=== PATIENT | female | born 1965 | race African-American/Black ===

== ENCOUNTER 2018-08-26 10:06 | Day surgery (SDC) | payer OTHER ==
[2018-08-22 13:03] LABS: Absolute Lymphocytes (CBC) 1.6 K/uL (0.7-4.9); Absolute Monocytes 0.4 K/uL (0.1-1.3); Absolute Neutrophil 6.7 K/uL (1.8-8.0); Basophils % 1.4 % (0-1.3); Eosinophils % 2.2 % (0-4.4); Hematocrit 32.8 % (36.0-45.0); Lymphocytes % 17.6 % (15.3-44.8); MPV 8.9 fL (7.6-11.3); Monocytes % 4.7 % (3.3-12.3); RBC Red Blood Cell Count 3.69 M/uL (3.86-4.86)
[2018-08-22 13:07] LABS: Potassium 3.7 mmol/L (3.5-5.1)
--- NOTE | 2018-08-23 07:02 | EKG ---
Test Date: 2018-08-22 Test Time: 12:41:02 Maritime Engineer: MAMIE MEASUREMENT RESULTS: Intervals: Rate: 52 AL: 170 QRSD: 86 QT: 478 QTc: 444 [place]: P: 48 AL: 170 QRS: 3 T: 32 INTERPRETIVE STATEMENTS: Sinus bradycardia Otherwise normal ECG Compared to ECG 09/17/2016 10:59:40 Sinus rhythm no longer present Electronically Signed On 08-23-18 06:53:48 DIP BRAZIER by Paras Smith
[2018-08-26] MEDS ORDERED: NS 0.9% VIAL 10 ML ONE (10:20)
[2018-08-26] MEDS ORDERED: LIDOCAINE 2% MPF 5 ML VIAL ONE ×2 (10:33→11:51)
[2018-08-26] MEDS ORDERED: BUPIVACAINE 0.25% PF 10 ML VIAL ONE (10:33)
[2018-08-26] MEDS ORDERED: TETRACAINE HCL 0.5% 2ML OPTH ONE (10:33)
[2018-08-26] MEDS ORDERED: CYCLOPENTOLATE 1% OPTH 2 ML ONE (10:33)
[2018-08-26] MEDS ORDERED: PHENYLEPHRINE 10% OPTH 5ML ONE (10:34)
[2018-08-26] MEDS ORDERED: NA CHLORIDE 0.9% 500 ML ONE (10:34)
[2018-08-26] MEDS: BALANCED SALT IRRIG PLAIN 500 ML BTL IRR ONE ×2 (11:16→12:03)
[2018-08-26] MEDS: DUOVISC 1 KIT OPTH ONE ×3 (11:17→12:10)
[2018-08-26] MEDS: EPINEPHRINE/PF 1 MG/ML AMP ONE ×2 (11:17→12:03)
[2018-08-26] MEDS: D50W 25 GM/50 ML SYRINGE IV ONE ×2 (11:22→13:05)
[2018-08-26] MEDS: MOXIFLOXACIN HCL 10 DROPS/ML **OR USE OPTH ONE ×3 (11:37→12:25)
[2018-08-26] MEDS ORDERED: PROPOFOL 200 MG/20 ML VIAL IV ONE (11:50)
[2018-08-26] MEDS ORDERED: FENTANYL CITR 100 MCG/2 ML ONE (11:50)
[2018-08-26] MEDS ORDERED: MIDAZOLAM HCL 2 MG/2 ML INJ ONE (11:51)
[2018-08-26] MEDS ORDERED: ONDANSETRON 4 MG/2 ML VIAL ONE (11:51)
[2018-08-26] MEDS ORDERED: ROCURONIUM 50 MG/5 ML VIAL IV ONE (11:52)
[2018-08-26] MEDS ORDERED: GLYCOPYRROLATE 0.2 MG/ML SYR ONE (11:53)
[2018-08-26] MEDS ORDERED: EPHEDRINE SULF 50 MG/ML VIAL ONE (12:28)
--- NOTE | 2018-08-26 12:30 | P.BOP ---
Preoperative diagnosis: Nuclear sclerotic and cortical cataract OD Postoperative diagnosis: Same Primary procedure: Phacoemulsification with IOL OD Estimated blood loss: None Anesthesia: General Complications: None Implants: [id number] +21.5 Transferred to: Recovery Room Condition: Good
[2018-08-26 12:42] VITALS: O2SAT 100
[2018-08-26] MEDS ORDERED: D50W 25 GM/50 ML SYRINGE IV ONE (13:01)
[2018-08-26 14:56] VITALS: BP 160/43
[2018-08-26 14:59] VITALS: TEMP 97.2
--- NOTE | 2018-08-26 23:13 | OP ---
Surgeon: Kenna Giles MD Anesthesiologist: Sarah Del Angel CRNA and Jorge Coleman MD. Preoperative Diagnoses: Nuclear sclerotic cataract and cortical cataract, right eye. Operation Performed: Phacoemulsification with intraocular lens implant, right eye. Anesthesia: General. Complications: None. Description Of Procedure: In the operating room the patient was prepped and draped in the usual ster ile fashion for ophthalmic surgery. A lid speculum was placed in the right. Two paracentesis sites were made superiorly and inferiorly in the limbal cornea. Viscoat was placed in the anterior chamber and a crescent blade was used to make a corneal groove and tunnel, and a keratome was used to enter the anterior chamber. Provisc was placed in the anterior chamber and a 360 degree capsulotomy was pe rformed with a cystitome. The lens was hydrodissected with BSS and rotated freely. The lens was rem wayne with a stop and chop technique. 2.20 phaco CDE was used to remove the lens. Residual cortex wa s removed with the irrigation and aspiration. Provisc was placed in the capsular bag. An SA60WF +21 .5 lens was placed in the capsular bag without complications. Irrigation and aspiration were used to remove residual viscoelastic. The paracentesis sites were hydrated with BSS. The wound and paracen tesis sites were inspected and found to be watertight. Vigamox 0.07 cc was placed intracamerally at the end of the procedure. The eye was irrigated with balanced salt solution. The eye was patched wi th a soft cotton patch and Ramirez metal shield. The patient was returned to day surgery in good condition. Comments: The lens was hydrodelineated rather than hydrodissected. Discharge Instructions: Ms. Guallpa is discharged to home in good condition and is to follow up with Padmini Giles in the morning. GREGORIA/PEDRO LUIS Voice ID: [id number] Report ID: [id number]
== END 2018-08-26 14:15 | disposition home or self-care (01) ==
LOC: OR 10:06
PROVIDERS: ATTEND Ophthalmology Retina Specialist
PROC: 08RJ3JZ Replacement of Right Lens with Synthetic Substitute, Percutaneous Approach (ICD-10-PCS; principal; 2018-08-26 10:30)
DX: H25.11 Age-related nuclear cataract, right eye (principal); H25.011 Cortical age-related cataract, right eye; E11.9 Type 2 diabetes mellitus without complications; I10 Essential (primary) hypertension; G47.33 Obstructive sleep apnea (adult) (pediatric); E78.00 Pure hypercholesterolemia, unspecified; Z99.2 Dependence on renal dialysis; Z83.511 Family history of glaucoma
CPT/HCPCS: 36415; 66984; 80048; 82962 ×4; 85025; 93005; J0171; J2250; J2405; J2704; J3010

== ENCOUNTER 2019-03-07 17:26 | Emergency (ER) | payer OTHER ==
[2019-03-07 18:51] LABS: Absolute Lymphocytes (CBC) 1.5 K/uL (0.7-4.9); Hematocrit 29.7 % (36.0-45.0); Lymphocytes % 13.4 % (15.3-44.8); MPV 9.3 fL (7.6-11.3); RBC Red Blood Cell Count 3.28 M/uL (3.86-4.86)
[2019-03-07 19:11] LABS: Albumin 3.1 g/dL (3.4-5.0); Bilirubin Total 0.5 mg/dL (0.2-1.0); Potassium 4.8 mmol/L (3.5-5.1); Protein, Total 7.3 g/dL (6.4-8.2)
[2019-03-07] MEDS ORDERED: LIDOCAINE 1% 20 ML MDV ONE (19:13)
--- NOTE | 2019-03-07 20:36 | ER ---
Nurse's Notes [facility] Name: Camila Guallpa Age: 53 yrs Sex: Female : 1965 Arrival Date: 03/07/2019 Time: 17:28 Bed 7 Private MD: Morteza Nicholson C Diagnosis: Cutaneous abscess of abdominal wall Presentation: 03/07 17:41 Presenting complaint: Mother states: She has an abscess on her abd that I noticed la1 today. It busted open today and blood was everywhere. Transition of care: patient was not received from another setting of care. Onset of symptoms was March 07, 2019. Risk Assessment: Do you want to hurt yourself or someone else? Patient reports no desire to harm self or others. Initial Sepsis Screen: Does the patient meet any 2 criteria? No. Patient's initial sepsis screen is negative. Does the patient have a suspected source of infection? No. Patient's initial sepsis screen is negative. Care prior to arrival: None. 17:41 Method Of Arrival: Wheelchair la1 17:41 Acuity: YANELIS 3 la1 Historical: - Allergies: 17:41 No Known Allergies; la1 - PMHx: 17:41 Hypertension; la1 17:42 Diabetes - IDDM; Dialysis; TTS; la1 - Immunization history:: Adult Immunizations up to date. - Social history:: Smoking status: unknown. - Ebola Screening: : No symptoms or risks identified at this time. Screenin:41 Abuse screen: Denies threats or abuse. Denies injuries from another. Nutritional jl7 screening: No deficits noted. Tuberculosis screening: No symptoms or risk factors identified. Fall Risk IV access (20 points). Total Clayton Fall Scale indicates No Risk (0-24 pts). Assessment: 18:20 General: Appears in no apparent distress. uncomfortable, Behavior is calm, cooperative, jl7 appropriate for age. Pain: Complains of pain in right lower quadrant. Neuro: Level of Consciousness is awake, alert, obeys commands, Oriented to person, place, time, situation. Cardiovascular: Patient's skin is warm and dry. Respiratory: Airway is patent Respiratory effort is even, unlabored, Respiratory pattern is regular, symmetrical. Derm: Skin is pink, warm \T\ dry. Abscess located on right lower quadrant is red. 19:01 Reassessment: Patient appears in no apparent distress at this time. Patient and/or aa1 family updated on plan of care and expected duration. Pain level reassessed. Patient is alert, oriented x 3, equal unlabored respirations, skin warm/dry/pink. Awaiting lab results. 20:05 Reassessment: Patient appears in no apparent distress at this time. Patient and/or aa1 family updated on plan of care and expected duration. Pain level reassessed. Patient is alert, oriented x 3, equal unlabored respirations, skin warm/dry/pink. Awaiting provider for I \T\ D. 20:50 Reassessment: Patient appears in no apparent distress at this time. Patient is alert, aa1 oriented x 3, equal unlabored respirations, skin warm/dry/pink. Discussed d/c \T\ f/u instructions with pt \T\ mother; denies questions or concerns at this time. Vital Signs: 17:42 Weight 133.81 kg; la1 17:44 Pulse 64; Resp 16; Temp 97.5; Pulse Ox 98% on R/A; la1 17:45 BP 139 / 48; la1 19:01 BP 154 / 79; Pulse 58; Resp 18; Temp 97.0; Pulse Ox 100% on R/A; aa1 20:30 BP 157 / 85; Pulse 78; Resp 18; Temp 97.1; Pulse Ox 100% on R/A; aa1 ED Course: 17:28 Patient arrived in ED. as 17:29 Morteza Nicholson MD is Private Physician. as 17:42 Triage completed. la1 17:42 Arm band placed on left wrist. ks1 17:46 Aaron Lama PA is PHCP. [facility] 17:46 Steve Weir MD is Attending Physician. [facility] 18:01 Phoenix Rice RN is Primary Nurse. jl7 18:20 First set of blood cultures drawn. Missed attempt(s): 22 gauge in right hand. Bleeding jl7 controlled, band aid applied, catheter tip intact. 18:40 Inserted saline lock: 24 gauge in right hand, using aseptic technique. Blood collected. jl7 18:40 Initial lab(s) drawn, by id, sent to lab. Second set of blood cultures drawn by me. jl7 18:41 Patient has correct armband on for positive identification. Placed in gown. Bed in low jl7 position. Call light in reach. Side rails up X2. Adult w/ patient. 20:35 Mil Silva MD is Referral Physician. [facility] 20:35 Assist provider with I \T\ D: of an abscess on lower abdomen Set up I\T\D tray. Performed aa 1 by Aaron KHAN Dressing with ABD pad, tape Patient tolerated well. 20:52 IV discontinued, intact, bleeding controlled, No redness/swelling at site. Pressure aa1 dressing applied. Administered Medications: 20:25 Drug: Lidocaine (1 %) 20 ml Volume: 20 ml; Route: Infiltration; aa1 20:40 Drug: Clindamycin 300 mg Route: PO; aa1 20:52 Follow up: Response: No adverse reaction; Medication administered at discharge. aa1 Outcome: 20:36 Discharge ordered by . [facility] 21:04 Discharged to home via wheelchair, with family. aa1 21:04 Condition: good 21:04 Discharge instructions given to patient, family, Instructed on discharge instructions, follow up and referral plans. medication usage, Demonstrated understanding of instructions, follow-up care, medications, wound care, Prescriptions given X 1. 21:05 Patient left the ED. aa1 Signatures: Rima Vaughan RN RN leslie1 Aaron Lama PA PA jmm Martinez, Amelia as Attema, Lee, RN RN la1 Phoenix Rice RN RN jl7 Corrections: (The following items were deleted from the chart) 17:42 17:41 PMHx: Diabetes - NIDDM; la1 la1 17:42 17:41 PMHx: Renal Problem; la1 la1
--- NOTE | 2019-03-07 20:36 | EDPHYS ---
Physician Documentation [facility] Name: Camila Guallpa Age: 53 yrs Sex: Female : 1965 Arrival Date: 03/07/2019 Time: 17:28 Bed 7 Private MD: Morteza Nicholson C ED Physician Steve Weir HPI: 03/07 17:57 This 53 yrs old Black Female presents to ER via Wheelchair with complaints of Boil. jmm 17:57 The patient presents with an abscess of the abdomen. Onset: The symptoms/episode jmm began/occurred today. Possible cause(s): unknown. This is a 53 year old female with a history of htn, dm, esrd that presents to the ED with bleeding from her right lower abdomen. Family noticed an abscess earlier today which ruptured later in the day. Concerned about bleeding. . Historical: - Allergies: 17:41 No Known Allergies; la1 - PMHx: 17:41 Hypertension; la1 17:42 Diabetes - IDDM; Dialysis; TTS; la1 - Immunization history:: Adult Immunizations up to date. - Social history:: Smoking status: unknown. - Ebola Screening: : No symptoms or risks identified at this time. ROS: 17:57 Constitutional: Negative for fever, chills, and weight loss, Cardiovascular: Negative jmm for chest pain, palpitations, and edema, Respiratory: Negative for shortness of breath, cough, wheezing, and pleuritic chest pain. 17:57 Abdomen/GI: Positive for Negative for abdominal pain, nausea and vomiting, vomiting. 17:57 Skin: Positive for abscess. 17:57 All other systems are negative. Exam: 17:57 Constitutional: This is a well developed, well nourished patient who is awake, alert, jmm and in no acute distress. Head/Face: atraumatic. Eyes: EOMI, no conjunctival erythema appreciated ENT: Moist Mucus Membranes Neck: Trachea midline, Supple Chest/axilla: Normal chest wall appearance and motion. Cardiovascular: Regular rate and rhythm. No edema appreciated Respiratory: Normal respirations, no respiratory distress appreciated 17:57 Abdomen/GI: Inspection: obese draining abscess noted beneath the right lower panis . 17:57 Skin: draining abscess noted to the right lower abscess. 17:57 Neuro: Orientation: is normal, Mentation: is normal, Memory: is normal. 17:57 Psych: Behavior/mood is pleasant, cooperative. Vital Signs: 17:42 Weight 133.81 kg; la1 17:44 Pulse 64; Resp 16; Temp 97.5; Pulse Ox 98% on R/A; la1 17:45 BP 139 / 48; la1 19:01 BP 154 / 79; Pulse 58; Resp 18; Temp 97.0; Pulse Ox 100% on R/A; aa1 20:30 BP 157 / 85; Pulse 78; Resp 18; Temp 97.1; Pulse Ox 100% on R/A; aa1 Procedures: 20:34 I \T\ D: Incision and drainage was performed for an abscess of the right lower quadrant jm Prepped with Betadine, Anesthetized with 5 ml's 1% Lidocaine. Incised with #11 blade. Drained small amount purulent fluid. bloody fluid. Packed with iodoform gauze, Dressing: sterile 4x4 gauze, the patient tolerated the procedure well. MDM: 17:57 Patient medically screened. [facility] 20:34 Data reviewed: vital signs, nurses notes. Counseling: I had a detailed discussion with [facility] the patient and/or guardian regarding: the historical points, exam findings, and any diagnostic results supporting the discharge/admit diagnosis, lab results, the need for outpatient follow up, to return to the emergency department if symptoms worsen or persist or if there are any questions or concerns that arise at home. ED course: Patient given wound infection return precautions. Family understood and agrees with the plan of care. . 03/07 17:58 Order name: CBC with Diff; Complete Time: 18:59 [facility] 03/07 17:58 Order name: CMP; Complete Time: 19:18 [facility] 03/07 17:58 Order name: Lactate; Complete Time: 19:02 [facility] 03/07 17:58 Order name: Procalcitonin; Complete Time: 19:18 [facility] 03/07 17:58 Order name: Blood Culture Adult (2) [facility] 03/07 17:58 Order name: Saline Lock; Complete Time: 18:39 [facility] 03/07 17:58 Order name: Gown patient; Complete Time: 18:17 [facility] Administered Medications: 20:25 Drug: Lidocaine (1 %) 20 ml Volume: 20 ml; Route: Infiltration; aa1 20:40 Drug: Clindamycin 300 mg Route: PO; aa1 20:52 Follow up: Response: No adverse reaction; Medication administered at discharge. aa1 Disposition: 03/07/19 20:36 Discharged to Home. Impression: Cutaneous abscess of abdominal wall. - Condition is Stable. - Discharge Instructions: Skin Abscess, Incision and Drainage, Care After. - Prescriptions for Clindamycin HCl 300 mg Oral Capsule - take 1 capsule by ORAL route every 6 hours for 10 days; 40 capsule. - Medication Reconciliation Form, Thank You Letter, Antibiotic Education, Prescription Opioid Use form. - Follow up: Mil Silva MD; When: 2 - 3 days; Reason: Recheck today's complaints, Continuance of care, Re-evaluation by your physician. Addendum: 03/10/2019 07:20 Co-signature as Attending Physician, Steve Weir MD. r n Signatures: Dispatcher [employer] EDMS Rima Vaughan RN RN aa1 Aaron Lama PA PA jmm Nieto, Roman, MD MD rn Attema, Lee, RN RN la1 Corrections: (The following items were deleted from the chart) 03/07 17:42 17:41 PMHx: Diabetes - NIDDM; la1 la1 17:42 17:41 PMHx: Renal Problem; la1 la1 21:05 20:36 03/07/2019 20:36 Discharged to Home. Impression: Cutaneous abscess of abdominal aa1 wall. Condition is Stable. Forms are Medication Reconciliation Form, Thank You Letter, Antibiotic Education, Prescription Opioid Use. Follow up: Mil Silva; When: 2 - 3 days; Reason: Recheck today's complaints, Continuance of care, Re-evaluation by your physician. [facility]
[2019-03-07 21:41] VITALS: O2SAT 100
[2019-03-07 21:43] VITALS: BP 157/85; TEMP 97.1
== END 2019-03-07 21:05 | disposition home or self-care (01) ==
LOC: ER 17:26
PROC: 0J980ZZ Drainage of Abdomen Subcutaneous Tissue and Fascia, Open Approach (ICD-10-PCS; principal; 2019-03-07)
DX: L02.211 Cutaneous abscess of abdominal wall (principal); E11.22 Type 2 diabetes mellitus with diabetic chronic kidney disease; I12.0 Hypertensive chronic kidney disease with stage 5 chronic kidney disease or end stage renal disease; N18.6 End stage renal disease; Z99.2 Dependence on renal dialysis
CPT/HCPCS: 36415; 80053; 82962; 83605; 84145; 85025; 87040; 99284

== ENCOUNTER 2020-02-21 09:05 | Inpatient (IN) | payer OTHER ==
[2020-02-21] MEDS ORDERED: IBUPROFEN 200 MG TAB PO ONE (10:14)
[2020-02-21] MEDS ORDERED: METHYLPREDNISOLONE 125 MG INJ ONE (10:14)
[2020-02-21] MEDS ORDERED: NA CHLORIDE 0.9% 250 ML ONE (10:15)
[2020-02-21] MEDS ORDERED: IBUPROFEN 400 MG TAB ONE (10:15)
[2020-02-21] MEDS ORDERED: CEFTRIAXONE/SWI 1gm 1 GM/10 ML SYR ONE (10:15)
[2020-02-21] MEDS ORDERED: AZITHROMYCIN 500 MG INJ IVPB ONE (10:15)
[2020-02-21] MEDS ORDERED: ONDANSETRON 4 MG/2 ML VIAL ONE (10:31)
[2020-02-21 10:52] LABS: Absolute Lymphocytes (CBC) 0.7 K/uL (0.7-4.9); Basophils % 0.5 % (0-1.3); Hematocrit 32.5 % (36.0-45.0); Lymphocytes % 7.5 % (15.3-44.8); MPV 9.8 fL (7.6-11.3); RBC Red Blood Cell Count 3.61 M/uL (3.86-4.86)
--- NOTE | 2020-02-21 10:52 | ER ---
Nurse's Notes [facility] Name: Camila Guallpa Age: 54 yrs Sex: Female : 1965 Arrival Date: 02/21/2020 Time: 09:06 Bed 16 Private MD: Diagnosis: Pneumonia due to other specified bacteria Presentation: 02/20 09:04 Initial Sepsis Screen: Does the patient meet any 2 criteria? RR > 20 per min. Temp sv <36.0*C (96.8*F)) or > 38.3*C (100.9*F). Yes Does the patient have a suspected source of infection? Yes: Other: fever. Onset of symptoms was February 17, 2020. 09:08 Chief complaint: EMS states: SOB, cough, fever, bloody sputum and generalized weakness ss that began "a couple days ago". Coronavirus screen: Client denies travel out of the [place] in the last 14 days. cough unrelated to allergies, difficulty breathing, fever, shortness of breath. Ebola Screen: Patient denies exposure to infectious person. Patient denies travel to an Ebola-affected area in the 21 days before illness onset. Risk Assessment: Do you want to hurt yourself or someone else? Patient reports no desire to harm self or others. 09:08 Method Of Arrival: EMS: [facility] ss 09:08 Acuity: YANELIS 3 ss Triage Assessment: 09:04 General: Appears in no apparent distress. uncomfortable, obese, well developed, sv Behavior is calm, cooperative, appropriate for age. Pain: Complains of pain in abdomen. Neuro: Level of Consciousness is awake, alert, obeys commands, Oriented to person, place, time, situation, Moves all extremities. Full function. Cardiovascular: Patient's skin is warm and dry. Pulses are palpable in right radial artery and left radial artery. Respiratory: Reports shortness of breath at rest on exertion cough that is non-productive, Airway is patent Respiratory effort is even, unlabored, Respiratory pattern is symmetrical, tachypnea Onset: The symptoms/episode began/occurred 02/17/20, the patient has mild shortness of breath. Derm: Skin is normal, Skin temperature is hot. Musculoskeletal: Range of motion: intact in all extremities. Historical: - Allergies: : No Known Allergies; sv - PMHx: 09:08 Diabetes - IDDM; Dialysis; TTS; Hypertension; ss - Immunization history:: Adult Immunizations. - Social history:: Smoking status: . Screenin:41 Abuse screen: Denies threats or abuse. Denies injuries from another. Nutritional sv screening: No deficits noted. Tuberculosis screening: No symptoms or risk factors identified. Fall Risk None identified. Assessment: 10:05 Reassessment: Patient appears in no apparent distress at this time. No changes from sv previously documented assessment. Patient and/or family updated on plan of care and expected duration. Pain level reassessed. Patient is alert, oriented x 3, equal unlabored respirations, skin warm/dry/pink. 10:35 Reassessment: Patient appears in no apparent distress at this time. No changes from sv previously documented assessment. Patient and/or family updated on plan of care and expected duration. Pain level reassessed. Patient is alert, oriented x 3, equal unlabored respirations, skin warm/dry/pink. 10:37 Reassessment: Dr Nicholson here to assess the pt. sv 10:38 Reassessment: Fabi (mother) [phone]. Mother stated pt's symptoms started Tues sv 02/16/ with fever Tmax 102.8 and cough. Vital Signs: 09:04 BP 161 / 72; Pulse 86; Resp 24; Temp 101.2; Pulse Ox 100% ; sv 10:49 BP 189 / 86; Pulse 91; Resp 20; Pulse Ox 100% on R/A; sv 11:43 BP 175 / 81; Pulse 87; Resp 19; Pulse Ox 100% on R/A; sv 12:06 Temp 100.4(O); sv ED Course: 09:06 Patient arrived in ED. sv 09:06 Lucila Woodard, ANEL is Primary Nurse. sv 09:07 Rk Michele PA is PHCP. jr8 09:07 Nahum Braxton MD is Attending Physician. jr8 09:08 Arm band placed on right wrist. ss 09:09 Triage completed. ss 09:22 X-ray(s) taken. sv 09:35 Chest Single View XRAY In Process Unspecified. EDMS 09:50 Patient has correct armband on for positive identification. Placed in gown. Bed in low sv position. Call light in reach. Side rails up X2. secured entrance monitor on. Pulse ox on. NIBP on. Door closed. Head of bed elevated. 09:50 First set of blood cultures drawn by me. sv 09:58 Second set of blood cultures drawn by me. Inserted saline lock: 20 gauge in right sv forearm, using aseptic technique. Blood collected. Flushed right forearm with 5 ml normal saline. 10:10 EKG done, by ED staff, reviewed by Rk KHAN. sv 10:46 C-Reactive Protein Sent. sv 10:46 D-Dimer Sent. sv 10:46 Basic Metabolic Panel Sent. sv 10:50 Awaiting lab results, Awaiting radiology results. sv 10:50 Morteza Nicholson MD is Hospitalizing Provider. jr8 11:20 Lab(s) recollected, by me, sent to lab. sv 11:42 No provider procedures requiring assistance completed. Patient admitted, IV remains in sv place. intact. Administered Medications: 10:05 Drug: Rocephin 1 grams Route: IV; Rate: calculated rate; Site: right forearm; sv 10:07 Follow up: Response: No adverse reaction; IV Status: Completed infusion; IV Intake: 10mlsv 10:07 Drug: SOLU-Medrol 125 mg Route: IVP; Site: right forearm; sv 11:36 Follow up: Response: No adverse reaction sv 10:09 Drug: Zithromax 500 mg Route: IVPB; Infused Over: 1 hrs; Site: right forearm; sv 11:36 Follow up: Response: No adverse reaction; IV Status: Completed infusion; IV Intake: sv 250ml 10:10 Drug: Motrin 600 mg Route: PO; sv 11:35 Follow up: Response: No adverse reaction sv Intake: 10:07 IV: 10ml; Total: 10ml. sv 11:36 IV: 250ml; Total: 260ml. sv Outcome: 10:51 Decision to Hospitalize by Provider. jrBrisa 11:42 Admitted to Tele accompanied by tech, via stretcher, room 401, with chart, Report sv called to Alex TAM 11:42 Condition: stable 11:42 Instructed on the need for admit. 12:05 Patient left the ED. sv Signatures: Dispatcher [employer] Lucila Harry RN RN sv Smirch, Shelby, RN RN ss Roszak, Josh, PA PA jr8 Corrections: (The following items were deleted from the chart) 09:10 09:08 Chief complaint: EMS states: SOB, cough, fever, bloody sputum and generalized ss weakness ss 10:44 10:38 Reassessment: Fabi (mother) [phone] sv sv
--- NOTE | 2020-02-21 10:52 | EDPHYS ---
Physician Documentation [facility] Name: Camila Guallpa Age: 54 yrs Sex: Female : 1965 Arrival Date: 02/21/2020 Time: 09:06 Bed 16 Private MD: ED Physician Nahum Braxton HPI: 02/20 10:17 This 54 yrs old Black Female presents to ER via EMS with complaints of General jr8 Weakness, Cough, Shortness Of Breath, Fever. 10:17 The patient reports fever, with an emergency department temperature of 101 degrees jr8 Fahrenheit. Onset: The symptoms/episode began/occurred gradually, 2 day(s) ago. Modifying factors: there are no obvious modifying factors. Associated signs and symptoms: Pertinent positives: cough, nausea, shortness of breath, sore throat. Severity of symptoms: At their worst the symptoms were moderate in the emergency department the symptoms are unchanged. The patient has not experienced similar symptoms in the past. The patient has not recently seen a physician. Patient stated that she has had a couple of days of this and now having shortness of breath with fever. COVID tested yesterday but does not have results yet . Historical: - Allergies: 09:30 No Known Allergies; sv - PMHx: 09:08 Diabetes - IDDM; Dialysis; TTS; Hypertension; ss - Immunization history:: Adult Immunizations. - Social history:: Smoking status: . ROS: 10:17 Eyes: Negative for injury, pain, redness, and discharge, ENT: Negative for injury, or jr8 discharge. Positive for sore throat Neck: Negative for injury, pain, and swelling, Cardiovascular: Negative for chest pain, palpitations, and edema, Abdomen/GI: Negative for abdominal pain. Positive for nausea and vomiting Back: Negative for injury and pain, MS/Extremity: Negative for injury and deformity, Skin: Negative for injury, rash, and discoloration, Neuro: Negative for headache, weakness, numbness, tingling, and seizure. 10:17 Constitutional: Positive for body aches, chills, fever. 10:17 Respiratory: Positive for cough, dyspnea on exertion, shortness of breath. Exam: 10:17 Eyes: Pupils equal round and reactive to light, extra-ocular motions intact. Lids and jr8 lashes normal. Conjunctiva and sclera are non-icteric and not injected. Cornea within normal limits. Periorbital areas with no swelling, redness, or edema. ENT: Nares patent. No nasal discharge, no septal abnormalities noted. Tympanic membranes are normal and external auditory canals are clear. Oropharynx with no redness, swelling, or masses, exudates, or evidence of obstruction, uvula midline. Mucous membranes moist. Neck: Trachea midline, no thyromegaly or masses palpated, and no cervical lymphadenopathy. Supple, full range of motion without nuchal rigidity, or vertebral point tenderness. No Meningismus. Cardiovascular: Regular rate and rhythm with a normal S1 and S2. No gallops, murmurs, or rubs. Normal PMI, no JVD. No pulse deficits. Back: No spinal tenderness. No costovertebral tenderness. Full range of motion. Skin: Warm, dry with normal turgor. Normal color with no rashes, no lesions, and no evidence of cellulitis. MS/ Extremity: Pulses equal, no cyanosis. Neurovascular intact. Full, normal range of motion. Neuro: Awake and alert, GCS 15, oriented to person, place, time, and situation. Cranial nerves II-XII grossly intact. Motor strength 5/5 in all extremities. Sensory grossly intact. Cerebellar exam normal. Normal gait. 10:17 Respiratory: the patient does not display signs of respiratory distress, Respirations: tachypnea, that is mild, Breath sounds: are clear throughout. 10:17 Abdomen/GI: Inspection: obese Bowel sounds: active, all quadrants, Palpation: soft, in all quadrants, mild abdominal tenderness, in the epigastric area, mass, is not appreciated, rebound tenderness, is elicited in all quadrants, voluntary guarding, is not appreciated, involuntary guarding, is not appreciated, no appreciated organomegaly, Indicators: McBurney's point is not tender, Marcum's sign is negative, Rovsing's sign is negative, Liver: tenderness, is not appreciated. Vital Signs: 09:04 BP 161 / 72; Pulse 86; Resp 24; Temp 101.2; Pulse Ox 100% ; sv 10:49 BP 189 / 86; Pulse 91; Resp 20; Pulse Ox 100% on R/A; sv 11:43 BP 175 / 81; Pulse 87; Resp 19; Pulse Ox 100% on R/A; sv 12:06 Temp 100.4(O); sv MDM: 09:07 Patient medically screened. [facility] 10:50 Data reviewed: vital signs, nurses notes, lab test result(s), EKG, radiologic studies, [facility] plain films. Data interpreted: Pulse oximetry: on room air is 97 %. Interpretation: normal. Counseling: I had a detailed discussion with the patient and/or guardian regarding: the historical points, exam findings, and any diagnostic results supporting the discharge/admit diagnosis, lab results, radiology results, the need for further work-up and treatment in the hospital. Physician consultation: A Lyn PATTERSON was called at 10:50, was contacted at 10:50, regarding admission, and will see patient in ED. 02/20 09:12 Order name: C-Reactive Protein [facility] 02/20 09:12 Order name: D-Dimer [facility] 02/20 09:12 Order name: Basic Metabolic Panel [facility] 02/20 09:12 Order name: Blood Culture Adult (2) [facility] 02/20 09:12 Order name: CBC with Diff; Complete Time: 13:14 [facility] 02/20 09:12 Order name: CPK; Complete Time: 13:14 [facility] 02/20 09:12 Order name: Lactate; Complete Time: 11:51 [facility] 02/20 09:12 Order name: LFT's; Complete Time: 13:14 [facility] 02/20 09:12 Order name: Procalcitonin; Complete Time: 13:14 [facility] 02/20 09:12 Order name: Protime (+inr); Complete Time: 12:02 [facility] 02/20 09:12 Order name: Ptt, Activated; Complete Time: 12:02 [facility] 02/20 09:12 Order name: Troponin (emerg Dept Use Only); Complete Time: 13:14 [facility] 02/20 09:12 Order name: Ferritin; Complete Time: 13:14 [facility] 02/20 09:13 Order name: C-Reactive Protein; Complete Time: 13:14 ED[facility] 02/20 09:12 Order name: Chest Single View XRAY; Complete Time: 11:07 [facility] 02/20 09:12 Order name: Cardiac monitoring; Complete Time: 10:45 [facility] 02/20 09:12 Order name: EKG - Nurse/Tech; Complete Time: 10:45 [facility] 02/20 09:12 Order name: IV Saline Lock - Large Bore; Complete Time: 10:45 [facility] 02/20 09:12 Order name: Labs collected and sent; Complete Time: 10:45 [facility] 02/20 09:12 Order name: O2 Per Protocol; Complete Time: 10:45 [facility] 02/20 09:12 Order name: O2 Sat Monitoring; Complete Time: 10:45 [facility] 02/20 09:13 Order name: D-Dimer; Complete Time: 12:02 [facility] 02/20 09:13 Order name: Basic Metabolic Panel; Complete Time: 13:14 EDNM 02/20 10:39 Order name: CONS Physician Consult EDNM 02/20 10:57 Order name: Labs - recollect needed: recollect the green and blue top.; Complete Time: eb 11:35 Administered Medications: 10:05 Drug: Rocephin 1 grams Route: IV; Rate: calculated rate; Site: right forearm; sv 10:07 Follow up: Response: No adverse reaction; IV Status: Completed infusion; IV Intake: 10mlsv 10:07 Drug: SOLU-Medrol 125 mg Route: IVP; Site: right forearm; sv 11:36 Follow up: Response: No adverse reaction sv 10:09 Drug: Zithromax 500 mg Route: IVPB; Infused Over: 1 hrs; Site: right forearm; sv 11:36 Follow up: Response: No adverse reaction; IV Status: Completed infusion; IV Intake: sv 250ml 10:10 Drug: Motrin 600 mg Route: PO; sv 11:35 Follow up: Response: No adverse reaction sv Disposition: 12:25 Co-signature as Attending Physician, Nahum Braxton MD I agree with the assessment and kdr plan of care. Disposition: 02/21/20 10:51 Hospitalization ordered by Morteza Nicholson for Inpatient Admission. Preliminary diagnosis is Pneumonia due to other specified bacteria. - Bed requested for Telemetry/MedSurg (Inpatient). - Status is Inpatient Admission. sv - Condition is Stable. - Problem is new. - Symptoms have improved. Signatures: Dispatcher [employer] EDLucila Locke RN RN sv Woody, Diana, RN RN dw Rittger, Kevin, MD MD kdr Smirch, Shelby, RN RN ss Roszak, Josh, PA PA [facility] Marilee Booth Corrections: (The following items were deleted from the chart) 10:45 09:12 Accucheck ordered. jr8 sv 11:06 10:51 Hospitalization Ordered by A Lyn PATTERSON for Inpatient Admission. Preliminary dw diagnosis is Pneumonia due to other specified bacteria. Bed requested for Telemetry/MedSurg (Inpatient). Status is Inpatient Admission. Condition is Stable. Problem is new. Symptoms have improved. jr8 12:05 11:06 02/21/2020 10:51 Hospitalization Ordered by A Lyn PATTERSON for Inpatient Admission. sv Preliminary diagnosis is Pneumonia due to other specified bacteria. Bed requested for Telemetry/MedSurg (Inpatient). Status is Inpatient Admission. Condition is Stable. Problem is new. Symptoms have improved. dw
--- NOTE | 2020-02-21 11:06 | RAD REPORT ---
EXAM DESCRIPTION: RAD - Chest Single View - 02/21/2020 9:35 am CLINICAL HISTORY: DYSPNEA Chest pain. COMPARISON: Chest Pa And Lat (2 Views) dated 02/12/2017; Chest Pa And Lat (2 Views) dated 09/17/2016; CHEST SINGLE VIEW dated 10/03/2011 FINDINGS: Portable technique limits examination quality. Asymmetric interstitial lung opacities are present, slightly greater on the right, likely representin g interstitial pneumonia/ viral pneumonitis. The heart is mildly enlarged size. No displaced fracture s.
[2020-02-21 11:43] LABS: Protime INR 1.1
[2020-02-21 12:27] LABS: Anisocytosis 1+; Blood Morphology Comment NOTED (NOT SEEN); Platelet Estimate ADEQ; Platelets, Giant PRESENT
[2020-02-21 12:28] LABS: Albumin 2.6 g/dL (3.4-5.0); Bilirubin Direct 0.2 mg/dL (0-0.2); Bilirubin Total 0.5 mg/dL (0.2-1.0); Ferritin 6713.9 ng/mL (8-388); Potassium 4.1 mmol/L (3.5-5.1); Protein, Total 7.7 g/dL (6.4-8.2); Troponin (Emerg Dept Use Only) 0.32 ng/mL (0.0-0.045)
[2020-02-21] MEDS ORDERED: ACETAMINOPHEN 500 MG TAB PO PRN (12:45)
[2020-02-21] MEDS ORDERED: ALBUTEROL 2.5 MG/3 ML NEB SOL NEB PRN (12:45)
[2020-02-21] MEDS ORDERED: D50W 25 GM/50 ML SYRINGE/VIAL IV PRN ×2 (12:45→18:53)
[2020-02-21] MEDS ORDERED: MORPHINE 4 MG/ML SYR IV PRN (12:45)
[2020-02-21] MEDS: INSULIN -REGULAR HUMAN 50 UNIT/0.5 ML ML SQ SCH ×3 (12:45→21:00)
[2020-02-21] MEDS ORDERED: ONDANSETRON 4 MG/2 ML VIAL IV PRN (12:45)
[2020-02-21] MEDS ORDERED: GLUCAGON 1 MG/VIAL IM PRN ×2 (12:45→18:53)
[2020-02-21 15:27] VITALS: BMI 54.8
[2020-02-21] MEDS: CLONIDINE HCL 0.3 MG TAB PO SCH ×2 (17:00→21:15)
[2020-02-21] MEDS ORDERED: HEPARIN 5000 UNIT/ML 1 ML VIAL SQ SCH (21:00)
[2020-02-21] MEDS ORDERED: METHYLPREDNISOLONE 40 MG INJ IV SCH ×2 (21:00)
[2020-02-21] MEDS ORDERED: INSULIN GLARGINE 100 UNITS/ML SQ SCH (21:00)
[2020-02-21] MEDS: FUROSEMIDE 40 MG TABLET PO SCH (21:14)
[2020-02-21] MEDS: DOXAZOSIN 2 MG TAB PO SCH (21:14)
[2020-02-21] MEDS: ATORVASTATIN 10 MG TAB PO SCH (21:15)
[2020-02-21] MEDS: METOPROLOL TAR 50 MG TAB PO SCH (21:16)
--- NOTE | 2020-02-22 01:21 | HP ---
Date of Admission: 02/21/2020 Chief Complaint: Fever, cough. History Of Present Illness: Ms. Guallpa is a very pleasant 54-year-old female patient, who has end-sta ge renal disease on hemodialysis, started to have some dry cough, fever, headache this week. Denied any shortness of breath. She has not had a good appetite in last few days. No vomiting. No diarrhe a. Denied any exposure to COVID-19 patients. She lives at home with her mother. I talked to alondra quintanilla and her mother, both on 02/18/2020 via TeleVisit and suggested for her to have COVID-19 test done, which was done as outpatient yesterday at our hospital and today the patient was brought into the cl ency room because her temperature was 101.8 to 102 range and she was not feeling good, so family de cided to bring her to ER. I saw her in the emergency room this morning and talked to the patient's m other on the phone from emergency room this morning. Social History: Negative for smoking, alcohol use. Family History: Father , had colon cancer. Mother with arthritis, hypertension. Past Surgical History: Cataract surgery. Past Medical History: Diabetic retinopathy, diabetes mellitus with kidney disease, obstructive sleep apnea, end-stage renal disease on hemodialysis, mixed hyperlipidemia, hypertension, anemia due to ch ronic kidney disease. Review of Systems: Constitutional: Significant for fever. Respiratory System: Significant for cough. Neurologic System: Significant for headache. All other systems reviewed and negative. Allergies: NO KNOWN ALLERGIES. Medications: Aspirin 81 mg daily, vitamin D3 2000 units daily, clonidine 0.3 mg 3 times a day, doxaz osin 2 mg at bedtime, furosemide 80 mg takes 2 tablets 2 times a day, Lantus insulin daily, Humalog i nsulin as per instruction from her nursing department chairperson, metoprolol tartrate 100 mg 2 times a day, nifedip ine 90 mg daily, pravastatin 80 mg daily, ramipril 10 mg daily. Physical Examination: Vital Signs: Initial temperature 100.4, pulse 91, respiratory rate 20, blood pressure 189/86, oxygen saturation 100%. General: Awake, alert, oriented, not in distress. HEENT: Head atraumatic, normocephalic. Conjunctivae nonerythematous. Sclerae white. Mouth, no thr ush or edema noted. Ears/Nose, no mass, lesion, discharge noted. Neck: Supple. No JVD, lymph nodes, bruit, thyromegaly noted. Lungs: Some rales noted in right lung. Not using any accessory muscles of respiration. Heart: Normal heart sounds. No murmur or gallop. Abdomen: Soft. Bowel sounds normal. No guarding, rigidity, tenderness, mass, hepatosplenomegaly, d istention, or bruit noted. Extremities: No leg edema. No calf tenderness. Skin: No rash, ulcer, cellulitis. Lymphatics: No lymph node enlargement in neck, supraclavicular, infraclavicular region. Neuro: No focal neurological deficit. Chest: Unremarkable. External Genitalia: Deferred. Rectal: Deferred. Laboratory Data: White count 9.1, hemoglobin 11.3, platelets 202. D-dimer 2418. INR 1.10. Sodium 137, potassium 4.1, chloride 103, bicarb 20, BUN 65, creatinine 10.4, glucose 218. Ferritin level 67 13. CRP 258. Liver function tests unremarkable. Procalcitonin 28. Lactic acid 1.4. Chest x-ray s howed asymmetric interstitial lung opacity present, slightly greater on the right than the left side. The patient's COVID-19 test came back positive after she was admitted to the hospital. Impression: 1.COVID-19 with pneumonia. 2.End-stage renal disease, on hemodialysis. 3.Hypertension. 4.Mixed hyperlipidemia. 5.Anemia due to chronic kidney disease. 6.Diabetes mellitus with diabetic retinopathy. 7.Obstructive sleep apnea. Plan: Admit the patient to hospital for further evaluation and management of this problem. The [facility] ent is appropriate for inpatient and is expected to spend 2 midnights in the hospital. We will go ah ead and consult feeder catcher, consult eradicator. The patient will receive IV antibiotics, Zithro max and ceftriaxone. She will also receive IV steroid. We will monitor blood pressure and give anti hypertensive medication per order. We will also give heparin 5000 units subcutaneous injection every 12 hours. Monitor diabetes with insulin sliding scale and Lantus insulin, and details and plan of t reatment discussed with the patient's mother and the patient. Also talked to the patient's mother re garding her advanced directive and as per her decision, the patient is full code. PURNIMA/MODL Voice ID: [id number]
[2020-02-22 07:13] LABS: Absolute Lymphocytes (CBC) 0.8 K/uL (0.7-4.9); Basophils % 0.3 % (0-1.3); Hematocrit 33.7 % (36.0-45.0); Lymphocytes % 7.7 % (15.3-44.8); MPV 10.5 fL (7.6-11.3); RBC Red Blood Cell Count 3.73 M/uL (3.86-4.86)
[2020-02-22 07:40] LABS: Potassium 3.9 mmol/L (3.5-5.1)
[2020-02-22] MEDS: INSULIN -REGULAR HUMAN 50 UNIT/0.5 ML ML SQ SCH ×4 (08:44→22:03)
[2020-02-22] MEDS: METOPROLOL TAR 50 MG TAB PO SCH ×2 (08:45→21:42)
[2020-02-22] MEDS: FUROSEMIDE 40 MG TABLET PO SCH ×2 (08:45→21:41)
[2020-02-22] MEDS: NIFEDIPINE XL 90 MG TABLET PO SCH (08:45)
[2020-02-22] MEDS: ASPIRIN EC 81 MG TAB PO SCH (08:45)
[2020-02-22] MEDS: CLONIDINE HCL 0.3 MG TAB PO SCH ×2 (08:46→14:02)
[2020-02-22] MEDS ORDERED: D50W 25 GM/50 ML SYRINGE/VIAL IV PRN (08:46)
[2020-02-22] MEDS: CEFTRIAXONE/SWI 1gm 1 GM/10 ML SYR IVP SCH (08:46)
[2020-02-22] MEDS ORDERED: GLUCAGON 1 MG/VIAL IM PRN (08:46)
[2020-02-22] MEDS: APIXABAN 5 MG TABLET PO SCH ×2 (08:56→21:42)
[2020-02-22] MEDS: ASCORBIC ACID 500 MG TABLET PO SCH ×3 (08:56→21:44)
[2020-02-22] MEDS: ramipriL 5 MG CAP PO SCH (08:56)
[2020-02-22] MEDS ORDERED: INSULIN GLARGINE 100 UNITS/ML SQ SCH ×2 (09:00→21:00)
[2020-02-22] MEDS: METHYLPREDNISOLONE 40 MG INJ IV SCH ×2 (09:00→21:43)
[2020-02-22] MEDS ORDERED: AZITHROMYCIN IV 250 MG in NA CHLORIDE 0.9% 250 ML IVPB SCH (09:00)
--- NOTE | 2020-02-22 10:29 | P.CNS ---
Date of Consult: 02/22/20 Reason for Consult: [place] virus infection Chief Complaint: Fever cough shortness of breath History of Present Illness: Patient is 54 years of age admitted with fever cough shortness of breath patient has chronic renal failure saturation satisfactory CRP levels of very high currently doing fine on room air Allergies No Known Allergies Allergy (Uncoded 08/22/18 12:08) Unknown Home Medications: Furosemide [Lasix] 80 mg PO BID 10/05/11 Metoprolol Tartrate [Lopressor] 100 mg PO BID 10/05/11 Nifedipine Xl [Procardia XL*] 60 mg PO DAILY 10/05/11 Pravastatin [Pravachol*] 80 mg PO DAILY 10/05/11 Clonidine HCl [Catapres] 0.3 mg PO TID 08/22/18 Insulin Glargine,Hum.rec.anlog [Basaglar Kwikpen U-100] 50 unit SQ BEDTIME 08/22/18 Insulin Lispro [Humalog Kwikpen U-100] 10 unit SQ SEECOM 08/22/18 Sevelamer Carbonate 800 mg PO TID 08/22/18 - Past Medical/Surgical History Diabetic: Yes -: Hypertension -: DM -: Kidney disease - Social History Smoking Status: Unknown if ever smoked Alcohol use: No CD- Drugs: No Caffeine use: Yes Place of Residence: Home Physical Examination Temp Pulse Resp BP Pulse Ox 98.2 F 72 19 157/72 H 95 02/22/20 08:00 02/22/20 08:56 02/22/20 08:00 02/22/20 08:56 02/22/20 08:00 Laboratory Data (last 24 hrs) 02/21/20 09:58: WBC 9.1, Hgb 11.3 L, Hct 32.5 L, Plt Count 202 - Problems (1) Coronavirus infection Current Visit: Yes Status: Acute Plan: Patient is 54 years of age admitted with possible mansfield virus infection test result is still pending as her CRP level is very elevated recommend increasing dose of steroid for now patient has fever very high suspicion chronic renal failure on hemodialysis saturation satisfactory continue to monitor CRP levels 1 less than 50 change to p.o. prednisone vital signs stable
[2020-02-22] MEDS ORDERED: METOLAZONE 2.5 MG TABLET PO ONE (15:00)
--- NOTE | 2020-02-22 15:18 | PN ---
Date of Progress Note: 02/22/2020 Subjective: The patient was evaluated this morning. We had tele visit with help of a nursing staff. Vital signs reviewed. She had fever overnight. This morning last temperature was normal. Hemodynamically, she is stable. She remains on room air, does not require any supplemental oxygen, maintaining adequate amount of oxygenation. Objective: Vital signs: Reviewed and nursing staff has not reported any other new complaints. General: At rest, the patient is not in any kind of respiratory distress as reported by nursing staff. Laboratory Data: White count 10.9, hemoglobin 11.7, platelets 231. Sodium 132, potassium 3.9, chloride 195, bicarb 26, BUN 48, creatinine 7.14. Impression: 1. COVID-19 pneumonia. 2. End-stage renal disease, on hemodialysis. 3. Diabetes mellitus. 4. Hypertension. Plan: We will go ahead and continue Lantus 20 units at bedtime, which was started yesterday and we will institute Lantus 20 units daily in morning as well. Continue sliding scale insulin and current antihypertensive medication and antibiotics. She is also on IV steroid, which will be continued. Continue heparin per order. I will evaluate her tomorrow. PURNIMA/MODL Voice ID: [id number] Report ID: [id number] SARMAD
[2020-02-22] MEDS ORDERED: MELATONIN 3 MG TABLET PO SCH (21:00)
[2020-02-22] MEDS: DOXAZOSIN 2 MG TAB PO SCH (21:00)
[2020-02-22] MEDS: ATORVASTATIN 10 MG TAB PO SCH (21:42)
[2020-02-23] MEDS: INSULIN -REGULAR HUMAN 50 UNIT/0.5 ML ML SQ SCH ×2 (07:30→12:33)
[2020-02-23] MEDS ORDERED: INSULIN GLARGINE 100 UNITS/ML SQ SCH (08:00)
[2020-02-23 08:03] VITALS: O2SAT 100
[2020-02-23] MEDS ORDERED: HYDROCODONE/CHLORPHEN 5 ML/OSYR PO PRN (08:30)
[2020-02-23] MEDS: CEFTRIAXONE/SWI 1gm 1 GM/10 ML SYR IVP SCH (09:00)
[2020-02-23] MEDS: ASPIRIN EC 81 MG TAB PO SCH (09:00)
[2020-02-23] MEDS: METHYLPREDNISOLONE 40 MG INJ IV SCH (09:00)
[2020-02-23] MEDS: ASCORBIC ACID 500 MG TABLET PO SCH ×2 (09:00→14:39)
[2020-02-23] MEDS: APIXABAN 5 MG TABLET PO SCH (09:00)
[2020-02-23 09:22] LABS: Potassium 3.3 mmol/L (3.5-5.1)
[2020-02-23] MEDS: ramipriL 5 MG CAP PO SCH (10:01)
[2020-02-23] MEDS: NIFEDIPINE XL 90 MG TABLET PO SCH (10:02)
[2020-02-23] MEDS: CLONIDINE HCL 0.3 MG TAB PO SCH ×3 (10:02→14:39)
[2020-02-23] MEDS: FUROSEMIDE 40 MG TABLET PO SCH (10:03)
[2020-02-23] MEDS: METOPROLOL TAR 50 MG TAB PO SCH (10:03)
[2020-02-23 10:04] VITALS: BP 151/71
[2020-02-23 10:29] VITALS: TEMP 99.8
--- NOTE | 2020-02-23 10:34 | CON ---
Date of Consultation: 02/22/2020 Requesting Provider: Aristides Nicholson MD Reason For Consultation: End-stage renal disease. History Of Present Illness: Ms. Camila Guallpa is a 54-year-old female with history of hypertension , diabetes, end-stage renal disease, who is also legally deaf, who presented to the hospital with valeria rtness of breath. The patient was admitted with COVID-19 pneumonia. Our consultation was requested for dialysis management. Report taken from nursing. Physical Examination: Vital Signs: Blood pressure is 157/72, pulse 72, T-max 102.2. General: Obese, no acute distress. Heart: Regular rate and rhythm. No murmurs, rubs, gallops. Lungs: With scattered crepitations. Abdomen: Soft, nontender. Extremities: Trace to 1+ edema. Laboratory Data: Hemoglobin 11.7, hematocrit 33.7. Serum chemistry was reviewed. Impression: 1.End-stage renal disease, on hemodialysis. 2.COVID-19 pneumonia. 3.Hypertension. 4.Diabetes mellitus. Plan: The patient did have a dialysis treatment on Sunday as she had missed a few dialysis session s last week secondary to illness. Next dialysis schedule has been scheduled for Sunday. Orders have been placed, dialysis nurse is aware. Please ensure the patient is on a renal diet with a 1.2 L fluid restriction. Continue home medications. Continue pulmonary followup for COVID-19 pneumonia. /MODL Voice ID: [id number] Report ID: [id number]
--- NOTE | 2020-02-23 11:25 | RAD REPORT ---
EXAM DESCRIPTION: RAD - Chest Single View - 02/23/2020 11:05 am CLINICAL HISTORY: Covid 19 (+) COMPARISON: AP chest February 20 TECHNIQUE: AP portable chest image was obtained 02/23/2020 11:05 am . FINDINGS: Lung volumes are low. Motion degradation is present. No new or progressive left lung field finding. Right lung field has improved slightly. Heart and vasculature are normal. No measurable ple ural effusion and no pneumothorax. No acute bony abnormality seen. No acute aortic findings suspected . IMPRESSION: Slight improvement in the right lung parenchymal opacification.
--- NOTE | 2020-02-23 12:39 | P.PN ---
Subjective Date of Service: 02/23/20 Chief Complaint: [place]field virus infection Subjective: Improving (Patient is improving doing well saturation satisfactory off oxygen) Physical Examination - Vital Signs Temperature: 99.8 F Blood Pressure: 151/71 Pulse: 84 Respirations: 20 Pulse Ox (%): 99 Assessment & Plan - Problems (Diagnosis) (1) Coronavirus infection Current Visit: Yes Status: Acute Plan: Patient is doing well saturation satisfactory an improvement in x-rays CRP level has declined recommend discharge on prednisone 20 mg p.o. twice a day for a week and then 10 b.i.d. for another week Griffin check CRP levels in a couple of weeks not qualify for home oxygen patient is on hemodialysis cultures negative
--- NOTE | 2020-02-23 20:36 | P.PN ---
Date of Service: 02/23/20 Vital Signs Temp Pulse Resp BP Pulse Ox 99.8 F 84 20 151/71 H 99 02/23/20 12:39 02/23/20 14:39 02/23/20 12:39 02/23/20 14:39 02/23/20 12:39 Microbiology Results 02/21/20 09:58 Blood - Blood Aerobic Blood Culture - Preliminary 02/21/20 09:58 Blood - Blood Blood Culture Gram Stain - Preliminary 02/21/20 09:58 Blood - Blood Anaerobic Blood Culture - Preliminary No growth in 24 hours. 02/21/20 09:50 Blood - Blood Aerobic Blood Culture - Preliminary No growth in 24 hours. 02/21/20 09:50 Blood - Blood Anaerobic Blood Culture - Preliminary No growth in 24 hours. Assessment/ Plan: Nephrology CPS improving without CP. +GRANT +Cough No acute events overnight. Feeling better. Vitals, medications, blood work and imaging reviewed in the chart. NAD. MMM. Neck supple. CTA. RRR. Soft Abd, ND. No C/C. LE Edema 1+. No rash. AAO. Abnormal Speech. Obese. A/ ESRD on HD. Hyponatremia Hypokalemia HTN with CKD/ CHF. Diastolic CHF, chronic. DM II with CKD. Anemia in CKD. TRISTAN/ Secondary HyperPTH COVID 19 PNA P/ Continue current POC and Medications. Acute HD as ordered. Continue abx. COVID protocol. Continue Oxygen. Continue prednisone. AM labs PRN. Daily weight. No NSAIDs.
--- NOTE | 2020-02-24 06:43 | DS ---
Date of Discharge: 02/23/2020 Disposition: Discharged to go home. Discharge Medications And Instructions: 1. Continue all prior home medications. 2. Take prednisone 10 mg 2 tablets daily for 1 week, then 1 tab daily for 1 week, then 1/2 tablet daily for 1 week, then stop. 3. Eliquis 2.5 mg, take 1 tablet by mouth 2 times a day for 1 month. 4. Azithromycin 250 mg p.o. daily for 1 week. 5. Follow up at my office this week on . Hospital Course: Ms. Guallpa is a pleasant 54-year-old female patient admitted to the hospital with fever, cough, shortness of breath type of problem. Please see dictated H and P for more information. After patient was evaluated in the hospital and her chest x-ray had shown bilateral pneumonia more on the right side than the left side. We were concerned about possibility of COVID-19 and she had outpatient COVID-19 day before presentation to emergency room and the results came back positive. The patient was kept in isolation throughout this hospitalization. She was evaluated in the ER, I also saw her in the emergency room, talked to patient's daughter. Pulmonary consultation and Nephrology consultation were requested. The patient was given empiric antibiotic, which is azithromycin and ceftriaxone, and she was also treated with IV steroid. Her oxygen saturation remained around 98-100% without using any supplemental oxygen throughout this hospital stay. Repeat chest x-ray today on day of discharge has shown improvement in pneumonia. She does not have any vomiting. Tolerating diet very well. Overall, her condition has improved. [employer] provided dialysis support during this hospital stay. Today, the patient was discharged to go home in stable condition. I evaluated her today via TeleVisit and she did not have any complaints of any shortness of breath. She was lying in bed, not in any distress. Final Diagnoses: 1. COVID-19 with pneumonia. 2. End-stage renal disease, on hemodialysis. 3. Hypertension. 4. Mixed hyperlipidemia. 5. Anemia due to chronic kidney disease. 6. Diabetes mellitus with diabetic nephropathy. 7. Obstructive sleep apnea. 8. Diabetes mellitus, type 2, uncontrolled. 9. Hypokalemia. Laboratory Data: Labs done during this hospitalization: Her WBC count on 02/21/2020 was 9.1, hemoglobin 11.3 and a platelet count of 202. On 02/22/2020; WBC count 10.9, hemoglobin 11.7, and a platelet count of 231. Last chemistry today on day of discharge; sodium 134, potassium 3.3, chloride 96, bicarb 28, BUN 42, creatinine 4.65, glucose 183. PURNIMA/MODL Voice ID: [id number] Report ID: [id number] MTDD
== END 2020-02-23 14:45 | disposition home or self-care (01) | DRG 177 ==
LOC: ER 09:05 → ERHOLD 10:36 → 4TH 11:46
PROVIDERS: ADMIT Internal Medicine; ATTEND Internal Medicine
PROC: 8E0ZXY6 Isolation (ICD-10-PCS; principal; 2020-02-21)
DX: U07.1 COVID-19 (principal); J12.89 Other viral pneumonia; N18.6 End stage renal disease; E87.1 Hypo-osmolality and hyponatremia; I13.2 Hypertensive heart and chronic kidney disease with heart failure and with stage 5 chronic kidney disease, or end stage renal disease; I50.32 Chronic diastolic (congestive) heart failure; N25.81 Secondary hyperparathyroidism of renal origin; E11.22 Type 2 diabetes mellitus with diabetic chronic kidney disease; E78.2 Mixed hyperlipidemia; D63.1 Anemia in chronic kidney disease; G47.33 Obstructive sleep apnea (adult) (pediatric); E87.6 Hypokalemia; E78.1 Pure hyperglyceridemia; N25.0 Renal osteodystrophy; Z79.4 Long term (current) use of insulin; Z79.899 Other long term (current) drug therapy; Z99.2 Dependence on renal dialysis
CPT/HCPCS: 36415; 71045; 80048; 80076; 82550; 82728; 82947; 83605; 84145; 84484; 85025; 85379; 85610; 85730; 86140; 87040; 87205; 90935; 93005; 94760; 96365; 96375; 99285; J0456; J0696; J1644; J1815; J2405; J2920; J2930; J7050

== ENCOUNTER 2021-06-21 15:46 | Inpatient (IN) | payer OTHER ==
--- OUTSIDE RECORDS SUMMARY | 2021-06-21 15:49 | XMS REPORT | Continuity of Care Document ---
:1965 Author Organization [facility] t Address [address] [place] [address] [address]. [address] [place] [address] Care Team Providers Name Role Phone Kaleigh Attending Clinician Unavailable Clinton_Sofia Admitting Clinician Unavailable Payers Payer Name Policy Type Policy Number Effective Date Expiration Date S [place]: [id number] 1993 [employer] 00:00:00 [employer] [id number] 2017 [facility] - 00:00:00 [employer] (HMO) [employer] [id number] 2017 [facility] (MEDICAID 00:00:00 HMO) MEDICARE-PA [id number] 1993 (MEDICARE) 00:00:00 Problems Condition Condition Condition Status Onset Resolution Last Treating Co mments Source Name Details Category Date Date Treatment Clinician Date Complicati Complicati Problem Active 2016-07 [facility] on due to on Due to 0-16 Fami ly diabetes Diabetes 00:00: Practi c mellitus Mellitus 00 e Hypoglycem Hypoglycem Problem Active 2016-07 [facility] ia ia 0-16 Family 00:00: Practic 00 e Vitamin D Vitamin D Problem Active 2016-07 Elia lin deficiency Deficiency 0-16 Fa miriam 00:00: Practic 00 e Hyperlipid Hyperlipid Problem Active 2016-07 [facility] emia emia 0-16 Family 00:00: Practic 00 e Obesity Obesity Problem Active 2016-07 [facility] 0-16 Family 00:00: Practic 00 e Morbid Morbid Problem Active 2016-07 [facility] obesity Obesity 0-16 Family 00:00: Practic 00 e Essential Essential Problem Active 2016-07 Elia lin hypertensi Hypertensi 0-16 Fa miriam on on 00:00: Practic 00 e Dependence Dependence Problem Active 2016-07 [place] [facility] on renal on Renal 0-16 Family dialysis Dialysis 00:00: Practi c 00 e Disorder Disorder Problem Active 2016-07 Rafy frias due to Due to 0-16 Family type 2 Type 2 00:00: Practic diabetes Diabetes 00 e mellitus Mellitus Hypertensi Hypertensi Problem Active 2016-07 [facility] ve ve 0-16 Family disorder Disorder 00:00: Practi c 00 e Kidney Kidney Problem Active 2016-07 [facility] disease Disease 0-16 Family 00:00: Practic 00 e General General Problem Active [facility] finding of Finding of Ignacio pineda observatio Observatio Pr actic n of n of e patient Patient Allergies, Adverse Reactions, Alerts This patient has no known allergies or adverse reactions. Social History Smoking Status Start Date Stop Date Source Never Smoker [facility] Family P ractice Medications Ordered Filled Start Stop Current Ordering Indication Dosage Frequency Signature Comments Components Source Medication Medication Date Date Medication? Clinician (SIG) Name Name Afluria Qd Afluria Qd No Afluria Qd [facility] ( ( Family mos mos (36 mos Practic up)(PF)60 up)(PF)60 up)(PF)60 e mcg (15 mcg mcg (15 mcg mcg (15 x4)/0.5 mL x4)/0.5 mL mcg IM syringe IM syringe x4)/0.5 mL ADM 0.5ML ADM 0.5ML IM syringe IM UTD IM UTD ADM 0.5ML IM UTD azithromyci azithromyci No azithromyc [facility] n 250 mg n 250 mg in 250 mg Ignacio pineda tablet TAKE tablet TAKE tablet Practic 1 TABLET BY 1 TABLET BY TAKE 1 e MOUTH EVERY MOUTH EVERY TABLET BY DAY DAY MOUTH EVERY DAY BD BD No BD [facility] Ultra-Fine Ultra-Fine Ultra-Fine [facility] Mini Pen Mini Pen Mini Pen Pra ctic Needle 31 Needle 31 Needle 31 e gauge x gauge x gauge x 316" USE 16" USE 16" USE DIRECTED DIRECTED 5 TIMES 5 TIMES DIRECTED 5 DAILY DAILY TIMES DAILY celecoxib celecoxib No celecoxib [facility] 200 mg 200 mg 200 mg Family capsule capsule capsule Practi c TAKE 1 TAKE 1 TAKE 1 e CAPSULE BY CAPSULE BY CAPSULE BY MOUTH EVERY MOUTH EVERY MOUTH DAY DAY EVERY DAY clonidine clonidine No clonidine [facility] HCl 0.3 mg HCl 0.3 mg HCl 0.3 mg Family tablet TAKE tablet TAKE tablet Practic 1/2 TABLET 1/2 TABLET TAKE 1/2 e BY MOUTH 3 BY MOUTH 3 TABLET BY TIMES A DAY TIMES A DAY MOUTH 3 TIMES A DAY Comfort EZ Comfort EZ No 2needle Q1D Comfort EZ [place] Pen [place] Pen [place] (s) Pen F amily 31 gauge x 31 gauge x [place] 31 Practic 12/05" Take 12/05" Take gauge x e 2 needles 2 needles 12/05" Take every day every day 2 needles by miscell. by miscell. every day route as route as by directed. directed. miscell. route as directed. doxazosin 2 doxazosin 2 No 1 Q1D doxazosin [facility] mg tablet mg tablet 2 mg Famil y Take 1 Take 1 tablet Practic tablet tablet Take 1 e every day every day tablet by oral by oral every day route. route. by oral route. Eliquis 2.5 Eliquis 2.5 No Eliquis [facility] mg tablet mg tablet 2.5 mg Fam anselmo TAKE 1 TAKE 1 tablet Practic TABLET BY TABLET BY TAKE 1 e MOUTH TWICE MOUTH TWICE TABLET BY A DAY A DAY MOUTH TWICE A DAY escitalopra escitalopra No escitalopr [facility] m 10 mg m 10 mg am 10 mg Famil y tablet TAKE tablet TAKE tablet Practic 1 TABLET BY 1 TABLET BY TAKE 1 e MOUTH EVERY MOUTH EVERY TABLET BY DAY WITH DAY WITH MOUTH BREAKFAST BREAKFAST EVERY DAY WITH BREAKFAST furosemide furosemide No furosemide [facility] 80 mg 80 mg 80 mg Family tablet TAKE tablet TAKE tablet Practic BY MOUTH 2 BY MOUTH 2 TAKE BY e TABLETS 2 TABLETS 2 MOUTH 2 TIMES A DAY TIMES A DAY TABLETS 2 TIMES A DAY gabapentin gabapentin No gabapentin [facility] 100 mg 100 mg 100 mg Family capsule capsule capsule Practi c TAKE 1 TAKE 1 TAKE 1 e CAPSULE BY CAPSULE BY CAPSULE BY MOUTH TWICE MOUTH TWICE MOUTH A DAY A DAY TWICE A DAY gabapentin gabapentin No 1capsul TID gabapentin [facility] 300 mg 300 mg e(s) 300 mg Family capsule capsule capsule Practi c Take 1 Take 1 Take 1 e capsule 3 capsule 3 capsule 3 times a day times a day times a by oral by oral day by route. route. oral route. GaviLyte-N GaviLyte-N No GaviLyte-N [facility] 420 gram 420 gram 420 gram Fam anselmo oral oral oral Practic solution solution solution e PLEASE SEE PLEASE SEE PLEASE SEE ATTACHED ATTACHED ATTACHED FOR FOR FOR DETAILED DETAILED DETAILED DIRECTIONS DIRECTIONS DIRECTIONS Guaiatussin Guaiatussin No Guaiatussi [facility] AC 10 AC 10 n AC 10 Family mg-100 mg/5 mg-100 mg/5 mg-100 Practic mL oral mL oral mg/5 mL e liquid liquid oral liquid Humalog Humalog No Humalog [facility] e Kyra Rae Family (U-100) (U-100) (U-100) Practi c Insulin 100 Insulin 100 Insulin e unit/mL unit/mL 100 subcutaneou subcutaneou unit/mL s INJECT 8 s INJECT 8 subcutaneo UNITS UNITS us INJECT SUBCUTANEOU SUBCUTANEOU 8 UNITS SLY BEFORE SLY BEFORE SUBCUTANEO EACH MEAL EACH MEAL USLY PLUS CF 1 PLUS CF 1 BEFORE 30, TOTAL 30, TOTAL EACH MEAL DAILY DOSE DAILY DOSE PLUS CF 1 OF 40 OF 40 30, TOTAL DAILY DOSE OF 40 Lantus [facility] Sol[facility]ar Fam anselmo U-100 U-100 U-100 Practic Insulin 100 Insulin 100 Insulin e unit/mL (3 unit/mL (3 100 mL) mL) unit/mL (3 subcutaneou subcutaneou mL) s pen s pen subcutaneo INJECT 62 INJECT 62 us pen UNITS IN AM UNITS IN AM INJECT 62 AND 50 AND 50 UNITS IN UNITS IN PM UNITS IN PM AM AND 50 (INCREASE (INCREASE UNITS IN PM DIRECTED) DIRECTED) (INCREASE TDD 140 TDD 140 DIRECTED) TDD 140 metoprolol metoprolol No [address] [facility] tartrate tartrate tartrate Fam anselmo 100 mg 100 mg 100 mg Practic tablet TAKE tablet TAKE tablet e 1 TABLET BY 1 TABLET BY TAKE 1 MOUTH TWICE MOUTH TWICE TABLET BY A DAY A DAY MOUTH TWICE A DAY nifedipine nifedipine No nifedipine [facility] ER 60 mg ER 60 mg ER 60 mg Fam anselmo tablet,exte tablet,exte tablet,ext Practic nded nded ended e release release release TAKE 1 TAKE 1 TAKE 1 TABLET BY TABLET BY TABLET BY MOUTH EVERY MOUTH EVERY MOUTH DAY DAY EVERY DAY nifedipine nifedipine No nifedipine [facility] ER 60 mg ER 60 mg ER 60 mg Fam anselmo tablet,exte tablet,exte tablet,ext Practic nded nded ended e release 24 release 24 release 24 hr TAKE 1 hr TAKE 1 hr TAKE 1 TABLET BY TABLET BY TABLET BY MOUTH ONCE MOUTH ONCE MOUTH ONCE A DAY A DAY A DAY nifedipine nifedipine No 1 Q1D nifedipine [facility] ER 90 mg ER 90 mg ER 90 mg Fam anselmo tablet,exte tablet,exte tablet,ext Practic nded nded ended e release 24 release 24 release 24 hr Take 1 hr Take 1 hr Take 1 tablet tablet tablet every day every day every day by oral by oral by oral route. route. route. Pneumovax-2 Pneumovax-2 No Pneumovax- [facility] 3 25 3 25 23 25 Family mcg/0.5 mL mcg/0.5 mL mcg/0.5 mL Practic injection injection injection e syringe ADM syringe ADM syringe 0.5ML IM 0.5ML IM ADM 0.5ML UTD UTD IM UTD pravastatin pravastatin No pravastati [facility] 80 mg 80 mg n 80 mg Family tablet TAKE tablet TAKE tablet Practic 1 TABLET BY 1 TABLET BY TAKE 1 e MOUTH EVERY MOUTH EVERY TABLET BY DAY DAY MOUTH EVERY DAY prednisone prednisone No prednisone [facility] 10 mg 10 mg 10 mg Family tablet TAKE tablet TAKE tablet Practic 2 TABS BY 2 TABS BY TAKE 2 e MOUTH DAILY MOUTH DAILY TABS BY X1 WEEK, 1 X1 WEEK, 1 MOUTH TAB DAILY TAB DAILY DAILY X1 X1 WEEK, X1 WEEK, WEEK, 1 THEN 1/2 THEN 1/2 TAB DAILY TAB DAILY TAB DAILY X1 WEEK, X1 WEEK. X1 WEEK. THEN 1/2 TAKE WITH TAKE WITH TAB DAILY FOOD FOOD X1 WEEK. TAKE WITH FOOD promethazin promethazin No promethazi [facility] e 6.25 e 6.25 ne 6.25 Family mg-codeine mg-codeine mg-codeine Practic 10 mg/5 mL 10 mg/5 mL 10 mg/5 mL e syrup syrup syrup ramipril 5 ramipril 5 No 1capsul Q1D ramipril 5 Village mg capsule mg capsule e(s) mg capsule Family Take 1 Take 1 Take 1 Practic capsule capsule capsule e every day every day every day by oral by oral by oral route. route. route. sevelamer sevelamer No sevelamer [facility] carbonate carbonate carbonate Family 800 mg 800 mg 800 mg Practic tablet TAKE tablet TAKE tablet e 2 TABLETS 2 TABLETS TAKE 2 BY MOUTH 3 BY MOUTH 3 TABLETS BY TIMES A DAY TIMES A DAY MOUTH 3 WITH MEALS WITH MEALS TIMES A AND 1 AND 1 DAY WITH TABLET TABLET MEALS AND TWICE A DAY TWICE A DAY 1 TABLET WITH A WITH A TWICE A SNACK SNACK DAY WITH A SNACK Trulicity Trulicity No .75mg Q1W Trulicity [facility] 0.75 mg/0.5 0.75 mg/0.5 0.75 F amily mL mL mg/0.5 mL Practic subcutaneou subcutaneou subcutaneo e s pen s pen us pen injector injector injector Inject 0.75 Inject 0.75 Inject mg every mg every 0.75 mg week by week by every week subcutaneou subcutaneou by s route as s route as subcutaneo directed directed us route for 30 for 30 as days. days. directed for 30 days. Trulicity Trulicity No Trulicity [facility] 1.5 mg/0.5 1.5 mg/0.5 1.5 mg/0.5 Family mL mL mL Practic subcutaneou subcutaneou subcutaneo e s pen s pen us pen injector injector injector INJECT 1 INJECT 1 INJECT 1 SYRINGE SYRINGE SYRINGE SUBCUTANEOU SUBCUTANEOU SUBCUTANEO SLY ONCE SLY ONCE USLY ONCE EVERY 2 EVERY 2 EVERY 2 WEEKS WEEKS WEEKS Immunizations Ordered Immunization Filled Immunization Date Status Commen ts Source Name Name Tdap Tdap 2020-11-05 Completed [facility] 00:00:00 Practice COVID-19 PS Non-US COVID-19 PS Non-US 2020-10-11 Completed [facility] Vaccine Vaccine 00:00:00 Practice (EpiVacCorona) (EpiVacCorona) SARS-COV-2 SARS-COV-2 2020-09-[address] [facility] (COVID-19) vaccine, (COVID-19) vaccine, 00:00:00 Practice UNSPECIFIED UNSPECIFIED influenza, influenza, 2020-04-22 Completed [facility] injectable, injectable, 00:00:00 Practice quadrivalent quadrivalent Vital Signs Vital Name Observation Time Observation Value Comments Source Height 2021-04-20 00:00:00 61.5 [in_i] [facility] BMI (Body Mass 2021-04-20 00:00:00 50.9 kg/m2 [facility]) Practice BP Systolic 2021-04-20 00:00:00 164 mm[Hg] [facility] Body Weight 2021-04-20 00:00:00 274 [lb_av] [facility] BP Diastolic 2021-04-20 00:00:00 83 mm[Hg] [facility] BP Diastolic 2021-01-21 00:00:00 78 mm[Hg] [facility] Height 2021-01-21 00:00:00 61.5 [in_i] [facility] Practice BMI (Body Mass 2021-01-21 00:00:00 52.7 kg/m2 [facility] Practice BP Systolic 2021-01-21 00:00:00 148 mm[Hg] [facility] Practice Body Weight 2021-01-21 00:00:00 283.6 [lb_av] [facility] Practice BP Diastolic 2020-10-06 00:00:00 77 mm[Hg] [facility] Practice Height 2020-10-06 00:00:00 61.5 [in_i] [facility] Practice BMI (Body Mass 2020-10-06 00:00:00 52.9 kg/m2 [facility] Practice BP Systolic 2020-10-06 00:00:00 151 mm[Hg] [facility] Body Weight 2020-10-06 00:00:00 284.4 [lb_av] [facility] BP Diastolic 2020-07-07 00:00:00 88 mm[Hg] [facility] Height 2020-07-07 00:00:00 61.5 [in_i] [facility] Practice BMI (Body Mass 2020-07-07 00:00:00 53.3 kg/m2 [facility] Practice BP Systolic 2020-07-07 00:00:00 128 mm[Hg] [facility] Body Weight 2020-07-07 00:00:00 287 [lb_av] [facility] Procedures This patient has no known procedures. Plan of Care Planned Activity Planned Date Details Comments Source Diagnostic Test 2021-04-20 hemoglobin A1C, [facility] Lizbeth casillas Pending 00:00:00 fingerstick [code = Practice hemoglobin A1C, fingerstick] Diagnostic Test 2021-04-20 glucose, fingerstick, Elia ceballos Family Pending 00:00:00 blood [code = Practice glucose, fingerstick, blood] Future Appointment 2021-07-27 Renetta Martinez [facility] 11:00:00 [facility]; Practice [address], [place] [address] Future Appointment 2021-07-20 Renetta Martinez [facility] 00:00:00 [facility]; Practice [address], [place] [address] Encounters Start End Encounter Admission Attending Care Care Encounter Source Date/Time Date/Time Type Type Clinicians Facility Department ID 2021-06-12 Outpatient Daniel_T VFP VFP [id number] [facility] 11:51:56 [id number] Family Practic e 2021-06-11 Outpatient Daniel_T VFP VFP [id number] [facility] 23:19:35 [id number] Family Practic e 2021-06-11 Outpatient Daniel_T VFP VFP [id number] [facility] 23:08:41 [id number] Family Practic e 2021-06-11 Outpatient Daniel_T VFP VFP [id number] [facility] 22:13:14 [id number] Family Practic e 2021-06-11 Outpatient Daniel_T VFP VFP [id number] [facility] 19:43:16 [id number] Family Practic e 2021-06-06 Outpatient Daniel_T VFP VFP [id number] [facility] 14:23:06 [id number] Family Practic e 2021-06-06 Outpatient Daniel_T VFP VFP [id number] [facility] 13:42:21 [id number] Family Practic e 2021-06-06 Outpatient Daniel_T VFP VFP [id number] [facility] 11:32:55 [id number] Family Practic e 2021-06-06 Outpatient Daniel_T VFP VFP [id number] [facility] 04:02:37 [id number] Family Practic e 2021-06-04 Outpatient Daniel_T VFP VFP [id number] [facility] 13:13:18 [id number] Family Practic e 2021-06-04 Outpatient Daniel_T VFP VFP [id number] [facility] 00:17:42 [id number] Family Practic e 2021-06-03 Outpatient Daniel_T VFP VFP [id number] [facility] 23:23:52 [id number] Family Practic e 2021-06-19 2021-06-19 Outpatient Daniel_T VFP VFP [id number] [facility] 01:15:00 01:15:00 [id number] Family Practic e 2021-04-20 2021-04-20 Alex VFP [place] - [id number] [facility] 00:00:00 00:00:[address] [facility] Maryann Hartley - Bernard molina MD: [id number] ELISSA_[address] e Shadow [facility], [address], [place] [address] , Ph. 2021-01-21 2021-01-21 Alex VFP [place] - [id number] [facility] 00:00:00 00:00:00 [facility] Family Alonzo Maryann molina MD: [id number] [facility], [address], [place] [address] , Ph. 2020-10-06 2020-10-06 Alex VFP [place] - [id number] [facility] 00:00:00 00:00:[address] [facility] Family Alonzo Maryann molina MD: [id number] [facility], [address], [place] [address] , Ph. 2020-07-09 2020-07-09 Outpatient Daniel_T VFP VFP [id number] [address] [place] [address] 12:49:00 12:49:00 [id number] Family Practic e 2020-07-07 2020-07-07 Outpatient Daniel_T VFP VFP [id number] [address] [place] [address] 04:59:00 04:59:00 [id number] Family Practic e 2020-07-07 2020-07-07 Alex VFP [place] - [id number] [facility]:00[facility] [facility] Family AlonzoMaryann MD: [id number] ELISSA_Elena e Shadow [facility] [address], [place] [address] , Ph. 2020-06-29 2020-06-29 Outpatient Daniel_T VFP VFP [id number] [address] [place] [address] 11:43:00 11:43:00 [id number] Family Practic e 2020-06-29 2020-06-29 Outpatient Daniel_T VFP VFP [id number] [address] [place] [address] 11:43:00 11:43:00 [id number] Family Practic e 2020-03-24 2020-03-24 Outpatient Daniel_T VFP VFP [id number] [facility] 10:48:00 10:48:00 Family Practic e Results This patient has no known results.
[2021-06-21] MEDS ORDERED: ONDANSETRON 4 MG (ODT) TAB ONE (16:35)
--- NOTE | 2021-06-21 17:50 | RAD REPORT ---
EXAM DESCRIPTION: RAD - Chest Single View - 06/21/2021 5:30 pm CLINICAL HISTORY: DYSPNEA COMPARISON: February 2020 TECHNIQUE: AP portable chest image was obtained 06/21/2021 5:30 pm . FINDINGS: Exam is limited by very large body habitus and under penetrated portable technique. Interstitial and airspace opacities are present in the mid and lower lung castelan with prominent inter stitial markings in each apex. Cardiomegaly is present. Vasculature is prominent. CHF/volume overload would be favored. Bilateral pneumonia including COVID-19 pneumonia can give this presentation but is unlikely without supporting clinical and laboratory findings. No measurable pleural effusion and no pneumothorax. No acute bony abnormality seen. No acute aortic findings suspected. IMPRESSION: Limited portable study showing evidence for CHF/volume overload as detailed.
[2021-06-21 18:14] LABS: Absolute Lymphocytes (CBC) 1.3 K/uL (0.7-4.9); Basophils % 0.5 % (0-1.3); Hematocrit 27.7 % (36.0-45.0); Lymphocytes % 9.9 % (15.3-44.8); MPV 7.6 fL (7.6-11.3)
[2021-06-21 18:26] LABS: Bilirubin Direct 0.2 mg/dL (0-0.2); Bilirubin Total 0.8 mg/dL (0.2-1.0); Potassium 3.7 mmol/L (3.5-5.1); Protein, Total 7.7 g/dL (6.4-8.2)
[2021-06-21] MEDS ORDERED: cloNIDine HCL 0.1 MG TAB ONE (18:53)
--- NOTE | 2021-06-21 19:54 | RAD REPORT ---
EXAM DESCRIPTION: CT - Abdomen Pelvis Wo Contrast - 06/21/2021 7:29 pm CLINICAL HISTORY: ABD PAIN COMPARISON: Abdomen Pelvis W Contrast dated 11/12/2020 TECHNIQUE: Axial [address] imaging of the abdomen and pelvis was performed without IV contrast. No IV contrast was given because of allergy, abnormal renal function, patient refusal or physician re quest. No oral contrast administered All CT scans are performed using dose optimization technique as appropriate and may include automated exposure control or mA/KV adjustment according to patient size. FINDINGS: Small right pleural effusion is present with partial atelectasis of the right lower lobe. Trace amount of left pleural effusions seen. Cardiomegaly is present without pericardial thickening o r effusion. The liver, spleen and pancreas show no suspicious findings on non-contrast imaging. Gallbladder and b iliary tree are also without suspicious finding. No hydronephrosis or suspicious renal mass. Bilateral renal atrophy again noted. No significant adren al finding. Isodense renal masses and pyelonephritis cannot be excluded in the absence of IV contrast . The urinary bladder is without significant finding. Uterus and ovaries show no suspicious findings. No dilated bowel loops or bowel wall thickening. No appendicitis or other acute GI process identifiab le. Ischemic bowel is not suspected. No free air, free fluid or inflammatory stranding. No hernia, ma ss or bulky lymphadenopathy. No suspicious bony findings. Prominent lower lumbar disc, endplate and facet joint degenerative mad[place] es are present. Dense calcifications of the arterial tree present. IMPRESSION: Non-contrast enhanced CT abdomen and pelvis imaging show no acute or emergent finding. Above detailed findings are not clearly different from November 12 imaging. Full assessment is limited is the absence of IV contrast.
--- NOTE | 2021-06-21 20:52 | ER ---
Nurse's Notes [facility] Name: Camila Guallpa Age: 55 yrs Sex: Female : 1965 Arrival Date: 06/21/2021 Time: 16:03 Bed 16 Private MD: Diagnosis: Respiratory failure, unspecified with hypoxia;Chronic combined systolic (congestive) and diastolic (congestive) heart failure;Chronic kidney disease, unspecified Presentation: 06/21 16:15 Chief complaint: EMS states: Pt was in Dialysis and BP was elevated, states systolic vg1 was 215. EMS states when they took BP systolic of 200. Pt also stated NV x3 days and c/o ABD pain. 500 ml was removed in dialysis and pt states dizzy and lightheaded. Coronavirus screen: Vaccine status: Patient reports receiving the 2nd dose of the covid vaccine. Ebola Screen: Patient negative for fever greater than or equal to 101.5 degrees Fahrenheit, and additional compatible Ebola Virus Disease symptoms. Initial Sepsis Screen: Does the patient meet any 2 criteria? RR > 20 per min. Does the patient have a suspected source of infection? No. Patient's initial sepsis screen is negative. Risk Assessment: Do you want to hurt yourself or someone else? Patient reports no desire to harm self or others. Onset of symptoms was June 17, 2021. 16:15 Method Of Arrival: EMS: [facility] vg1 16:15 Acuity: YANELIS 3 vg1 Triage Assessment: 16:18 General: Appears in no apparent distress. uncomfortable, Behavior is calm, cooperative. vg1 Pain: Denies pain. EENT: No signs and/or symptoms were reported regarding the EENT system. Neuro: Level of Consciousness is awake, alert, obeys commands, Oriented to person, place, time, situation. Cardiovascular: Patient's skin is warm and dry. Dialysis shunt: in the left arm, with palpable thrill, with auscultated bruit, with no erythema, with no edema, no bleeding noted. Respiratory: Reports shortness of breath on exertion cough that is Airway is patent Respiratory effort is even, labored, Respiratory pattern is tachypnea. GI: Reports nausea, vomiting, Patient currently denies diarrhea. : No signs and/or symptoms were reported regarding the genitourinary system. Derm: Skin is intact, is healthy with good turgor. Musculoskeletal: Circulation, motion, and sensation intact. Historical: - Allergies: 16:18 No Known Allergies; vg1 - Home Meds: 16:18 clonidine HCl 0.2 mg Oral tab 1 tab 3 times per day [Active]; metoprolol tartrate 100 vg1 mg Oral tab 1 tab 2 times per day [Active]; Nifedipine ER Oral 60 mg daily [Active]; Lantus 100 unit/mL Sub-Q soln [Active]; pravastatin oral [Active]; Humalog 100 unit/mL Sub-Q soln [Active]; sevelamer carbonate oral [Active]; gabapentin oral [Active]; furosemide 80 mg oral tab [Active]; - PMHx: 16:18 Diabetes - IDDM; Dialysis; TTS; Hypertension; ESRD; Hyperparathyroidism; CHF; Sleep vg1 apnea; GERD; - Immunization history:: Client reports receiving the 2nd dose of the Covid vaccine. - Social history:: Smoking status: Patient denies any tobacco usage or history of. Screenin:06 Abuse screen: Denies threats or abuse. Nutritional screening: No deficits noted. bb Tuberculosis screening: No symptoms or risk factors identified. Fall Risk None identified. Assessment: 16:18 Reassessment: see triage. vg1 17:57 Reassessment: Patient appears in no apparent distress at this time. No changes from vg1 previously documented assessment. Patient and/or family updated on plan of care and expected duration. Pain level reassessed. Patient is alert, oriented x 3, equal unlabored respirations, skin warm/dry/pink. Pt O2 at 88% placed on oxygen 2 L NC. 19:07 Reassessment: Patient appears in no apparent distress at this time. No changes from vg1 previously documented assessment. Patient and/or family updated on plan of care and expected duration. Pain level reassessed. Patient is alert, oriented x 3, equal unlabored respirations, skin warm/dry/pink. 20:03 Reassessment: pt returned from CT scan alert and oriented x 3, resp unlabored, awaiting bb disposition. 21:34 Reassessment: No changes from previously documented assessment. pt seen resting kd3 comfortably in bed. 22:21 Reassessment: No changes from previously documented assessment. kd3 22:56 Reassessment: Patient is alert, oriented x 3, equal unlabored respirations, skin kd3 warm/dry/pink. report called to carly leahy. IV 22 g right wrist. Vital Signs: 16:15 BP 190 / 82; Pulse 93; Resp 26; Temp 98.9; Pulse Ox 93% on R/A; Weight 122.02 kg; vg1 Height 5 ft. 1 in. (154.94 cm); Pain 0/10; 18:55 BP 188 / 91; Pulse 100; Resp 20; Pulse Ox 95% on 2 lpm NC; vg1 19:05 BP 172 / 89; Pulse 99; Resp 22; Pulse Ox 95% on 2 lpm NC; vg1 20:05 BP 164 / 89; Pulse 92; Resp 16 S; Pulse Ox 99% on 2 lpm NC; bb 21:34 BP 175 / 85; Pulse 78; Resp 16; Pulse Ox 96% on R/A; kd3 16:15 Body Mass Index 50.83 (122.02 kg, 154.94 cm) vg1 ED Course: 16:03 Patient arrived in ED. jr8 16:03 Rk Michele PA is PHCP. jr8 16:03 Inder Angeles MD is Attending Physician. jr8 16:15 Crystal White, RN is Primary Nurse. vg1 16:18 Triage completed. vg1 17:30 XRAY Chest (1 view) In Process Unspecified. EDMS 19:24 Report given to Alize TAM. vg1 19:30 CT Abd/Pelvis - Without Contrast In Process Unspecified. EDMS 20:03 Inserted saline lock: 22 gauge in right hand, using aseptic technique. bb 20:06 Patient has correct armband on for positive identification. Placed in gown. Bed in low bb position. Call light in reach. Side rails up X2. Pulse ox on. NIBP on. Warm blanket given. 20:50 Morteza Nicholson MD is Hospitalizing Provider. jr8 22:21 Arm band placed on right wrist. kd3 Administered Medications: 16:40 Drug: Zofran (Ondansetron) 4 mg Route: PO; vg1 21:35 Follow up: Response: No adverse reaction kd3 18:55 Drug: cloNIDine 0.1 mg Route: PO; vg1 21:35 Follow up: Response: No adverse reaction kd3 Outcome: 20:06 Instructed on the need for admit. bb 20:51 Decision to Hospitalize by Provider. jr8 23:02 Patient left the ED. kd3 Signatures: Dispatcher [employer] EDFarzana Campos RN RN bb Rk Michele PA PA jr8 Crystal White RN RN vg1 Farzana Mejia RN RN kd3 Corrections: (The following items were deleted from the chart) 19:07 17:57 Reassessment: Patient appears in no apparent distress at this time. No changes vg1 from previously documented assessment. Patient and/or family updated on plan of care and expected duration. Pain level reassessed. Patient is alert, oriented x 3, equal unlabored respirations, skin warm/dry/pink. vg1 23:01 22:56 Reassessment: report called to carly leahy. kd3 kd3
--- NOTE | 2021-06-21 20:52 | EDPHYS ---
Physician Documentation [facility] Name: Camila Guallpa Age: 55 yrs Sex: Female : 1965 Arrival Date: 06/21/2021 Time: 16:03 Bed 16 Private MD: ED Physician Inder Angeles HPI: 06/21 17:48 This 55 yrs old Black Female presents to ER via EMS with complaints of jr8 nausea/vomiting/abdominal pain. 17:48 Possible causes: unknown. The symptoms are aggravated by nothing. The symptoms are jr8 alleviated by nothing. Associated signs and symptoms: The patient has no apparent associated signs or symptoms. Severity of symptoms: At their worst the symptoms were moderate in the emergency department the symptoms are unchanged. The patient has not experienced similar symptoms in the past. The patient has not recently seen a physician. Is a 55-year-old female that started with 3 days worth of nausea and vomiting. Today had right lower quadrant pain that was intermittent. After dialysis felt dizzy and weak.. Historical: - Allergies: 16:18 No Known Allergies; vg1 - Home Meds: 16:18 clonidine HCl 0.2 mg Oral tab 1 tab 3 times per day [Active]; metoprolol tartrate 100 vg1 mg Oral tab 1 tab 2 times per day [Active]; Nifedipine ER Oral 60 mg daily [Active]; Lantus 100 unit/mL Sub-Q soln [Active]; pravastatin oral [Active]; Humalog 100 unit/mL Sub-Q soln [Active]; sevelamer carbonate oral [Active]; gabapentin oral [Active]; furosemide 80 mg oral tab [Active]; - PMHx: 16:18 Diabetes - IDDM; Dialysis; TTS; Hypertension; ESRD; Hyperparathyroidism; CHF; Sleep vg1 apnea; GERD; - Immunization history:: Client reports receiving the 2nd dose of the Covid vaccine. - Social history:: Smoking status: Patient denies any tobacco usage or history of. ROS: 17:48 Eyes: Negative for injury, pain, redness, and discharge, ENT: Negative for injury, jr8 pain, and discharge, Neck: Negative for injury, pain, and swelling, Cardiovascular: Negative for chest pain, palpitations, and edema, Respiratory: Negative for shortness of breath, cough, wheezing, and pleuritic chest pain, Back: Negative for injury and pain, MS/Extremity: Negative for injury and deformity, Skin: Negative for injury, rash, and discoloration, Neuro: Negative for headache, weakness, numbness, tingling, and seizure. 17:48 Abdomen/GI: Positive for abdominal pain, nausea and vomiting, Negative for hematemesis, black/tarry stool, rectal pain, rectal bleeding, bowel incontinence, flatulence. Exam: 17:48 Constitutional: This is a well developed, well nourished patient who is awake, alert, jr8 and in no acute distress. ENT: Nares patent. No nasal discharge, no septal abnormalities noted. Tympanic membranes are normal and external auditory canals are clear. Oropharynx with no redness, swelling, or masses, exudates, or evidence of obstruction, uvula midline. Mucous membranes moist. Neck: Trachea midline, no thyromegaly or masses palpated, and no cervical lymphadenopathy. Supple, full range of motion without nuchal rigidity, or vertebral point tenderness. No Meningismus. Cardiovascular: Regular rate and rhythm with a normal S1 and S2. No gallops, murmurs, or rubs. Normal PMI, no JVD. No pulse deficits. Respiratory: Lungs have equal breath sounds bilaterally, clear to auscultation and percussion. No rales, rhonchi or wheezes noted. No increased work of breathing, no retractions or nasal flaring. Abdomen/GI: Soft, non-tender, with normal bowel sounds. No distension or tympany. No guarding or rebound. No evidence of tenderness throughout. Back: No spinal tenderness. No costovertebral tenderness. Full range of motion. Skin: Warm, dry with normal turgor. Normal color with no rashes, no lesions, and no evidence of cellulitis. MS/ Extremity: Pulses equal, no cyanosis. Neurovascular intact. Full, normal range of motion. Neuro: Awake and alert, GCS 15, oriented to person, place, time, and situation. Cranial nerves II-XII grossly intact. Motor strength 5/5 in all extremities. Sensory grossly intact. Vital Signs: 16:15 BP 190 / 82; Pulse 93; Resp 26; Temp 98.9; Pulse Ox 93% on R/A; Weight 122.02 kg; vg1 Height 5 ft. 1 in. (154.94 cm); Pain 0/10; 18:55 BP 188 / 91; Pulse 100; Resp 20; Pulse Ox 95% on 2 lpm NC; vg1 19:05 BP 172 / 89; Pulse 99; Resp 22; Pulse Ox 95% on 2 lpm NC; vg1 20:05 BP 164 / 89; Pulse 92; Resp 16 S; Pulse Ox 99% on 2 lpm NC; bb 21:34 BP 175 / 85; Pulse 78; Resp 16; Pulse Ox 96% on R/A; kd3 16:15 Body Mass Index 50.83 (122.02 kg, 154.94 cm) vg1 MDM: 16:03 Patient medically screened. jr8 19:07 Data reviewed: vital signs, nurses notes, lab test result(s), radiologic studies, CT jr8 scan, plain films. Data interpreted: Pulse oximetry: on room air is 88 %. Interpretation: normal. Counseling: I had a detailed discussion with the patient and/or guardian regarding: the historical points, exam findings, and any diagnostic results supporting the discharge/admit diagnosis, lab results, radiology results, the need for further work-up and treatment in the hospital. 20:49 ED course: Patient off oxygen has had been as low as 88% room air. On oxygen feeling jr8 more comfortable. Not as short of breath. Patient has a history of end-stage renal disease with congestive heart failure that is likely playing a major role in this. Cannot fully rule out sleep apnea and [place]. Discussed this with Dr. Nicholson who will admit to and have Dr. Roach consulted on.. 06/21 16:16 Order name: Basic Metabolic Panel; Complete Time: 18:42 06/21 16:16 Order name: CBC with Diff; Complete Time: 18:22 8 06/21 16:16 Order name: Hepatic Function; Complete Time: 18:42 8 06/21 16:16 Order name: Lipase; Complete Time: 18:42 jr8 06/21 16:16 Order name: COVID-19 SARS RT PCR (Document "Date of Onset" if Symptomatic); Complete [facility] Time: 18:47 06/21 16:16 Order name: XRAY Chest (1 view); Complete Time: 17:53 06/21 16:16 Order name: IV Saline Lock; Complete Time: 20:03 8 06/21 16:16 Order name: Labs collected and sent; Complete Time: 17:53 jr8 06/21 18:23 Order name: CT Abd/Pelvis - Without Contrast; Complete Time: 19:55 jr8 06/21 22:20 Order name: CONS Physician Consult EDWI Administered Medications: 16:40 Drug: Zofran (Ondansetron) 4 mg Route: PO; vg1 21:35 Follow up: Response: No adverse reaction kd3 18:55 Drug: cloNIDine 0.1 mg Route: PO; vg1 21:35 Follow up: Response: No adverse reaction kd3 Disposition: 06/22 09:23 Co-signature as Attending Physician, Inder Angeles MD I agree with the assessment and farzad plan of care. Disposition Summary: 06/21/21 20:51 Hospitalization Ordered Hospitalization Status: Inpatient Admission [facility] Provider: Morteza Nicholson jr Location: Telemetry/MedSurg (Inpatient) jr8 Condition: Stable jr8 Problem: new jr8 Symptoms: have improved jr8 Bed/Room Type: Standard [facility] Room Assignment: 223(06/21/21 22:26) Diagnosis - Respiratory failure, unspecified with hypoxia jr8 - Chronic combined systolic (congestive) and diastolic (congestive) heart failure jr8 - Chronic kidney disease, unspecified jr8 Forms: - Medication Reconciliation Form jr8 - SBAR form jr8 Signatures: Dispatcher [employer] EDMS Inder Angeles MD MD cha Smirch, Shelby, RN RN Rk Campbell PA PA jr8 Shannan White RN Crystal Huff RN RN vg1 Farzana Mejia RN kd3 Corrections: (The following items were deleted from the chart) 06/21 22:26 20:51 jr8 cg
[2021-06-21] MEDS ORDERED: IPRATROPIUM BROM 0.5MG/2.5ML NEB PRN (23:15)
[2021-06-21] MEDS ORDERED: ONDANSETRON 4 MG/2 ML VIAL IV PRN (23:15)
[2021-06-21] MEDS ORDERED: ALBUTEROL 2.5 MG/3 ML NEB SOL NEB PRN (23:15)
[2021-06-21] MEDS ORDERED: ACETAMINOPHEN 500 MG TAB PO PRN (23:15)
[2021-06-22 00:34] VITALS: BMI 50.8
[2021-06-22 05:57] LABS: Absolute Lymphocytes (CBC) 1.5 K/uL (0.7-4.9); Basophils % 0.6 % (0-1.3); Hematocrit 25.5 % (36.0-45.0); Lymphocytes % 14.6 % (15.3-44.8); RBC Red Blood Cell Count 3.08 M/uL (3.86-4.86)
[2021-06-22 06:38] LABS: Potassium 4.8 mmol/L (3.5-5.1)
[2021-06-22] MEDS: cloNIDine HCL 0.1 MG TAB PO PRN (08:28)
[2021-06-22 09:54] LABS: Blood Gas Oxyhemoglobin 81.6 % (94-97)
[2021-06-22 09:55] LABS: Arterial Blood Carboxyhemoglob 1.4 % (0-1.5)
[2021-06-22] MEDS ORDERED: INFLUENZA VACCINE (for 6+ mo) 0.5 ML DOSE IMVAC ONE (11:00)
--- NOTE | 2021-06-22 12:23 | P.CNS ---
Date of Consult: 06/22/21 Reason for Consult: Respiratory failure Chief Complaint: Dizzy weak abdominal discomfort hypertension History of Present Illness: Patient is 55 years of age having some problems after dialysis came here to the emergency room was found to have severe hypertension in addition to hypoxemia complaint of nausea vomiting abdominal discomfort she is comfortable currently has difficulty speaking and hearing blood gases again showed hypoxemia Allergies No Known Allergies Allergy (Uncoded 06/21/21 23:28) Unknown Home Medications: Furosemide [Lasix] 80 mg PO BID 10/05/11 Metoprolol Tartrate [Lopressor] 100 mg PO BID 10/05/11 Pravastatin [Pravachol*] 80 mg PO DAILY 10/05/11 Insulin Lispro [Humalog Kwikpen U-100] 10 unit SQ SEECOM 08/22/18 Sevelamer Carbonate 3 tab PO TID 08/22/18 cloNIDine HCL [Catapres] 0.3 mg PO TID 08/22/18 Bisacodyl [Women's Laxative] 1 tab PO PRN PRN 06/22/21 Fish Oil [place] 1 cap PO DAILY 06/22/21 Gabapentin [Neurontin*] 1 cap PO BID 06/22/21 Insulin Glargine,Hum.rec.anlog [Lantus] 1 unit SQ SEECOM 06/22/21 Nifedipine [Nifedipine ER] 1 tab PO DAILY 06/22/21 - Past Medical/Surgical History Diabetic: Yes -: Hypertension -: DM -: Kidney disease - Social History Smoking Status: Unknown if ever smoked Alcohol use: No CD- Drugs: No Caffeine use: Yes Place of Residence: Home Review of Systems is unable to be obtained Physical Examination Temp Pulse Resp BP Pulse Ox 98.3 F 89 16 165/67 H 100 06/22/21 08:00 06/22/21 09:51 06/22/21 08:00 06/22/21 09:51 06/22/21 08:00 General: Alert, Cooperative Respiratory: Clear to auscultation bilaterally, Diminished Cardiovascular: No edema, Normal S1 S2 Laboratory Data (last 24 hrs) 06/21/21 17:50: WBC 12.80 H, Hgb 9.3 L, Hct 27.7 L, Plt Count 230 06/21/21 17:50: Sodium 139, Potassium 3.7, BUN 27 H, Creatinine 5.13 H*, Glucose 69 L, Total Bilirubin 0.8, AST 21, ALT 22, Alkaline Phosphatase 102, Lipase 194 - Problems (1) Respiratory failure Current Visit: Yes Status: Acute Plan: Patient is 55 years of age admitted with hypoxemia is very hypoxic by ABGs on room air pressures controlled currently on dialysis anemia of chronic disease I will order an echocardiogram patient has bilateral pleural effusion patient has a history of obstructive sleep apnea need to follow-up to check if she had a sleep study done and if she is using a CPAP machine echocardiogram ordered most likely patient has underlying congestive heart failure Qualifiers: Chronicity: unspecified
[2021-06-22] MEDS ORDERED: MANNITOL 25% 12.5 GM/50 ML VIAL IV PRN (18:51)
[2021-06-22] MEDS ORDERED: NA CHLORIDE 0.9% 1,000 ML IV PRN (18:51)
[2021-06-22] MEDS ORDERED: ALBUMIN HUMAN 25% 50 ML IV SCH (19:00)
--- NOTE | 2021-06-22 21:45 | P.CNS ---
Date of Consult: 06/22/21 Reason for Consult: ESRD Requesting Physician: Aristides Nicholson Chief Complaint: Dizzy weak abdominal discomfort hypertension History of Present Illness: 55 yo BM Obese, HTN presented to the ER with moderate, progressive dyspnea in the setting of CHF. 17:48 This 55 yrs old Black Female presents to ER via EMS with complaints of jr8 nausea/vomiting/abdominal pain. 17:48 Possible causes: unknown. The symptoms are aggravated by nothing. The symptoms are jr8 alleviated by nothing. Associated signs and symptoms: The patient has no apparent associated signs or symptoms. Severity of symptoms: At their worst the symptoms were moderate in the emergency department the symptoms are unchanged. The daniel ent has not experienced similar symptoms in the past. The patient has not recently seen a physician. Is a 55-year-old female that started with 3 days worth of nausea and vomiting. Today had right lower quadrant pain that was intermittent. After dialysis felt dizzy and weak.. Allergies No Known Allergies Allergy (Uncoded 06/21/21 23:28) Unknown Home medications list reviewed: Yes Home Medications: Furosemide [Lasix] 80 mg PO BID 10/05/11 Metoprolol Tartrate [Lopressor] 100 mg PO BID 10/05/11 Pravastatin [Pravachol*] 80 mg PO DAILY 10/05/11 Insulin Lispro [Humalog Kwikpen U-100] 10 unit SQ SEECOM 08/22/18 Sevelamer Carbonate 3 tab PO TID 08/22/18 cloNIDine HCL [Catapres] 0.3 mg PO TID 08/22/18 Bisacodyl [Women's Laxative] 1 tab PO PRN PRN 06/22/21 Fish Oil [place] 1 cap PO DAILY 06/22/21 Gabapentin [Neurontin*] 1 cap PO BID 06/22/21 Insulin Glargine,Hum.rec.anlog [Lantus] 1 unit SQ SEECOM 06/22/21 Nifedipine [Nifedipine ER] 1 tab PO DAILY 06/22/21 - Past Medical/Surgical History Diabetic: Yes -: Hypertension -: DM -: Kidney disease - Social History Smoking Status: Unknown if ever smoked Alcohol use: No CD- Drugs: No Caffeine use: Yes Place of Residence: Home Review of Systems 10-point ROS is otherwise unremarkable Respiratory: SOB with Excertion Physical Examination Temp Pulse Resp BP Pulse Ox 97.5 F 90 18 191/82 H 99 12/01/21 16:00 06/22/21 16:00 06/22/21 16:00 06/22/21 16:00 06/22/21 16:00 General: Oriented x3, Cooperative HEENT: Atraumatic Neck: Supple Respiratory: Crackles/rales (Left) Cardiovascular: Regular rate/rhythm, Edema Gastrointestinal: Soft and benign, Non-distended Musculoskeletal: No clubbing, No contractures Integumentary: No rashes, No cyanosis Neurological: Abnormal speech Blood work reviewed in the chart. Imagings Data: EXAM DESCRIPTION: CT - Abdomen Pelvis Wo Contrast - 06/21/2021 7:29 pm CLINICAL HISTORY: ABD PAIN COMPARISON: Abdomen Pelvis W Contrast dated 11/12/2020 TECHNIQUE: Axial [address] imaging of the abdomen and pelvis was performed without IV contrast. No IV contrast was given because of allergy, abnormal renal function, patient refusal or physician request. No oral contrast administered All CT scans are performed using dose optimization technique as appropriate and may include automated exposure control or mA/KV adjustment according to patient size. FINDINGS: Small right pleural effusion is present with partial atelectasis of the right lower lobe. Trace amount of left pleural effusions seen. Cardiomegaly is present without pericardial thickening or effusion. The liver, spleen and pancreas show no suspicious findings on non-contrast imaging. Gallbladder and biliary tree are also without suspicious finding. No hydronephrosis or suspicious renal mass. Bilateral renal atrophy again noted. No significant adrenal finding. Isodense renal masses and pyelonephritis cannot be excluded in the absence of IV contrast. The urinary bladder is without significant finding. Uterus and ovaries show no suspicious findings. No dilated bowel loops or bowel wall thickening. No appendicitis or other acute GI process identifiable. Ischemic bowel is not suspected. No free air, free fluid or inflammatory stranding. No hernia, mass or bulky lymphadenopathy. No suspicious bony findings. Prominent lower lumbar disc, endplate and facet joint degenerative changes are present. Dense calcifications of the arterial tree present. IMPRESSION: Non-contrast enhanced CT abdomen and pelvis imaging show no acute or emergent finding. Above detailed findings are not clearly different from November 12 imaging. Full assessment is limited is the absence of IV contrast. EXAM DESCRIPTION: RAD - Chest Single View - 06/21/2021 5:30 pm CLINICAL HISTORY: DYSPNEA COMPARISON: February 2020 TECHNIQUE: AP portable chest image was obtained 06/21/2021 5:30 pm . FINDINGS: Exam is limited by very large body habitus and under penetrated portable technique. Interstitial and airspace opacities are present in the mid and lower lung cast[place] with prominent interstitial markings in each apex. Cardiomegaly is present. Vasculature is prominent. CHF/volume overload would be favored. Bilateral pneumonia including COVID-19 pneumonia can give this presentation but is unlikely without supporting clinical and laboratory findings. No measurable pleural effusion and no pneumothorax. No acute bony abnormality seen. No acute aortic findings suspected. IMPRESSION: Limited portable study showing evidence for CHF/volume overload as detailed. Conclusions/Impression: ESRD -Acute HD HTN with CKD/ CHF -Continue Clonidine -Start Metoprolol BID Diastolic CHF, A/C -HD with UF DM II with CKD -No sugar diet Anemia in CKD -Retacrit X1 CKD MBD -Start Renvela -Start Vitamin D Thank you kindly for the consultation.
[2021-06-22] MEDS ORDERED: METOPROLOL TAR 50 MG TAB PO SCH (22:00)
[2021-06-23] MEDS: cloNIDine HCL 0.1 MG TAB PO PRN (01:16)
--- NOTE | 2021-06-23 07:27 | ECHO ---
HEIGHT: 5 ft 1 in WEIGHT: 268 lb 11.2 oz DATE OF STUDY: 06/22/[address]: Jun Pacheco MD 2-DIMENSIONAL: YES M.MODE: YES DOPPLER: YES COLOR FLOW: YES TDS: PORTABLE: DEFINITY: BUBBLE STUDY: DIAGNOSIS: RESPIRATORY FAILURE CARDIAC HISTORY: CATHERIZATION: SURGERY: PROSTHETIC VALVE: PACEMAKER: MEASUREMENTS (cm) DIASTOLIC (NORMALS) SYSTOLIC (NORMALS) IVSd 1.2 (0.6-1.2) LA Diam 4.3 (1.9-4.0) LVEF 36% LVIDd 5.2 (3.5-5.7) LVIDs 4.3 (2.0-3.5) %FS 17% LVPWd 1.1 (0.6-1.2) Ao Diam 2.9 (2.0-3.7) 2 DIMENSIONAL ASSESSMENT: RIGHT ATRIUM: NORMAL LEFT ATRIUM: DILATED RIGHT VENTRICLE: NORMAL LEFT VENTRICLE: NORMAL TRICUSPID VALVE: NORMAL MITRAL VALVE: NORMAL PULMONIC VALVE: NORMAL AORTIC VALVE: NORMAL PERICARDIAL EFFUSION: NONE AORTIC ROOT: NORMAL LEFT VENTRICULAR WALL MOTION: MODERATE GLOBAL HYPOKINESIS DOPPLER/COLOR FLOW: MODERATE TRICUSPID REGURGITATION. SEVERE PULMONARY HYPERTENSION. COMMENTS: SEVERE PULMONARY HYPERTENSION. RIGHT VENTRICULAR SYSTOLIC PRESSURE 60 mmHg. MODERATE GLOBAL HYPOKINESIS. EJECTION FRACTION 36%. LEFT ATRIAL ENLARGEMENT. TECHNOLOGIST: DORIS LEONARD
[2021-06-23] MEDS: CALCITROL 0.25 MCG CAP PO SCH (08:49)
[2021-06-23] MEDS: NIFEDIPINE XL 90 MG TABLET PO SCH (08:49)
[2021-06-23] MEDS: GABAPENTIN 100 MG CAP PO SCH ×3 (08:49→22:14)
[2021-06-23] MEDS: ESCITALOPRAM 20 MG TAB PO SCH (08:49)
[2021-06-23] MEDS: FUROSEMIDE 40 MG TABLET PO SCH ×2 (08:49→17:35)
[2021-06-23] MEDS: ASPIRIN EC 81 MG TAB PO SCH (08:49)
[2021-06-23] MEDS: SEVELAMER CARBONATE 800 MG TABLET PO SCH ×3 (08:49→17:35)
[2021-06-23] MEDS: cloNIDine HCL 0.1 MG TAB PO SCH ×3 (08:49→21:00)
[2021-06-23] MEDS: VITAMIN D 5,000 UNIT CAP PO SCH (08:49)
[2021-06-23] MEDS: METOPROLOL TAR 50 MG TAB PO SCH ×2 (08:49→21:00)
[2021-06-23] MEDS ORDERED: EPOETIN ALFA 10,000 UNIT/ML VIAL SQ SCH (09:00)
--- NOTE | 2021-06-23 12:56 | P.PN ---
Subjective Date of Service: 06/23/21 Chief Complaint: Congestive heart failure Subjective: Improving (Patient is improving doing well still hypoxic echocardiogram consistent with congestive heart failure) Review of Systems is unable to be obtained Physical Examination - Vital Signs Temperature: 97.7 F Blood Pressure: 160/69 Pulse: 72 Respirations: 16 Pulse Ox (%): 98 - Physical Exam General: Alert, Cooperative Respiratory: Clear to auscultation bilaterally Cardiovascular: No edema, Regular rate/rhythm Assessment & Plan - Problems (Diagnosis) (1) Congestive heart failure Current Visit: Yes Status: Acute Plan: Patient has congestive heart failure ejection fraction 36% severe secondary pulmonary hypertension cardiology has been consult patient is on dialysis blood pressure still elevated patient will qualify for home O2 with a diagnosis of congestive heart failure right now will not qualify for empiric CPAP therapy with plan to follow-up as an outpatient Qualifiers: Heart failure type: systolic Heart failure chronicity: unspecified Qualified Code(s): I50.20 - Unspecified systolic (congestive) heart failure
[2021-06-23 15:32] LABS: Thyroid Stimulating Hormone 1.75 uIU/mL (0.360-3.740)
[2021-06-23 17:03] LABS: Potassium 4.5 mmol/L (3.5-5.1)
--- NOTE | 2021-06-23 19:15 | CON ---
Date of Consultation: 06/23/2021 Reason For Consultation: Severe pulmonary hypertension. Low ejection fraction. History Of Present Illness: 55-year-old female, end-stage renal disease, on hemodialysis, hypertensi on, diabetes, presented with dizziness, shortness of breath, also hypoxic. She had some nausea, vomi ting, abdominal discomfort, significant hypoxic as per chest pain. No history of cardiac disease otherwise. Past Medical History: As outlined above in the HPI. Medications: Refer reconciliation sheet for detailed list. Allergies: NO KNOWN DRUG ALLERGIES. Family History: No premature coronary artery disease or cancer. Social History: She does not smoke or drink. Does not use drugs. Review of Systems: All systems reviewed and they are negative, except as mentioned in the HPI. Physical Examination: Vital Signs: Temperature is 97.7, pulse 72, breathing 16, blood pressure is 160/69. General: This is a middle-aged female, morbidly obese, in no apparent distress. Head and Neck: Pupils are equal and reactive to light. Intact eye movements. No JVD. No cervical lymphadenopathy. Neck: Supple. Thyroid is not enlarged. Lungs: Clear to auscultation bilaterally. No rhonchi, rales, or crackles. No accessory muscle use. Heart: Regular rate and rhythm. No extra sounds. Abdomen: Soft, nontender. Bowel sounds positive. No organomegaly. No masses or hernia. No rigidi ty or rebound. Extremities: No edema, clubbing, cyanosis. Intact pulses. Skin: No rash. Neurologic: Alert, awake, oriented x3. No acute focal deficits appreciated. Investigations: Hemoglobin is 8.4, BUN 37, creatinine 6.44. NT-proBNP is . On echo, she had a low ejection fraction of 30%-35%, with global hypokinesis. Assessment And Recommendation: 1.Systolic congestive heart failure. The patient is not known to have any history of cardiac diseas e before. As such recommend coronary angiogram. Rule out ischemia as a cause of it. If no coronary artery disease, then recommend to start the patient on Entresto and beta-ra like Toprol-XL or C oreg and adjust doses as needed. 2.Severe pulmonary hypertension. The patient required to have a right heart catheterization to eval uate the etiology behind the pulmonary hypertension, which could be or related to congestive heart fa ilure. Plan: Schedule left and right heart catheterization and further plan accordingly. In the interim, f luid management as with Nephrology and strict low-salt diet. SR/MODL Voice ID: [id number] Report ID: [id number]
--- NOTE | 2021-06-23 21:40 | P.PN ---
Date of Service: 06/23/21 Vital Signs Temp Pulse Resp BP Pulse Ox 96.8 F 66 18 97/51 L 98 06/23/21 20:00 06/23/21 20:00 06/23/21 20:00 06/23/21 20:00 06/23/21 20:00 Medications Acetaminophen (Acetaminophen 500 Mg Tab) 500 mg PO Q6H PRN PRN Reason: Pain scale 2-4 (Mild) Albuterol Sulfate (Albuterol 2.5 Mg/3 Ml Neb Radha) 2.5 mg NEB Q4H PRN PRN Reason: WHEEZING Aspirin (Aspirin Ec 81 Mg Tab) 81 mg PO DAILY [facility] Last Admin: 06/23/21 08:49 Dose: 81 mg Documented by: Atorvastatin Calcium (Atorvastatin 10 Mg Tab) 10 mg PO BEDTIME BEST Calcitriol (Calcitrol 0.25 Mcg Cap) 0.5 mcg PO DAILY [facility] Last Admin: 06/23/21 08:49 Dose: 0.5 mcg Documented by: Cholecalciferol (Vitamin D 5,000 Unit Cap) 5,000 unit PO DAILY [facility] Last Admin: 06/23/21 08:49 Dose: 5,000 unit Documented by: Clonidine HCl (Clonidine Hcl 0.1 Mg Tab) 0.1 mg PO Q6H PRN PRN Reason: Hypertension Last Admin: 06/23/21 01:16 Dose: 0.1 mg Documented by: Clonidine HCl (Clonidine Hcl 0.1 Mg Tab) 0.2 mg PO TID [facility] Last Admin: 06/23/21 14:07 Dose: 0.2 mg Documented by: Escitalopram Oxalate (Escitalopram 20 Mg Tab) 10 mg PO DAILY [facility] Last Admin: 06/23/21 08:49 Dose: 10 mg Documented by: Furosemide (Furosemide 40 Mg Tablet) 80 mg PO BIDL [facility] Last Admin: 06/23/21 17:35 Dose: 80 mg Documented by: Gabapentin (Gabapentin 100 Mg Cap) 100 mg PO TID [facility] Last Admin: 06/23/21 14:07 Dose: 100 mg Documented by: Heparin Sodium (Porcine) (Heparin 1,000 Unit/Ml Vial) 4,000 unit IV EVERY HD [facility] Stop: 06/28/21 14:01 Albumin Human (Albumin 25%) 50 mls @ 100 mls/hr IV EVERY HD [facility] Ipratropium [place] (Ipratropium Brom 0.5mg/2.5ml) 0.5 mg NEB Q4H PRN PRN Reason: WHEEZING Mannitol (Mannitol 25% 12.5 Gm/50 Ml Vial) 12.5 gm IV EVERY HD PRN PRN Reason: PRN FOR BP SUPPORT AT HD Metoprolol Tartrate (Metoprolol Tar 50 Mg Tab) 100 mg PO BID [facility] Last Admin: 06/23/21 08:49 Dose: 100 mg Documented by: Nifedipine (Nifedipine Xl 90 Mg Tablet) 90 mg PO DAILY [facility] Last Admin: 06/23/21 08:49 Dose: 90 mg Documented by: Ondansetron HCl (Ondansetron 4 Mg/2 Ml Vial) 4 mg IV Q4H PRN PRN Reason: NAUSEA / VOMITING Sevelamer Carbonate (Sevelamer Carbonate 800 Mg Tablet) 800 mg PO TIDWM [facility] Last Admin: 06/23/21 17:35 Dose: 800 mg Documented by: Sodium Chloride (Flush Normal Saline 10 Ml) 10 ml IV BID [facility] Last Admin: 06/23/21 08:51 Dose: 10 ml Documented by: Assessment/ Plan: Nephrology No dyspnea. GRANT No chest pain HD yesterday evening without complications No acute events overnight Vitals, medications, blood work and imaging reviewed in the chart General: Oriented x3, Cooperative HEENT: Atraumatic Neck: Supple Respiratory: Crackles/rales (Left) Cardiovascular: Regular rate/rhythm, Edema Gastrointestinal: Soft and benign, Non-distended Musculoskeletal: No clubbing, No contractures Integumentary: No rashes, No cyanosis Neurological: Abnormal speech Blood work reviewed in the chart. Imagings Data: EXAM DESCRIPTION: CT - Abdomen Pelvis Wo Contrast - 06/21/2021 7:29 pm CLINICAL HISTORY: ABD PAIN COMPARISON: Abdomen Pelvis W Contrast dated 11/12/2020 TECHNIQUE: Axial [address] imaging of the abdomen and pelvis was performed without IV contrast. No IV contrast was given because of allergy, abnormal renal function, patient refusal or physician request. No oral contrast administered All CT scans are performed using dose optimization technique as appropriate and may include automated exposure control or mA/KV adjustment according to patient size. FINDINGS: Small right pleural effusion is present with partial atelectasis of the right lower lobe. Trace amount of left pleural effusions seen. Cardiomegaly is present without pericardial thickening or effusion. The liver, spleen and pancreas show no suspicious findings on non-contrast imaging. Gallbladder and biliary tree are also without suspicious finding. No hydronephrosis or suspicious renal mass. Bilateral renal atrophy again noted. No significant adrenal finding. Isodense renal masses and pyelonephritis cannot be excluded in the absence of IV contrast. The urinary bladder is without significant finding. Uterus and ovaries show no suspicious findings. No dilated bowel loops or bowel wall thickening. No appendicitis or other acute GI process identifiable. Ischemic bowel is not suspected. No free air, free fluid or inflammatory stranding. No hernia, mass or bulky lymphadenopathy. No suspicious bony findings. Prominent lower lumbar disc, endplate and facet joint degenerative changes are present. Dense calcifications of the arterial tree present. IMPRESSION: Non-contrast enhanced CT abdomen and pelvis imaging show no acute or emergent finding. Above detailed findings are not clearly different from November 12 imaging. Full assessment is limited is the absence of IV contrast. EXAM DESCRIPTION: RAD - Chest Single View - 06/21/2021 5:30 pm CLINICAL HISTORY: DYSPNEA COMPARISON: February 2020 TECHNIQUE: AP portable chest image was obtained 06/21/2021 5:30 pm . FINDINGS: Exam is limited by very large body habitus and under penetrated portable technique. Interstitial and airspace opacities are present in the mid and lower lung castelan with prominent interstitial markings in each apex. Cardiomegaly is present. Vasculature is prominent. CHF/volume overload would be favored. Bilateral pneumonia including COVID-19 pneumonia can give this presentation but is unlikely without supporting clinical and laboratory findings. No measurable pleural effusion and no pneumothorax. No acute bony abnormality seen. No acute aortic findings suspected. IMPRESSION: Limited portable study showing evidence for CHF/volume overload as detailed. LEFT VENTRICULAR WALL MOTION: MODERATE GLOBAL HYPOKINESIS DOPPLER/COLOR FLOW: MODERATE TRICUSPID REGURGITATION. SEVERE PULMONARY HYPERTENSION. COMMENTS: SEVERE PULMONARY HYPERTENSION. RIGHT VENTRICULAR SYSTOLIC PRESSURE 60 mmHg. MODERATE GLOBAL HYPOKINESIS. EJECTION FRACTION 36%. LEFT ATRIAL ENLARGEMENT. Conclusions/Impression: ESRD -Acute HD HTN with CKD/ CHF -Continue Clonidine -Continue Metoprolol BID Systolic CHF, A/C LVEF 36% -HD with UF -Low sodium diet -Continue Metoprolol -Agree with the cardiology evaluation DM II with CKD -No sugar diet Anemia in CKD -Retacrit PRN CKD MBD -Continue Renvela -Continue Vitamin D
[2021-06-23] MEDS: ATORVASTATIN 10 MG TAB PO SCH (22:14)
--- NOTE | 2021-06-23 22:51 | PN ---
Date of Progress Note: 06/23/2021 Subjective: The patient was seen this morning for followup. No new complaints or problems reported by her. Lying in bed, not in distress, was sleeping with CPAP machine. Objective: Vital Signs: Reviewed. HEENT: Examination unremarkable. Lungs: Clear to auscultation. Heart: Sounds normal. Abdomen: Soft. Bowel sounds normal. No guarding, rigidity, tenderness, or distention. Extremities: No leg edema. Laboratory Data: Sodium 136, potassium 4.5, chloride 99, bicarb 27, BUN 42, creatinine 6.29, glucose 180. Echocardiogram shows ejection fraction of 36%, moderate global hypokinesis and also shows pulm onary hypertension and pulmonary hypertension is severe. Impression: 1.Chronic systolic heart failure. 2.Severe pulmonary hypertension. 3.Diabetes mellitus. 4.End-stage renal disease, on hemodialysis. 5.Hypertension. Plan: We will go ahead and continue current medication. Details were discussed with Dr. Pacheco. I did call patient's mother and discussed details and she informs me that the patient is using the CP AP machine every night at home, but she does not have any home oxygen, so we will need to make arrang ements for home oxygen. I did inform the patient's mother that she needs to use oxygen at nighttime for sure, and if she sleeps during daytime, then she will need to use oxygen along with her CPAP mach ine. She was advised to by pulse oximeter check oxygen saturation during daytime off and on, and if oxygen saturation is less than 90%, then to use oxygen during daytime as well. Cardiology consultation was obtained and airline radio operator is planning to do cardiac cath tomorr ow. PURNIMA/MODL Voice ID: [id number] Report ID: [id number]
[2021-06-24] MEDS: ASPIRIN EC 81 MG TAB PO SCH (06:00)
[2021-06-24] MEDS: METOPROLOL TAR 50 MG TAB PO SCH ×2 (06:00→21:16)
[2021-06-24] MEDS: SEVELAMER CARBONATE 800 MG TABLET PO SCH ×3 (08:00→17:47)
[2021-06-24] MEDS: NIFEDIPINE XL 90 MG TABLET PO SCH (09:00)
[2021-06-24] MEDS: ESCITALOPRAM 20 MG TAB PO SCH (09:00)
[2021-06-24] MEDS: FUROSEMIDE 40 MG TABLET PO SCH ×2 (09:00→17:47)
[2021-06-24] MEDS: VITAMIN D 5,000 UNIT CAP PO SCH (09:00)
[2021-06-24] MEDS: CALCITROL 0.25 MCG CAP PO SCH (09:00)
[2021-06-24] MEDS: GABAPENTIN 100 MG CAP PO SCH ×3 (09:00→21:17)
[2021-06-24] MEDS: cloNIDine HCL 0.1 MG TAB PO SCH ×3 (09:38→21:15)
--- NOTE | 2021-06-24 12:51 | PN ---
Date of Progress Note: 06/24/2021 Subjective: The patient was seen this morning for followup. No new complaints or problems reported by patient, lying in bed, not in any distress. Her mother was with her at bedside. Objective: VITAL SIGNS: Reviewed. HEENT: Unremarkable. LUNGS: Clear to auscultation. HEART: Sounds normal. ABDOMEN: Soft. Bowel sounds normal. No guarding, rigidity, tenderness, or distention. EXTREMITIES: No leg edema. Laboratory Data: There are no new labs today. Echocardiogram from yesterday showing ejection fracti on of 36%. Impression: 1.Chronic systolic congestive heart failure. 2.Sleep apnea. 3.Chronic respiratory failure with hypoxia. 4.Severe pulmonary hypertension. 5.End-stage renal disease, on hemodialysis. 6.Hypertension. Plan: We will go ahead and continue to follow with eddy current inspector, who is planning to do cardiac cath today. Continue current medical management depending on cardiac cath results and any intervention th at she may require. We will decide about discharge planning and meanwhile we will try to make arrang ements for home oxygen also. Possible discharge to go home either today or tomorrow depends on cardiac cath results. PURNIMA/MODL Voice ID: [id number] Report ID: [id number]
[2021-06-24] MEDS ORDERED: HEPA 1000U/500MLS 1,000 UNIT/500 ML BAG IV ONE (14:15)
[2021-06-24] MEDS ORDERED: LIDOCAINE 1% 20 ML MDV ONE (14:15)
[2021-06-24] MEDS ORDERED: NA CHLORIDE 0.9% 500 ML ONE (14:19)
[2021-06-24] MEDS ORDERED: FENTANYL CITR 100 MCG/2 ML ONE (14:19)
[2021-06-24] MEDS ORDERED: MIDAZOLAM HCL 2 MG/2 ML INJ ONE (14:19)
[2021-06-24] MEDS ORDERED: NITROGLYCERIN/D5W 0 MG/0 ML BTL IV ONE ×2 (14:20→14:21)
[2021-06-24] MEDS ORDERED: NA CHLORIDE 0.9% 0 ML ONE (14:20)
[2021-06-24] MEDS ORDERED: ATROPINE SULF 1 MG/10 ML SYR IV ONE (14:20)
[2021-06-24] MEDS ORDERED: NITROGLYCERIN 100 MCG/ML SYR (for cath lab use only) IV ONE (14:20)
[2021-06-24] MEDS ORDERED: NA CHLORIDE 0.9% 100 ML IV ONE (14:35)
[2021-06-24 14:42] LABS: Protime INR 0.96
[2021-06-24] MEDS ORDERED: EPOETIN ALFA-EPBX 4,000 UNIT/ML VIAL SQ SCH (17:00)
[2021-06-24] MEDS ORDERED: EPOETIN ALFA-EPBX 10,000 UNIT/ML VIAL SQ SCH (18:00)
[2021-06-24] MEDS: ATORVASTATIN 10 MG TAB PO SCH (21:15)
[2021-06-25] MEDS: cloNIDine HCL 0.1 MG TAB PO PRN (00:55)
--- NOTE | 2021-06-25 01:52 | OP ---
Date of Procedure: 06/24/2021 Surgeon: Jaswant Reyes MD Walking Dragline Operator: Mr. Morales Admitted on 06/21/[address] Nicholson's service. Description Of Procedure: Patient brought to the helper animal laboratory on 06/24/2021 because of new-onset congest zoë heart failure. She underwent a left and right heart catheterization, selective coronary artery a ngiogram, O2 saturation, cardiac output, and LV-gram. On the helper animal laboratory, she was prepped and draped in the routine sterile fashion. Given Versed and fentanyl for sedation. A 6-Serbian sheath introduced in the right common femoral artery. A 7-Serbian sheath introduced in the right common femoral vein. Left heart catheterization was first done with Yomi catheter left and right. She was found to hav e a perfectly normal LAD. Her RCA was completely occluded. It was dominant. The PDA and posterolat eral get collaterals from the LAD to the RCA. Circumflex was very small and nondominant. She had 80 % stenosis in OM, this about 2 mm in size. Pigtail catheter was then inserted in the left ventricle. Left ventriculogram showed an ejection fraction of 45%. End-diastolic pressure was elevated at 24 mmHg. Following the left heart catheterization, a [place]-Yun catheter was introduced in the right com mon femoral vein. The balloon was inflated in the right common femoral vein after it exited the duran th. The [place]-Yun catheter was advanced in the right atrium, right ventricle, pulmonary artery wedge . Cardiac outputs were measured at the PA at 5.2 L/minute. Wedge pressure was 27. Right atrial pre ssure average was 18. Right ventricular and pulmonary artery pressure was more than 60 mmHg. O2 sat uration was drawn and the wedge pressure, PA, RV, right atrium, IVC, and femoral artery. These are p ending. There were no complications. Blood loss was 5 cc. Total conscious sedation was 60 minutes. Postoperative Diagnoses: Severe coronary artery disease, severe pulmonary hypertension, and congesti ve heart failure, moderate. Plan: Plan is for medical therapy. I will discuss the case with Dr. Nicholson. Angiography in the groin was normal. StarClose was used to close the procedure. Patient will have to be at bedrest for at l east 2 hours tonight after the procedure. She can go home later on tonight or tomorrow whenever it i s okay with Dr. Nicholson. FARHAN/PEDRO LUIS Voice ID: [id number] Report ID: [id number]
[2021-06-25 08:51] VITALS: O2SAT 98
[2021-06-25] MEDS: NIFEDIPINE XL 90 MG TABLET PO SCH (09:00)
[2021-06-25] MEDS: ASPIRIN EC 81 MG TAB PO SCH (09:00)
[2021-06-25] MEDS: ESCITALOPRAM 20 MG TAB PO SCH (09:00)
[2021-06-25] MEDS: SEVELAMER CARBONATE 800 MG TABLET PO SCH ×2 (10:04→14:35)
[2021-06-25] MEDS: GABAPENTIN 100 MG CAP PO SCH ×2 (10:04→14:35)
[2021-06-25] MEDS: VITAMIN D 5,000 UNIT CAP PO SCH (10:05)
[2021-06-25] MEDS: FUROSEMIDE 40 MG TABLET PO SCH (10:05)
[2021-06-25] MEDS: cloNIDine HCL 0.1 MG TAB PO SCH ×2 (10:05→14:36)
[2021-06-25] MEDS: METOPROLOL TAR 50 MG TAB PO SCH (10:05)
[2021-06-25] MEDS: CALCITROL 0.25 MCG CAP PO SCH (10:06)
--- NOTE | 2021-06-25 10:40 | P.PN ---
Date of Service: 06/24/21 Vital Signs Temp Pulse Resp BP Pulse Ox 97.7 F 62 18 140/66 96 06/25/21 08:00 06/25/21 10:05 06/25/21 08:00 06/25/21 10:05 06/25/21 08:00 Medications Acetaminophen (Acetaminophen 500 Mg Tab) 500 mg PO Q6H PRN PRN Reason: Pain scale 2-4 (Mild) Albuterol Sulfate (Albuterol 2.5 Mg/3 Ml Neb Radha) 2.5 mg NEB Q4H PRN PRN Reason: WHEEZING Aspirin (Aspirin Ec 81 Mg Tab) 81 mg PO DAILY [facility] Last Admin: 06/25/21 09:00 Dose: 81 mg Documented by: Atorvastatin Calcium (Atorvastatin 10 Mg Tab) 10 mg PO BEDTIME [facility] Last Admin: 06/24/21 21:15 Dose: 10 mg Documented by: Calcitriol (Calcitrol 0.25 Mcg Cap) 0.5 mcg PO DAILY [facility] Last Admin: 06/25/21 10:06 Dose: 0.5 mcg Documented by: Cholecalciferol (Vitamin D 5,000 Unit Cap) 5,000 unit PO DAILY [facility] Last Admin: 06/25/21 10:05 Dose: 5,000 unit Documented by: Clonidine HCl (Clonidine Hcl 0.1 Mg Tab) 0.1 mg PO Q6H PRN PRN Reason: Hypertension Last Admin: 06/25/21 00:55 Dose: 0.1 mg Documented by: Clonidine HCl (Clonidine Hcl 0.1 Mg Tab) 0.2 mg PO TID [facility] Last Admin: 06/25/21 10:05 Dose: 0.2 mg Documented by: Escitalopram Oxalate (Escitalopram 20 Mg Tab) 10 mg PO DAILY [facility] Last Admin: 06/25/21 09:00 Dose: 10 mg Documented by: Furosemide (Furosemide 40 Mg Tablet) 80 mg PO BIDL [facility] Last Admin: 06/25/21 10:05 Dose: 80 mg Documented by: Gabapentin (Gabapentin 100 Mg Cap) 100 mg PO TID [facility] Last Admin: 06/25/21 10:04 Dose: 100 mg Documented by: Heparin Sodium (Porcine) (Heparin 1,000 Unit/Ml Vial) 4,000 unit IV EVERY HD [facility] Stop: 06/28/21 14:01 Albumin Human (Albumin 25%) 50 mls @ 100 mls/hr IV EVERY HD [facility] Ipratropium [place] (Ipratropium Brom 0.5mg/2.5ml) 0.5 mg NEB Q4H PRN PRN Reason: WHEEZING Mannitol (Mannitol 25% 12.5 Gm/50 Ml Vial) 12.5 gm IV EVERY HD PRN PRN Reason: PRN FOR BP SUPPORT AT HD Metoprolol Tartrate (Metoprolol Tar 50 Mg Tab) 100 mg PO BID [facility] Last Admin: 06/25/21 10:05 Dose: 100 mg Documented by: Nifedipine (Nifedipine Xl 90 Mg Tablet) 90 mg PO DAILY [facility] Last Admin: 06/25/21 09:00 Dose: Not Given Documented by: Ondansetron HCl (Ondansetron 4 Mg/2 Ml Vial) 4 mg IV Q4H PRN PRN Reason: NAUSEA / VOMITING Sevelamer Carbonate (Sevelamer Carbonate 800 Mg Tablet) 800 mg PO TIDWM [facility] Last Admin: 06/25/21 10:04 Dose: 800 mg Documented by: Sodium Chloride (Flush Normal Saline 10 Ml) 10 ml IV BID [facility] Last Admin: 06/25/21 09:00 Dose: 10 ml Documented by: Assessment/ Plan: Nephrology No dyspnea. GRANT No chest pain No acute events overnight Vitals, medications, blood work and imaging reviewed in the chart General: Oriented x3, Cooperative HEENT: Atraumatic Neck: Supple Respiratory: Crackles/rales (Left) Cardiovascular: Regular rate/rhythm, Edema Gastrointestinal: Soft and benign, Non-distended Musculoskeletal: No clubbing, No contractures Integumentary: No rashes, No cyanosis Neurological: Abnormal speech Blood work reviewed in the chart. Imagings Data: EXAM DESCRIPTION: CT - Abdomen Pelvis Wo Contrast - 06/21/2021 7:29 pm CLINICAL HISTORY: ABD PAIN COMPARISON: Abdomen Pelvis W Contrast dated 11/12/2020 TECHNIQUE: Axial [address] imaging of the abdomen and pelvis was performed without IV contrast. No IV contrast was given because of allergy, abnormal renal function, patient refusal or physician request. No oral contrast administered All CT scans are performed using dose optimization technique as appropriate and may include automated exposure control or mA/KV adjustment according to patient size. FINDINGS: Small right pleural effusion is present with partial atelectasis of the right lower lobe. Trace amount of left pleural effusions seen. Cardiomegaly is present without pericardial thickening or effusion. The liver, spleen and pancreas show no suspicious findings on non-contrast imaging. Gallbladder and biliary tree are also without suspicious finding. No hydronephrosis or suspicious renal mass. Bilateral renal atrophy again noted. No significant adrenal finding. Isodense renal masses and pyelonephritis cannot be excluded in the absence of IV contrast. The urinary bladder is without significant finding. Uterus and ovaries show no suspicious findings. No dilated bowel loops or bowel wall thickening. No appendicitis or other acute GI process identifiable. Ischemic bowel is not suspected. No free air, free fluid or inflammatory stranding. No hernia, mass or bulky lymphadenopathy. No suspicious bony findings. Prominent lower lumbar disc, endplate and facet joint degenerative changes are present. Dense calcifications of the arterial tree present. IMPRESSION: Non-contrast enhanced CT abdomen and pelvis imaging show no acute or emergent finding. Above detailed findings are not clearly different from November 12 imaging. Full assessment is limited is the absence of IV contrast. EXAM DESCRIPTION: RAD - Chest Single View - 06/21/2021 5:30 pm CLINICAL HISTORY: DYSPNEA COMPARISON: February 2020 TECHNIQUE: AP portable chest image was obtained 06/21/2021 5:30 pm . FINDINGS: Exam is limited by very large body habitus and under penetrated portable technique. Interstitial and airspace opacities are present in the mid and lower lung castelan with prominent interstitial markings in each apex. Cardiomegaly is present. Vasculature is prominent. CHF/volume overload would be favored. Bilateral pneumonia including COVID-19 pneumonia can give this presentation but is unlikely without supporting clinical and laboratory findings. No measurable pleural effusion and no pneumothorax. No acute bony abnormality seen. No acute aortic findings suspected. IMPRESSION: Limited portable study showing evidence for CHF/volume overload as detailed. LEFT VENTRICULAR WALL MOTION: MODERATE GLOBAL HYPOKINESIS DOPPLER/COLOR FLOW: MODERATE TRICUSPID REGURGITATION. SEVERE PULMONARY HYPERTENSION. COMMENTS: SEVERE PULMONARY HYPERTENSION. RIGHT VENTRICULAR SYSTOLIC PRESSURE 60 mmHg. MODERATE GLOBAL HYPOKINESIS. EJECTION FRACTION 36%. LEFT ATRIAL ENLARGEMENT. Conclusions/Impression: ESRD -HD TIW -Extra HD as needed HTN with CKD/ CHF -Continue Clonidine -Continue Metoprolol BID Systolic CHF, A/C LVEF 36% -HD with UF -Low sodium diet -Continue Metoprolol -Plan for cardiac cath; currently NPO DM II with CKD -No sugar diet Anemia in CKD -Retacrit TIW CKD MBD -Continue Renvela -Continue Vitamin D
--- NOTE | 2021-06-25 12:27 | DS ---
Date of Discharge: 06/25/2021 Physical Examination: HEENT: Unremarkable. Lungs: Clear to auscultation. Heart: Sounds normal. Abdomen: Soft bowel sounds normal. No guarding, rigidity, tenderness, or distention. Extremities: No leg edema and right groin was examined in presence of nurse. Presence of a small dr jurado, which was placed yesterday after cardiac cath. No evidence of any swelling, hematoma, or any tenderness. Discharge Medications And Instructions: See copy of discharge orders for more details. Laboratory Data: Upon admission, white count 12.8, hemoglobin 9.3, platelets 230. This was on 06/21 and on 06/22/2021, white count 10, hemoglobin 8.4, platelet count 217. Blood gases; pH 7.43, p CO2 of 44.8, pO2 of 50.3, saturation 84% on room air. Last chemistry; sodium 136, potassium 4.5, chl oride 99, bicarb 27, BUN 42, creatinine 6.29, glucose 180. Her proBNP 65,305. Echocardiogram shows ejection fraction of 36%, severe pulmonary hypertension. Hospital Course: Ms. Guallpa is a very pleasant 55-year-old female patient who was admitted to the [facility] after she came into emergency room. Please see dictated H and P for more information. The pat issi's blood pressure was out of control, which we adjusted her antihypertensive medication. Her nep hrologist was consulted for dialysis support and Dr. Pacheco was consulted because of the hypoxia pr oblem. The patient has obstructive sleep apnea. She uses her CPAP machine, but she will require rosie e oxygen at 2 L/minute nasal cannula. Social Service was consulted and arrangements were made for floyd meehan to get home oxygen. I have instructed the patient's mother that she should use oxygen at night time while she is sleeping along with her CPAP machine and also during daytime. If she sleeps during daytime, only if her oxygen saturation drops less than 90% during day time, she should use her home oxygen. Echocardiogram was done, which showed low ejection fraction, severe pulmonary hypertension, so cardiology consultation was obtained and Dr. Reyes did a cardiac cath yesterday. The patient vuong s 100% distal RCA stenosis and has collaterals also about 80%. Stenosis of OM1, which did not requir e any intervention, so medical management was suggested for her coronary artery disease. The patient has significant pulmonary hypertension and evidence of now chronic systolic heart failure and we mildred l go ahead and make adjustment on her medications and patient to take her medication as outlined in d ischarge medication list. Final Diagnoses: 1.Chronic systolic heart failure. 2.Severe pulmonary hypertension. 3.End-stage renal disease, on hemodialysis. 4.Hypertension. 5.Coronary artery disease. 6.Hyperlipidemia. 7.Diabetes mellitus. PURNIMA/MODL Voice ID: [id number] Report ID: [id number]
[2021-06-25 12:36] VITALS: BP 141/67; TEMP 97
--- NOTE | 2021-06-27 12:36 | HP ---
Date of Admission: 06/21/2021 Chief Complaint: High blood pressure, nausea. History Of Present Illness: A 55-year-old female patient with multiple comorbidities with hypertensi on and end-stage renal disease on hemodialysis, was at dialysis center yesterday getting hemodialysis and her blood pressure was very high. Systolic blood pressure was between 200 to 220, diastolic was 110 to 120. The patient was given clonidine and that did not improve her blood pressure, so dialysi s center contacted me and we advised them to send the patient to the emergency room. After the patie nt was evaluated in the ER, she was admitted to the hospital. Denies any chest pain, shortness of br eath. After she was evaluated in ER, she did receive clonidine for her blood pressure as it was stil l elevated in emergency room. Allergies: NO KNOWN ALLERGIES. Medications: Aspirin 81 mg daily, clonidine 0.3 mg she takes half a tablet 3 times a day, escitalopr am 10 mg p.o. daily, furosemide 80 mg takes 2 tablets by mouth 2 times a day, gabapentin 100 mg 3 yariel es a day, metoprolol 100 mg 2 times a day, nifedipine 90 mg daily, pravastatin 80 mg daily. Review of Systems: Cardiovascular: As mentioned above. GI: As mentioned above. All other systems reviewed and negative. Social History: Negative for smoking, alcohol use. Family History: Father , had colon cancer. Mother, arthritis and hypertension. Past Surgical History: Cataract surgery. Past Medical History: Diabetic retinopathy, diabetes mellitus with chronic kidney disease, obstructi ve sleep apnea, end-stage renal disease, on hemodialysis, hyperlipidemia, hypertension, anemia due to chronic kidney disease. Physical Examination: Vital Signs: Temperature 97.6, pulse 88, respiratory rate 18, blood pressure 179/79 this morning wit h oxygen saturation 94. Height 5 feet 1 inch, weight 268 pounds. General: Awake, alert, oriented, not in distress. HEENT: Head atraumatic, normocephalic. Conjunctivae nonerythematous. Sclerae white. Mouth, no thr ush or edema noted. Ears/Nose, no mass, lesion, discharge noted. Neck: Supple. No JVD, lymph nodes, bruit, thyromegaly noted. Lungs: Bilateral good equal air entry. Clear to auscultation. No rhonchi. No rales. Heart: Normal heart sounds, no murmur or gallop. Abdomen: Soft, bowel sounds normal. No guarding, rigidity, tenderness, mass, hepatosplenomegaly, dis tention, or bruit noted. Extremities: No leg edema. No calf tenderness. Skin: No rash, ulcer, cellulitis. Lymphatics: No lymph node enlargement in neck, supraclavicular, infraclavicular region. Neuro: No focal neurological deficit. Chest: Unremarkable. External Genitalia: Deferred. Rectal: Deferred. Laboratory Data: Yesterday; white count 12.8, hemoglobin 9.3, platelets 230. This morning; white co unt 10, hemoglobin 8.4, platelets 217. Yesterday; sodium 139, potassium 3.7, chloride 104, bicarb 26 , BUN 27, creatinine 5.13, glucose 69. Liver function tests unremarkable. Lipase 194. COVID-19 bernard t negative. Chest x-ray, possibility of volume overload on the chest x-ray. CAT scan of abdomen and pelvis without contrast, no acute or emergent finding noted. Impression: 1.Hypertension, uncontrolled. 2.End-stage renal disease, on hemodialysis. 3.Chronic respiratory failure with hypoxia. 4.Obstructive sleep apnea. 5.Diabetes mellitus with chronic kidney disease. 6.Diabetic retinopathy. 7.Mixed hyperlipidemia. 8.Anemia due to chronic kidney disease. Plan: Admit the patient to hospital for further evaluation and management of this problem. The daniel ent is appropriate for inpatient and is expected to spend 2 midnights in hospital. We will go ahead and consult sports physiologist for dialysis support. Continue home medications per order. We will order c lonidine for p.r.n. use and increase clonidine dose to 0.2 mg 3 times a day. I will see her tomorrow for followup. While the patient was in the emergency room, every time she tried to go to sleep, her oxygen saturation dropped down and the lowest oxygen saturation was 88%. So, she was placed on oxyg en 2 L/minute nasal cannula and we will consult Dr. Pacheco from Pulmonary Service, and I did call a nd discuss details with him this morning. PURNIMA/MODL Voice ID: [id number]
== END 2021-06-25 16:48 | disposition home or self-care (01) | DRG 286 ==
LOC: ER 15:46 → ERHOLD 22:33 → 2ND 22:58
PROVIDERS: ADMIT Internal Medicine; ATTEND Internal Medicine
PROC: 5A1D70Z Performance of Urinary Filtration, Intermittent, Less than 6 Hours Per Day (ICD-10-PCS; 2021-06-22)
PROC: 4A023N8 Measurement of Cardiac Sampling and Pressure, Bilateral, Percutaneous Approach (ICD-10-PCS; principal; 2021-06-24)
PROC: B2111ZZ Fluoroscopy of Multiple Coronary Arteries using Low Osmolar Contrast (ICD-10-PCS; 2021-06-24)
DX: I13.2 Hypertensive heart and chronic kidney disease with heart failure and with stage 5 chronic kidney disease, or end stage renal disease (principal); J96.01 Acute respiratory failure with hypoxia; N18.6 End stage renal disease; I50.23 Acute on chronic systolic (congestive) heart failure; Z68.43 Body mass index [BMI] 50.0-59.9, adult; E11.22 Type 2 diabetes mellitus with diabetic chronic kidney disease; K21.9 Gastro-esophageal reflux disease without esophagitis; I27.20 Pulmonary hypertension, unspecified; D63.8 Anemia in other chronic diseases classified elsewhere; M89.9 Disorder of bone, unspecified; G47.33 Obstructive sleep apnea (adult) (pediatric); D63.1 Anemia in chronic kidney disease; I25.10 Atherosclerotic heart disease of native coronary artery without angina pectoris; E78.2 Mixed hyperlipidemia; E66.9 Obesity, unspecified; Z79.4 Long term (current) use of insulin; Z99.2 Dependence on renal dialysis; Z79.899 Other long term (current) drug therapy; Z79.82 Long term (current) use of aspirin; Z20.822 Contact with and (suspected) exposure to COVID-19
CPT/HCPCS: 36415; 71045; 74176; 80048; 80076; 82805; 82947; 83690; 83880; 84439; 84443; 85025; 85610; 85730; 90935; 93005; 93306; 93460; 99284; C1760; C1893; J0583; J1644; J2250; J3010; J7040; Q5105; Q5106; U0003

== ENCOUNTER 2021-12-01 08:14 | Inpatient (IN) | payer OTHER ==
--- OUTSIDE RECORDS SUMMARY | 2021-12-01 08:17 | XMS REPORT | Continuity of Care Document ---
:1965 Author Organization [facility] t Address [address] [place] [address] [address]. [address] [place] [address] Care Team Providers Name Role Phone Clinton_Sofia Attending Clinician Unavailable Clinton_Sofia Admitting Clinician Unavailable Payers Payer Name Policy Type Policy Number Effective Date Expiration Date S [place]: [id number] 1993 [employer] 00:00:00 [employer]EM[employer] [id number] 2017 [facility] - 00:00:00 [employer] (HMO) N[employer]IC [id number] 2017 [facility] (MEDICAID 00:00:00 HMO) MED[place]ARE-[place] [id number] 1993 (MEDICARE) 00:00:00 Problems Condition Condition Condition Status Onset Resolution Last Treating Co mments Source Name Details Category Date Date Treatment Clinician Date Tinea Tinea Problem Active [facility] pedis Pedis 1-05 Family 00:00: Practic 00 e Type 2 Type 2 Problem Active [facility] diabetes Diabetes 1-05 Family mellitus Mellitus 00:00: Practi c 00 e Complicati Complicati Problem Active 2016-07 [facility] [...] 00 e Morbid Morbid Problem Active 2016-07 [facility] obesity Obesity 0-16 Family 00:00: Practic 00 e Essential Essential Problem Active 2016-07 Elia ceballos hypertensi Hypertensi 0-16 Fa miriam on on 00:00: Practic 00 e Dependence Dependence Problem Active 2016-07 [facility] renal on Renal 0-16 Family dialysis Dialysis 00:00: Practi c 00 e Disorder Disorder Problem Active 2016-07 Rafy ge due to Due to 0-16 Family type 2 Type 2 00:00: Practic diabetes Diabetes e mellitus Mellitus Hypertensi Hypertensi Problem Active 2016-07 [facility] ve ve 0-16 Family disorder Disorder 00:00: Practi c 00 e Kidney Kidney Problem Active 2016-07 [facility] disease Disease 0-16 Family 00:00: Practic 00 e General General Problem Active [facility] finding of Finding of Ignacio pineda observatio Observatio Pr actic n of n of e patient Patient Allergies, Adverse Reactions, Alerts This patient has no known allergies or adverse reactions. Social History Smoking Status Start Date Stop Date Source Never Smoker [facility] Medications Ordered Filled Start Stop Current Ordering Indication Dosage Frequency Signature Comments Components Source Medication Medication Date Date Medication? Clinician (SIG) Name Name escitalopra escitalopra No escitalopr [facility] m 10 mg m 10 mg am 10 mg Famil y tablet TAKE tablet TAKE tablet Practic 1 TABLET BY 1 TABLET BY TAKE 1 e MOUTH EVERY MOUTH EVERY TABLET BY DAY WITH DAY WITH MOUTH BREAKFAST BREAKFAST EVERY DAY WITH BREAKFAST furosemide furosemide No furosemide [facility] 80 mg 80 mg 80 mg Family tablet TAKE tablet TAKE tablet Practic BY MOUTH 2 BY MOUTH 2 TAKE BY e TABLETS 2 TABLETS 2 MOUTH 2 TIMES A DAY TIMES A DAY TABLETS 2 TIMES A DAY gabapentin gabapentin No gabapentin [facility] 100 mg 100 mg 100 mg Family capsule capsule capsule Prac c TAKE 1 TAKE 1 TAKE 1 e CAPSULE BY CAPSULE BY CAPSULE BY MOUTH TWICE MOUTH TWICE MOUTH A DAY A DAY TWICE A DAY GaviLyte-N GaviLyte-N No GaviLyte-N [facility] 420 gram 420 gram 420 gram Fam anselmo oral oral oral Practic solution solution solution e PLEASE SEE PLEASE SEE PLEASE SEE ATTACHED ATTACHED ATTACHED FOR FOR FOR DETAILED DETAILED DETAILED DIRECTIONS DIRECTIONS DIRECTIONS Guaiatussin Guaiatussin No Guaiatussi [facility] AC 10 AC 10 n AC 10 Family mg-100 mg/5 mg-100 mg/5 mg-100 Practic mL oral mL oral mg/5 mL e liquid liquid oral liquid Humalog Humalog No Humalog [facility] KwikPen KwikPen KwikPen Family (U-100) (U-100) (U-100) Practi c Insulin 100 Insulin 100 Insulin e unit/mL unit/mL 100 subcutaneou subcutaneou unit/mL s INJECT 5 s INJECT 5 subcutaneo units units us INJECT before EACH before EACH 5 units MEAL plus MEAL plus before CF 1:30, CF 1:30, EACH MEAL TOTAL DAILY TOTAL DAILY plus CF DOSE OF 40 DOSE OF 40 1:30, TOTAL DAILY DOSE OF 40 Lantus Lantus No Lantus [facility] Solostar Solostar Solostar Fam anselmo U-100 U-100 U-100 Practic Insulin 100 Insulin 100 Insulin e unit/mL (3 unit/mL (3 100 mL) mL) unit/mL (3 subcutaneou subcutaneou mL) s pen Give s pen Give subcutaneo 62 units in 62 units in us pen AM and 50 AM and 50 Give 62 units in PM units in PM units in and and AM and 50 increase as increase as units in directed: directed: PM and TDD 140 TDD 140 increase as directed: TDD 140 metoprolol metoprolol No metoprolol [facility] tartrate tartrate tartrate Fam anselmo 100 mg 100 mg 100 mg Practic tablet TAKE tablet TAKE tablet e 1 TABLET BY 1 TABLET BY TAKE 1 MOUTH TWICE MOUTH TWICE TABLET BY A DAY A DAY MOUTH TWICE A DAY nifedipine nifedipine No nifedipine [facility] ER 60 mg ER 60 mg ER 60 mg Fam anselmo tablet,exte tablet,exte tablet,ext Practic nded nded ended e release 24 release 24 release 24 hr TAKE 1 hr TAKE 1 hr TAKE 1 TABLET BY TABLET BY TABLET BY MOUTH ONCE MOUTH ONCE MOUTH ONCE A DAY A DAY A DAY ondansetron ondansetron No ondansetro [facility] HCl 4 mg HCl 4 mg n HCl 4 mg F amily tablet tablet tablet Practic e promethazin promethazin No promethazi [facility] e 6.25 e 6.25 ne 6.25 Family [...] route. route. route. sevelamer sevelamer No sevelamer [facility] carbonate carbonate carbonate Family 800 mg 800 [...] DAY WITH A SNACK Trulicity Trulicity No Trulicity [facility] 1.5 mg/0.5 1.5 mg/0.5 1.5 mg/0.5 Family mL mL mL Practic subcutaneou subcutaneou subcutaneo e s pen s pen us pen injector injector injector INJECT 1 INJECT 1 INJECT 1 SYRINGE SYRINGE SYRINGE SUBCUTANEOU SUBCUTANEOU SUBCUTANEO SLY ONCE SLY ONCE USLY ONCE EVERY 2 EVERY 2 EVERY 2 WEEKS WEEKS WEEKS Trulicity 3 Trulicity 3 No 3[facility].5 mL mg/0.5 mL 3 mg/0.5 F amily subcutaneou subcutaneou mL P ractic s pen s pen subcutaneo e injector injector us pen Inject 3 mg Inject 3 mg injector every week every week Inject 3 by by mg every subcutaneou subcutaneou week by s route for s route for subcutaneo 90 days. 90 days. us route for 90 days. Afluria Qd Afluria Qd No Afluria Qd [facility] ( ( Family mos mos (36 mos Practic up)(PF)60 up)(PF)60 up)(PF)60 e mcg (15 mcg mcg (15 mcg mcg (15 x4)/0.5 mL x4)/0.5 mL mcg IM syringe IM syringe x4)/0.5 mL ADM 0.5ML ADM 0.5ML IM syringe IM UTD IM UTD ADM 0.5ML IM UTD atorvastati atorvastati No atorvastat [facility] n 80 mg n 80 mg in 80 mg Famil y tablet tablet tablet Practic e BD BD No BD [facility] Ultra-Fine Ultra-Fine Ultra-Fine Family Mini Pen Mini Pen Mini Pen Pra ctic Needle 31 Needle 31 Needle 31 e gauge x gauge x gauge x 10/05" USE 10/05" USE 10/05" USE DIRECTED DIRECTED 5 TIMES 5 TIMES DIRECTED 5 DAILY DAILY TIMES DAILY carvedilol carvedilol No carvedilol [facility] 25 mg 25 mg 25 mg Family tablet tablet tablet Practic e celecoxib celecoxib No celecoxib [facility] 200 mg 200 mg 200 mg Family capsule capsule capsule Practi c TAKE 1 TAKE 1 TAKE 1 e CAPSULE BY CAPSULE BY CAPSULE BY MOUTH EVERY MOUTH EVERY MOUTH DAY DAY EVERY DAY clonidine clonidine No clonidine [facility] HCl 0.3 mg HCl 0.3 mg HCl 0.3 mg Family tablet TAKE tablet TAKE tablet Practic 1/2 TABLET 1/2 TABLET TAKE 1/2 e BY MOUTH 3 BY MOUTH 3 TABLET BY TIMES A DAY TIMES A DAY MOUTH 3 TIMES A DAY Comfort EZ Comfort EZ No 2needle Q1D Comfort EZ [facility] Pen [place] Pen [place] (s) Pen F amily 31 gauge x 31 gauge x [place] 31 Practic 12/05" Take 12/05" Take gauge [...] route. Eliquis 2.5 Eliquis 2.5 No Eliquis [facility] mg tablet mg tablet 2.5 mg Fam anselmo TAKE 1 TAKE 1 tablet Practic TABLET BY TABLET BY TAKE 1 e MOUTH TWICE MOUTH TWICE TABLET BY A DAY A DAY MOUTH TWICE A DAY Entresto 24 Entresto 24 No Entresto [facility] mg-26 mg mg-26 mg 24 mg-26 Fam anselmo tablet tablet mg tablet Practi c e Immunizations Ordered Immunization Filled Immunization Date Status Commen ts Source Name Name Tdap Tdap 2020-11-05 Completed [facility] 00:00:00 Practice Non-US Vaccine Non-US Vaccine 2020-10-11 Completed [facility] e Family COVID-19 PS COVID-19 PS 00:00:00 Practice (EpiVacCorona) (EpiVacCorona) COVID-19 COVID-19 2020-09-21 Completed [facility] Family (SARS-COV-2) (SARS-COV-2) 00:00:00 Practice vaccine, unspecified vaccine, unspecified influenza, influenza, 2020-04-22 Completed [facility] Family injectable, injectable, 00:00:00 Practice quadrivalent quadrivalent Vital Signs Vital Name Observation Time Observation Value Comments Source BP Diastolic 2021-07-27 00:00:00 50 mm[Hg] [facility] Height 2021-07-27 00:00:00 61.5 [in_i] [facility] BMI (Body Mass 2021-07-27 00:00:00 51.6 kg/m2 [facility]) Practice BP Systolic 2021-07-27 00:00:00 138 mm[Hg] [facility] Body Weight 2021-07-27 00:00:00 277.4 [lb_av] [facility] BP Diastolic 2021-04-20 00:00:00 83 mm[Hg] [facility] Height 2021-04-20 00:00:00 61.5 [in_i] [facility] BMI (Body Mass 2021-04-20 00:00:00 50.9 kg/m2 [facility] BP Systolic 2021-04-20 00:00:00 164 mm[Hg] [facility] Body Weight 2021-04-20 00:00:00 274 [lb_av] [facility] BP Diastolic 2021-01-21 00:00:00 78 mm[Hg] [facility] Height 2021-01-21 00:00:00 61.5 [in_i] [facility] BMI (Body Mass 2021-01-21 00:00:00 52.7 kg/m2 [facility] Practice BP Systolic 2021-01-21 00:00:00 148 mm[Hg] [facility] Body Weight 2021-01-21 00:00:00 283.6 [lb_av] [facility] BP Diastolic 2020-10-06 00:00:00 77 mm[Hg] [facility] Height 2020-10-06 00:00:00 61.5 [in_i] [facility] BMI (Body Mass 2020-10-06 00:00:00 52.9 kg/m2 [facility] BP Systolic 2020-10-06 00:00:00 151 mm[Hg] [facility] Body Weight 2020-10-06 00:00:00 284.4 [lb_av] [facility] BP Diastolic 2020-07-07 00:00:00 88 mm[Hg] [facility] Height 2020-07-07 00:00:00 61.5 [in_i] [facility] BMI (Body Mass 2020-07-07 00:00:00 53.3 kg/m2 [facility] BP Systolic 2020-07-07 00:00:00 128 mm[Hg] [facility] Body Weight 2020-07-07 00:00:00 287 [lb_av] [facility] Procedures This patient has no known procedures. Plan of Care Planned Activity Planned Date Details Comments Source Diagnostic Test 2021-07-27 hemoglobin A1C, [facility] Lizbeth whaley Pending 00:00:00 fingerstick [code = Practice hemoglobin A1C, fingerstick] Diagnostic Test 2021-07-27 glucose, fingerstick, Elia Angel Pending 00:00:00 blood [code = Practice glucose, fingerstick, blood] Encounters Start End Encounter Admission Attending Care Care Encounter Source Date/Time Date/Time Type Type Clinicians Facility Department ID 2021-10-25 2021-10-25 Outpatient Daniel_T VFP VFP [id number] [address] [place] [address] 01:45:00 01:45:00 [id number] Family Practic e 2021-09-15 2021-09-15 Outpatient Daniel_T VFP VFP [id number] [address] [place] [address] 05:38:00 05:38:00 [id number] Family Practic e 2021-08-05 2021-08-05 Outpatient Daniel_T VFP VFP [id number] [address] [place] [address] 04:15:00 04:15:00 [id number] Family Practic e 2021-07-27 2021-07-27 Outpatient Daniel_T VFP VFP [id number] [address] [place] [address] 02:37:00 02:37:00 [id number] Family Practic e 2021-07-27 2021-07-27 Alex VFP [place] - [id number] [facility] 00:00:00 00:00:00 Juan [facility] Maryann Alonzo - Bernard molina MD: [id number] VM_HOU_[place] [facility] [place] [facility], [address], [place] [address] , Ph. 2021-06-27 2021-06-27 Outpatient Daniel_T VFP VFP [id number] [address] [place] [address] 04:21:00 04:21:00 [id number] Family Practic e 2021-06-19 2021-06-19 Outpatient Daniel_T VFP VFP [id number] [address] [place] [address] 01:15:00 01:15:00 [id number] Family Practic e 2021-05-15 2021-05-15 Outpatient Daniel_T VFP VFP [id number] [address] [place] [address] 12:47:00 12:47:00 [id number] Family Practic e 2021-04-20 2021-04-20 Outpatient Daniel_T VFP VFP [id number] [address] [place] [address] 01:33:00 01:33:00 [id number] Family Practic e 2021-04-20 2021-04-20 Alex VFP [place] - [id number] [facility] ill[facility] 00:00:00 00:00:00 [facility] Family AlonzoMaryann - Prackaren molina MD: [id number] ELISSA_COURTNEY_Bartolo e [facility], [address], [place] [address] , Ph. 2021-04-19 2021-04-19 Outpatient Daniel_T VFP VFP [id number] [address] [place] [address] 04:29:00 04:29:00 [id number] Family Practic e 2021-04-14 2021-04-14 Outpatient Daniel_T VFP VFP [id number] [address] [place] [address] 04:01:00 04:01:00 [id number] Family Practic e 2021-04-10 2021-04-10 Outpatient Daniel_T VFP VFP [id number] [address] [place] [address] 12:38:00 12:38:00 [id number] Family Practic e 2021-01-28 2021-01-28 Outpatient Daniel_T VFP VFP [id number] [address] [place] [address] 06:38:00 06:38:00 [id number] Family Practic e 2021-01-27 2021-01-27 Outpatient Daniel_T VFP VFP [id number] [address] [place] [address] 05:59:00 05:59:00 [id number] Family Practic e 2021-01-21 2021-01-21 Outpatient Daniel_T VFP VFP [id number] [address] [place] [address] 04:50:00 04:50:00 [id number] Family Practic e 2021-01-21 2021-01-21 Alex VFP [place] - [id number] V illage 00:00:00 00:00:00 [facility] - Prackaren molina MD: [id number] CYDNEY_Bartolo russell [facility], [address], [place] [address] , Ph. 2020-11-10 2020-11-10 Outpatient Daniel_T VFP VFP [id number] [address] [place] [address] 03:17:00 03:17:00 [id number] Family Practic e 2020-11-05 2020-11-05 Outpatient Daniel_T VFP VFP [id number] [address] [place] [address] 08:05:00 08:05:00 [id number] Family Practic e 2020-10-13 2020-10-13 Outpatient Daniel_T VFP VFP [id number] [address] [place] [address] 08:39:00 08:39:00 [id number] Family Practic e 2020-10-06 2020-10-06 Outpatient Daniel_T VFP VFP [id number] [address] [place] [address] 06:28:00 06:28:00 [id number] Family Practic e 2020-10-06 2020-10-06 Alex VFP [place] - [id number] V illage 00:00:00 00:00:00 [facility] Family AlonzoMaryann - Prackaren molina MD: [id number] CYDNEY_Bartolo russell [facility], [address], [place] [address] , Ph. 2020-07-09 2020-07-09 Outpatient Daniel_T VFP VFP [id number] [address] [place] [address] 12:49:00 12:49:00 [id number] Family Practic e 2020-07-07 2020-07-07 Outpatient Daniel_T VFP VFP [id number] [address] [place] [address] 04:59:00 04:59:00 [id number] Family Practic e 2020-07-07 2020-07-07 Alex VFP [place] - [id number] V illage 00:00:00 00:00:00 [facility] - Prackaren molina MD: [id number] VM_HOU_Dani e [facility], [address] [address], [place] [address] , Ph. 2020-06-29 2020-06-29 Outpatient Daniel_T VFP VFP [id number] [address] 11:43:00 11:43:00 Family Practic e 2020-06-29 2020-06-29 Outpatient Daniel_T VFP VFP [id number] [address] 11:43:00 11:43:00 [id number] Family Practic e 2020-03-24 2020-03-24 Outpatient Daniel_T VFP VFP [id number] [address] 10:48:00 10:48:00 Family Practic e Results Test Description Test Time Test Comments Results Result Comments Source Glucose [Mass/volume] in Capillary blood 2021-07-27 14:24:23 Test Item Value Reference Range Interpretation Comme nts Blood Glucose: mg/dl (test code = Blood Glucose: mg/dl) 161 [facility] [id number] 14:24:10 Test Item Value Reference Range Interpretation Comments Hemoglobin A1C Fingerstick: (test code 4.9 = Hemoglobin A1C Fingerstick:) [facility]
[2021-12-01 08:39] LABS: Absolute Lymphocytes (CBC) 1.6 K/uL (0.7-4.9); Hematocrit 26.8 % (36.0-45.0); Lymphocytes % 13.8 % (15.3-44.8); MPV 8.3 fL (7.6-11.3); RBC Red Blood Cell Count 3.18 M/uL (3.86-4.86)
--- NOTE | 2021-12-01 09:09 | RAD REPORT ---
EXAM DESCRIPTION: RAD - Chest Single View - 12/01/2021 9:01 am CLINICAL HISTORY: COUGH COMPARISON: Chest Single View dated 06/21/2021; Chest Single View dated 02/23/2020; Chest Single View dated 02/21/2020; Chest Pa And Lat (2 Views) dated 02/12/2017; Abdomen Pelvis Wo Contrast dated 2020 FINDINGS: Lines: None. Lungs: Pulmonary edema which has improved compared with 06/21/2021. Lack of sharpness of the image ma y be due to portable technique, underpenetration, and motion. Pleural: Small effusions difficult to exclude. Cardiac: Cardiomegaly. Bones: No acute fractures. Other: IMPRESSION: Suspected pulmonary edema. Due to portable technique and patient body habitus, a PA and lateral could better assess as the findings could be accentuated by under penetration.
[2021-12-01 09:21] LABS: Albumin 2.9 g/dL (3.4-5.0); Bilirubin Direct 0.2 mg/dL (0-0.2); Bilirubin Total 0.6 mg/dL (0.2-1.0); Magnesium 2.2 mg/dL (1.8-2.4); Potassium 4.5 mmol/L (3.5-5.1); Protein, Total 7.2 g/dL (6.4-8.2)
[2021-12-01 09:25] LABS: Troponin High Sensitivity 90.9 pg/mL (<58.9)
[2021-12-01 10:34] LABS: Protime INR 1.09
--- NOTE | 2021-12-01 10:39 | RAD REPORT ---
EXAM DESCRIPTION: US - Abdomen Exam Limited - 12/01/2021 10:31 am CLINICAL HISTORY: abnormal lfts COMPARISON: Abdomen Pelvis Wo Contrast dated 06/21/2021 FINDINGS: The gallbladder demonstrates no gallstones. No pericholecystic fluid or gallbladder wall t hickening. The common bile duct is normal measuring 4 mm. The liver demonstrates no findings of intrahepatic biliary dilatation. Increased echogenicity of the liver consistent with hepatic steatosis. IMPRESSION: Negative for cholelithiasis or biliary ductal dilatation. Hepatic steatosis.
[2021-12-01] MEDS ORDERED: ALBUTEROL 2.5 MG/3 ML NEB SOL NEB PRN (11:08)
[2021-12-01] MEDS ORDERED: IPRATROPIUM BROM 0.5MG/2.5ML NEB PRN (11:08)
[2021-12-01] MEDS ORDERED: ACETAMINOPHEN 500 MG TAB PO PRN (11:08)
[2021-12-01] MEDS ORDERED: MANNITOL 25% 12.5 GM/50 ML VIAL IV PRN (11:27)
[2021-12-01] MEDS ORDERED: NA CHLORIDE 0.9% 1,000 ML IV PRN (11:27)
--- NOTE | 2021-12-01 11:28 | ER ---
Nurse's Notes [facility] Name: Camila Guallpa Age: 56 yrs Sex: Female : 1965 Arrival Date: 12/01/2021 Time: 08:18 Bed 2 Private MD: Diagnosis: Acute on chronic combined systolic (congestive) and diastolic (congestive) heart failure Presentation: 12/01 08:18 Chief complaint: EMS states: COUGH CONGESTION WITHOUT FEVER X 4 DAYS. HX OF HTN AND jh6 RENAL FAILURE. Coronavirus screen: Client denies travel out of the [place] in the last 14 days. Ebola Screen: Patient negative for fever greater than or equal to 101.5 degrees Fahrenheit, and additional compatible Ebola Virus Disease symptoms Patient denies exposure to infectious person. Patient denies travel to an Ebola-affected area in the 21 days before illness onset. Initial Sepsis Screen: Does the patient meet any 2 criteria? No. Patient's initial sepsis screen is negative. Does the patient have a suspected source of infection? No. Patient's initial sepsis screen is negative. Risk Assessment: Do you want to hurt yourself or someone else? Patient reports no desire to harm self or others. Onset of symptoms was November 27, 2021. 08:18 Method Of Arrival: EMS: [facility] 08:18 Acuity: YANELIS 3 6 Triage Assessment: 08:22 General: Appears uncomfortable, Behavior is cooperative. Pain: Denies pain. jh6 Respiratory: Airway is patent Trachea midline Respiratory effort is labored, Respiratory pattern is regular, symmetrical, Sputum is thick, green white. Historical: - Allergies: 10:17 Celexa; vg1 - Home Meds: 10:17 clonidine HCl 0.2 mg Oral tab 1 tab 3 times per day [Active]; furosemide 80 mg Oral tab vg1 [Active]; Lantus 100 unit/mL Sub-Q soln [Active]; Humalog 100 unit/mL Sub-Q soln [Active]; aspirin 81 mg Oral TbEC [Active]; - PMHx: 08:21 CHF; Diabetes - IDDM; Dialysis; TTS; ESRD; GERD; hyperparathyroidism; Hypertension; jh6 Sleep Apnea; - Immunization history:: Adult Immunizations up to date. - Social history:: Smoking status: Patient denies any tobacco usage or history of. Screenin:30 Abuse screen: Denies threats or abuse. Nutritional screening: No deficits noted. vg1 Tuberculosis screening: No symptoms or risk factors identified. Fall Risk No fall in past 12 months (0 pts). No secondary diagnosis (0 pts). IV access (20 points). Ambulatory Aid- None/Bed Rest/Nurse Assist (0 pts). Gait- Normal/Bed Rest/Wheelchair (0 pts) Mental Status- Oriented to own ability (0 pts). Total Clayton Fall Scale indicates No Risk (0-24 pts). 08:30 Abuse screen: Denies threats or abuse. Denies injuries from another. jh6 08:30 Nutritional screening: No deficits noted. Tuberculosis screening: No symptoms or risk jh6 factors identified. Fall Risk Gait- Impaired (20 pts.). Assessment: 08:30 General: Appears uncomfortable, Behavior is calm, cooperative. Pain: Complains of pain vg1 in abdomen Pain currently is 3 out of 10 on a pain scale. Neuro: Sahu Agitation-Sedation Scale (RASS): 0 - Alert and Calm Level of Consciousness is awake, alert, obeys commands, Oriented to person, place, time, situation. Cardiovascular: Patient's skin is warm and dry. Dialysis shunt: in the left arm, with palpable thrill, with auscultated bruit, with no erythema, with no edema, no bleeding noted. Respiratory: Reports cough that is productive, since x 4 days Airway is patent Respiratory effort is even, unlabored. GI: Abdomen is round non-distended, obese, Reports nausea, vomiting. : No signs and/or symptoms were reported regarding the genitourinary system. EENT: No signs and/or symptoms were reported regarding the EENT system. Derm: Skin is intact, Skin temperature is warm. Musculoskeletal: Circulation, motion, and sensation intact. 09:37 Reassessment: Patient appears in no apparent distress at this time. No changes from vg1 previously documented assessment. Patient and/or family updated on plan of care and expected duration. Pain level reassessed. Patient is alert, oriented x 3, equal unlabored respirations, skin warm/dry/pink. pt family member at bedside. 10:19 Reassessment: US at bedside. vg1 10:50 Reassessment: Patient appears in no apparent distress at this time. No changes from vg1 previously documented assessment. Patient and/or family updated on plan of care and expected duration. Pain level reassessed. Patient is alert, oriented x 3, equal unlabored respirations, skin warm/dry/pink. 12:03 Reassessment: Patient appears in no apparent distress at this time. No changes from vg1 previously documented assessment. Patient and/or family updated on plan of care and expected duration. Pain level reassessed. Patient is alert, oriented x 3, equal unlabored respirations, skin warm/dry/pink. 13:00 Reassessment: No changes from previously documented assessment. Patient and/or family [facility] updated on plan of care and expected duration. Pain level reassessed. pt with occasional cough clear. Vital Signs: 08:18 BP 161 / 80; Pulse 95; Resp 20; Pulse Ox 98% on 2 lpm NC; Weight 127.01 kg; Height 5 [facility] ft. 1 in. (154.94 cm); Pain 0/10; 10:50 BP 157 / 71; Pulse 78; Resp 19; Pulse Ox 99% on 3 lpm NC; vg1 11:45 BP 178 / 79; Pulse 80; Resp 20; Pulse Ox 99% ; vg1 13:00 BP 180 / 74; Pulse 79; Resp 20; Temp 97.7; Pulse Ox 98% ; Pain 2/10; jh6 14:00 BP 165 / 73; Pulse 80; Resp 20; Pulse Ox 98% ; Pain 2/10; jh6 08:18 Body Mass Index 52.90 (127.01 kg, 154.94 cm) [facility] ED Course: 08:18 Patient arrived in ED. [facility] 08:20 Aaron Lama PA is PHCP. [facility] 08:20 Sadiq Starkey DO is Attending Physician. [facility] 08:21 Triage completed. [facility] 08:23 No provider procedures requiring assistance completed. 6 08:25 Patient has correct armband on for positive identification. Placed in gown. Bed in low mh5 position. Call light in reach. Side rails up X2. Adult w/ patient. Pillow given. panel monitor on. Pulse ox on. NIBP on. 08:30 Inserted saline lock: 24 gauge in right hand, using aseptic technique. ,using aseptic vg1 technique. completed by Kaylen TAM. 08:30 Patient admitted, IV remains in place. vg1 08:30 Arm band placed on. vg1 08:34 EKG done, by ED staff, reviewed by Aaron KHAN COVID swab sent to lab. [facility] 08:46 Crystal White, RN is Primary Nurse. vg1 09:03 XRAY Chest (1 view) In Process Unspecified. EDMS 10:33 US Abdomen Limited In Process Unspecified. EDMS 11:23 SARS-COV-2 RT PCR (Document "Date of Onset" if Symptomatic) Sent. [facility] 11:28 Morteza Nicholson MD is Hospitalizing Provider. jw Administered Medications: No medications were administered Medication: 14:53 VIS not applicable for this client. vg1 Outcome: 11:28 Decision to Hospitalize by Provider. jw 14:53 Admitted to Tele room 219, with oxygen, on monitor, with chart, Report called to regan barton rn 14:53 Condition: stable 14:53 Instructed on the need for admit. 14:55 Patient left the ED. jorge alberto Signatures: Dispatcher [employer] EDMS Aaron Lama PA PA jmm Martinez, Maria [facility] Crystal White, RN RN 1 Carolina Mejia RN RN [facility]
--- NOTE | 2021-12-01 11:28 | EDPHYS ---
Physician Documentation [facility] Name: Camila Guallpa Age: 56 yrs Sex: Female : 1965 Arrival Date: 12/01/2021 Time: 08:18 Bed 2 Private MD: ED Physician Sadiq Starkey HPI: 12/01 08:26 This 56 yrs old Black Female presents to ER via EMS with complaints of Productive Cough.jmm 08:26 The patient or guardian reports cough. Onset: The symptoms/episode began/occurred jmm gradually, 4 day(s) ago. Modifying factors: The symptoms are alleviated by nothing, the symptoms are aggravated by nothing. This is a 56 year old female with a history of DM, ESRD, GERD, that presents to the ED with complaints of complaints of cough, congestion, shortness of breath worsening over the past 4 days. Patient missed dialysis. . Historical: - Allergies: 10:17 Celexa; vg1 - Home Meds: 10:17 clonidine HCl 0.2 mg Oral tab 1 tab 3 times per day [Active]; furosemide 80 mg Oral tab vg1 [Active]; Lantus 100 unit/mL Sub-Q soln [Active]; Humalog 100 unit/mL Sub-Q soln [Active]; aspirin 81 mg Oral TbEC [Active]; - PMHx: 08:21 CHF; Diabetes - IDDM; Dialysis; TTS; ESRD; GERD; hyperparathyroidism; Hypertension; jh6 Sleep Apnea; - Immunization history:: Adult Immunizations up to date. - Social history:: Smoking status: Patient denies any tobacco usage or history of. ROS: 08:26 Cardiovascular: Negative for chest pain, palpitations, and edema, Respiratory: Negative jmm for shortness of breath, cough, wheezing, and pleuritic chest pain. 08:26 Constitutional: Positive for body aches, chills. 08:26 Respiratory: Positive for cough, shortness of breath. 08:26 All other systems are negative. Exam: 08:26 Constitutional: This is a well developed, well nourished patient who is awake, alert, jmm and in no acute distress. Head/Face: atraumatic. Eyes: EOMI, no conjunctival erythema appreciated ENT: Moist Mucus Membranes Neck: Trachea midline, Supple Chest/axilla: Normal chest wall appearance and motion. Cardiovascular: Regular rate and rhythm. No edema appreciated 08:26 Respiratory: mild respiratory distress is noted, Respirations: labored breathing, that is mild, Breath sounds: decreased breath sounds. 08:26 Abdomen/GI: Inspection: obese 08:26 Musculoskeletal/extremity: ROM: intact in all extremities. 08:26 Skin: Appearance: Color: normal in color. 08:26 Neuro: Orientation: is normal, Mentation: is normal, Memory: is normal. 08:26 Psych: Behavior/mood is pleasant, cooperative. Vital Signs: 08:18 BP 161 / 80; Pulse 95; Resp 20; Pulse Ox 98% on 2 lpm NC; Weight 127.01 kg; Height 5 6 ft. 1 in. (154.94 cm); Pain 0/10; 10:50 BP 157 / 71; Pulse 78; Resp 19; Pulse Ox 99% on 3 lpm NC; vg1 11:45 BP 178 / 79; Pulse 80; Resp 20; Pulse Ox 99% ; vg1 13:00 BP 180 / 74; Pulse 79; Resp 20; Temp 97.7; Pulse Ox 98% ; Pain 2/10; jh6 14:00 BP 165 / 73; Pulse 80; Resp 20; Pulse Ox 98% ; Pain 2/10; jh6 08:18 Body Mass Index 52.90 (127.01 kg, 154.94 cm) [facility] MDM: 08:28 Patient medically screened. [facility] 11:22 Data reviewed: vital signs, nurses notes. Counseling: I had a detailed discussion with [facility] the patient and/or guardian regarding: the historical points, exam findings, and any diagnostic results supporting the discharge/admit diagnosis, lab results, radiology results, the need for further work-up and treatment in the hospital. ED course: I discussed the patient with Dr. Nicholson whom accepted the patient to his service. . 12/01 08:26 Order name: Basic Metabolic Panel; Complete Time: 10:00 [facility] 12/01 08:26 Order name: CBC with Diff; Complete Time: 09:10 [facility] 12/01 08:26 Order name: LFT's; Complete Time: 10:00 [facility] 12/01 08:26 Order name: Magnesium; Complete Time: 10:00 [facility] 12/01 08:26 Order name: NT PRO-BNP; Complete Time: 10:00 [facility] 12/01 08:26 Order name: PT-INR; Complete Time: 10:35 [facility] 12/01 08:26 Order name: Troponin HS; Complete Time: 10:00 [facility] 12/01 08:27 Order name: SARS-COV-2 RT PCR (Document "Date of Onset" if Symptomatic); Complete Time: [facility] 12:43 12/01 08:34 Order name: Influenza Screen (a \\T\\ B); Complete Time: 11:28 [facility] 12/01 11:11 Order name: Basic Metabolic Panel [facility] 12/01 11:11 Order name: Basic Metabolic Panel [facility] 12/01 11:11 Order name: CBC with Automated Diff [facility] 12/01 11:11 Order name: CBC with Automated Diff ED[facility] 12/01 11:11 Order name: NT PRO-BNP [facility] 12/01 08:26 Order name: XRAY Chest (1 view); Complete Time: 09:10 [facility] 12/01 08:26 Order name: EKG; Complete Time: 08:26 [facility] 12/01 08:26 Order name: Cardiac monitoring; Complete Time: 08:26 [facility] 12/01 08:26 Order name: EKG - Nurse/Tech; Complete Time: 08:27 [facility] 12/01 08:26 Order name: IV Saline Lock; Complete Time: 09:20 [facility] 12/01 08:26 Order name: Labs collected and sent; Complete Time: 09:20 [facility] 12/01 08:26 Order name: O2 Per Protocol; Complete Time: 08:26 [facility] 12/01 08:26 Order name: O2 Sat Monitoring; Complete Time: 08:26 [facility] 12/01 10:01 Order name: US Abdomen Limited; Complete Time: 10:44 [facility] 12/01 11:11 Order name: NT PRO-BNP EDMS Administered Medications: No medications were administered Disposition: 22:12 Co-signature as Attending Physician, Sadiq KC was immediately available on-site ms3 in the Emergency Department for consultation in the care of the patient.. Disposition Summary: 12/01/21 11:28 Hospitalization Ordered Hospitalization Status: Inpatient Admission [facility] Provider: Morteza Nicholson Location: Telemetry/MedSurg (Inpatient) [facility] Condition: Stable [facility] Problem: an acute exacerbation [facility] Symptoms: are unchanged [facility] Bed/Room Type: Standard [facility] Room Assignment: 219(05/12/22 14:27) danielle Diagnosis - Acute on chronic combined systolic (congestive) and diastolic (congestive) heart jw failure Forms: - Medication Reconciliation Form jw - SBAR form jw Signatures: Dispatcher [employer] EDAaron King PA PA jmm Aguilar, Jose RN RN ja1 Crystal White RN RN vg1 aSdiq Starkey DO DO ms3 Carolina Mejia RN RN jh6 Corrections: (The following items were deleted from the chart) 14 11:28 jw santos
--- NOTE | 2021-12-01 11:33 | P.CNS ---
Date of Consult: 12/01/21 Reason for Consult: ESRD Requesting Physician: Sadiq Starkey Primary Care Provider: Dr. Nicholson Chief Complaint: Dyspnea History of Present Illness: 08:26 This 56 yrs old Black Female presents to ER via EMS with complaints of Productive Cough.jmm 08:26 The patient or guardian reports cough. Onset: The symptoms/episode began/occurred jmm gradually, 4 day(s) ago. Modifying factors: The symptoms are alleviated by nothing, the symptoms are aggravated by nothing. This is a 56 year old female with a history of DM, ESRD, GERD, that presents to the ED with complaints of complaints of cough, congestion, shortness of breath worsening over the past 4 days. Patient missed dialysis. . Allergies No Known Allergies Allergy (Unverified 12/01/21 11:31) Home medications list reviewed: Yes Home Medications: Furosemide [Lasix] 80 mg PO BID 10/05/11 Metoprolol Tartrate [Lopressor] 100 mg PO BID 10/05/11 Insulin Lispro [Humalog Kwikpen U-100] 100 unit SQ [facility] 08/22/18 Sevelamer Carbonate 3 tab PO TID 08/22/18 cloNIDine HCL [Catapres] 0.3 mg PO TID 08/22/18 Gabapentin [Neurontin*] 1 cap PO BID 06/22/21 Insulin Glargine,Hum.rec.anlog [Lantus] 1 unit SQ [facility]ECOM 06/22/21 Nifedipine [Nifedipine ER] 1 tab PO DAILY 06/22/21 - Past Medical/Surgical History Diabetic: Yes -: Hypertension -: DM II -: ESRD/ Dr. Calix -: Anemia -: CKD MBD -: Diastolic CHF - Family History Mother Medical History: Hypertension Father Medical History: Hypertension, Diabetes - Social History Smoking Status: Unknown if ever smoked Alcohol use: No CD- Drugs: No Caffeine use: Yes Review of Systems 10-point ROS is otherwise unremarkable General: Weakness, Malaise Respiratory: SOB with Excertion Cardiovascular: Edema Physical Examination General: In no apparent distress, Oriented x3, Cooperative HEENT: Atraumatic Neck: Supple Respiratory: Diminished Cardiovascular: Regular rate/rhythm, Edema Gastrointestinal: Soft and benign, Non-distended Musculoskeletal: No clubbing, No contractures Integumentary: No rashes, No cyanosis Neurological: Abnormal speech Laboratory Data (last 24 hrs) 12/01/21 10:15: PT 12.0, INR 1.09 12/01/21 08:30: WBC 11.9 H, Hgb 9.0 L, Hct 26.8 L, Plt Count 306 12/01/21 08:30: Sodium 133 L, Potassium 4.5, BUN 71 H, Creatinine 12.40 H*, Glucose 127 H, Magnesium 2.2, Total Bilirubin 0.6, AST 402 H*, ALT 555 H*, Alkaline Phosphatase 72 Imagings Data: EXAM DESCRIPTION: RAD - Chest Single View - 12/01/2021 9:01 am CLINICAL HISTORY: COUGH COMPARISON: Chest Single View dated 06/21/2021; Chest Single View dated 02/23/2020; Chest Single View dated 02/21/2020; Chest Pa And Lat (2 Views) dated 02/12/2017; Abdomen Pelvis Wo Contrast dated 06/21/2021 FINDINGS: Lines: None. Lungs: Pulmonary edema which has improved compared with 06/21/2021. Lack of sharpness of the image may be due to portable technique, underpenetration, and motion. Pleural: Small effusions difficult to exclude. Cardiac: Cardiomegaly. Bones: No acute fractures. Other: IMPRESSION: Suspected pulmonary edema. Due to portable technique and patient body habitus, a PA and lateral could better assess as the findings could be accentuated by under penetration. EXAM DESCRIPTION: US - Abdomen Exam Limited - 12/01/2021 10:31 am CLINICAL HISTORY: abnormal lfts COMPARISON: Abdomen Pelvis Wo Contrast dated 06/21/2021 FINDINGS: The gallbladder demonstrates no gallstones. No pericholecystic fluid or gallbladder wall thickening. The common bile duct is normal measuring 4 mm. The liver demonstrates no findings of intrahepatic biliary dilatation. Increased echogenicity of the liver consistent with hepatic steatosis. IMPRESSION: Negative for cholelithiasis or biliary ductal dilatation. Hepatic steatosis. Conclusions/Impression: ESRD -Acute HD Hyponatremia -Acute HD HTN with CKD/ CHF -Start Nifedipine BID -Start Coreg BID Diastolic CHF, A/C -Acute HD with UF -Start Coreg BID DM II with CKD -Restart insulin Moderate malnutrition -Start Nepro -Start MVI Anemia in CKD -Start Retacrit CKD MBD -Start Vitamin D Acute hepatitis of unclear etiology -Repeat LFTs in the am Case reviewed with Aaron Lama Thank you kindly for the consultation
[2021-12-01] MEDS ORDERED: EPOETIN ALFA-EPBX 10,000 UNIT/ML VIAL SQ ONE (11:45)
[2021-12-01] MEDS ORDERED: ALBUMIN HUMAN 25% 50 ML IV SCH (12:00)
[2021-12-01] MEDS: ONDANSETRON 4 MG/2 ML VIAL IV PRN (17:00)
[2021-12-01] MEDS: FUROSEMIDE 20 MG/ 2ML VIAL IV SCH (19:20)
[2021-12-01] MEDS: DOCUSATE NA 100 MG CAP PO SCH (21:24)
[2021-12-01] MEDS: NIFEDIPINE XL 30 MG TABLET PO SCH (22:00)
[2021-12-02] MEDS: carvediloL 12.5 MG TAB PO SCH ×3 (00:35→20:24)
[2021-12-02 05:47] LABS: Absolute Lymphocytes (CBC) 1.3 K/uL (0.7-4.9); Hematocrit 22.9 % (36.0-45.0); Lymphocytes % 12.3 % (15.3-44.8); RBC Red Blood Cell Count 2.74 M/uL (3.86-4.86)
[2021-12-02 06:29] LABS: Phosphorus 4.6 mg/dL (2.5-4.9); Potassium 3.9 mmol/L (3.5-5.1); Uric Acid 4.8 mg/dL (2.6-6.0)
[2021-12-02] MEDS: SEVELAMER CARBONATE 800 MG TABLET PO SCH ×3 (08:00→17:04)
[2021-12-02 08:40] LABS: Albumin 2.6 g/dL (3.4-5.0); Bilirubin Direct 0.3 mg/dL (0-0.2); Bilirubin Total 0.7 mg/dL (0.2-1.0); Protein, Total 6.9 g/dL (6.4-8.2)
[2021-12-02] MEDS: DOCUSATE NA 100 MG CAP PO SCH ×2 (09:00→20:24)
[2021-12-02] MEDS: MULTIVITAMINS,THERAPEUT 1 TAB PO SCH (09:00)
[2021-12-02] MEDS: FUROSEMIDE 20 MG/ 2ML VIAL IV SCH ×2 (09:02→17:04)
[2021-12-02] MEDS: CALCITROL 0.25 MCG CAP PO SCH (09:02)
[2021-12-02] MEDS: VITAMIN D 5,000 UNIT CAP PO SCH (09:02)
[2021-12-02] MEDS: NIFEDIPINE XL 30 MG TABLET PO SCH ×2 (12:24→20:23)
--- NOTE | 2021-12-02 13:37 | ECHO ---
HEIGHT: 5 ft 1 in WEIGHT: 250 lb 0 oz DATE OF STUDY: 12/02/[address]: Aristides Nicholson MD 2-DIMENSIONAL: YES M.MODE: YES DOPPLER: YES COLOR FLOW: YES TDS: YES PORTABLE: YES DEFINITY: NO BUBBLE STUDY: NO DIAGNOSIS: CONGESTIVE HEART FAILURE CARDIAC HISTORY: CATHERIZATION: NO SURGERY: NO PROSTHETIC VALVE: NO PACEMAKER: NO MEASUREMENTS (cm) DIASTOLIC (NORMALS) SYSTOLIC (NORMALS) IVSd 1.4 (0.6-1.2) LA Diam 3.4 (1.9-4.0) LVEF 55-60% LVIDd 4.4 (3.5-5.7) LVIDs 3.5 (2.0-3.5) %FS 20% LVPWd 1.3 (0.6-1.2) Ao Diam 2.2 (2.0-3.7) 2 DIMENSIONAL ASSESSMENT: RIGHT ATRIUM: NORMAL LEFT ATRIUM: NORMAL RIGHT VENTRICLE: NORMAL LEFT VENTRICLE: NORMAL TRICUSPID VALVE: MILD TRICUSPID REGURGITATION MITRAL VALVE: NORMAL PULMONIC VALVE: NORMAL AORTIC VALVE: NORMAL PERICARDIAL EFFUSION: TRACE AORTIC ROOT: NORMAL LEFT VENTRICULAR WALL MOTION: NORMAL. DOPPLER/COLOR FLOW: MILD TRICUSPID REGURGITATION. COMMENTS: NORMAL LEFT VENTRICULAR EJECTION FRACTION 55-60%. MODERATE DIASTOLIC DYSFUNCTION. RIGHT VENTRICULAR SYSTOLIC PRESSURE IS 43 + RIGHT ATRIAL PRESSURE. MILD TRICUSPID REGURGITATION. TECHNOLOGIST: TOAN REYNOLDS
--- NOTE | 2021-12-02 14:00 | P.PN ---
Date of Service: 12/02/21 Vital Signs Temp Pulse Resp BP Pulse Ox 97.0 F 78 24 H 154/82 H 100 12/02/21 12:00 12/02/21 12:24 12/02/21 12:00 12/02/21 12:24 12/02/21 12:00 Medications Acetaminophen (Acetaminophen 500 Mg Tab) 500 mg PO Q6H PRN PRN Reason: Pain scale 2-4 (Mild) Albuterol Sulfate (Albuterol 2.5 Mg/3 Ml Neb Radha) 2.5 mg NEB Q4H PRN PRN Reason: WHEEZING Calcitriol (Calcitrol 0.25 Mcg Cap) 0.5 mcg PO DAILY [facility] Last Admin: 12/02/21 09:02 Dose: 0.5 mcg Documented by: Carvedilol (Carvedilol 12.5 Mg Tab) 12.5 mg PO BID [facility] Last Admin: 12/02/21 09:00 Dose: 12.5 mg Documented by: Cholecalciferol (Vitamin D 5,000 Unit Cap) 5,000 unit PO DAILY [facility] Last Admin: 12/02/21 09:02 Dose: 5,000 unit Documented by: Docusate Sodium (Docusate Na 100 Mg Cap) 100 mg PO BID [facility] Last Admin: 12/02/21 09:00 Dose: 100 mg Documented by: Furosemide (Furosemide 20 Mg/ 2ml Vial) 20 mg IV BIDL [facility] Last Admin: 12/02/21 09:02 Dose: 20 mg Documented by: Heparin Sodium (Porcine) (Heparin 1,000 Unit/Ml Vial) 4,000 unit IV EVERY HD [facility] Stop: 12/06/21 14:01 Albumin Human (Albumin 25%) 50 mls @ 100 mls/hr IV EVERY HD [facility] Ipratropium Valliant (Ipratropium Brom 0.5mg/2.5ml) 0.5 mg NEB Q4H PRN PRN Reason: WHEEZING Mannitol (Mannitol 25% 12.5 Gm/50 Ml Vial) 12.5 gm IV EVERY HD PRN PRN Reason: blood pressure support at HD Nifedipine (Nifedipine Xl 30 Mg Tablet) 30 mg PO BID [facility] Last Admin: 12/02/21 12:24 Dose: 30 mg Documented by: Ondansetron HCl (Ondansetron 4 Mg/2 Ml Vial) 4 mg IV Q4H PRN PRN Reason: NAUSEA / VOMITING Last Admin: 12/01/21 17:00 Dose: 4 mg Documented by: Sevelamer Carbonate (Sevelamer Carbonate 800 Mg Tablet) 800 mg PO TIDWM [facility] Last Admin: 12/02/21 12:24 Dose: 800 mg Documented by: Sodium Chloride (Flush Normal Saline 10 Ml) 10 ml IV BID [facility] Last Admin: 12/02/21 09:00 Dose: 10 ml Documented by: Vitamin B Complex/Vit C/Folic Acid (Multivitamins,Therapeut 1 Tab) 1 tab PO DAILY [facility] Last Admin: 12/02/21 09:00 Dose: 1 tab Documented by: Microbiology Results 12/01/21 08:30 Nasopharnyx Influenza Type A Antigen Screen - Final 12/01/21 08:30 Nasopharnyx Influenza Type B Antigen Screen - Final Assessment/ Plan: Nephrology No dyspnea No chest pain Feeling better No acute events overnight Vitals, medications, blood work and imaging reviewed in the chart. General: In no apparent distress, Oriented x3, Cooperative HEENT: Atraumatic Neck: Supple Respiratory: Normal respiratory effort Cardiovascular: Regular rate/rhythm, Edema Gastrointestinal: Soft and benign, Non-distended Musculoskeletal: No clubbing, No contractures Integumentary: No rashes, No cyanosis Neurological: Abnormal speech Laboratory Data (last 24 hrs) 12/01/21 10:15: PT 12.0, INR 1.09 12/01/21 08:30: WBC 11.9 H, Hgb 9.0 L, Hct 26.8 L, Plt Count 306 12/01/21 08:30: Sodium 133 L, Potassium 4.5, BUN 71 H, Creatinine 12.40 H*, Glucose 127 H, Magnesium 2.2, Total Bilirubin 0.6, AST 402 H*, ALT 555 H*, Alkaline Phosphatase 72 Imagings Data: EXAM DESCRIPTION: RAD - Chest Single View - 12/01/2021 9:01 am CLINICAL HISTORY: COUGH COMPARISON: Chest Single View dated 06/21/2021; Chest Single View dated 02/23/2020; Chest Single View dated 02/21/2020; Chest Pa And Lat (2 Views) dated 02/12/2017; Abdomen Pelvis Wo Contrast dated 06/21/2021 FINDINGS: Lines: None. Lungs: Pulmonary edema which has improved compared with 06/21/2021. Lack of sharpness of the image may be due to portable technique, underpenetration, and motion. Pleural: Small effusions difficult to exclude. Cardiac: Cardiomegaly. Bones: No acute fractures. Other: IMPRESSION: Suspected pulmonary edema. Due to portable technique and patient body habitus, a PA and lateral could better assess as the findings could be accentuated by under penetration. EXAM DESCRIPTION: US - Abdomen Exam Limited - 12/01/2021 10:31 am CLINICAL HISTORY: abnormal lfts COMPARISON: Abdomen Pelvis Wo Contrast dated 06/21/2021 FINDINGS: The gallbladder demonstrates no gallstones. No pericholecystic fluid or gallbladder wall thickening. The common bile duct is normal measuring 4 mm. The liver demonstrates no findings of intrahepatic biliary dilatation. Increased echogenicity of the liver consistent with hepatic steatosis. IMPRESSION: Negative for cholelithiasis or biliary ductal dilatation. Hepatic steatosis. Conclusions/Impression: ESRD -Acute HD today -HD TIW Hyponatremia -Acute HD HTN with CKD/ CHF -Continue Nifedipine BID -Continue Coreg BID Diastolic CHF, A/C -Acute HD with UF -Continue Coreg BID DM II with CKD -Restart insulin prn Moderate malnutrition -Continue Nepro -Continue MVI Anemia in CKD -Retacrit TIW CKD MBD -Continue Vitamin D Acute hepatitis of unclear etiology -Monitor LFTs
[2021-12-02] MEDS: ONDANSETRON 4 MG/2 ML VIAL IV PRN (20:23)
[2021-12-02] MEDS: HEPARIN 5000 UNIT/ML 1 ML VIAL SQ SCH (20:24)
[2021-12-03 01:02] VITALS: BMI 47.2
[2021-12-03 06:03] LABS: Absolute Lymphocytes (CBC) 1.4 K/uL (0.7-4.9); Hematocrit 27.7 % (36.0-45.0); Lymphocytes % 11.1 % (15.3-44.8); MPV 7.9 fL (7.6-11.3); RBC Red Blood Cell Count 3.28 M/uL (3.86-4.86)
[2021-12-03 06:14] LABS: Albumin 2.5 g/dL (3.4-5.0); Bilirubin Total 0.6 mg/dL (0.2-1.0); Potassium 3.9 mmol/L (3.5-5.1); Protein, Total 7.3 g/dL (6.4-8.2)
--- NOTE | 2021-12-03 07:13 | HP ---
Date of Admission: 12/02/2021 Chief Complaint: Shortness of breath. History Of Present Illness: This is a 56-year-old very pleasant female patient who is on end-stage renal disease, hemodialysis, goes to dialysis on Sunday, , and Sunday. Her last dialysis was on Sunday and she missed her dialysis on Sunday of this week because she was not feeling good. As of past Sunday, she has been having some cough, which is dry, not coughing up any mucus. No fever. No chills. No nausea, vomiting. She is also having some shortness of breath with this. Yesterday with worsening symptoms, her family brought her to the emergency room and she was found to have congestive heart failure, pulmonary edema, and she was admitted to the hospital and after I was contacted, emergency room provider was advised to contact contact lens technician for dialysis, which was provided yesterday and overall she is feeling better. This morning, when I saw her, her mother was with her and the patient was on BiPAP. Overall feeling better. Allergies: NO KNOWN ALLERGIES. Medications: List reviewed. Review of Systems: Respiratory: As mentioned above. Cardiovascular: As mentioned above. All other systems reviewed and negative. Social History: Negative for smoking or alcohol use. Family History: Father , had colon cancer. Mother has arthritis, hypertension. Past Surgical History: Cataract surgery. Past Medical History: Diabetes mellitus, diabetic retinopathy, diabetic kidney disease leading end-stage renal disease and now on hemodialysis, obstructive sleep apnea, hyperlipidemia, hypertension, and anemia due to chronic kidney disease. Physical Examination: Vital Signs: This morning, when I saw her, temperature 97.5, pulse 74, respiratory rate 25, blood pressure 159/71, oxygen saturation 95%, height 5 feet 1 inch, weight 250 pounds. General: Awake, alert, oriented, not in distress. HEENT: Head atraumatic, normocephalic. Conjunctivae nonerythematous. Sclerae white. Mouth, no thrush or edema noted. Ears/Nose, no mass, lesion, discharge noted. Neck: Supple. No JVD, lymph nodes, bruit, thyromegaly noted. Lungs: Bilateral good equal air entry. Clear to auscultation. No rhonchi. No rales. Heart: Normal heart sounds, no murmur or gallop. Abdomen: Soft, bowel sounds normal. No guarding, rigidity, tenderness, mass, hepatosplenomegaly, distention, or bruit noted. Extremities: No leg edema. No calf tenderness. Skin: No rash, ulcer, cellulitis. Lymphatics: No lymph node enlargement in neck, supraclavicular, infraclavicular region. Neuro: No focal neurological deficit. Chest: Unremarkable. External Genitalia: Deferred. Rectal: Deferred. Laboratory Data: Yesterday, white count 11.9, hemoglobin 9, platelets 306. This morning, white count 10.6, hemoglobin 8.2, platelets 286. Yesterday, sodium 133, potassium 4.5, chloride 99, bicarb 21, BUN 71, creatinine 12.40, glucose 127, total bilirubin 0.6, direct bilirubin 0.2, AST 402, ALT 555, alkaline phosphatase 72. Troponin 90.9 and proBNP 59,254. This morning, sodium 133, potassium 3.9, chloride 98, bicarb 28, BUN 36, creatinine 7.95, glucose 148. Her AST 183, ALT 428, alkaline phosphatase 64, and troponin 69.6. COVID- 19 test negative. Abdominal ultrasound of right upper quadrant shows changes of fatty liver disease, otherwise it was unremarkable and a chest x-ray shows changes of pulmonary edema. Echocardiogram was done today showing ejection fraction 55% to 60%, moderate diastolic dysfunction and mild tricuspid regurgitation. Impression: 1. Acute pulmonary edema. 2. Chronic diastolic heart failure with acute exacerbation. 3. Hypertension. 4. Hyperlipidemia. 5. Obstructive sleep apnea. 6. Diabetes mellitus with chronic kidney disease. 7. End-stage renal disease, on hemodialysis. 8. Pulmonary hypertension. 9. Coronary artery disease. Plan: We will admit the patient to hospital for further evaluation and management of this problem. The patient is appropriate for inpatient and is expected to spend 2 midnights in hospital. The patient received her first session of dialysis yesterday, she will receive another session today. We will continue to follow with contact lens technician. Home medications will be continued per order. We will go ahead and give DVT prophylaxis per order. Her elevated cardiac enzymes is due to demand ischemia and not necessarily primary cardiac event at this point and troponin is already better today compared to yesterday. Abnormal liver enzymes are likely due to passive venous congestion. Acute hepatitis profile was ordered. We will follow up on that and I will see her tomorrow for followup. Details and plan of treatment discussed with the patient and the patient's mother who was at bedside. PURNIMA/PEDRO LUIS Voice ID: [id number] MTDD
[2021-12-03] MEDS: carvediloL 12.5 MG TAB PO SCH ×2 (08:49→20:56)
[2021-12-03] MEDS: VITAMIN D 5,000 UNIT CAP PO SCH (08:50)
[2021-12-03] MEDS: DOCUSATE NA 100 MG CAP PO SCH ×2 (08:50→20:56)
[2021-12-03] MEDS: NIFEDIPINE XL 30 MG TABLET PO SCH ×2 (08:50→20:56)
[2021-12-03] MEDS: CALCITROL 0.25 MCG CAP PO SCH (08:50)
[2021-12-03] MEDS: SEVELAMER CARBONATE 800 MG TABLET PO SCH ×3 (08:51→17:11)
[2021-12-03] MEDS: FUROSEMIDE 20 MG/ 2ML VIAL IV SCH ×2 (08:51→16:30)
[2021-12-03] MEDS: MULTIVITAMINS,THERAPEUT 1 TAB PO SCH (08:51)
[2021-12-03] MEDS: HEPARIN 5000 UNIT/ML 1 ML VIAL SQ SCH ×2 (08:52→20:56)
--- NOTE | 2021-12-03 12:31 | RAD REPORT ---
EXAM DESCRIPTION: RAD - Chest Single View - 12/03/2021 12:19 pm CLINICAL HISTORY: CHF COMPARISON: Chest Single View dated 12/01/2021; Chest Single View dated 06/21/2021; Chest Single View dated 02/23/2020; Chest Single View dated 02/21/2020 FINDINGS: Lines: None. Lungs: Pulmonary vascular congestion. Pleural: No significant pleural effusions or pneumothorax. Cardiac: Cardiomegaly. Bones: No acute fractures. Other: IMPRESSION: Pulmonary vascular congestion.
--- NOTE | 2021-12-03 14:55 | EKG ---
Test Date: 2021-12-01 Test Time: 08:57:43 Surg Tech: SAGE MEASUREMENT RESULTS: Intervals: Rate: 82 [place]: 140 QRSD: 84 QT: 380 QTc: 443 [place]: P: 51 [place]: 140 QRS: 38 T: 51 INTERPRETIVE STATEMENTS: Normal sinus rhythm Normal ECG Compared to ECG 06/24/2021 05:04:43 No significant changes Electronically Signed On 12-03-21 14:53:47 CDT by Freddy Osborn
--- NOTE | 2021-12-03 18:49 | PN ---
Date of Progress Note: 12/03/2021 Subjective: The patient was seen this morning for followup. No new complaints or problems reported by the patient. Lying in bed, not in distress. Objective: Vital Signs: Reviewed. HEENT: Unremarkable. Lungs: Clear to auscultation. Heart: Sounds normal. Abdomen: Soft. Bowel sounds normal. No guarding, rigidity, tenderness, distention. Extremities: No leg edema. Laboratory Data: White count 12.8, hemoglobin 9.3, platelets 346. Sodium 133, potassium 3.9, chlori de 100, bicarb 25, BUN 27, creatinine 6.37, glucose 150, AST 85, ALT 315, alkaline phosphatase 74. Impression: 1.Pulmonary edema. 2.Congestive heart failure. 3.End-stage renal disease. 4.Hypertension. 5.Hyperlipidemia. 6.Abnormal liver function tests, improving. Plan: We will go ahead and continue current medications. Continue to follow with location and measurement technician, dial ysis support per location and measurement technician and I will see her tomorrow for followup. I will communicate with her mother as she was not present in the room today and I will call and talk to her to give her some deta ils. PURNIMA/MODL Voice ID: [id number] Report ID: [id number]
[2021-12-03] MEDS: ONDANSETRON 4 MG/2 ML VIAL IV PRN (20:00)
--- NOTE | 2021-12-03 21:55 | CON ---
Date of Consultation: 12/02/2021 Reason For Consultation: Congestive heart failure. History Of Present Illness: This 56-year-old female with end-stage renal disease on hemodialysis on Sunday, , and Sunday. She missed dialysis one time this week. She comes in with shortnes s of breath, coughing, and producing yellow looking sputum. No fever. There is no chest pain and no other complaints. Past Medical History: End-stage renal disease, hypertension, diabetes, obstructive sleep apnea, and dyslipidemia. Medications: Refer to reconciliation sheet for detailed list. Allergies: NO KNOWN DRUG ALLERGIES. Family History: No premature coronary artery disease or cancer. Social History: Does not smoke or drink. Does not use any drugs. Review of Systems: All systems reviewed and they were negative except as mentioned in HPI. Physical Examination: Vital Signs: Reviewed. Head and Neck: Pupils are equal, reactive to light. Intact eye movements. No JVD. No cervical lym phadenopathy. Neck supple. Thyroid is not enlarged. Lungs: Clear to auscultation bilaterally. No rhonchi, rales, or crackles. No accessory muscle use. Heart: Regular rate and rhythm. No extra sounds. Abdomen: Soft, nontender. Bowel sounds positive. No organomegaly. No masses or hernia. No rigidi ty or rebound. Extremities: No clubbing or cyanosis. Intact pulses. Skin: No rashes. Neuro: Alert, awake. No acute focal deficits appreciated. Lymph Nodes: No cervical or axillary lymphadenopathy. Data Reviewed: Echo is normal, but elevated filling pressures with normal systolic function. Tropon in is borderline at 69. Assessment And Recommendations: 1.[id number] diastolic heart failure exacerbation. The patient is on hemodialysis. Fluid man agement as per Nephrology. No further cardiac workup is recommended as inpatient. Once the patient is hemodynamically stable and released, we will plan for outpatient cardiac stress test. 2.Elevated troponin, mild, likely due to demand. No signs of active ischemia at this point. Plan f or a stress test on an outpatient basis once the patient is euvolemic and after discharge. Thank you for the consult. /FELISHAL Voice ID: [id number] Report ID: [id number]
[2021-12-04] MEDS: ONDANSETRON 4 MG/2 ML VIAL IV PRN (00:15)
[2021-12-04] MEDS ORDERED: ONDANSETRON 4 MG/2 ML VIAL IV PRN (06:45)
[2021-12-04] MEDS: DOCUSATE NA 100 MG CAP PO SCH ×2 (08:36→20:57)
[2021-12-04] MEDS: SEVELAMER CARBONATE 800 MG TABLET PO SCH ×3 (08:37→17:17)
[2021-12-04] MEDS: MULTIVITAMINS,THERAPEUT 1 TAB PO SCH (08:37)
[2021-12-04] MEDS: VITAMIN D 5,000 UNIT CAP PO SCH (08:37)
[2021-12-04] MEDS: HEPARIN 5000 UNIT/ML 1 ML VIAL SQ SCH ×2 (08:37→20:46)
[2021-12-04] MEDS: carvediloL 12.5 MG TAB PO SCH (08:37)
[2021-12-04] MEDS: CALCITROL 0.25 MCG CAP PO SCH (08:37)
[2021-12-04] MEDS: NIFEDIPINE XL 30 MG TABLET PO SCH ×2 (09:35→20:44)
[2021-12-04] MEDS: FUROSEMIDE 20 MG/ 2ML VIAL IV SCH (09:35)
[2021-12-04] MEDS: CEFTRIAXONE 1,000 MG in NA CHLORIDE 0.9% 50 ML IVPB SCH ×2 (11:21→20:44)
[2021-12-04] MEDS ORDERED: carvediloL 12.5 MG TAB PO ONE (12:27)
[2021-12-04] MEDS ORDERED: cloNIDine HCL 0.1 MG TAB PO PRN (12:28)
--- NOTE | 2021-12-04 13:27 | PN ---
Date of Progress Note: 12/04/2021 Subjective: The patient was seen this morning for followup. No new complaints or problems reported by the patient except was having some nausea, vomiting. Objective: Vital Signs: Reviewed. HEENT: Unremarkable. Lungs: Clear to auscultation. Heart: Sounds normal. Abdomen: Soft. Bowel sounds normal. No guarding, rigidity, distention. Presence of some right upp er quadrant tenderness noted. Extremities: No leg edema. Impression: 1.Pulmonary edema. 2.Congestive heart failure. 3.End-stage renal disease, on hemodialysis. 4.Hypertension. 5.Diabetes mellitus. 6.Right upper quadrant abdominal pain. 7.Nausea with vomiting. Plan: We will go ahead and get a CAT scan of abdomen and pelvis done with contrast today. Continue to use nausea medication as needed. We will start empiric antibiotic, ceftriaxone 1 g every 12 hours and we will repeat blood work tomorrow. I will see her tomorrow morning for followup. Continue to follow with policy service coordinator for dialysis support. PURNIMA/MODL Voice ID: [id number] Report ID: [id number]
--- NOTE | 2021-12-04 16:06 | RAD REPORT ---
EXAM DESCRIPTION: CT - Abdomen Pelvis W Contrast - 12/04/2021 3:43 pm CLINICAL HISTORY: Abdominal pain. COMPARISON: 2020 2020 TECHNIQUE: Computed axial tomography of the abdomen and pelvis was obtained. 100 cc Isovue-300 is ad ministered intravenously. Oral contrast was given. All CT scans are performed using dose optimization technique as appropriate and may include automated exposure control or mA/KV adjustment according to patient size. FINDINGS: Small kidneys The liver, spleen, pancreas, and adrenals appear unremarkable. There is no evidence of diverticulitis An abnormal appendix is not seen. No adnexal mass Diffuse edema within the subcutaneous tissues right flank IMPRESSION: Diffuse edema within the subcutaneous tissues right flank could be secondary to a cellul itis, kidney or heart disease.
[2021-12-04] MEDS: FUROSEMIDE 40 MG/4 ML VIAL IV SCH (16:19)
[2021-12-04] MEDS ORDERED: EPOETIN ALFA 10,000 UNIT/ML VIAL SQ SCH (20:00)
[2021-12-04] MEDS ORDERED: CEFTRIAXONE 1000 MG/VIAL ONE (20:22)
[2021-12-04] MEDS ORDERED: NA CHLORIDE 0.9% 50 ML ONE (20:29)
[2021-12-04] MEDS: carvediloL 25 MG TAB PO SCH (20:45)
[2021-12-04] MEDS: LOSARTAN POTASSIUM 50 MG TABLET PO SCH (20:46)
[2021-12-04] MEDS ORDERED: NA CHLORIDE 0.9% 250 ML ONE (21:01)
[2021-12-05 05:57] LABS: Absolute Lymphocytes (CBC) 1.6 K/uL (0.7-4.9); Hematocrit 29.2 % (36.0-45.0); Lymphocytes % 14.2 % (15.3-44.8); MPV 7.9 fL (7.6-11.3); RBC Red Blood Cell Count 3.47 M/uL (3.86-4.86)
[2021-12-05 06:10] LABS: Albumin 2.5 g/dL (3.4-5.0); Bilirubin Total 0.3 mg/dL (0.2-1.0); Potassium 3.9 mmol/L (3.5-5.1); Protein, Total 7.7 g/dL (6.4-8.2)
[2021-12-05] MEDS: SEVELAMER CARBONATE 800 MG TABLET PO SCH ×2 (08:39→12:00)
[2021-12-05] MEDS: MULTIVITAMINS,THERAPEUT 1 TAB PO SCH (08:39)
[2021-12-05] MEDS: VITAMIN D 5,000 UNIT CAP PO SCH (08:39)
[2021-12-05] MEDS: DOCUSATE NA 100 MG CAP PO SCH (08:39)
[2021-12-05] MEDS: CALCITROL 0.25 MCG CAP PO SCH (08:39)
[2021-12-05] MEDS: CEFTRIAXONE 1,000 MG in NA CHLORIDE 0.9% 50 ML IVPB SCH (08:40)
[2021-12-05] MEDS: FUROSEMIDE 40 MG/4 ML VIAL IV SCH (08:40)
[2021-12-05] MEDS: HEPARIN 5000 UNIT/ML 1 ML VIAL SQ SCH (08:40)
[2021-12-05] MEDS: carvediloL 25 MG TAB PO SCH ×2 (09:00→11:37)
[2021-12-05] MEDS: LOSARTAN POTASSIUM 50 MG TABLET PO SCH ×2 (09:00→11:38)
[2021-12-05] MEDS: NIFEDIPINE XL 30 MG TABLET PO SCH ×3 (09:00→11:36)
[2021-12-05 09:36] VITALS: TEMP 97.9
[2021-12-05 09:37] VITALS: O2SAT 98
--- NOTE | 2021-12-05 09:39 | PN ---
Date of Progress Note: 12/04/2021 Subjective: The patient is seen at the bedside. No overnight events reported. The patient did receive dialysis on and Sunday. Cardiac status has improved. The patient states that she is having nausea. Objective: Vital Signs: Blood pressure is 163/74, pulse 81, afebrile. General: No acute distress. Heart: Regular rate and rhythm. No murmurs, rubs, gallops. Lungs: Grossly clear. Abdomen: Soft. Extremities: 1+ edema. Laboratory Data: Hemoglobin 9.3, hematocrit 27.7 from December 03. Also on the , BUN and creatinine were 27/6.37. AST and ALT were elevated. Medications: Current medications were reviewed. Impression: 1. End-stage renal disease, on hemodialysis. 2. Acute diastolic congestive heart failure secondary to volume overload. 3. Nonadherence with dialysis management. 4. Acute respiratory failure. 5. Nausea. Plan: The patient will be placed on increased dose of Lasix so as to improve urine output in the outpatient setting. I would recommend switching to p.o. 80 mg b.i.d., Lasix to improve urination the outpatient setting so as to improve volume status. No acute indication for dialysis today. We will continue the patient on Sunday, Sunday, Sunday dialysis while here in the hospital and will revert back to her Sunday, , Sunday schedule upon discharge. /PEDRO LUIS Voice ID: [id number] Report ID: [id number] MTDD
[2021-12-05 11:37] VITALS: BP 183/82
[2021-12-05] MEDS ORDERED: METOCLOPRAMIDE 10 MG/2mL INJ IV SCH (14:00)
[2021-12-05] MEDS ORDERED: IPRATROPIUM BROM 0.5MG/2.5ML NEB PRN (14:00)
[2021-12-05] MEDS ORDERED: ALBUTEROL 2.5 MG/3 ML NEB SOL NEB PRN (14:00)
--- NOTE | 2021-12-05 15:09 | PN ---
Date of Progress Note: 12/05/2021 Ms. Guallpa was admitted with diastolic congestive heart failure, normal echocardiogram, ejection fract ion otherwise, saturation 95% on CPAP. She has end-stage renal disease. [facility] Hopefully, she will go home today after her dialysis. Dr. Osborn had suggested an outpatient Estelle rodriguez and we can arrange for that down the road. She is presently on Lasix, losartan, nifedipine, C oreg, and antibiotics. I agree with the present regimen. I will discuss the case further with Dr. Morteza rizzo. FARHAN/PEDRO LUIS Voice ID: [id number] Report ID: [id number]
--- NOTE | 2021-12-05 18:23 | P.PN ---
Date of Service: 12/05/21 Vital Signs Temp Pulse Resp BP Pulse Ox 97.9 F 82 16 183/82 H 97 12/05/21 08:00 12/05/21 11:37 12/05/21 08:00 12/05/21 11:37 12/05/21 08:00 Microbiology Results 12/01/21 08:30 Nasopharnyx Influenza Type A Antigen Screen - Final 12/01/21 08:30 Nasopharnyx Influenza Type B Antigen Screen - Final Assessment/ Plan: Nephrology No dyspnea No chest pain Feeling better Reports N/V No acute events overnight Vitals, medications, blood work and imaging reviewed in the chart. General: In no apparent distress, Oriented x3, Cooperative HEENT: Atraumatic Neck: Supple Respiratory: Normal respiratory effort Cardiovascular: Regular rate/rhythm, Edema Gastrointestinal: Soft and benign, Non-distended Musculoskeletal: No clubbing, No contractures Integumentary: No rashes, No cyanosis Neurological: Abnormal speech Laboratory Data (last 24 hrs) 12/01/21 10:15: PT 12.0, INR 1.09 12/01/21 08:30: WBC 11.9 H, Hgb 9.0 L, Hct 26.8 L, Plt Count 306 12/01/21 08:30: Sodium 133 L, Potassium 4.5, BUN 71 H, Creatinine 12.40 H*, Glucose 127 H, Magnesium 2.2, Total Bilirubin 0.6, AST 402 H*, ALT 555 H*, Alkaline Phosphatase 72 Imagings Data: EXAM DESCRIPTION: RAD - Chest Single View - 12/01/2021 9:01 am CLINICAL HISTORY: COUGH COMPARISON: Chest Single View dated 06/21/2021; Chest Single View dated 02/23/2020; Chest Single View dated 02/21/2020; Chest Pa And Lat (2 Views) dated 02/12/2017; Abdomen Pelvis Wo Contrast dated 06/21/2021 FINDINGS: Lines: None. Lungs: Pulmonary edema which has improved compared with 06/21/2021. Lack of sharpness of the image may be due to portable technique, underpenetration, and motion. Pleural: Small effusions difficult to exclude. Cardiac: Cardiomegaly. Bones: No acute fractures. Other: IMPRESSION: Suspected pulmonary edema. Due to portable technique and patient body habitus, a PA and lateral could better assess as the findings could be accentuated by under penetration. EXAM DESCRIPTION: US - Abdomen Exam Limited - 12/01/2021 10:31 am CLINICAL HISTORY: abnormal lfts COMPARISON: Abdomen Pelvis Wo Contrast dated 06/21/2021 FINDINGS: The gallbladder demonstrates no gallstones. No pericholecystic fluid or gallbladder wall thickening. The common bile duct is normal measuring 4 mm. The liver demonstrates no findings of intrahepatic biliary dilatation. Increased echogenicity of the liver consistent with hepatic steatosis. IMPRESSION: Negative for cholelithiasis or biliary ductal dilatation. Hepatic steatosis. Conclusions/Impression: ESRD -Acute HD today; Seen and examined on HD. -HD TIW Hyponatremia -Acute HD HTN with CKD/ CHF -Continue Nifedipine BID -Continue Coreg BID Diastolic CHF, A/C -Acute HD with UF -Continue Coreg BID DM II with CKD -No sugar diet Moderate malnutrition -Continue Nepro -Continue MVI Anemia in CKD -Retacrit TIW CKD MBD -Continue Vitamin D Acute hepatitis of unclear etiology -Monitor LFTs
--- NOTE | 2021-12-18 09:23 | DS ---
Date of Discharge: 12/05/2021 Disposition: Discharged to go home. Discharge Medications: Continue all prior home medications. Followup: Next followup at my office next week on 12/12/2021, call office for appointment. Laboratory Data: On admission, 12/01/2021, white count 11.9, hemoglobin 9, platelets 306. On 2021, white count 11, hemoglobin 10, platelets 461. On admission on 12/01/2021, sodium 133, potassiu m 4.5, chloride 99, bicarb 21, BUN 71, creatinine 12.40, AST 402, ALT 555, alkaline phosphatase 72, t roponin-99 0.9, proBNP 59,254, second troponin 69.6 on 12/02/2021. Last chemistry on 12/05/2021, sod ium 132, potassium 3.9, chloride 95, bicarb 29, BUN 49, creatinine 9.67, glucose 200, AST 23, ALT 151 , alkaline phosphatase 64. Echocardiogram shows normal ejection fraction 55% to 60%, moderate diasto lic dysfunction, mild tricuspid regurgitation. Abdominal ultrasound at the time of admission was negative for any gallstone or biliary duct dilatati on, presence of fatty liver. CAT scan of abdomen and pelvis with contrast done on 12/04/2021 came ba ck showing diffuse edema within subcutaneous tissues in the right flank, could be secondary to cellul itis, kidney disease, or heart disease. No acute abnormality detected on this CAT scan. Hospital Course: This is a 56-year-old pleasant female patient who was admitted to the hospital with complaints of shortness of breath. Please see dictated H and P for more information. The patient w as admitted to the hospital with acute pulmonary edema and acute exacerbation of chronic diastolic he art failure. Her cardiac enzymes, initial enzyme was slightly elevated and subsequent enzyme started to come down compared to the first set. Cardiology consultation was requested, and the patient was thought to have elevated troponin due to demand ischemia. No further cardiac intervention was recomm ended. Nephrology consultation was requested from the patient's loading dock hand, and dialysis support w as provided and that actually has improved her shortness of breath complaints. Her liver function te sts were elevated, which was thought to be due to passive venous congestion secondary to diastolic he art failure and that actually has shown improvement with dialysis support. Overall, her condition vuong s improved, and she was discharged to go home in stable condition with above-mentioned medications an d instructions. Final Diagnoses: 1.Acute pulmonary edema. 2.Chronic diastolic heart failure, with acute exacerbation. 3.Anemia due to chronic kidney disease. 4.Abnormal liver function tests, due to passive venous congestion, due to congestive heart failure. 5.Hypertension. 6.Hyperlipidemia. 7.Obstructive sleep apnea. 8.Diabetes mellitus with chronic kidney disease. 9.End-stage renal disease, on hemodialysis. 10.Pulmonary hypertension. 11.Coronary artery disease. PURNIMA/MODL Voice ID: [id number] Report ID: [id number]
== END 2021-12-05 16:00 | disposition home or self-care (01) | DRG 291 ==
LOC: ER 08:14 → ERHOLD 11:07 → 2ND 17:02
PROVIDERS: ADMIT Internal Medicine; ATTEND Internal Medicine
PROC: 5A1D70Z Performance of Urinary Filtration, Intermittent, Less than 6 Hours Per Day (ICD-10-PCS; principal; 2021-12-01)
PROC: 5A1D70Z Performance of Urinary Filtration, Intermittent, Less than 6 Hours Per Day (ICD-10-PCS; 2021-12-02)
PROC: 5A1D70Z Performance of Urinary Filtration, Intermittent, Less than 6 Hours Per Day (ICD-10-PCS; 2021-12-05)
DX: I13.2 Hypertensive heart and chronic kidney disease with heart failure and with stage 5 chronic kidney disease, or end stage renal disease (principal); I50.33 Acute on chronic diastolic (congestive) heart failure; N18.6 End stage renal disease; J96.00 Acute respiratory failure, unspecified whether with hypoxia or hypercapnia; E87.1 Hypo-osmolality and hyponatremia; E44.0 Moderate protein-calorie malnutrition; Z68.42 Body mass index [BMI] 45.0-49.9, adult; E11.22 Type 2 diabetes mellitus with diabetic chronic kidney disease; E78.5 Hyperlipidemia, unspecified; G47.33 Obstructive sleep apnea (adult) (pediatric); I27.20 Pulmonary hypertension, unspecified; I25.10 Atherosclerotic heart disease of native coronary artery without angina pectoris; D63.1 Anemia in chronic kidney disease; R77.8 Other specified abnormalities of plasma proteins; R10.11 Right upper quadrant pain; R11.2 Nausea with vomiting, unspecified; R94.5 Abnormal results of liver function studies; I87.8 Other specified disorders of veins; Z99.2 Dependence on renal dialysis; Z20.822 Contact with and (suspected) exposure to COVID-19
CPT/HCPCS: 36415; 71045; 74177; 76705; 80048; 80053; 80074; 80076; 82947; 83036; 83735; 83880; 84100; 84484; 84550; 85025; 85610; 87804; 90935; 93005; 93306; 94660; 94760; 99285; J1644; J1940; J2250; J2405; J2765; J7050; Q5106; Q9967; U0003

== ENCOUNTER 2022-03-26 12:13 | Observation (INO) | payer OTHER ==
--- OUTSIDE RECORDS SUMMARY | 2022-03-26 12:17 | XMS REPORT | Continuity of Care Document ---
:1965 Author Organization [facility] t Address [address] [place] [address] Dr. Cohen [address] [place] [address] Care Team Providers Name Role Phone Clinton_Sofia Attending Clinician Unavailable Clinton_T Admitting Clinician Unavailable Payers Payer Name Policy Type Policy Number Effective Date Expiration Date [place]: [id number] 1993 [employer] 00:00:00 [employer] [id number] 2017 [facility] - 00:00:00 [employer] (HMO) [employer] [id number] 2017 [facility] (MEDICAID 00:00:00 HMO) MEDICARE[place] [id number] 1993 (MEDICARE) 00:00:00 Problems Condition Condition Condition Status Onset Resolution Last Treating Co mments Source Name Details Category Date Date Treatment Clinician Date Tinea Tinea Problem Active [facility] pedis Pedis 1-05 Family 00:00: Practic 00 e Type 2 Type 2 Problem Active [facility] diabetes Diabetes 1-05 Family mellitus [...] 00 e Morbid Morbid Problem Active 2016-07 [facility] obesity Obesity 0-16 Family 00:00: Practic 00 e Essential Essential Problem Active 2016-07 Elia ceballos hypertensi Hypertensi 0-16 Fa miriam on on 00:00: Practic e Dependence Dependence Problem Active 2016-07 V [...] 00 e Kidney Kidney Problem Active 2016-07 [facility] disease Disease 0-16 Family 00:00: Practic 00 e General General Problem Active [facility] finding of Finding of Ignacio pineda observatio Observatio Pr actic n of n of e patient Patient Allergies, Adverse Reactions, Alerts This patient has no known allergies or adverse reactions. Social History Social Habit Start Date Stop Date Quantity Comments Source Sex Assigned At [birth year] ALEXA Perez 00:00:00 [facility]:00 [facility] Smoking Status Start Date Stop Date Source Never Smoker [facility] Family P ractice Medications Ordered Filled Start Stop Current Ordering Indication Dosage Frequency Signature Comments Components Source Medication Medication Date Date Medication? Clinician (SIG) Name Name Afluria Qd Afluria Qd No Afluria Qd [facility] ( ( Family mos mos (36 mos Practic up)(PF)60 up)(PF)60 up)(PF)60 e mcg (15 mcg mcg (15 mcg mcg (15 x4)/0.5 mL x4)/0.5 mL mcg IM syringe IM syringe x4)/0.5 mL ADM 0.5ML ADM 0.5ML IM syringe IM UTD IM UTD ADM 0.5ML IM UTD atorvastati atorvastati No atorvastat [facility] n 80 mg n 80 mg in 80 mg Famil y tablet tablet tablet Practic e BD BD No BD [place] Ultra-Fine Ultra-Fine Ultra-Fine Family Mini Pen Mini Pen Mini Pen Pra ctic Needle 31 Needle 31 Needle 31 e gauge x gauge x gauge x 3/16" USE 3/16" USE 316" USE DIRECTED DIRECTED 5 TIMES 5 TIMES DIRECTED 5 DAILY DAILY TIMES DAILY carvedilol carvedilol No carvedilol [facility] 25 mg 25 mg 25 mg Family tablet TAKE tablet TAKE tablet Practic 1 TABLET BY 1 TABLET BY TAKE 1 e MOUTH TWICE MOUTH TWICE TABLET BY A DAY A DAY MOUTH TWICE A DAY celecoxib celecoxib No celecoxib [facility] 200 mg 200 mg 200 mg Family capsule capsule capsule Practi c TAKE 1 TAKE 1 TAKE 1 e CAPSULE BY CAPSULE BY CAPSULE BY MOUTH EVERY MOUTH EVERY MOUTH DAY DAY EVERY DAY clonidine clonidine No clonidine [facility] HCl 0.3 mg HCl 0.3 mg HCl 0.3 mg Family tablet TAKE tablet TAKE tablet Practic 1/2 TABLET 1/2 TABLET TAKE 1/2 e BY MOUTH 3 BY MOUTH 3 TABLET BY TIMES A DAY TIMES A DAY MOUTH 3 TIMES A DAY Comfort EZ Comfort EZ No 2needle Q1D Comfort EZ [place] Pen [place]dard Pen God[place]ard (s) Pen F amily 31 gauge x 31 gauge x Goddard 31 Practic 12/05" Take 12/05" Take gauge [...] route. Eliquis 2.5 Eliquis 2.5 No Eliquis [facility] mg tablet mg tablet 2.5 mg Fam anselmo TAKE 1 TAKE 1 tablet Practic TABLET BY TABLET BY TAKE 1 e MOUTH TWICE MOUTH TWICE TABLET BY A DAY A DAY MOUTH TWICE A DAY Entresto 24 Entresto 24 No Entresto [facility] mg-26 mg mg-26 mg 24 mg-26 Fam anselmo tablet TAKE tablet TAKE mg tablet Practic 1 TABLET BY 1 TABLET BY TAKE 1 e MOUTH TWICE MOUTH TWICE TABLET BY A DAY A DAY MOUTH TWICE A DAY escitalopra escitalopra No escitalopr [facility] m 10 mg m 10 mg am 10 mg Famil y tablet TAKE tablet TAKE tablet Practic 1 TABLET BY 1 TABLET BY TAKE 1 e MOUTH EVERY MOUTH EVERY TABLET BY DAY WITH DAY WITH MOUTH BREAKFAST BREAKFAST EVERY DAY WITH BREAKFAST furosemide furosemide No furosemide [facility] 80 mg 80 mg 80 mg Family tablet TAKE tablet TAKE tablet Practic 2 TABLETS 2 TABLETS TAKE 2 e BY MOUTH BY MOUTH TABLETS BY TWICE A DAY TWICE A DAY MOUTH TWICE A DAY gabapentin gabapentin No gabapentin [facility] 100 mg 100 mg 100 mg Family capsule capsule capsule Practi c TAKE 1 TAKE 1 TAKE 1 e CAPSULE BY CAPSULE BY CAPSULE BY MOUTH TWICE MOUTH TWICE MOUTH A DAY A DAY TWICE A DAY GaviLyte-N GaviLyte-N No GaviLyte-N [place] 420 gram 420 gram 420 gram Fam anselmo oral oral oral Practic solution solution solution e PLEASE SEE PLEASE SEE PLEASE SEE ATTACHED ATTACHED ATTACHED FOR FOR FOR DETAILED DETAILED DETAILED DIRECTIONS DIRECTIONS DIRECTIONS Guaiatussin Guaiatussin No Guaiatussi [facility] AC 10 AC 10 n AC 10 Family mg-100 mg/5 mg-100 mg/5 mg-100 Practic mL oral mL oral mg/5 mL e liquid liquid oral liquid Humalog Humalog No Humalog [facility] KwikPen KwikPen KwikPen Family (U-100) (U-100) (U-100) Practi c Insulin 100 Insulin 100 Insulin e unit/mL unit/mL 100 subcutaneou subcutaneou unit/mL s Give s Give subcutaneo before before us Give meals for meals for before glucose glucose meals for >200 using >200 using glucose CF 1:30, CF 1:30, >200 using TOTAL DAILY TOTAL DAILY CF 1:30, DOSE OF 40 DOSE OF 40 TOTAL DAILY DOSE OF 40 Lantus Lantus No Lantus [facility] Radhaostar Radhaostar Radhaosthailey Fam anselmo U-100 U-100 U-100 Practic Insulin 100 Insulin 100 Insulin e unit/mL (3 unit/mL (3 100 mL) mL) unit/mL (3 subcutaneou subcutaneou mL) s pen Give s pen Give subcutaneo 50 units in 50 units in us pen AM and AM and Give 50 increase as increase as units in directed: directed: AM and TDD 100 TDD 100 increase as directed: TDD 100 metoprolol metoprolol No metoprolol [facility] tartrate tartrate tartrate Fam anselmo [...] A DAY A DAY ondansetron [facility]etron [facility] 4 [facility] HCl 4 mg n HCl 4 mg F amily tablet tablet tablet Practic e promethazin prom[facility]azin [facility] 6.25 e 6.25 ne 6.25 Family mg-codeine mg-codeine mg-codeine Practic 10 mg/5 mL 10 mg/5 mL 10 mg/5 mL e syrup TAKE syrup TAKE syrup TAKE 5 5 5 MILLILITERS MILLILITERS MILLILITER BY MOUTH 4 BY MOUTH 4 S BY MOUTH TIMES A DAY TIMES A DAY 4 TIMES A NEEDED NEEDED DAY FOR COUGH FOR COUGH NEEDED FOR COUGH ramipril 5 ramipril 5 No 1capsul Q1D ramipril 5 Village mg capsule mg capsule e(s) mg capsule Family Take 1 Take 1 Take 1 Practic capsule capsule capsule e every day every day every day by oral by oral by oral route. route. route. sevelamer sevelamer No [facility] carbonate carbonate carbonate Family 800 [...] DAY WITH A SNACK Trulicity [facility] 1.5 mg/0.5 1.5 mg/0.5 1.5 mg/0.5 Family mL mL mL Practic subcutaneou subcutaneou subcutaneo e s pen s pen us pen injector injector injector INJECT 1 INJECT 1 INJECT 1 SYRINGE SYRINGE SYRINGE SUBCUTANEOU SUBCUTANEOU SUBCUTANEO SLY ONCE SLY ONCE USLY ONCE EVERY 2 EVERY 2 EVERY 2 WEEKS WEEKS WEEKS Trulicity 3 Trulicity 3 No 3mg Q1W Trulicity Village mg/0.5 mL mg/0.5 mL 3 mg/0.5 F amily subcutaneou subcutaneou mL P ractic s pen s pen subcutaneo e injector injector us pen Inject 3 mg Inject 3 mg injector every week every week Inject 3 by by mg every subcutaneou subcutaneou week by s route for s route for subcutaneo 90 days. 90 days. us route for 90 days. Immunizations Ordered Immunization Filled Immunization Date Status Commen ts Source Name Name Tdap Tdap 2020-11-05 Completed [facility] Family 00:00:00 Practice Non-US Vaccine Non-US Vaccine 2020-10-11 Completed [facility] Family COVID-19 PS COVID-19 PS 00:00:00 Practice (EpiVacCorona) (EpiVacCorona) COVID-19 COVID-19 2020-09-21 Completed [facility] (SARS-COV-2) (SARS-COV-2) 00:00:00 Practice vaccine, unspecified vaccine, unspecified influenza, influenza, 2020-04-22 Completed [facility] injectable, injectable, 00:00:00 Practice quadrivalent quadrivalent Vital Signs Vital Name Observation Time Observation Value Comments Source BP Diastolic 2022-01-20 00:00:00 68 mm[Hg] [facility] Family Practice Height 2022-01-20 00:00:00 61.5 [in_i] [facility] Practice BMI (Body Mass 2022-01-20 00:00:00 46.7 kg/m2 [facility] e Family Index) Practice BP Systolic 2022-01-20 00:00:00 128 mm[Hg] [facility] Practice Body Weight 2022-01-20 00:00:00 251 [lb_av] [facility] Family Practice BP Diastolic 2021-07-27 00:00:00 50 mm[Hg] [facility] Family Practice Height 2021-07-27 00:00:00 61.5 [in_i] [facility] Practice BMI (Body Mass 2021-07-27 00:00:00 51.6 kg/m2 [facility] e Family Index) Practice BP Systolic 2021-07-27 00:00:00 138 mm[Hg] [facility] Practice Body Weight 2021-07-27 00:00:00 277.4 [lb_av] [facility] Practice BP Diastolic 2021-04-20 00:00:00 83 mm[Hg] [facility] Family Practice Height 2021-04-20 00:00:00 61.5 [in_i] [facility] BMI (Body Mass 2021-04-20 00:00:00 50.9 kg/m2 [facility] Index) Practice BP Systolic 2021-04-20 00:00:00 164 mm[Hg] [facility] Family Practice Body Weight 2021-04-20 00:00:00 274 [lb_av] [facility] Family Practice BP Diastolic 2021-01-21 00:00:00 78 mm[Hg] [facility] Family Practice Height 2021-01-21 00:00:00 61.5 [in_i] [facility] Family Practice BMI (Body Mass 2021-01-21 00:00:00 52.7 kg/m2 [facility] Index) Practice BP Systolic 2021-01-21 00:00:00 148 mm[Hg] [facility] Family Practice Body Weight 2021-01-21 00:00:00 283.6 [lb_av] [facility] Family Practice BP Diastolic 2020-10-06 00:00:00 77 mm[Hg] [facility] Family Practice Height 2020-10-06 00:00:00 61.5 [in_i] [facility] Family Practice BMI (Body Mass 2020-10-06 00:00:00 52.9 kg/m2 [facility] Index) Practice BP Systolic 2020-10-06 00:00:00 151 mm[Hg] [facility] Family Practice Body Weight 2020-10-06 00:00:00 284.4 [lb_av] [facility] Family Practice BP Diastolic 2020-07-07 00:00:00 88 mm[Hg] [facility] Family Practice Height 2020-07-07 00:00:00 61.5 [in_i] [facility] Family Practice BMI (Body Mass 2020-07-07 00:00:00 53.3 kg/m2 [facility] Index) Practice BP Systolic 2020-07-07 00:00:00 128 mm[Hg] [facility] Family Practice Body Weight 2020-07-07 00:00:00 287 [lb_av] [facility] Family Practice Procedures Procedure Date / Time Performed Performing Clinician Sour e HEPATITIS B SURFACE 2021-12-02 07:50:00 [facility] Center HEPATITIS B CORE 2021-12-02 07:50:00 [facility] ANTIBODY, I[facility] Center HEPATITIS A ANTIBODY, 2021-12-02 07:50:00 [facility] Center HEPATITIS C ANTIBODY 2021-12-02 07:50:00 [facility] HEPATITIS B CORE 2021-12-02 07:50:00 [facility] ANTIBODY, TOTAL Center Plan of Care Planned Activity Planned Date Details Comments Source Future Scheduled Test 2022-03-23 INFLUENZA VACCINE (#1) [facility] 00:00:00 [code = INFLUENZA Medical Ce nter VACCINE (#1)] Diagnostic Test 2022-01-20 hemoglobin A1C, [facility] F amily Pending 00:00:00 fingerstick [code = Practice hemoglobin A1C, fingerstick] Diagnostic Test 2022-01-20 glucose, fingerstick, Elia lin Family Pending 00:00:00 blood [code = glucose, Pract ice fingerstick, blood] Future Scheduled Test 2021-07-[address] [facility] 00:00:00 (12+) [code = Medical Center DEPRESSION SCREENING (12+)] Future Scheduled Test 2017 SHINGLES VACCINES ([address] [facility] 00:00:00 of 2) [code = SHINGLES Medic mt Center VACCINES (1 of 2)] Future Scheduled Test [address] [facility] 00:00:00 (procedure) [code = [facility] 63602842] Future Scheduled Test 1988 [facility]ening for [facility] cervix (procedure) [code = 389087635] Future Scheduled Test 1986 DTAP/TDAP/TD VACCINES [facility] 00:00:00 (1 - Tdap) [code = Medical C enter DTAP/TDAP/TD VACCINES (1 - Tdap)] Future Scheduled Test 1967 COVID-19 VACCINE (#1) [facility] 00:00:00 [code = COVID-[address] VACCINE (#1)] Future Scheduled Test 1967 Screening for [facility] 00:00:00 [facility] breast (procedure) [code = 474635388] Future Scheduled Test [address] [facility] 00:00:00 (combo) [code = CT Medical C enter Colonography (combo)] Future Scheduled Test 1967 Screening for [facility] 00:00:00 malignant neoplasm of Medica l Center colon (procedure) [code = 704464947] Future Scheduled Test 1967 Screening for [facility] 00:00:00 malignant neoplasm of Medica [facility] Center colon (procedure) [code = 432681902] Future Scheduled Test 1967 Screening for [facility] 00:00:00 malignant neoplasm of Medica l Center colon (procedure) [code = 191283488] Future Scheduled Test 1967 Screening for [facility] 00:00:00 malignant neoplasm of Medica l Center colon (procedure) [code = 391685363] Future Scheduled Test 1967 Sigmoidoscopy [code = [facility] 00:00:00 Sigmoidoscopy] Maryann bolaños Future Appointment 2022-04-24 Alex Conroyel, [address] Alexandr Angel 00:00:00 Jimmie Juarez; Practice [address], [place] [address] Encounters Start End Encounter Admission Attending Care Care Encounter Source Date/Time Date/Time Type Type Clinicians Facility Department ID 2022-02-21 2022-02-21 Outpatient Daniel_T VFP VFP [id number] [address] [place] [address] 00:00:00 00:00:00 [id number] Family Practic e 2022-02-08 2022-02-08 Outpatient Daniel_T VFP VFP [id number] [address] [place] [address] 12:11:00 12:11:00 [id number] Family Practic e 2022-01-20 2022-01-20 Outpatient Daniel_T VFP VFP [id number] [address] [place] [address] 10:23:00 10:23:00 [id number] Family Practic e 2022-01-20 2022-01-20 Alex VFP [place] - [id number] V illage 00:00:00 00:00:00 Juan [facility] Family AlonzoMaryann - Bernard molina MD: [id number] ELISSA_COURTNEY_Bartolo russell [facility], [address], [place] [address] , Ph. 2022-01-15 2022-01-15 Outpatient Daniel_T VFP VFP [id number] [address] [place] [address] 12:45:00 12:45:00 [id number] Family Practic e 2021-12-02 2021-12-02 Lab [facility] [id number] 00:00:00 00:00:00 [facility] 2021-12-02 2021-12-02 Lab [facility] [id number] 00:00:00 00:00:00 [facility] 2021-10-25 2021-10-25 Outpatient Daniel_T VFP VFP [id number] [place] [address] 01:45:00 01:45:00 [id number] Family Practic e 2021-09-15 2021-09-15 Outpatient Daniel_T VFP VFP [id number] [place] [address] 05:38:00 05:38:00 [id number] Family Practic e 2021-08-05 2021-08-05 Outpatient Daniel_T VFP VFP [id number] [address] [place] [address] 04:15:00 04:15:00 [id number] Family Practic e 2021-07-27 2021-07-27 Outpatient Daniel_T VFP VFP [id number] [place] [address] 02:37:00 02:37:00 [id number] Family Practic e 2021-07-27 2021-07-27 Alex VFP [place] - [id number] V illage 00:00:00 00:00:00 [facility] Family AlonzoMaryann - Bernard molina MD: [id number] VM_HOU_Shad e [facility], [address], [place] [address] , Ph. 2021-06-27 2021-06-27 Outpatient Daniel_T VFP VFP [id number] [address] [place] [address] 04:21:00 04:21:00 [id number] Family Practic e 2021-06-19 2021-06-19 Outpatient Daniel_T VFP VFP [id number] [address] [place] [address] 01:15:00 01:15:00 [id number] Family Practic e 2021-05-15 2021-05-15 Outpatient Daniel_T VFP VFP [id number] [address] [place] [address] 12:47:00 12:47:00 [id number] Family Practic e 2021-04-20 2021-04-20 Outpatient Daniel_T VFP VFP [id number] [address] [place] [address] 01:33:00 01:33:00 [id number] Family Practic e 2021-04-20 2021-04-20 Alex VFP [place] - [id number] V illage 00:00:00 [facility]:00:00 [facility] Family AlonzoMaryann MD: [id number] ELISSA_COURTNEY_Bartolo yvonne Shadow [facility], [address] [address] , Ph. 2021-04-19 2021-04-19 Outpatient Daniel_T VFP VFP [id number] [address] [place] [address] 04:29:00 04:29:00 [id number] Family Practic e 2021-04-14 2021-04-14 Outpatient Daniel_T VFP VFP [id number] [address] [place] [address] 04:01:00 04:01:00 [id number] Family Practic e 2021-04-10 2021-04-10 Outpatient Daniel_T VFP VFP [id number] [address] [place] [address] 12:38:00 12:38:00 [id number] Family Practic e 2021-01-28 2021-01-28 Outpatient Daniel_T VFP VFP [id number] [address] [place] [address] 06:38:00 06:38:00 [id number] Family Practic e 2021-01-27 2021-01-27 Outpatient Daniel_T VFP VFP [id number] [address] [place] [address] 05:59:00 05:59:00 [id number] Family Practic e 2021-01-21 2021-01-21 Outpatient Daniel_T VFP VFP [id number] [address] [place] [address] 04:50:00 04:50:00 [id number] Family Practic e 2021-01-21 2021-01-21 Alex VFP [place] - [id number] V illage 00:00:00 00:00:00 Juan [facility] Family AlonzoMaryann MD: [id number] OSCARCOURTNEYOrlandonawaf yvonne Shadow [facility], [address], [place] [address] , Ph. 2020-11-10 2020-11-10 Outpatient Daniel_T VFP VFP [id number] [address] [place] [address] 03:17:00 03:17:00 [id number] Family Practic e 2020-11-05 2020-11-05 Outpatient Daniel_T VFP VFP [id number] [address] [place] [address] 08:05:00 08:05:00 [id number] Family Practic e 2020-10-13 2020-10-13 Outpatient Daniel_T VFP VFP [id number] [address] [place] [address] 08:39:00 08:39:00 [id number] Family Practic e 2020-10-06 2020-10-06 Outpatient Daniel_T VFP VFP [id number] [address] [place] [address] 06:28:00 06:28:00 [id number] Family Practic e 2020-10-06 2020-10-06 Alex VFP [place] - [id number] V illage 00:00:00 00:00:00 [facility] Family Alonzo Medical - Practi c MD: [id number] VM_COURTNEY_Bartolo russell Shadow [facility], [facility] [address], [place] [address] , Ph. 2020-07-09 2020-07-09 Outpatient Daniel_T VFP VFP [id number] [address] [place] [address] 12:49:00 12:49:00 [id number] Family Practic e 2020-07-07 2020-07-07 Outpatient Daniel_T VFP VFP [id number] [address] [place] [address] 04:59:00 04:59:00 [id number] Family Practic e 2020-07-07 2020-07-07 Alex VFP [place] - [id number] V illage 00:00:00 00:00:00 [facility] Family Alonzo Medical - Practi c MD: [id number] VM_COURTNEY_Rafiq e Shadow [facility], [address], [place] [address] , Ph. 2020-06-29 2020-06-29 Outpatient Daniel_T VFP VFP [id number] [address] [place] [address] 11:43:00 11:43:00 [id number] Family Practic e 2020-06-29 2020-06-29 Outpatient Daniel_T VFP VFP [id number] [address] [place] [address] 11:43:00 11:43:00 [id number] Family Practic e 2020-03-24 2020-03-24 Outpatient Clinton_Sofia VFP VFP [id number] [facility] 10:48:00 10:48:00 Family Practic e Results Test Description Test Time Test Comments Results Result Comments Source Glucose [Mass/volume] in Capillary blood 2022-01-20 10:14:40 Test Item Value Reference Range Interpretation Comme nts Blood Glucose: mg/dl (test code = Blood Glucose: mg/dl) [facility] [id number] 10:14:18 Test Item Value Reference Range Interpretation Comments Hemoglobin A1c/Hemoglobin.total in 4.9 % 5.7-6.4 Blood (test code = 4548-4) [facility], [id number] 00:21:12 Test Item Value Reference Range Interpretation Comments Hep B Core Total Ab (test Nonreactive Nonreactive code = 49486-4) BRENDAN (test code = BRENDAN) Venereal Disease Control Head ID - BS Lab Interpretation (test Normal code = 51013-2) [facility], [id number] 00:21:12 Test Item Value Reference Range Interpretation Comments HEPATITIS B CORE TOTAL ANTIBODY Nonreactive Nonreactive (BEAKER) (test code = 497) Venereal Disease Control Head ID - BSHepatitis B surface [id number] 14:41:08 Test Item Value Reference Range Interpretation Comments Hepatitis B surface Nonreactive Nonreactive antigen (test code = 5195-3) BRENDAN (test code = BRENDAN) Specimen is considered negative for HBsAg. Lab Interpretation (test Normal code = 76484-3) [facility] antibody, [id number] 14:41:08 Test Item Value Reference Range Interpretation Comments Hep B C IgM (test code = Nonreactive Nonreactive 20899-4) BRENDAN (test code = BRENDAN) Venereal Disease Control Head ID - DAVID M Lab Interpretation (test Normal code = 44507-7) [facility], [id number] 14:41:08 Test Item Value Reference Range Interpretation Comments Hep A IgM (test code = Nonreactive Nonreactive 66529-8) BRENDAN (test code = BRENDAN) Venereal Disease Control Head ID - DAVID M Lab Interpretation (test Normal code = 83883-0) [facility] [id number] 14:41:08 Test Item Value Reference Range Interpretation Comments Hepatitis C Ab (test Nonreactive Nonreactive code = 57286-4) BRENDAN (test code = BRENDAN) Venereal Disease Control Head ID - DAVID M Lab Interpretation (test Normal code = 97637-9) [facility] SURFACE [id number] 14:41:08 Test Item Value Reference Range Interpretation Comments HEPATITIS B SURFACE ANTIGEN (2) Nonreactive Nonreactive (BEAKER) (test code = 2585) Specimen is considered negative for HBsAg.HEPATITIS B CORE ANTIBODY, IGM 2021-12-02 14:41:08 Test Item Value Reference Range Interpretation Comments HEPATITIS B CORE IGM ANTIBODY Nonreactive Nonreactive (BEAKER) (test code = 645) Venereal Disease Control Head ID - DAVID MHEPATITIS C [id number] 14:41:08 Test Item Value Reference Range Interpretation Comments HEPATITIS C ANTIBODY (BEAKER) Nonreactive Nonreactive (test code = 367) Venereal Disease Control Head ID - DAVID MHEPATITIS A ANTIBODY, [id number] 14:41:08 Test Item Value Reference Range Interpretation Comments HEPATITIS A IGM ANTIBODY (BEAKER) Nonreactive Nonreactive (test code = 498) Venereal Disease Control Head ID - DAVID MGlucose [Mass/volume] in Capillary [id number] 14:24:23 Test Item Value Reference Range Interpretation Comments Blood Glucose: mg/dl (test code = Blood 161 Glucose: mg/dl) [facility] [id number] 14:24:10 Test Item Value Reference Range Interpretation Comments Hemoglobin A1C Fingerstick: (test code 4.9 = Hemoglobin A1C Fingerstick:) [facility]
[2022-03-26 13:01] LABS: Absolute Lymphocytes (CBC) 0.9 K/uL (0.7-4.9); Hematocrit 31.7 % (36.0-45.0); Lymphocytes % 11.1 % (15.3-44.8); MCV 85.3 fL (80-100); MPV 7.4 fL (7.6-11.3); RBC Red Blood Cell Count 3.71 M/uL (3.86-4.86)
[2022-03-26] MEDS ORDERED: DEXTROSE 10%-WATER 500 ML IV ONE (13:10)
[2022-03-26 13:27] LABS: Potassium 4.2 mmol/L (3.5-5.1); Troponin High Sensitivity 23.7 pg/mL (<58.9)
[2022-03-26 13:30] LABS: Anisocytosis SLIGHT; Blood Morphology Comment NOTED (NOT SEEN); Platelet Estimate ADEQ; Platelets, Giant FEW
--- NOTE | 2022-03-26 14:09 | RAD REPORT ---
EXAM DESCRIPTION: CT - Head C Spine Mpr Wo Con - 03/26/2022 1:53 pm CLINICAL HISTORY: Head and neck injury status post fall. Head and neck pain COMPARISON: None. TECHNIQUE: Computed axial tomography of the head and cervical spine was obtained. Sagittal and coronal reconstruction was performed. All CT scans are performed using dose optimization technique as appropriate and may include automated exposure control or mA/KV adjustment according to patient size. FINDINGS: An intracranial bleed is not seen. Mild low-density areas within periventricular, deep and subcortical white matter may represent ischemic changes secondary to small vessel disease. The ventricles are normal in caliber. An extra-axial fluid collection is not noted.Fluid within the v isualized sinuses and mastoids is not seen A cervical fracture is not visualized. No dislocation is noted. 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 A cervical fracture is not visualized. If the patient continues to have symptoms to suggest intracra nial /spinal cord pathology then MRI would be recommended
--- NOTE | 2022-03-26 14:10 | RAD REPORT ---
EXAM DESCRIPTION: Maty Single View03/26/2022 1:27 pm CLINICAL HISTORY: Hypoglycemia COMPARISON: November 2021 FINDINGS: The lungs appear grossly clear. The heart is moderately enlarged. Patient is rotated. IMPRESSION: No acute abnormalities displayed
--- NOTE | 2022-03-26 15:00 | ER ---
Nurse's Notes [facility] Name: Camila Guallpa Age: 56 yrs Sex: Female : 1965 Arrival Date: 03/26/2022 Time: 12:16 Bed 6 Private MD: Diagnosis: Hypoglycemia, unspecified Presentation: 03/26 12:21 Chief complaint: EMS states: "pt was found on the floor in the bathroom. family call j for a pt with low blood sugar. on our arrival her blood sugar was 23. we gave her a soda and a 24 gram. in transit her blood sugar was checked again and it was 32. pt in now more awake and cooperating.". Coronavirus screen: At this time, the client does not indicate any symptoms associated with coronavirus-19. Ebola Screen: No symptoms or risks identified at this time. Initial Sepsis Screen: Does the patient meet any 2 criteria? No. Patient's initial sepsis screen is negative. Does the patient have a suspected source of infection? No. Patient's initial sepsis screen is negative. Risk Assessment: Do you want to hurt yourself or someone else? Patient reports no desire to harm self or others. Onset of symptoms was March 26, 2022. 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 - Social history:: Smoking status: Patient denies any tobacco usage or history of. Screenin:32 Abuse screen: Denies threats or abuse. Nutritional screening: No deficits noted. jd3 Tuberculosis screening: No symptoms or risk factors identified. Fall Risk IV access (20 points). Ambulatory Aid- None/Bed Rest/Nurse Assist (0 pts). Gait- Normal/Bed Rest/Wheelchair (0 pts) Mental Status- Oriented to own ability (0 pts). Total Clayton Fall Scale indicates No Risk (0-24 pts). Assessment: 12:30 General: Appears in no apparent distress. comfortable, Behavior is calm, cooperative, jd3 appropriate for age, drowsy. Pain: Denies pain. Neuro: Sahu Agitation-Sedation Scale (RASS): -1 Drowsy Level of Consciousness is awake, obeys commands, Oriented to person, place, time, situation. Cardiovascular: Denies chest pain, Capillary refill < 3 seconds Patient's skin is warm and dry. Rhythm is regular. Respiratory: Airway is patent Respiratory effort is even, unlabored, Respiratory pattern is regular, symmetrical, Denies cough, shortness of breath. GI: No signs and/or symptoms were reported involving the gastrointestinal system. : No signs and/or symptoms were reported regarding the genitourinary system. EENT: No signs and/or symptoms were reported regarding the EENT system. Derm: Skin is intact, Skin is dry, Skin is normal, Skin temperature is warm. Musculoskeletal: Circulation, motion, and sensation intact. Range of motion: intact in all extremities. 13:31 Reassessment: Patient appears in no apparent distress at this time. No changes from jd3 previously documented assessment. Patient and/or family updated on plan of care and expected duration. Pain level reassessed. Patient is alert, oriented x 3, equal unlabored respirations, skin warm/dry/pink. 14:42 Reassessment: Patient appears in no apparent distress at this time. No changes from em6 previously documented assessment. Patient and/or family updated on plan of care and expected duration. Pain level reassessed. Patient is alert, oriented x 3, equal unlabored respirations, skin warm/dry/pink. Rechecked Blood sugar of 159. 17:40 Reassessment: Patient appears in no apparent distress at this time. Patient and/or [facility] family updated on plan of care and expected duration. Pain level reassessed. Patient is alert, oriented x 3, equal unlabored respirations, skin warm/dry/pink. charting continued in [facility]. 19:16 General: Appears in no apparent distress. comfortable, Behavior is drowsy. tw5 Vital Signs: 12:23 BP 145 / 75; Pulse 64; Resp 18 S; Temp 97.8(TE); Pulse Ox 98% on R/A; Weight 115.67 kg jd3 (R); Height 5 ft. 1 in. (154.94 cm) (R); Pain 0/10; 13:32 BP 135 / 72; Pulse 65; Resp 16; Pulse Ox 98% on R/A; jd3 19:16 Pulse 62; Resp 18; Pulse Ox 99% on R/A; tw5 12:23 Body Mass Index 48.18 (115.67 kg, 154.94 cm) jd3 ED Course: 12:16 Patient arrived in ED. eb 12:19 Nahum Braxton MD is Attending Physician. kdr 12:23 Triage completed. jd3 12:25 Arm band placed on. jd3 12:29 Darshan Kruse RN is Primary Nurse. jd3 12:49 Initial lab(s) drawn, by me, sent to lab. Inserted saline lock: 22 gauge in right iw antecubital area, using aseptic technique. Blood collected. 13:29 XRAY Chest (1 view) In Process Unspecified. EDMS 13:32 Patient has correct armband on for positive identification. Bed in low position. Call jd3 light in reach. Side rails up X2. Adult w/ patient. Client placed on continuous cardiac and pulse oximetry monitoring. NIBP monitoring applied. 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 Pulse ox on. NIBP on. 13:55 CT Head C Spine In Process Unspecified. EDMS 14:59 Morteza Nicholson MD is Hospitalizing Provider. kdr 17:40 No provider procedures requiring assistance completed. Patient admitted, IV remains in jd3 place. 19:04 Primary Nurse role handed off by Darshan Kruse, ANEL tw5 19:04 Vane Chakraborty is Primary Nurse. tw5 Administered Medications: 13:09 Drug: Dextrose 10 % in Water 25 grams Route: IV; Rate: calculated rate; Site: right em6 antecubital; 18:44 Follow up: Response: No adverse reaction; IV Status: Completed infusion jd3 13:09 Drug: Dextrose 10 % in Water 25 grams Route: IV; Rate: calculated rate; Site: right em6 antecubital; 18:44 Follow up: Response: No adverse reaction; IV Status: Completed infusion jd3 Medication: 13:33 VIS not applicable for this client. jd3 Outcome: 15:00 Decision to Hospitalize by Provider. kdr 17:40 Admitted to ER Hold. Please see [facility] for further documentation. jd3 17:40 Condition: stable 17:40 Instructed on the need for admit, Demonstrated understanding of instructions. 19:13 Admitted to ICU Report called to Attempted to call report to Jada in ICU. She will tw5 call back for report. 20:42 Admitted to ICU Report called to Attempted to call report. Receiving nurse Jada is tw5 currently busy with another patient and will call back 20:54 Admitted to ICU accompanied by nurse, via stretcher, room 5, on monitor, with chart, tw5 Report called to report called to Jada 20:54 Patient left the ED. tw5 Signatures: Dispatcher [employer] EDMS Nahum Braxton MD MD [facility] Alexandra Calvillo RN RN iw Darshan Kruse RN RN Marilee Barcenas Tiffany [facility] Jdaa Novak RN RN em6
--- NOTE | 2022-03-26 15:00 | EDPHYS ---
Physician Documentation [facility] Name: Camila Guallpa Age: 56 yrs Sex: Female : 1965 Arrival Date: 03/26/2022 Time: 12:16 Bed 6 Private MD: ED Physician Nahum Braxton HPI: 03/26 13:04 This 56 yrs old Black Female presents to ER via EMS with complaints of Low Blood Sugar. kdr 13:05 Patient was found on the floor at home unresponsive. EMS was called and her glucose was kdr noted to be 24. They gave her some oral glucose and the repeat blood sugar was 36. EMS brought the patient to the ED without any further intervention. Onset: The symptoms/episode began/occurred at an unknown time. Severity of symptoms: At their worst the symptoms were mild in the emergency department the symptoms are unchanged. It is unknown whether or not the patient has had similar symptoms in the past. It is unknown whether or not the patient has recently seen a physician. 13:05 Movement get tingly again the patient is an insulin-dependent diabetic. She is deaf. kdr With her mother signing, she denies taking any additional insulin last night. There is also no other obvious reason for the patient to have a diminished blood sugar today. Patient has no other focal complaint. 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 - Social history:: Smoking status: Patient denies any tobacco usage or history of. ROS: 13:05 Constitutional: Negative for fever, chills, and weight loss, Eyes: Negative for injury, kdr pain, redness, and discharge, ENT: Negative for injury, pain, and discharge, Neck: Negative for injury, pain, and swelling, Cardiovascular: Negative for chest pain, palpitations, and edema, Respiratory: Negative for shortness of breath, cough, wheezing, and pleuritic chest pain. 13:05 Back: Negative for injury and pain. 13:05 Abdomen/GI: Positive for Patient is morbidly obese. 13:05 MS/extremity: Positive for Patient has considerable fatty tissue on both upper and lower extremities. Exam: 13:05 Constitutional: This is a well developed, well nourished patient who is awake, alert, kdr and in no acute distress. Head/Face: Normocephalic, atraumatic. Eyes: Pupils equal round and reactive to light, extra-ocular motions intact. Lids and lashes normal. Conjunctiva and sclera are non-icteric and not injected. Cornea within normal limits. Periorbital areas with no swelling, redness, or edema. Neck: Trachea midline, no thyromegaly or masses palpated, and no cervical lymphadenopathy. Supple, full range of motion without nuchal rigidity, or vertebral point tenderness. No Meningismus. Chest/axilla: Normal chest wall appearance and motion. Nontender with no deformity. No lesions are appreciated. Cardiovascular: Regular rate and rhythm with a normal S1 and S2. No gallops, murmurs, or rubs. Normal PMI, no JVD. No pulse deficits. Respiratory: Lungs have equal breath sounds bilaterally, clear to auscultation and percussion. No rales, rhonchi or wheezes noted. No increased work of breathing, no retractions or nasal flaring. Abdomen/GI: Soft, non-tender, with normal bowel sounds. No distension or tympany. No guarding or rebound. No evidence of tenderness throughout. Back: No spinal tenderness. No costovertebral tenderness. Full range of motion. Skin: Warm, dry with normal turgor. Normal color with no rashes, no lesions, and no evidence of cellulitis. Neuro: Awake and alert, GCS 15, oriented to person, place, time, and situation. Cranial nerves II-XII grossly intact. Motor strength 5/5 in all extremities. Sensory grossly intact. Cerebellar exam normal. Normal gait. Psych: Awake, alert, with orientation to person, place and time. Behavior, mood, and affect are within normal limits. 13:05 Musculoskeletal/extremity: ROM: intact in all extremities. 18:07 ECG was reviewed by the Attending Physician. kdr Vital Signs: 12:23 BP 145 / 75; Pulse 64; Resp 18 S; Temp 97.8(TE); Pulse Ox 98% on R/A; Weight 115.67 kg jd3 (R); Height 5 ft. 1 in. (154.94 cm) (R); Pain 0/10; 13:32 BP 135 / 72; Pulse 65; Resp 16; Pulse Ox 98% on R/A; jd3 19:16 Pulse 62; Resp 18; Pulse Ox 99% on R/A; tw5 12:23 Body Mass Index 48.18 (115.67 kg, 154.94 cm) jd3 MDM: 15:00 Patient medically screened. kdr 15:00 Data reviewed: vital signs, nurses notes, lab test result(s), radiologic studies. kdr Counseling: I had a detailed discussion with the patient and/or guardian regarding: the historical points, exam findings, and any diagnostic results supporting the discharge/admit diagnosis, lab results, radiology results, the need for further work-up and treatment in the hospital. 03/26 12:32 Order name: Basic Metabolic Panel; Complete Time: 13:48 kdr 03/26 12:32 Order name: CBC with Diff; Complete Time: 13:48 kdr 03/26 12:32 Order name: NT PRO-BNP; Complete Time: 13:48 kdr 03/26 12:32 Order name: Troponin HS; Complete Time: 13:48 kdr 03/26 12:32 Order name: Urinalysis [facility] 03/26 12:41 Order name: Glucose, Ancillary Testing; Complete Time: 13:48 EDMS 03/26 13:31 Order name: Manual Differential; Complete Time: 13:48 EDMS 03/26 14:53 Order name: Glucose, Ancillary Testing EDMS 03/26 15:09 Order name: Basic Metabolic Panel EDMS 03/26 15:09 Order name: Basic Metabolic Panel EDMS 03/26 15:09 Order name: CBC with Automated Diff EDMS 03/26 15:09 Order name: CBC with Automated Diff EDMS 03/26 15:17 Order name: SARS RAPID eb 03/26 12:32 Order name: XRAY Chest (1 view); Complete Time: 14:30 kdr 03/26 12:32 Order name: EKG; Complete Time: 12:33 kdr 03/26 12:32 Order name: Cardiac monitoring; Complete Time: 12:40 kdr 03/26 12:32 Order name: EKG - Nurse/Tech; Complete Time: 13:01 kdr 03/26 12:32 Order name: IV Saline Lock; Complete Time: 12:55 kdr 03/26 12:32 Order name: Labs collected and sent; Complete Time: 12:55 kdr 03/26 12:32 Order name: O2 Per Protocol; Complete Time: 12:40 kdr 03/26 13:14 Order name: CT Head C Spine; Complete Time: 14:30 kdr 03/26 15:09 Order name: CONS Physician Consult EDIA 03/26 15:09 Order name: 60g Consistent Carbohydrate (ADA 1800/1999) EDIA 03/26 17:38 Order name: Glucose, Ancillary Testing EDIA 03/26 18:31 Order name: Glucose, Ancillary Testing EDMS 03/26 19:30 Order name: Glucose, Ancillary Testing EDMS 03/26 20:29 Order name: Glucose, Ancillary Testing EDMS 03/26 12:32 Order name: O2 Sat Monitoring; Complete Time: 12:40 kdr 03/26 14:36 Order name: FSBS; Complete Time: 14:45 kdr EC:07 Rate is 59 beats/min. Rhythm is regular, Sinus bradycardia with No ectopy. QRS [place] is kdr Normal. [place] interval is normal. QRS interval is normal. QT interval is normal. Clinical impression: NSR w/ Non-specific ST/T Changes and Sinus bradycardia. Administered Medications: 13:09 Drug: Dextrose 10 % in Water 25 grams Route: IV; Rate: calculated rate; Site: right em6 antecubital; 18:44 Follow up: Response: No adverse reaction; IV Status: Completed infusion jd3 13:09 Drug: Dextrose 10 % in Water 25 grams Route: IV; Rate: calculated rate; Site: right em6 antecubital; 18:44 Follow up: Response: No adverse reaction; IV Status: Completed infusion jd3 Disposition Summary: 03/26/22 15:00 Hospitalization Ordered Hospitalization Status: Observation kdr Provider: Morteza Nicholson Condition: Fair kdr Problem: an acute exacerbation kdr Symptoms: have improved kdr Bed/Room Type: Standard kdr Location: Intensive Care Unit(03/26/22 19:11) cg Room Assignment: 5-(03/26/22 19:11) cg Diagnosis - Hypoglycemia, unspecified kdr Forms: - Medication Reconciliation Form kdr - SBAR form kdr Signatures: Dispatcher [employer] [facility] Nahum Braxton MD MD kdr Shannan White RN RN cg Darshan Kruse RN RN jd3 Marilee Booth Erika RN RN em6 Corrections: (The following items were deleted from the chart) 12:59 12:30 GLUCOSE+C.LAB.BRZ ordered. EDMS EDMS 17:10 15:00 kdr eb 19:11 15:00 Telemetry/MedSurg (observation) kdr cg 19:11 17:10 419 [facility]
[2022-03-26] MEDS ORDERED: ONDANSETRON 4 MG/2 ML VIAL IV PRN (15:02)
[2022-03-26] MEDS ORDERED: ACETAMINOPHEN 500 MG TAB PO PRN (15:02)
[2022-03-26 15:52] LABS: SARS-CoV-2 Antigen Rapid Res Negative (Negative)
[2022-03-26 17:13] VITALS: BMI 68.9
[2022-03-26] MEDS ORDERED: DEXTROSE 10%-WATER 500 ML IV PRN (18:15)
[2022-03-26] MEDS ORDERED: DEXTROSE 10%-WATER 500 ML IV SCH (18:15)
[2022-03-26] MEDS ORDERED: ATORVASTATIN 80 MG TAB PO SCH (21:00)
[2022-03-27] MEDS: carvediloL 25 MG TAB PO SCH ×2 (00:08→08:37)
[2022-03-27] MEDS: SACUBITRIL/VALSARTAN 24/26 MG TAB PO SCH ×2 (00:10→08:50)
[2022-03-27] MEDS: cloNIDine HCL 0.1 MG TAB PO SCH ×2 (00:10→08:37)
[2022-03-27 05:02] LABS: Absolute Lymphocytes (CBC) 1.2 K/uL (0.7-4.9); Hematocrit 25.9 % (36.0-45.0); Lymphocytes % 16.9 % (15.3-44.8); MCV 84.6 fL (80-100); RBC Red Blood Cell Count 3.07 M/uL (3.86-4.86)
[2022-03-27 05:38] LABS: Potassium 4.2 mmol/L (3.5-5.1)
[2022-03-27 08:32] VITALS: O2SAT 95
[2022-03-27] MEDS ORDERED: NIFEDIPINE XL 90 MG TABLET PO SCH (09:00)
[2022-03-27] MEDS ORDERED: ASPIRIN EC 81 MG TAB PO SCH (09:00)
[2022-03-27 09:30] VITALS: BP 155/76; TEMP 97.5
--- NOTE | 2022-03-28 08:10 | SS ---
Date of Discharge: 03/27/2022 Chief Complaint: Unresponsiveness. History Of Present Illness: This is 56-year-old female patient, who was found unresponsive yesterday at home by family member and EMS was called. When EMS arrived at scene, her fingerstick blood sugar was very low, it was in range of 20-24. Initially, she was given some concentrated glucose solution orally and subsequently she was brought into emergency room. Her initial fingerstick blood glucose in the emergency room was 38 and once IV access was established, she was given D10W IV fluid back x2 doses, so total of 50 g of glucose was given intravenously and that corrected her hypoglycemia proble m. The patient's mental status improved back to her baseline and I was contacted requesting admissio n to the hospital for observation for this hypoglycemia problem. We did order every hour fingerstick blood sugar check for close monitoring with instruction to start IV fluid D10W at 20 cc/hour if bloo d sugar drops less than 80 and the patient has not required this IV glucose administration as her low est blood sugar was 85. Because she was on every hour blood glucose check instead of regular floor, she was kept in ICU as I understand, but otherwise there was no other need for ICU monitoring except hourly blood glucose check. Allergies: NO KNOWN ALLERGIES. 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 These are her chronic problems and also altered ment al status, which was yesterday due to hypoglycemia has resolved. All other systems reviewed and negative. Medications: List reviewed. According to office records from February 06, 2022, the patient's daughter had informed me that Dr. Alonzo, who is the patient's auto claims adjuster, had lowered her Lantus insulin to 30 units in the morning, but today when I talked to the patient's mother, she informs me that the patient takes 50 units of Lantus in the morning and 30 units in the evening if her fingerstick blood sugar is more than 30 . She also takes a short-acting insulin, which is Humalog anywhere between 6-10 units at mealtime. 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 Past Surgical History: Cataract surgery. Family History: Father , had colon cancer. Mother has hypertension, arthritis, asthma. Brother and sister, no major health problems. Social History: Negative for smoking and alcohol use. Physical Examination: Vital Signs: Last temperature 97.4, respiratory rate 14, pulse 87, blood pressure 160/69, oxygen sat uration 95% on room air, weight 255 pounds, height 5 feet 1 inch. General: Awake, alert, oriented, not in distress. HEENT: Head atraumatic, normocephalic. Conjunctivae nonerythematous. Sclerae white. Mouth, no thr ush or edema noted. Ears/Nose, no mass, lesion, discharge noted. Neck: Supple. No JVD, lymph nodes, bruit, thyromegaly noted. Lungs: Bilateral good equal air entry. Clear to auscultation. No rhonchi. No rales. Heart: Normal heart sounds, no murmur or gallop. Abdomen: Soft, bowel sounds normal. No guarding, rigidity, tenderness, mass, hepatosplenomegaly, dis tention, or bruit noted. Extremities: No leg edema. No calf tenderness. Skin: No rash, ulcer, cellulitis. Lymphatics: No lymph node enlargement in neck, supraclavicular, infraclavicular region. Neuro: No focal neurological deficit. Chest: Unremarkable. External Genitalia: Deferred. Rectal: Deferred. Laboratory Data: White count yesterday 8, hemoglobin 10.5, platelets 266. This morning; white count 7.1, hemoglobin 8.8, platelets 223. Yesterday; sodium 135, potassium 4.2, chloride 99, bicarb 30, B UN 31, creatinine 5.45, glucose 61. Initial glucose was 38. ProBNP 15,335. This morning; sodium 13 6, potassium 4.2, chloride 101, bicarb 28, BUN 38, creatinine 6.31, glucose . Her fingersti ck blood sugar readings reviewed and the lowest blood sugar was 85. Chest x-ray, no acute cardiopulm onary changes. CAT scan of the head and cervical spine, no acute intracranial or cervical spine find ing. The patient does have evidence of cervical spinal stenosis at C2-C4 level. Hospital Course: After the patient was evaluated in the emergency room, she was treated for this hyp oglycemia with IV glucose solution and subsequently she was admitted to the hospital. Her home medic ations were continued. We did not order any insulin. Every hour fingerstick blood sugar was checked with instruction to give IV fluid, D10W at 20 cc/hour if blood glucose drops less than 80 and the pa zoran never had any glucose less than 80, so she did not require any IV D10 solution after she was ad mitted to the hospital. She is tolerating diet very well, does not have any vomiting, diarrhea. She has tried to lose weight intentionally with diet control and has lost weight. Her last hemoglobin A 1c was 5.5 and this was on February 06, 2022. Considering this severe hypoglycemia problem, what I have instructed the patient's mother to do is to follow up with her auto claims adjuster, Dr. Alonzo, but shwetha prescott upon discharge she should reduce her insulin dose by half and that is both long-acting insulin a nd mealtime insulin dose should be reduced by half using the same parameter that she was using, but o nly take 50% of the dose and she did verbalize understanding when I communicated with the patient's m other this morning on the phone. The patient is medically stable for discharge and I will also commu nicate with her auto claims adjuster regarding all these details. I will follow up with her this week on , otherwise the patient will continue all her previous home medications as before. Final Diagnoses: 1.Hypoglycemia secondary to insulin. 2.Diabetes mellitus with chronic kidney disease. 3.Diabetes mellitus with diabetic retinopathy. 4.End-stage renal disease, on hemodialysis. 5.Obstructive sleep apnea. 6.Hypertension. 7.Mixed hyperlipidemia. 8.Anemia due to chronic kidney disease. 9.Coronary artery disease. 10.Chronic systolic heart failure. PURNIMA/MODL Voice ID: [id number] Report ID: [id number]
--- NOTE | 2022-03-28 14:36 | EKG ---
Test Date: 2022-03-26 Test Time: 12:57:30 Staff Air Defense Officer: MEASUREMENT RESULTS: Intervals: Rate: 59 MT: 176 QRSD: 88 QT: 470 QTc: 465 Roe: P: 45 MT: 176 QRS: 50 T: 49 INTERPRETIVE STATEMENTS: Sinus bradycardia Otherwise normal ECG Compared to ECG 12/01/2021 08:57:43 Sinus rhythm no longer present Electronically Signed On 03-28-22 14:31:50 CDT by Freddy Osborn
== END 2022-03-27 11:05 | disposition home or self-care (01) ==
LOC: SUPCPDRO 12:13 → ER 12:13 → ERHOLD 15:07 → 4TH 17:21 → 3RD-ICU 19:12
PROVIDERS: ADMIT Internal Medicine; ATTEND Internal Medicine
DX: E11.649 Type 2 diabetes mellitus with hypoglycemia without coma (principal); E11.319 Type 2 diabetes mellitus with unspecified diabetic retinopathy without macular edema; E11.22 Type 2 diabetes mellitus with diabetic chronic kidney disease; I12.0 Hypertensive chronic kidney disease with stage 5 chronic kidney disease or end stage renal disease; N18.6 End stage renal disease; D63.1 Anemia in chronic kidney disease; E78.2 Mixed hyperlipidemia; I25.10 Atherosclerotic heart disease of native coronary artery without angina pectoris; I50.22 Chronic systolic (congestive) heart failure; G47.33 Obstructive sleep apnea (adult) (pediatric); Z99.2 Dependence on renal dialysis; Z79.4 Long term (current) use of insulin
CPT/HCPCS: 96365; 93005; 85025 ×2; 80048 ×2; 36415; 82947 ×15; 84484; 83880; 70450; 72125; 71045; 99285; 96366; 87811; G0378 ×3

== ENCOUNTER 2022-12-21 17:35 | Inpatient (IN) | payer OTHER ==
--- OUTSIDE RECORDS SUMMARY | 2022-12-21 17:42 | XMS REPORT | Continuity of Care Document ---
:1965 Author Organization [facility] Address [address] [place] [id number] Care Team Providers Name Role Phone Clinton_Sofia Attending Clinician Unavailable Clinton_Sofia Admitting Clinician Unavailable Payers Payer Name Policy Type Policy Number Effective Date Expiration Date [place]: [id number] 1993 [place] 00:00:00 [employer] [id number] 2017 [facility] - 00:00:00 [employer] (HMO) [employer] [id number] 2017 [facility] (MEDICAID 00:00:00 HMO) MEDICARE-[place] [id number] 1993 (MEDICARE) 00:00:00 Problems Condition Condition Condition Status Onset Resolution Last Treating Co mments Source Name Details Category Date Date Treatment Clinician Date Congestive Congestive Problem Active 2021-07 [facility] 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 00:00: Practic 00 e Long-term Long-term Problem Active 2021-07 Elia ceballos current Current 1-11 Family use of Use of 00:00: Practic insulin Insulin 00 e Tinea Tinea Problem Active [facility] pedis Pedis 1-05 Family 00:00: Practic 00 e Type 2 Type 2 Problem Active [facility] diabetes Diabetes 1-05 Family mellitus Mellitus 00:00: Practi c 00 e Complicati Complicati Problem Active 2016-07 [facility] on due to on Due to 0-16 Fami ly diabetes Diabetes 00:00: Practi c mellitus Mellitus 00 e Hypoglycem Hypoglycem Problem Active 2016-07 [facility] ia ia 0-16 Family 00:00: Practic 00 e Vitamin D Vitamin D Problem Active 2016-07 Elia ceballos deficiency Deficiency 0-16 Fa miriam 00:00: Practic 00 e Hyperlipid Hyperlipid Problem Active 2016-07 [facility] emia emia 0-16 Family 00:00: Practic 00 e Obesity Obesity Problem Active 2016-07 [facility] 0-16 Family 00:00: Practic 00 e Morbid Morbid Problem Active 2016-07 [facility] obesity Obesity 0-16 Family 00:00: Practic 00 e Essential Essential Problem Active 2016-07 Elia ceballos hypertensi Hypertensi 0-16 Fa miriam on on 00:00: Practic 00 e Dependence Dependence Problem Active 2016-07 [facility] renal on Renal 0-16 Family dialysis Dialysis 00:00: Practi c e Disorder Disorder Problem Active 2016-07 Rafy ge due to Due to 0-16 Family type 2 Type 2 00:00: Practic diabetes Diabetes e mellitus Mellitus Hypertensi Hypertensi Problem Active 2016-07 [facility] ve ve 0-16 Family disorder Disorder 00:00: Practi c 00 e Kidney Kidney Problem Active 2016-07 [facility] disease Disease 0-16 Family 00:00: Practic 00 e Clinical Clinical Problem Active [facility]y ge finding [facility] Allergies, Adverse Reactions, Alerts This patient has no known allergies or adverse reactions. Social History Social Habit Start Date Stop Date Quantity Comments Source Sex Assigned At [address] [facility] Smoking Status Start Date Stop Date Source Never Smoker [facility] P pablito Medications Ordered Filled Start Stop Current Ordering Indication Dosage Frequency Signature Comments Components Source Medication Medication Date Date Medication? Clinician (SIG) Name Name Afluria Qd Afluria Qd No Afluria Qd [facility] ( ( Family mos mos (36 mos Practic up)(PF)60 up)(PF)60 up)(PF)60 e mcg (15 mcg mcg (15 mcg mcg (15 x4)/0.5 mL x4)/0.5 mL mcg IM syringe IM syringe x4)/0.5 mL ADM 0.5ML ADM 0.5ML IM syringe IM UTD IM UTD ADM 0.5ML IM UTD atorvastati atorvastati No atorvastat [facility] n 80 mg n 80 mg in [...] DAILY TIMES DAILY carvedilol carvedilol No carvedilol [facility] 25 mg 25 mg 25 mg Family tablet TAKE tablet TAKE tablet Practic 1 TABLET BY 1 TABLET BY TAKE 1 e MOUTH TWICE MOUTH TWICE TABLET BY A DAY A DAY MOUTH TWICE A DAY celecoxib celecoxib No celecoxib [facility] 200 mg 200 mg 200 mg Family capsule capsule capsule Practi c TAKE 1 TAKE 1 TAKE 1 e CAPSULE BY CAPSULE BY CAPSULE BY MOUTH EVERY MOUTH EVERY MOUTH DAY DAY EVERY DAY clonidine clonidine No clonidine [facility] HCl 0.3 mg HCl 0.3 mg HCl 0.3 mg Family tablet TAKE tablet TAKE tablet Practic 1/2 TABLET 1/2 TABLET TAKE 1/2 e BY MOUTH 3 BY MOUTH 3 TABLET BY TIMES A DAY TIMES A DAY MOUTH 3 TIMES A DAY Comfort EZ Comfort EZ No 2needle Q1D Comfort EZ [facility] Pen [place] Pen [place] (s) Pen F amily 31 gauge x 31 gauge x [place] 31 Practic 12/05" Take 12/05" Take gauge [...] route. Eliquis 2.5 Eliquis 2.5 No Eliquis [facility] mg tablet mg tablet 2.5 mg Fam anselmo TAKE 1 TAKE 1 tablet Practic TABLET BY TABLET BY TAKE 1 e MOUTH TWICE MOUTH TWICE TABLET BY A DAY A DAY MOUTH TWICE A DAY Entresto 24 Entresto 24 No Entresto [facility] mg-26 mg mg-26 mg 24 mg-26 Fam anselmo tablet TAKE tablet TAKE mg tablet Practic 1 TABLET BY 1 TABLET BY TAKE 1 e MOUTH TWICE MOUTH TWICE TABLET BY A DAY A DAY MOUTH TWICE A DAY escitalopra escitalopra No escitalopr [facility] m 10 mg m 10 mg am 10 mg Famil y tablet TAKE tablet TAKE tablet Practic 1 TABLET BY 1 TABLET BY TAKE 1 e MOUTH EVERY MOUTH EVERY TABLET BY DAY WITH DAY WITH MOUTH BREAKFAST BREAKFAST EVERY DAY WITH BREAKFAST furosemide furosemide furosemide [facility] 80 mg 80 mg 80 mg Family tablet TAKE tablet TAKE tablet Practic 2 TABLETS 2 TABLETS TAKE 2 e BY MOUTH BY MOUTH TABLETS BY TWICE A DAY TWICE A DAY MOUTH TWICE A DAY gabapentin gabapentin No gabapentin [facility] 100 mg 100 mg 100 mg [...] DIRECTIONS DIRECTIONS DIRECTIONS Guaiatussin Guaiatussin No Guaiatussi [facility] AC 10 AC 10 n AC 10 [...] DOSE OF 40 Lantus Lantus No Lantus [facility] Radhaosthailey Garciaosthailey Garciaosthailey Fam anselmo U-100 U-100 U-100 Practic Insulin [...] directed: TDD 100 metoprolol metoprolol No metoprolol [facility] tartrate tartrate tartrate Fam anselmo 100 mg 100 mg 100 mg Practic tablet TAKE tablet TAKE tablet e 1 TABLET BY 1 TABLET BY TAKE 1 MOUTH TWICE MOUTH TWICE TABLET BY A DAY A DAY MOUTH TWICE A DAY nifedipine nifedipine No nifedipine [facility] ER 60 mg ER 60 mg ER [...] DAY A DAY ondansetron ondansetron No ondansetro [facility] HCl 4 mg HCl 4 mg n HCl 4 mg F amily tablet tablet tablet Practic e promethazin promethazin No promethazi [facility] e 6.25 e 6.25 ne 6.25 [...] oral route. route. route. sevelamer sevelamer [facility] carbonate carbonate carbonate Family 800 mg [...] DAY WITH A SNACK [facility]icity [facility] 1.5 mg/0.5 1.5 mg/0.5 1.5 mg/0.5 Family [...] Afluria Qd Afluria Qd No Afluria Qd [facility] ( ( Family mos mos (36 mos Practic up)(PF)60 up)(PF)60 up)(PF)60 e mcg (15 mcg mcg (15 mcg mcg (15 x4)/0.5 mL x4)/0.5 mL mcg IM syringe IM syringe x4)/0.5 mL ADM 0.5ML ADM 0.5ML IM syringe IM UTD IM UTD ADM 0.5ML IM UTD atorvastati atorvastati No atorvastat [facility] n 80 mg n 80 mg in 80 mg Famil y tablet TAKE tablet TAKE tablet Practic 1 TABLET BY 1 TABLET BY TAKE 1 e MOUTH MOUTH TABLET BY EVERYDAY AT EVERYDAY AT MOUTH BEDTIME BEDTIME EVERYDAY AT BEDTIME BD BD No BD [facility] Ultra-Fine Ultra-Fine Ultra-Fine Family Mini Pen Mini Pen Mini Pen Pra ctic Needle 31 Needle 31 Needle 31 e gauge x gauge x gauge x 3/16" USE 3/16" USE 316" USE DIRECTED DIRECTED 4 TIMES 4 TIMES DIRECTED 4 DAILY DAILY TIMES DAILY carvedilol carvedilol No carvedilol [facility] 25 mg 25 mg 25 mg Family tablet TAKE tablet TAKE tablet Practic 1 TABLET BY 1 TABLET BY TAKE 1 e MOUTH TWICE MOUTH TWICE TABLET BY A DAY A DAY MOUTH TWICE A DAY celecoxib celecoxib No celecoxib [facility] 200 mg 200 mg 200 mg Family capsule capsule capsule Practi c TAKE 1 TAKE 1 TAKE 1 e CAPSULE BY CAPSULE BY CAPSULE BY MOUTH EVERY MOUTH EVERY MOUTH DAY DAY EVERY DAY clonidine clonidine No clonidine [facility] HCl 0.3 mg HCl 0.3 mg HCl 0.3 mg Family tablet TAKE tablet TAKE tablet Practic 1/2 TABLET 1/2 TABLET TAKE 1/2 e BY MOUTH 3 BY MOUTH 3 TABLET BY TIMES A DAY TIMES A DAY MOUTH 3 TIMES A DAY Comfort EZ Comfort EZ No 2needle Q1D Comfort EZ [place] Pen [place] Pen [place] (s) Pen F amily 31 gauge x 31 gauge x [place] 31 Practic 12/05" Take 12/05" Take gauge [...] route. Eliquis 2.5 Eliquis 2.5 No Eliquis [facility] mg tablet mg tablet 2.5 mg Fam anselmo TAKE 1 TAKE 1 tablet Practic TABLET BY TABLET BY TAKE 1 e MOUTH TWICE MOUTH TWICE TABLET BY A DAY A DAY MOUTH TWICE A DAY Entresto 24 Entresto 24 No Entresto [facility] mg-26 mg mg-26 mg 24 mg-26 Fam anselmo tablet TAKE tablet TAKE mg tablet Practic 1 TABLET BY 1 TABLET BY TAKE 1 e MOUTH TWICE MOUTH TWICE TABLET BY A DAY A DAY MOUTH TWICE A DAY escitalopra escitalopra No escitalopr [facility] m 10 mg m 10 mg am 10 mg Famil y tablet TAKE tablet TAKE tablet Practic 1 TABLET BY 1 TABLET BY TAKE 1 e MOUTH EVERY MOUTH EVERY TABLET BY DAY WITH DAY WITH MOUTH BREAKFAST BREAKFAST EVERY DAY WITH BREAKFAST furosemide furosemide No furosemide [facility] 80 mg 80 mg 80 mg Family tablet TAKE tablet TAKE tablet Practic 2 TABLETS 2 TABLETS TAKE 2 e BY MOUTH BY MOUTH TABLETS BY TWICE A DAY TWICE A DAY MOUTH TWICE A DAY gabapentin gabapentin No gabapentin [facility] 300 mg 300 mg 300 mg Family capsule capsule capsule Practi c TAKE 1 TAKE 1 TAKE 1 e CAPSULE BY CAPSULE BY CAPSULE BY MOUTH MOUTH MOUTH EVERYDAY AT EVERYDAY AT EVERYDAY BEDTIME BEDTIME AT BEDTIME Humalog Humalog No Humalog [facility] KwikPen KwikPen KwikPen Family (U-100) (U-100) (U-100) Practi c Insulin 100 Insulin 100 Insulin e unit/mL unit/mL 100 subcutaneou subcutaneou unit/mL s GIVE s GIVE subcutaneo BEFORE BEFORE us GIVE MEALS FOR MEALS FOR BEFORE GLUCOSE GLUCOSE MEALS FOR >200 USING >200 USING GLUCOSE CF 1:30, CF 1:30, >200 USING TOTAL DAILY TOTAL DAILY CF 1:30, DOSE OF 40 DOSE OF 40 TOTAL DAILY DOSE OF 40 Lantus Lantus No Lantus [facility] Solostar Solostar Solostar Fam anselmo U-100 U-100 U-100 Practic Insulin 100 Insulin 100 Insulin e unit/mL (3 unit/mL (3 100 mL) mL) unit/mL (3 subcutaneou subcutaneou mL) s pen GIVE s pen GIVE subcutaneo 50 UNITS IN 50 UNITS IN us pen THE MORNING THE MORNING GIVE 50 AND AND UNITS IN INCREASE INCREASE THE DIRECTED: DIRECTED: MORNING TOTAL DAILY TOTAL DAILY AND DOSE 100 DOSE 100 INCREASE UNIT UNIT DIRECTED: TOTAL DAILY DOSE 100 UNIT metoprolol metoprolol No metoprolol [facility] tartrate tartrate tartrate Fam anselmo 100 mg 100 mg 100 mg Practic tablet TAKE tablet TAKE tablet e 1 TABLET BY 1 TABLET BY TAKE 1 MOUTH TWICE MOUTH TWICE TABLET BY A DAY A DAY MOUTH TWICE A DAY nifedipine nifedipine No nifedipine [facility] ER 60 mg ER 60 mg ER 60 mg Fam anselmo tablet,exte tablet,exte tablet,ext Practic nded nded ended e release 24 release 24 release 24 hr TAKE 1 hr TAKE 1 hr TAKE 1 TABLET BY TABLET BY TABLET BY MOUTH ONCE MOUTH ONCE MOUTH ONCE A DAY A DAY A DAY on[facility]et[facility]dans[facility] mg HCl 4 mg n HCl 4 mg F amily tablet tablet tablet Practic e promethazin promethazin No promethazi [facility] e 6.25 e 6.25 ne 6.25 [...] route. route. route. sevelamer sevelamer No sevelamer [facility] carbonate carbonate carbonate Family 800 mg [...] WITH A SNACK Trulicity Trulicity No Trulicity [facility] 1.5 mg/0.5 1.5 mg/0.5 1.5 mg/0.5 Family mL mL mL Practic subcutaneou subcutaneou subcutaneo e s pen s pen us pen injector injector injector INJECT 1.5 INJECT 1.5 INJECT 1.5 MG UNDER MG UNDER MG UNDER THE SKIN THE SKIN THE SKIN ONCE EVERY ONCE EVERY ONCE EVERY 2 WEEKS 2 WEEKS 2 WEEKS Trulicity 3 Trulicity 3 No 3mg [...] Afluria Qd Afluria Qd No Afluria Qd [facility] (36 (36 Family mos mos (36 mos Practic up)(PF)60 up)(PF)60 up)(PF)60 e mcg (15 mcg mcg (15 mcg mcg (15 x4)/0.5 mL x4)/0.5 mL mcg IM syringe IM syringe x4)/0.5 mL ADM 0.5ML ADM 0.5ML IM syringe IM UTD IM UTD ADM 0.5ML IM UTD atorvastati atorvastati No atorvastat [facility] n 80 mg n 80 mg in 80 mg Famil y tablet TAKE tablet TAKE tablet Practic 1 TABLET BY 1 TABLET BY TAKE 1 e MOUTH MOUTH TABLET BY EVERYDAY AT EVERYDAY AT MOUTH BEDTIME BEDTIME EVERYDAY AT BEDTIME BD BD No BD [facility] Ultra-Fine Ultra-Fine Ultra-Fine Family Mini Pen Mini Pen Mini Pen Pra ctic Needle 31 Needle 31 Needle 31 e gauge x gauge x gauge x 3/16" USE 3/16" USE 16" USE DIRECTED DIRECTED 4 TIMES 4 TIMES DIRECTED 4 DAILY DAILY TIMES DAILY carvedilol carvedilol No carvedilol [facility] 25 mg 25 mg 25 mg Family tablet TAKE tablet TAKE tablet Practic 1 TABLET BY 1 TABLET BY TAKE 1 e MOUTH TWICE MOUTH TWICE TABLET BY A DAY A DAY MOUTH TWICE A DAY celecoxib celecoxib No celecoxib [facility] 200 mg 200 mg 200 mg Family capsule capsule capsule Practi c TAKE 1 TAKE 1 TAKE 1 e CAPSULE BY CAPSULE BY CAPSULE BY MOUTH EVERY MOUTH EVERY MOUTH DAY DAY EVERY DAY clonidine clonidine No clonidine [facility] HCl 0.3 mg HCl 0.3 mg HCl 0.3 mg Family tablet TAKE tablet TAKE tablet Practic 1/2 TABLET 1/2 TABLET TAKE 1/2 e BY MOUTH 3 BY MOUTH 3 TABLET BY TIMES A DAY TIMES A DAY MOUTH 3 TIMES A DAY Comfort EZ Comfort EZ No 2needle Q1D Comfort EZ [place] Pen [place] Pen [place] (s) Pen F amily 31 gauge x 31 gauge x [place] 31 Practic /16" Take 516" Take gauge x e 2 needles 2 needles /16" Take every day every day 2 needles [...] route. Eliquis 2.5 Eliquis 2.5 No Eliquis [facility] mg tablet mg tablet 2.5 mg Fam anselmo TAKE 1 TAKE 1 tablet Practic TABLET BY TABLET BY TAKE 1 e MOUTH TWICE MOUTH TWICE TABLET BY A DAY A DAY MOUTH TWICE A DAY Entresto 24 Entresto 24 No Entresto [facility] mg-26 mg mg-26 mg 24 mg-26 Fam anselmo tablet TAKE tablet TAKE mg tablet Practic 1 TABLET BY 1 TABLET BY TAKE 1 e MOUTH TWICE MOUTH TWICE TABLET BY A DAY A DAY MOUTH TWICE A DAY escitalopra escitalopra No escitalopr [facility] m 10 mg m 10 mg am 10 mg Famil y tablet TAKE tablet TAKE tablet Practic 1 TABLET BY 1 TABLET BY TAKE 1 e MOUTH EVERY MOUTH EVERY TABLET BY DAY WITH DAY WITH MOUTH BREAKFAST BREAKFAST EVERY DAY WITH BREAKFAST furosemide furosemide No furosemide [facility] 80 mg 80 mg 80 mg Family tablet TAKE tablet TAKE tablet Practic 2 TABLETS 2 TABLETS TAKE 2 e BY MOUTH BY MOUTH TABLETS BY TWICE A DAY TWICE A DAY MOUTH TWICE A DAY gabapentin gabapentin No gabapentin [facility] 300 mg 300 mg 300 mg Family capsule capsule capsule Practi c TAKE 1 TAKE 1 TAKE 1 e CAPSULE BY CAPSULE BY CAPSULE BY MOUTH MOUTH MOUTH EVERYDAY AT EVERYDAY AT EVERYDAY BEDTIME BEDTIME AT BEDTIME Humalog Humalog No Humalog [facility] KwikPen KwjuddPen KwjuddPen Family (U-100) (U-100) (U-100) Practi c Insulin 100 Insulin 100 Insulin e unit/mL unit/mL 100 subcutaneou subcutaneou unit/mL s GIVE s GIVE subcutaneo BEFORE BEFORE us GIVE MEALS FOR MEALS FOR BEFORE GLUCOSE GLUCOSE MEALS FOR >200 USING >200 USING GLUCOSE CF 1:30, CF 1:30, >200 USING TOTAL DAILY TOTAL DAILY CF 1:30, DOSE OF 40 DOSE OF 40 TOTAL DAILY DOSE OF 40 Lantus Lantus No Lantus [facility] Solostar Solostar Solostar Fam anselmo U-100 U-100 U-100 Practic Insulin 100 Insulin 100 Insulin e unit/mL (3 unit/mL (3 100 mL) mL) unit/mL (3 subcutaneou subcutaneou mL) s pen Give s pen Give subcutaneo 30 units in 30 units in us pen AM and AM and Give 30 increase as increase as units in directed: directed: AM and TDD 80 TDD 80 increase as directed: TDD 80 metoprolol metoprolol No metoprolol [facility] tartrate tartrate tartrate Fam anselmo 100 mg 100 mg 100 mg Practic tablet TAKE tablet TAKE tablet e 1 TABLET BY 1 TABLET BY TAKE 1 MOUTH TWICE MOUTH TWICE TABLET BY A DAY A DAY MOUTH TWICE A DAY nifedipine nifedipine No nifedipine [facility] ER 60 mg ER 60 mg ER [...] DAY A DAY ondansetron ondansetron No ondansetro [facility] 4 mg 4 mg n 4 mg Family disintegrat disintegrat disintegra Practic ing tablet ing tablet ting e tablet ondansetron ondansetron No ondansetro [facility] HCl 4 mg HCl 4 mg n HCl 4 mg F amily tablet tablet tablet Practic e promethazin promethazin No promethazi [facility] e 6.25 e 6.25 ne 6.25 [facility] mg-codeine mg-codeine mg-codeine Practic 10 mg/5 mL [...] by oral by oral route. route. route. sertraline sertraline sertraline [facility] 50 mg 50 mg 50 mg Family tablet TAKE tablet TAKE tablet Practic 1 TABLET BY 1 TABLET BY TAKE 1 e MOUTH EVERY MOUTH EVERY TABLET BY NIGHT. NIGHT. MOUTH EVERY NIGHT. [facility] carbonate [facility] 800 mg 800 mg 800 mg Practic [...] SNACK SNACK DAY WITH A SNACK Trulicity 3 Trulicity 3 No 3mg Q1W [facility] mg/0.5 mL mg/0.5 mL 3 mg/0.5 F [...] Source Name Name Tdap Tdap 2020-11-05 Completed [facility] Family 00:00:00 Practice Tdap Tdap 2020-11-05 Completed [facility] Family 00:00:00 Practice Tdap Tdap 2020-11-05 Completed [facility] Family 00:00:00 Practice Non-US Vaccine Non-US Vaccine 2020-10-11 Completed [facility] COVID-19 PS COVID-19 PS 00:00:00 Practice (EpiVacCorona) (EpiVacCorona) Non-US Vaccine Non-US Vaccine 2020-10-11 Completed [facility] COVID-19 PS COVID-19 PS 00:00:00 Practice (EpiVacCorona) (EpiVacCorona) Non-US Vaccine Non-US Vaccine 2020-10-11 Completed [facility] COVID-19 PS COVID-19 PS 00:00:00 Practice (EpiVacCorona) (EpiVacCorona) COVID-19 COVID-19 2020-09-21 Completed [facility] (SARS-COV-2) (SARS-COV-2) 00:00:00 Practice vaccine, unspecified vaccine, unspecified COVID-19 COVID-19 2020-09-21 Completed [facility] (SARS-COV-2) (SARS-COV-2) 00:00:00 Practice vaccine, unspecified vaccine, unspecified COVID-19 COVID-19 2020-09-21 Completed [facility] (SARS-COV-2) (SARS-COV-2) 00:00:00 Practice vaccine, unspecified vaccine, unspecified influenza, influenza, 2020-04-22 Completed [facility] injectable, injectable, 00:00:00 Practice quadrivalent quadrivalent influenza, influenza, 2020-04-22 Completed [facility] injectable, injectable, 00:00:00 Practice quadrivalent quadrivalent influenza, influenza, 2020-04-22 Completed [facility] injectable, injectable, 00:00:00 Practice quadrivalent quadrivalent Vital Signs Vital Name Observation Time Observation Value Comments Source BP Diastolic 2022-12-07 00:00:00 68 mm[Hg] [facility] Height 2022-12-07 00:00:00 61.5 [in_i] [facility] BMI (Body Mass 2022-12-07 00:00:00 41.5 kg/m2 [facility] Index) Practice BP Systolic 2022-12-07 00:00:00 101 mm[Hg] [facility] Body Weight 2022-12-07 00:00:00 223 [lb_av] [facility] BP Diastolic 2022-06-02 00:00:00 68 mm[Hg] [facility] Height 2022-06-02 00:00:00 61.5 [in_i] [facility] BMI (Body Mass 2022-06-02 00:00:00 45 kg/m2 [facility] Index) Practice BP Systolic 2022-06-02 00:00:00 112 mm[Hg] [facility] Body Weight 2022-06-02 00:00:00 242 [lb_av] [facility] BP Diastolic 2022-01-20 00:00:00 68 mm[Hg] [facility] Height 2022-01-20 00:00:00 61.5 [in_i] [facility] BMI (Body Mass 2022-01-20 00:00:00 46.7 kg/m2 [facility] Index) Practice BP Systolic 2022-01-20 00:00:00 128 mm[Hg] [facility] Body Weight 2022-01-20 00:00:00 251 [lb_av] [facility] BP Diastolic 2021-07-27 00:00:00 50 mm[Hg] [facility] Height 2021-07-27 00:00:00 61.5 [in_i] [facility] BMI (Body Mass 2021-07-27 00:00:00 51.6 kg/m2 [facility] Index) Practice BP Systolic 2021-07-27 00:00:00 138 mm[Hg] [facility] Body Weight 2021-07-27 00:00:00 277.4 [lb_av] [facility] BP Diastolic 2021-04-20 00:00:00 83 mm[Hg] [facility] Height 2021-04-20 00:00:00 61.5 [in_i] [facility] BMI (Body Mass 2021-04-20 00:00:00 50.9 kg/m2 [facility] Index) Practice BP Systolic 2021-04-20 00:00:00 164 mm[Hg] [facility] Body Weight 2021-04-20 00:00:00 274 [lb_av] [facility] BP Diastolic 2021-01-21 00:00:00 78 mm[Hg] [facility] Height 2021-01-21 00:00:00 61.5 [in_i] [facility] BMI (Body Mass 2021-01-21 00:00:00 52.7 kg/m2 [facility] Index) Practice BP Systolic 2021-01-21 00:00:00 148 mm[Hg] [facility] Practice Body Weight 2021-01-21 00:00:00 283.6 [lb_av] [facility] Practice BP Diastolic 2020-10-06 00:00:00 77 mm[Hg] [facility] Practice Height 2020-10-06 00:00:00 61.5 [in_i] [facility] Practice BMI (Body Mass 2020-10-06 00:00:00 52.9 kg/m2 [facility] Family Index) Practice BP Systolic 2020-10-06 00:00:00 151 mm[Hg] [facility] Practice Body Weight 2020-10-06 00:00:00 284.4 [lb_av] [facility] Practice BP Diastolic 2020-07-07 00:00:00 88 mm[Hg] [facility] Practice Height 2020-07-07 00:00:00 61.5 [in_i] [facility] Practice BMI (Body Mass 2020-07-07 00:00:00 53.3 kg/m2 [facility] Family Index) Practice BP Systolic 2020-07-07 00:00:00 128 mm[Hg] [facility] Practice Body Weight 2020-07-07 00:00:00 287 [lb_av] [facility] Practice Procedures Procedure Date / Time Performed Performing Clinician Sour e HEPATITIS B SURFACE 2021-12-02 07:50:00 [facility] ANTIGEN Center HEPATITIS B CORE 2021-12-02 07:50:00 [facility] ANTIBODY, I[facility] Center HEPATITIS A ANTIBODY, 2021-12-02 07:50:00 [facility] Center HEPATITIS C ANTIBODY 2021-12-02 07:50:00 [facility] HEPATITIS B CORE 2021-12-02 07:50:00 [facility] ANTIBODY, TOTAL Center Plan of Care Planned Activity Planned Date Details Comments Source Diagnostic Test 2022-12-07 hemoglobin A1C, Alexandr whaley Pending 00:00:00 fingerstick [code = Practice hemoglobin A1C, fingerstick] Diagnostic Test 2022-12-07 glucose, fingerstick, Elia ceballos Family Pending 00:00:00 blood [code = glucose, Pract ice fingerstick, blood] Future Scheduled Test 2022-03-23 INFLUENZA VACCINE (#1) [facility] 00:00:00 [code = INFLUENZA Medical Ce nter VACCINE (#1)] Future Scheduled Test 2021-07-[address] [facility] 00:00:00 (12+) [code = Medical Center DEPRESSION SCREENING (12+)] Future Scheduled Test 2017 SHINGLES VACCINES ([address] [facility] 00:00:00 of 2) [code = SHINGLES Medic al Center VACCINES (1 of 2)] Future Scheduled Test [address] [facility] 00:00:00 (procedure) [code = Medical Center [id number]] Future Scheduled Test 1988 Screening for [facility] 00:[facility]:00 malignant neoplasm of Medica l Center cervix (procedure) [code = 658771548] Future Scheduled Test 1986 DTAP/TDAP/TD VACCINES [facility] 00:00:00 (1 - Tdap) [code = Medical C enter DTAP/TDAP/TD VACCINES (1 - Tdap)] Future Scheduled Test 1967 COVID-19 VACCINE (#1) [facility] 00:00:00 [code = COVID-[address] VACCINE (#1)] Future Scheduled Test 1967 Screening for [facility] 00:00:00 malignant neoplasm of Medica l Center breast (procedure) [code = 326063575] Future Scheduled Test [address] [facility] 00:00:00 (combo) [code = CT Medical C enter Colonography (combo)] Future Scheduled Test 1967 Screening for [facility] 00:00:00 malignant neoplasm of Medica l Center colon (procedure) [code = 967599114] Future Scheduled Test 1967 Screening for [facility] 00:00:00 [facility] colon (procedure) [code = 574557469] Future Scheduled Test 1967 [facility]ening for [facility]:00 malignant ne[facility] colon (procedure) [code = 171115980] Future Scheduled Test 1967 Screening for [facility] 00:[facility]:00 malignant ne[facility] colon (procedure) [code = 143668747] Future Scheduled Test 1967 Sigmoidoscopy [code = [facility] 00:00:00 Sigmoidoscopy] Maryann bolaños Future Appointment 2023-06-09 Aelx Alonzo, Renetta [facility] 00:00:00 [place] [facility]; Practice [address], [place] [address] Future Appointment 2023-06-08 Alex Alonzo, [id number] [facility] 12:30:00 [place] [facility]; Practice [address], [place] [address] Encounters Start End Encounter Admission Attending Care Care Encounter Source Date/Time Date/Time Type Type Clinicians Facility Department ID 2022-12-07 2022-12-07 Outpatient Daniel_T VFP VFP [id number] [address] 00:00:00 00:00:00 [id number] Family Practic e 2022-12-07 2022-12-07 Outpatient Daniel_T VFP VFP [id number] [address] 00:00:00 00:00:00 [id number] Family Practic e 2022-12-07 2022-12-07 Alex VFP [place] - [id number] [facility] 00:00:00 [facility]:00:00 [facility] Family AlonzoMaryann - Bernard molina MD: [id number] [place] - e Shadow [facility] [place] [facility], [address], [place] [address] , Ph. 2022-11-23 2022-11-23 Outpatient Daniel_T VFP VFP [id number] [address] 00:00:00 00:00:00 [id number] Family Practic e 2022-10-10 2022-10-10 Outpatient Daniel_T VFP VFP [id number] [address] 00:00:00 00:00:00 [id number] Family Practic e 2022-08-31 2022-08-31 Outpatient Daniel_T VFP VFP [id number] [address] 00:00:00 00:00:00 [id number] Family Practic e 2022-06-27 2022-06-27 Outpatient Daniel_T VFP VFP [id number] [address] 00:00:00 00:00:00 [id number] Family Practic e 2022-06-02 2022-06-02 Outpatient Daniel_T VFP VFP [id number] [address] [place] [address] 00:00:00 00:00:00 [id number] Family Practic e 2022-06-02 2022-06-02 Alex VFP [place] - [id number] V illage 00:00:00 00:00:00 [facility] Family Alonzo Medical - Prackaren molina MD: [id number] [place] - e Shadow [facility], [address] [address] , Ph. 2022-02-21 2022-02-21 Outpatient Daniel_T VFP VFP [id number] [address] [place] [address] 00:00:00 00:00:00 [id number] Family Practic e 2022-02-08 2022-02-08 Outpatient Daniel_T VFP VFP [id number] [address] [place] [address] 12:11:00 12:11:00 [id number] Family Practic e 2022-01-20 2022-01-20 Outpatient Daniel_T VFP VFP [id number] [address] [place] [address] 10:23:00 10:23:00 [id number] Family Practic e 2022-01-20 2022-01-20 Alex VFP [place] - [id number] V illage 00:00:00 00:00:00 [facility] Family Alonzo Medical - Prackaren molina MD: [id number] VM_HOU_Josénawaf e Shadow [facility], [address], [place] [address] , Ph. 2022-01-15 2022-01-15 Outpatient Daniel_T VFP VFP [id number] [address] [place] [address] 12:45:00 12:45:00 [id number] Family Practic e 2021-12-02 2021-12-02 Lab [facility] [id number] 00:00:00 00:00:00 Requisitio Holger [facility] 2021-12-02 2021-12-02 Lab [facility] [id number] 00:00:00 00:00:00 [facility] 2021-10-25 2021-10-25 Outpatient Daniel_T VFP VFP [id number] [address] [place] [address] 01:45:00 01:45:00 [id number] Family Practic e 2021-09-15 2021-09-15 Outpatient Daniel_T VFP VFP [id number] [address] [place] [address] 05:38:00 05:38:00 [id number] Family Practic e 2021-08-05 2021-08-05 Outpatient Daniel_T VFP VFP [id number] [address] [place] [address] 04:15:00 04:15:00 [id number] Family Practic e 2021-07-27 2021-07-27 Outpatient Daniel_T VFP VFP [id number] [address] [place] [address] 02:37:00 02:37:00 [id number] Family Practic e 2021-07-27 2021-07-27 Alex VFP [place] - [id number] V illage 00:00:00 00:00:00 [facility] Maryann Alonzo - Prackaren molina MD: [id number] Bre e Shadow [facility], [address], [place] [address] , Ph. 2021-06-27 2021-06-27 Outpatient Daniel_T VFP VFP [id number] [address] [place] [address] 04:21:00 04:21:00 [id number] Family Practic e 2021-06-19 2021-06-19 Outpatient Daniel_T VFP VFP [id number] [address] [place] [address] 01:15:00 01:15:00 [id number] Family Practic e 2021-05-15 2021-05-15 Outpatient Daniel_T VFP VFP [id number] [address] [place] [address] 12:47:00 12:47:00 [id number] Family Practic e 2021-04-20 2021-04-20 Outpatient Daniel_T VFP VFP [id number] [address] [place] [address] 01:33:00 01:33:00 [id number] Family Practic e 2021-04-20 2021-04-20 Alex VFP [place] - [id number] V illage 00:00:00 00:00:00 [facility] Maryann Alonzo - Prackaren molina MD: [id number] ROBERTOBartolo russell Shadow [facility], [address], [place] [address] , Ph. 2021-04-19 2021-04-19 Outpatient Daniel_T VFP VFP [id number] [address] [place] [address] 04:29:00 04:29:00 [id number] Family Practic e 2021-04-14 2021-04-14 Outpatient Daniel_T VFP VFP [id number] [address] [place] [address] 04:01:00 04:01:00 [id number] Family Practic e 2021-04-10 2021-04-10 Outpatient Daniel_T VFP VFP [id number] [address] [place] [address] 12:38:00 12:38:00 [id number] Family Practic e 2021-01-28 2021-01-28 Outpatient Daniel_T VFP VFP [id number] [address] [place] [address] 06:38:00 06:38:00 [id number] Family Practic e 2021-01-27 2021-01-27 Outpatient Daniel_T VFP VFP [id number] [address] [place] [address] 05:59:00 05:59:00 [id number] Family Practic e 2021-01-21 2021-01-21 Outpatient Daniel_T VFP VFP [id number] [address] [place] [address] 04:50:00 04:50:00 [id number] Family Practic e 2021-01-21 2021-01-21 Alex VFP [place] - [id number] V illage 00:00:00 00:00:00 [facility] Family Alonzo, Medical - Practi c : 97950 Bre russell Shadow [facility], [address], [place] [address] , Ph. 2020-11-10 2020-11-10 Outpatient Daniel_T VFP VFP [id number] [address] [place] [address] 03:17:00 03:17:00 [id number] Family Practic e 2020-11-05 2020-11-05 Outpatient Daniel_T VFP VFP [id number] [address] [place] [address] 08:05:00 08:05:00 [id number] Family Practic e 2020-10-13 2020-10-13 Outpatient Daniel_T VFP VFP [id number] [address] [place] [address] 08:39:00 08:39:00 [id number] Family Practic e 2020-10-06 2020-10-06 Outpatient Daniel_T VFP VFP [id number] [address] [place] [address] 06:28:00 06:28:00 [id number] Family Practic e 2020-10-06 2020-10-06 Alex VFP [place] - [id number] V illage 00:00:00 00:00:00 Juan Alonzo Medical - Prackaren molina MD: [id number] VM_COURTNEY_Josénawaf e Shadow [facility], [facility], [place] [address] , Ph. 2020-07-09 2020-07-09 Outpatient Daniel_T VFP VFP [id number] [address] [place] [address] 12:49:00 12:49:00 [id number] Family Practic e 2020-07-07 2020-07-07 Outpatient Daniel_T VFP VFP [id number] [address] [place] [address] 04:59:00 04:59:00 [id number] Family Practic e 2020-07-07 2020-07-07 Alex VFP [place] - [id number] V illage 00:00:00 00:00:00 Juan AlonzoMaryann - Bernard molina MD: [id number] Sahara russell Shadow [facility], [address], [place] [address] , Ph. 2020-06-29 2020-06-29 Outpatient Daniel_T VFP VFP [id number] [address] [place] [address] 11:43:00 11:43:00 Family Practic e 2020-06-29 2020-06-29 Outpatient Daniel_T VFP VFP [id number] [address] [place] [address] 11:43:00 11:43:00 [id number] Family Practic e 2020-03-24 2020-03-24 Outpatient Daniel_T VFP VFP [id number] [address] [place] [address] 10:48:00 10:48:00 Family Practic e Results Test Description Test Time Test Comments Results Result Comments Source Hemoglobin A1c measurement device panel 2022-12-07 14:25:35 Test Item Value Reference Range Interpretation Comme nts Hemoglobin A1c/Hemoglobin.total in Blood (test code = 4548-4) 6.2 % 4.0-6.4 [facility] in Capillary [id number] 14:24:39 Test Item Value Reference Range Interpretation Comments Blood Glucose: mg/dl (test code = Blood 99 Glucose: mg/dl) [facility] [id number] 11:39:52 Test Item Value Reference Range Interpretation Comments Hemoglobin A1c/Hemoglobin.total in 5.1 % 5.7-6.4 Blood (test code = 4548-4) [facility] [Mass/volume] in Capillary [id number] 11:38:34 Test Item Value Reference Range Interpretation Comments Blood Glucose: mg/dl (test code = Blood 135 Glucose: mg/dl) [facility] [Mass/volume] in Capillary [id number] 10:14:40 Test Item Value Reference Range Interpretation Comments Blood Glucose: mg/dl (test code = Blood 113 Glucose: mg/dl) [facility] Center[facility]em[facility] A[facility] measurement device [id number] 10:14:18 Test Item Value Reference Range Interpretation Comments Hemoglobin A1c/Hemoglobin.total in 4.9 % 5.7-6.4 Blood (test code = 4548-4) [facility] CenterHep[facility] core antibody, [id number] 00:21:12 Test Item Value Reference Range Interpretation Comments Hep B Core Total Ab (test Nonreactive Nonreactive code = 29293-7) BRENDAN (test code = BRENDAN) Velvet Steamer ID - BS Lab Interpretation (test Normal code = 51422-7) [facility]TIBODY, [id number] 00:21:12 Test Item Value Reference Range Interpretation Comments HEPATITIS B CORE TOTAL ANTIBODY Nonreactive Nonreactive (BEAKER) (test code = 497) Velvet Steamer ID - BSHepatitis B core antibody, [id number] 14:41:08 Test Item Value Reference Range Interpretation Comments Hep B C IgM (test code = Nonreactive Nonreactive 35248-1) BRENDAN (test code = BRENDAN) Velvet Steamer ID - DAVID M Lab Interpretation (test Normal code = 65233-0) [facility] antibody, [id number] 14:41:08 Test Item Value Reference Range Interpretation Comments Hep A IgM (test code = Nonreactive Nonreactive 49239-6) BRENDAN (test code = BRENDAN) Velvet Steamer ID - DAVID M Lab Interpretation (test Normal code = 17754-1) [facility] [id number] 14:41:08 Test Item Value Reference Range Interpretation Comments Hepatitis C Ab (test Nonreactive Nonreactive code = 83651-6) BRENDAN (test code = BRENDAN) Velvet Steamer ID - DAVID M Lab Interpretation (test Normal code = 94407-2) [facility] B surface [id number] 14:41:08 Test Item Value Reference Range Interpretation Comments Hepatitis B surface Nonreactive Nonreactive antigen (test code = 5195-3) BRENDAN (test code = BRENDAN) Specimen is considered negative for HBsAg. Lab Interpretation (test Normal code = 28555-2) [facility] B SURFACE [id number] 14:41:08 Test Item Value Reference Range Interpretation Comments HEPATITIS B SURFACE ANTIGEN (2) Nonreactive Nonreactive (BEAKER) (test code = 2585) Specimen is considered negative for HBsAg.HEPATITIS B CORE ANTIBODY, IGM 2021-12-02 14:41:08 Test Item Value Reference Range Interpretation Comments HEPATITIS B CORE IGM ANTIBODY Nonreactive Nonreactive (BEAKER) (test code = 645) Velvet Steamer ID - DAVID MHEPATITIS C [id number] 14:41:08 Test Item Value Reference Range Interpretation Comments HEPATITIS C ANTIBODY (BEAKER) Nonreactive Nonreactive (test code = 367) Velvet Steamer ID - DAVID MHEPATITIS A ANTIBODY, [id number] 14:41:08 Test Item Value Reference Range Interpretation Comments HEPATITIS A IGM ANTIBODY (BEAKER) Nonreactive Nonreactive (test code = 498) Velvet Steamer ID - DAVID MGlucose [Mass/volume] in Capillary [id number] 14:24:23 Test Item Value Reference Range Interpretation Comments Blood Glucose: mg/dl (test code = Blood 161 Glucose: mg/dl) [facility] CenterHem[facility] A1c measurement device [id number] 14:24:10 Test Item Value Reference Range Interpretation Comments Hemoglobin A1C Fingerstick: (test code 4.9 = Hemoglobin A1C Fingerstick:) [facility]
[2022-12-21] MEDS ORDERED: FUROSEMIDE 40 MG/4 ML VIAL IV ONE (18:17)
[2022-12-21 18:53] LABS: Lymphocytes % 16.3 % (15.3-44.8); MCV 85.9 fL (80-100); MPV 8.1 fL (7.6-11.3); RBC Red Blood Cell Count 3.49 M/uL (3.86-4.86)
[2022-12-21 18:56] LABS: Anisocytosis 1+; Blood Morphology Comment NOTED (NOT SEEN); Platelet Estimate ADEQ; White Blood Cell Scan OK (OK)
[2022-12-21 19:12] LABS: Albumin 3.5 g/dL (3.4-5.0); Bilirubin Total 0.6 mg/dL (0.2-1.0); Potassium 3.9 mEq/L (3.5-5.1); Protein, Total 7.7 g/dL (6.4-8.2)
[2022-12-21] MEDS ORDERED: D50W 25 GM/50 ML SYRINGE IV PRN (19:41)
[2022-12-21] MEDS ORDERED: GLUCAGON 1 MG/VIAL IM PRN (19:41)
[2022-12-21] MEDS ORDERED: D10W 125 ML IV PRN (19:46)
[2022-12-21] MEDS: INSULIN -REGULAR HUMAN 50 UNIT/0.5 ML ML SQ SCH (21:00)
--- NOTE | 2022-12-21 21:47 | RAD REPORT ---
EXAM DESCRIPTION: RADChest Single View12/21/2022 8:43 pm CLINICAL HISTORY: CHF COMPARISON: Chest Single View dated 03/26/2022; Chest Single View dated 12/03/2021; Chest Single View d ated 12/01/2021; Chest Single View dated 06/21/2021; Head C Spine Mpr Wo Con dated 03/26/2022 TECHNIQUE: Portable AP view of the chest. FINDINGS: Decreased inspiratory effort limits evaluation. Central interstitial prominence. No pneum othorax or effusion. Apparent superior mediastinal widening, not significantly changed since the prio r exam, and may relate to venous congestion and aortic tortuosity. The heart is mildly enlarged. IMPRESSION: Findings suggestive of mild congestive heart failure. Apparent widening of the superior mediastinum, appears stable, and may relate to venous congestion and aortic tortuosity.
[2022-12-21] MEDS ORDERED: MANNITOL 25% 12.5 GM/50 ML VIAL IV PRN (22:15)
[2022-12-21] MEDS ORDERED: NA CHLORIDE 0.9% 1,000 ML IV PRN (22:15)
[2022-12-21] MEDS ORDERED: HEPARIN 5000 UNIT/ML 1 ML VIAL SQ ONE (22:25)
[2022-12-21] MEDS ORDERED: carvediloL 12.5 MG TAB PO ONE (22:28)
[2022-12-21] MEDS ORDERED: cloNIDine HCL 0.1 MG TAB PO PRN (22:31)
[2022-12-21] MEDS ORDERED: ALBUMIN HUMAN 25% 50 ML IV SCH (23:00)
--- NOTE | 2022-12-22 00:01 | HP ---
Date of Admission: 12/21/2022 Chief Complaint: Leg swelling and abdominal pain. History Of Present Illness: This is a 57-year-old very pleasant female patient who has multiple [facility] medical problems including end-stage renal disease, on hemodialysis, goes to her dialysis 3 times a week on a regular basis. Patient was brought into office today by her mother with complaints of w orsening of bilateral leg swelling and some vague abdominal discomfort with that. Patient was evalua christal, decision was made to admit her to hospital. Patient has gained 30 pounds in last 2 weeks. She is having some tiredness, but denies any paroxysmal nocturnal dyspnea or orthopnea. There has not be en any changes made in her dialysis and no changes made in any medications in last 2-3 weeks or so. Allergies: NO KNOWN ALLERGIES. Medications: List reviewed. Review of Systems: Cardiovascular: As mentioned above,] Constitutional: As mentioned above. GI: As mentioned above. All other systems reviewed and negative. Past Medical History: Significant for diabetes mellitus with diabetic retinopathy; obstructive sleep apnea; hypertension; mixed hyperlipidemia; chronic systolic heart failure; end-stage renal disease, on hemodialysis; anemia due to chronic kidney disease. Past Surgical History: Significant for cataract surgery. Family History: Father , had colon cancer. Mother has asthma, hypertension, and osteoarthritis. Social History: Negative for smoking or alcohol use. Physical Examination: Vital Signs: Blood pressure 113/70, pulse 64, temperature 96.2 degrees Fahrenheit, respiratory rate 16. Weight 257.6 pounds, height 61 inches, BMI 48.7. General: Awake, alert, oriented, not in distress. HEENT: Head atraumatic, normocephalic. Conjunctivae nonerythematous. Sclerae white. Mouth, no thr ush or edema noted. Ears/Nose, no mass, lesion, discharge noted. Neck: Supple. No JVD, lymph nodes, bruit, thyromegaly noted. Lungs: Bilateral good equal air entry. Clear to auscultation. No rhonchi. No rales. Heart: Normal heart sounds, no murmur or gallop. Abdomen: Presence of edema of abdominal wall, but no guarding, rigidity, tenderness, distention. Jose wel sounds normoactive. Extremities: Bilateral grade 4 pedal edema involving both lower extremities extending up to the knee s. Skin: No rash, ulcer, cellulitis. Lymphatics: No lymph node enlargement in neck, supraclavicular, infraclavicular region. Neuro: No focal neurological deficit. Chest: Unremarkable. External Genitalia: Deferred. Rectal: Deferred. Laboratory Data: Chest x-ray pending. White count 6.4, hemoglobin 10, platelets 191. Sodium 134, p otassium 3.9, chloride 102, bicarb 28, BUN 29, creatinine 4.29, glucose 69. Liver function tests unr emarkable. ProBNP 24,103. Impression: 1.Chronic systolic heart failure, with acute exacerbation. 2.End-stage renal disease, on hemodialysis. 3.Anemia due to chronic kidney disease. 4.Hypertension. 5.Mixed hyperlipidemia. 6.Diabetes mellitus with diabetic retinopathy. Plan: Admit patient to hospital for further evaluation and management of this problem. Patient is a ppropriate for inpatient and is expected to spend 2 midnights in hospital. Diabetes will be managed with sliding scale insulin. For congestive heart failure, we will go ahead and start the patient on IV Lasix and we will get an echo with Doppler tomorrow. We will follow up on chest x-ray result. Virgilio meehan has vague abdominal pain. I am going to go ahead and get a CAT scan of the abdomen and pelvis with oral contrast only. 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 We will continue antihyperte nsive medication for blood pressure control as per order. Monitor blood pressure and if necessary, a djust antihypertensive medication. For hyperlipidemia, we will continue statin therapy per order. D VT prophylaxis will be given using heparin per order and details and plan and treatment discussed wit h the patient and the patient's mother. PURNIMA/MODL Voice ID: [id number]
[2022-12-22] MEDS: INSULIN -REGULAR HUMAN 50 UNIT/0.5 ML ML SQ SCH ×4 (07:30→20:37)
[2022-12-22] MEDS ORDERED: carvediloL 12.5 MG TAB PO SCH (08:00)
[2022-12-22] MEDS ORDERED: FUROSEMIDE 40 MG/4 ML VIAL IV SCH (09:00)
[2022-12-22] MEDS: NIFEDIPINE XL 60 MG TABLET PO SCH (09:44)
[2022-12-22] MEDS: HEPARIN 5000 UNIT/ML 1 ML VIAL SQ SCH ×2 (10:12→20:37)
--- NOTE | 2022-12-22 11:24 | P.CNS ---
Date of Consult: 12/22/22 Reason for Consult: ESRD, HTN, dyspnea Requesting Physician: Aristides Nicholson Chief Complaint: Dyspnea History of Present Illness: Pt is a 57 yo AAF with a hx of hearing impairment, chronic HTN, ESRD on [facility]HD at [facility] via a Lt UE AVF. Pt presented to the ER for some shortness of breath, bloating, abd fullness and other. Pt seen on LFNC but in no resp distress. Pt seen at the start of HD today with no acute complaints. Allergies No Known Allergies Allergy (Unverified 12/01/21 11:31) Home Medications: Insulin Lispro [Humalog Kwikpen U-100] 100 unit SQ SEECOM 08/22/18 Sevelamer Carbonate 3 tab PO TID 08/22/18 cloNIDine HCL [Catapres] 0.3 mg PO TID 08/22/18 Insulin Glargine,Hum.rec.anlog [Lantus] 1 unit SQ SEECOM 06/22/21 Nifedipine [Nifedipine ER] 1 tab PO DAILY 06/22/21 Atorvastatin Calcium [Lipitor] 80 mg PO DAILY 03/26/22 Carvedilol [Coreg] 25 mg PO DAILY 03/26/22 Celecoxib 200 mg PO DAILY 03/26/22 Escitalopram [Lexapro*] 10 mg PO DAILY 03/26/22 Furosemide 80 mg PO BID 03/26/22 - Past Medical/Surgical History Diabetic: Yes -: Hypertension -: DM II -: ESRD/ Dr. Calix -: Anemia -: CKD MBD -: Diastolic CHF - Family History Mother Medical History: Hypertension Father Medical History: Hypertension, Diabetes - Social History Smoking Status: Unknown if ever smoked Alcohol use: No CD- Drugs: No Caffeine use: Yes Place of Residence: Home Review of Systems is unable to be obtained (Limited ROS as pt in dialysis and sign language services not immediately available) Physical Examination Temp Pulse Resp BP Pulse Ox 99.7 F 64 16 164/73 H 100 12/22/22 08:00 12/22/22 09:44 12/22/22 08:00 12/22/22 09:44 12/22/22 08:00 General: Alert, In no apparent distress, Cooperative HEENT: Atraumatic, Normocephalic Neck: Supple Respiratory: Normal air movement, Other (No rhonchi or wheezes anteriorly) Cardiovascular: Regular rate/rhythm, Normal S1 S2 Gastrointestinal: Soft and benign, Non-distended, No tenderness, Other (Obese) Musculoskeletal: No tenderness, Swelling Integumentary: No breakdown, No significant lesion Neurological: Normal strength at 5/5 x4 extr, Normal tone Laboratory Data (last 24 hrs) 12/21/22 18:43: Sodium 134 L, Potassium 3.9, BUN 29 H, Creatinine 4.29 H, Glucose 69 L, Magnesium 2.0, Total Bilirubin 0.6, AST 24, ALT 25, Alkaline Phosphatase 166 H 12/21/22 18:43: WBC 6.40, Hgb 10.0 L, Hct 30.0 L, Plt Count 191 Conclusions/Impression: A/P) ESRD -Will perform additional HD today primarily for ultrafiltration, will cont OP HD schedule, metab profile acceptable HTN with CKD/ CHF -Pt does have some pulm/peripheral edema, will target UF of 3.5L, will re-assess EDW at her unit. -F/u post HD BP Diastolic CHF, A/C. Pulm HTN unspecified -As mentioned above, pt may benefit from spironolactone as small studies have shown benefits extending to ESRD pts and concerns for hyperkalemia are less so as these pts are mostly anephric and K is controlled by regular HD and cation exchangers if needed Emery De La Fuente MD, KAL
[2022-12-22] MEDS: SPIRONOLACTONE 25 MG TABLET PO SCH (12:35)
--- NOTE | 2022-12-22 12:55 | PN ---
Date of Progress Note: 12/22/2022 Subjective: Patient was seen this morning for followup. She was lying in bed, not in any distress. No chest pain, shortness of breath, problems reported. Vital signs reviewed. Patient still has simone e abdominal pain complaints in the lower abdomen, but no nausea, no vomiting. Objective: Vital Signs: Temperature 98.4, pulse 59, respiratory rate 18, blood pressure 156/71, oxy gen saturation 97%. Impression: 1.Congestive heart failure, chronic, systolic, with acute exacerbation. 2.End-stage renal disease, on hemodialysis. 3.Hypertension. 4.Hyperlipidemia. 5.Anemia due to chronic kidney disease. 6.Abdominal pain. Plan: We will go ahead and follow up on CAT scan chest, abdomen, and pelvis report. Test was done b ut the report is pending. We will continue to follow up, with receiving and processing supervisor consultation has been req uested and we will go ahead and continue Lasix, if necessary make adjustment on Lasix dose. An echo will be done today. We will follow up on that report. Depending on the echo results, we will make f urther decision regarding medication adjustment for congestive heart failure. PURNIMA/MODL Voice ID: [id number] Report ID: [id number]
--- NOTE | 2022-12-22 12:58 | RAD REPORT ---
EXAM DESCRIPTION: CT - Chest Abd Pelvis Wo Con - 12/22/2022 3:01 am CLINICAL HISTORY: CHF TECHNIQUE: Axial computed tomography images of the chest, abdomen and pelvis without intravenous con trast. Sagittal and coronal reformatted images were created and reviewed. This CT exam was perfor med using one or more of the following dose reduction techniques: automated exposure control, adjus tment of the mA and/or kV according to patient size, and/or use of iterative reconstruction technique . COMPARISON: Abdomen pelvis CT dated 12/04/2021 FINDINGS: CHEST: Lungs: Mosaic attenuation within the lungs bilaterally. Pleural space: Unremarkable. No significant effusion. No pneumothorax. Heart: The heart is moderately to severely enlarged. Coronary artery calcification. Small peric ardial effusion. ABDOMEN: Liver: The liver is enlarged. Gallbladder and bile ducts: Unremarkable. No calcified stones. No ductal dilation. Pancreas: Unremarkable. No ductal dilation. Spleen: Unremarkable. No splenomegaly. Adrenals: Unremarkable. No mass. Kidneys and ureters: The kidneys are atrophic. No obstructing stones. No hydronephrosis. Stomach and bowel: Colonic diverticula without adjacent inflammatory change. No obstruction. No appreciable mucosal thickening. PELVIS: Appendix: Normal caliber appendix. No findings to suggest acute appendicitis. Bladder: Unremarkable. No stones. Reproductive: Unremarkable as visualized. CHEST, ABDOMEN and PELVIS: Intraperitoneal space: Small amount of free fluid in the abdomen. No free air. Bones/joints: Multilevel spondylosis. Erosive changes on either side of the L4-L5 intervertebral disc space and to a lesser extent at L5-S1 and T10-T11. No acute fracture. No dislocation. Soft tissues: Extensive generalized body wall edema. Vasculature: Moderate to severe atherosclerotic disease. Lymph nodes: Unremarkable. No enlarged lymph nodes. IMPRESSION: 1. Mosaic attenuation within the lungs bilaterally. Differential considerations incl ude small airways disease, small vessel disease and interstitial infiltrates. 2. Extensive, generalized body wall edema and small amount of free fluid in the abdomen and pelvis. Findings can be seen in the setting of 3rd spacing. 3. Erosive changes on either side of the L4-L5 intervertebral disc space and to a lesser extent at L5-S1 and T10-T11. Findings may be related to inflammatory arthropathy. Please correlate clinical ly for the possibility of sequelae of discitis osteomyelitis particularly at the L4-L5 level. 4. Other findings as above. Electronically signed by: Eliseo Juárez MD 12/22/2022 1:33 AM CDT Due to temporary technical issues with the PACS/Fluency reporting system, reports are being signed by the in house radiologist without review as a courtesy to ensure prompt reporting. The interpreting r adiologist is fully responsible for the content of the report.
[2022-12-22 13:39] LABS: Hepatitis B Surface Ab - Quant 29.82 mIU/mL (<8.0); Hepatitis B surface AG Interp. Nonreactive (Nonreactive)
[2022-12-22] MEDS: CLONIDINE HCL 0.3 MG TAB PO SCH ×2 (14:00→20:40)
[2022-12-22] MEDS: carvediloL 25 MG TAB PO SCH (17:23)
[2022-12-22] MEDS: SEVELAMER CARBONATE 800 MG TABLET PO SCH (17:23)
[2022-12-22] MEDS: FUROSEMIDE 40 MG/4 ML VIAL IV SCH (17:24)
[2022-12-22] MEDS: ATORVASTATIN 80 MG TAB PO SCH (20:35)
[2022-12-23] MEDS: INSULIN -REGULAR HUMAN 50 UNIT/0.5 ML ML SQ SCH ×4 (07:30→20:22)
[2022-12-23] MEDS: carvediloL 25 MG TAB PO SCH ×2 (08:00→17:00)
[2022-12-23] MEDS: SEVELAMER CARBONATE 800 MG TABLET PO SCH ×3 (09:21→18:16)
[2022-12-23] MEDS: ESCITALOPRAM 20 MG TAB PO SCH (09:32)
[2022-12-23] MEDS: SPIRONOLACTONE 25 MG TABLET PO SCH (09:32)
[2022-12-23] MEDS: SERTRALINE HCL 50 MG TAB PO SCH (09:33)
[2022-12-23] MEDS: GABAPENTIN 300 MG CAP PO SCH (09:34)
[2022-12-23] MEDS: CLONIDINE HCL 0.3 MG TAB PO SCH ×3 (09:34→20:22)
[2022-12-23] MEDS: NIFEDIPINE XL 60 MG TABLET PO SCH (09:35)
[2022-12-23] MEDS: CELECOXIB 100 MG CAPSULE PO SCH (09:35)
[2022-12-23] MEDS: HEPARIN 5000 UNIT/ML 1 ML VIAL SQ SCH ×2 (09:36→20:22)
[2022-12-23] MEDS: FUROSEMIDE 40 MG/4 ML VIAL IV SCH ×3 (09:36→20:02)
[2022-12-23 09:58] LABS: Magnesium 2.2 mg/dL (1.6-2.4); Potassium 4.6 mEq/L (3.5-5.1)
--- NOTE | 2022-12-23 10:59 | PN ---
Date of Progress Note: 12/23/2022 Subjective: The patient was seen this morning for followup. She was sleeping, easily arousable, not in any distress. No new complaints, problems reported. Physical Examination: Vital signs: Reviewed. Temperature 98.6, pulse 61, respiratory rate 17, blood pressure 144/74, oxyg en saturation 99%. HEENT: Unremarkable. Lungs: Clear to auscultation. Heart: Sounds normal. Abdomen: Soft. Bowel sounds normal. No guarding, rigidity, tenderness, distention. Extremities: Bilateral leg edema present, but better today than time of admission. Impression: 1.Chronic systolic heart failure, with acute exacerbation. 2.End-stage renal disease, on hemodialysis. 3.Hypertension. 4.Hyperlipidemia. 5.Anemia due to chronic kidney disease. Plan: We will go ahead and continue current diuretic therapy. Continue to follow up with nephrologi . Her Lasix, which was originally 40 mg IV 2 times a day was increased to 80 mg IV 2 times a day a s of yesterday. We will continue that. Her weight today is 251 pounds upon admission, it was 254 po unds. We will get some blood work done today to check on electrolytes and renal function. Continue current DVT prophylaxis with heparin. The patient had a CAT scan of chest, abdomen, and pelvis done, but due to some technical problems, we are not able to open up the reports in the hospital computer system at this time. PURNIMA/PEDRO LUIS Voice ID: [id number] Report ID: [id number]
--- NOTE | 2022-12-23 17:14 | PN ---
Date of Progress Note: 12/23/2022 Subjective: The patient was seen and examined at bedside. She is sleeping. She denies any complain ts. She had dialysis yesterday. She is scheduled again for dialysis today. Objective: Vital Signs: Have been reviewed. Blood pressures are in the 160s. Pulse rate of 65 and she is saturating 100% on 2 L of nasal cannula oxygen. General: It appears she is a morbidly obese female, in no acute distress. HEENT: She has atraumatic head. Heart: Auscultation of the heart revealed regular rate and rhythm with a systolic ejection murmur. Lungs: Auscultation of the lungs revealed diminished breath sounds at bilateral bases. Abdomen: Obese and nontender. Extremities: Showed no evidence of edema. Laboratory Data: At this time are showing, sodium of 130, potassium of 4.6, chloride of 97, BUN of 2 8, and creatinine of 4.65. CBC showed stable hemoglobin, hematocrit, and platelet count. Current Medications: Have been reviewed in detail. Impression: 1.End-stage renal disease, on dialysis. 2.Uncontrolled hypertension secondary to volume overload. 3.Anemia secondary to chronic kidney disease. 4.Morbid obesity. Plan: The patient is overall doing okay. The patient will get dialysis today per her regular schedu le and more ultrafiltration will be done. Target ultrafiltration of about 2-3 L. Diastolic heart failure with pulmonary hypertension, being monitored by Dr. Nicholson. Continue to monitor closely. VV/MODL Voice ID: [id number] Report ID: [id number]
[2022-12-23] MEDS: ATORVASTATIN 80 MG TAB PO SCH (20:21)
[2022-12-24] MEDS: INSULIN -REGULAR HUMAN 50 UNIT/0.5 ML ML SQ SCH ×4 (07:30→21:00)
[2022-12-24] MEDS: FUROSEMIDE 40 MG/4 ML VIAL IV SCH ×2 (08:29→17:06)
[2022-12-24] MEDS: carvediloL 25 MG TAB PO SCH ×2 (08:31→17:07)
[2022-12-24] MEDS: SEVELAMER CARBONATE 800 MG TABLET PO SCH ×3 (08:32→17:15)
[2022-12-24] MEDS: SERTRALINE HCL 50 MG TAB PO SCH (08:33)
[2022-12-24] MEDS: CLONIDINE HCL 0.3 MG TAB PO SCH ×3 (08:33→21:00)
[2022-12-24] MEDS: GABAPENTIN 300 MG CAP PO SCH (08:33)
[2022-12-24] MEDS: CELECOXIB 100 MG CAPSULE PO SCH (08:33)
[2022-12-24] MEDS: SPIRONOLACTONE 25 MG TABLET PO SCH (08:33)
[2022-12-24] MEDS: ESCITALOPRAM 20 MG TAB PO SCH (08:34)
[2022-12-24] MEDS: HEPARIN 5000 UNIT/ML 1 ML VIAL SQ SCH ×2 (08:35→20:47)
[2022-12-24] MEDS: NIFEDIPINE XL 60 MG TABLET PO SCH (08:35)
--- NOTE | 2022-12-24 10:26 | PN ---
Date of Progress Note: 12/24/2022 Subjective: The patient was seen this morning for followup. She was lying in bed, not in any distre ss. Denies any new complaints except some vague abdominal pain that she came in with, but better guy n what it was when she first came into the hospital. No nausea. No vomiting. Physical Examination: Vital signs reviewed. Temperature 97, pulse 64, respiratory rate 18, blood pressure 147/65, oxygen s aturation 99%. Weight 256 pounds. Diagnostic Studies: CAT scan of chest, abdomen, and pelvis results reviewed, showing mosaic attenuat ion within lungs bilaterally and erosive changes noted on either side of L4-5 intervertebral disk spa ce and to a lesser extent at L5-S1 and T10-T11. No acute fracture, no dislocation. Impression: 1.Congestive heart failure. 2.End-stage renal disease, on hemodialysis. 3.Anemia due to chronic kidney disease. 4.Hypertension. 5.Diabetes mellitus. 6.Osteoarthritis, multiple sites. Plan: We will go ahead and continue to follow up with preschool teacher's assistant. The patient has gained almost 3 0 pounds in the last 2 weeks and best option for her to get rid of this excess amount of fluid retent ion she has is with help of dialysis support. We will continue to follow with preschool teacher's assistant for that. Continue current therapy furosemide. Continue current antihypertensive medication and diabetes man agement. Tomorrow, I will go ahead and order MRI of thoracic and lumbar spine without contrast and I will communicate details with the patient's mother. PURNIMA/MODL Voice ID: [id number] Report ID: [id number]
[2022-12-24] MEDS: ATORVASTATIN 80 MG TAB PO SCH (20:48)
[2022-12-25 06:17] VITALS: BMI 48.3
[2022-12-25] MEDS: INSULIN -REGULAR HUMAN 50 UNIT/0.5 ML ML SQ SCH ×4 (07:30→20:29)
[2022-12-25] MEDS: SPIRONOLACTONE 25 MG TABLET PO SCH (09:01)
[2022-12-25] MEDS: CLONIDINE HCL 0.3 MG TAB PO SCH ×3 (09:01→21:48)
[2022-12-25] MEDS: SEVELAMER CARBONATE 800 MG TABLET PO SCH ×3 (09:01→16:12)
[2022-12-25] MEDS: carvediloL 25 MG TAB PO SCH ×2 (09:01→16:11)
[2022-12-25] MEDS: HEPARIN 5000 UNIT/ML 1 ML VIAL SQ SCH ×2 (09:02→21:48)
[2022-12-25] MEDS: CELECOXIB 100 MG CAPSULE PO SCH (09:02)
[2022-12-25] MEDS: FUROSEMIDE 40 MG/4 ML VIAL IV SCH ×2 (09:02→16:11)
[2022-12-25] MEDS: ESCITALOPRAM 20 MG TAB PO SCH (09:02)
[2022-12-25] MEDS: NIFEDIPINE XL 60 MG TABLET PO SCH (09:03)
[2022-12-25] MEDS: GABAPENTIN 300 MG CAP PO SCH (09:03)
[2022-12-25] MEDS: SERTRALINE HCL 50 MG TAB PO SCH (09:03)
--- NOTE | 2022-12-25 13:09 | P.PN ---
Nehrology note (S) Pt seen resting comfortably, no acute complaints. Denies CP or dyspnea. CT findings noted, primary team may be ordered MRI to further eval for diskitis/other General: Alert, In no apparent distress, Cooperative HEENT: Atraumatic, Normocephalic Neck: Supple Respiratory: Normal air movement, Other (No rhonchi or wheezes anteriorly) Cardiovascular: Regular rate/rhythm, Normal S1 S2 Gastrointestinal: Soft and benign, Non-distended, No tenderness, Other (Obese) Musculoskeletal: No tenderness, Swelling (1+ distal LE edema b/l) Integumentary: No breakdown, No significant lesion Neurological: Normal strength at 5/5 x4 extr, Normal tone Laboratory Data (last 24 hrs) 12/21/22 18:43: Reviewed in the EMR. Conclusions/Impression: A/P) ESRD -Will perform additional HD today primarily for ultrafiltration, will cont OP HD schedule, metab profile acceptable HTN with CKD/ CHF -Pt does have some pulm/peripheral edema on admission, will cont to re-establish EDW -F/u post HD BP, will add ARB to her regimen Diastolic CHF, A/C. Pulm HTN unspecified -As mentioned above, pt may benefit from spironolactone as small studies have shown benefits extending to ESRD pts and concerns for hyperkalemia are less so as these pts are mostly anephric and K is controlled by regular HD and cation exchangers if needed. Started last week Emery De La Fuente MD, KAL
[2022-12-25] MEDS: LOSARTAN POTASSIUM 50 MG TABLET PO SCH (13:24)
--- NOTE | 2022-12-25 21:22 | PN ---
Date of Progress Note: 12/25/2022 Subjective: The patient was seen this morning for followup. No new complaints or problems reported by the patient. Lying in bed, not in any distress. Objective: Vital Signs: Reviewed. HEENT: Unremarkable. Lungs: Clear to auscultation. Heart: Sounds normal. Abdomen: Soft. Bowel sounds normal. No guarding, rigidity, tenderness, distention. Extremities: Leg edema present, but better than before. Impression: 1.Chronic systolic congestive heart failure, with acute exacerbation. 2.End-stage renal disease, on hemodialysis. 3.Hypertension. 4.Anemia due to chronic kidney disease. 5.Diabetes mellitus. Plan: We will go ahead and continue current insulin per sliding scale. Continue current antihyperte nsive medications. Blood pressure is under good control. We will continue to follow with nephrologi st for dialysis support and today MRI of the thoracic and lumbar spine will be done, we will follow u p on that result. Continue current diuretic therapy. PURNIMA/MODL Voice ID: [id number] Report ID: [id number]
[2022-12-25] MEDS: ATORVASTATIN 80 MG TAB PO SCH (21:48)
--- NOTE | 2022-12-26 07:07 | ECHO ---
HEIGHT: 5 ft 1 in WEIGHT: 256 lb 0 oz DATE OF STUDY: 12/25/[address]: Aristides Nicholson MD 2-DIMENSIONAL: YES M.MODE: YES DOPPLER: YES COLOR FLOW: YES TDS: PORTABLE: YES DEFINITY: BUBBLE STUDY: DIAGNOSIS: CONGESTIVE HEART FAILURE CARDIAC HISTORY: CATHERIZATION: NO SURGERY: NO PROSTHETIC VALVE: NO PACEMAKER: NO MEASUREMENTS (cm) DIASTOLIC (NORMALS) SYSTOLIC (NORMALS) IVSd 1.3 (0.6-1.2) LA Diam 4.2 (1.9-4.0) LVEF 52% LVIDd 5.1 (3.5-5.7) LVIDs 3.7 (2.0-3.5) %FS 27% LVPWd 1.3 (0.6-1.2) Ao Diam 2.7 (2.0-3.7) 2 DIMENSIONAL ASSESSMENT: RIGHT ATRIUM: NORMAL LEFT ATRIUM: DILATED RIGHT VENTRICLE: NORMAL LEFT VENTRICLE: NORMAL TRICUSPID VALVE: NORMAL MITRAL VALVE: MITRAL ANNULAR CALCIFICATION PULMONIC VALVE: NORMAL AORTIC VALVE: NORMAL PERICARDIAL EFFUSION: NONE AORTIC ROOT: NORMAL LEFT VENTRICULAR WALL MOTION: NORMAL EJECTION FRACTION. DECREASED LEFT VENTRICULAR COMPLIANCE. DOPPLER/COLOR FLOW: MILD MITRAL REGURGITATION, TRICUSPID REGURGITATION. MODERATE PULMONARY HYPERTENSION. COMMENTS: 1. DECREASED LEFT VENTRICULAR COMPLIANCE. NORMAL EJECTION FRACTION 2. GRADE I DIASTOLIC DYSFUNCTION 3. MILD MITRAL REGURGITATION, TRICUSPID REGURGITATION. MODERATE PULMONARY HYPERTENSION. RIGHT VENTRICULAR SYSTOLIC PRESSURE 50 mmHg TECHNOLOGIST: TOAN REYNOLDS
[2022-12-26] MEDS: INSULIN -REGULAR HUMAN 50 UNIT/0.5 ML ML SQ SCH ×4 (07:30→20:49)
[2022-12-26] MEDS: SERTRALINE HCL 50 MG TAB PO SCH (09:03)
[2022-12-26] MEDS: CLONIDINE HCL 0.3 MG TAB PO SCH ×3 (09:03→21:02)
[2022-12-26] MEDS: CELECOXIB 100 MG CAPSULE PO SCH (09:03)
[2022-12-26] MEDS: LOSARTAN POTASSIUM 50 MG TABLET PO SCH (09:03)
[2022-12-26] MEDS: SEVELAMER CARBONATE 800 MG TABLET PO SCH ×3 (09:03→16:44)
[2022-12-26] MEDS: GABAPENTIN 300 MG CAP PO SCH (09:03)
[2022-12-26] MEDS: carvediloL 25 MG TAB PO SCH ×2 (09:03→16:45)
[2022-12-26] MEDS: ESCITALOPRAM 20 MG TAB PO SCH (09:03)
[2022-12-26] MEDS: FUROSEMIDE 40 MG/4 ML VIAL IV SCH ×2 (09:04→16:44)
[2022-12-26] MEDS: SPIRONOLACTONE 25 MG TABLET PO SCH (09:04)
[2022-12-26] MEDS: NIFEDIPINE XL 60 MG TABLET PO SCH (09:04)
[2022-12-26] MEDS: HEPARIN 5000 UNIT/ML 1 ML VIAL SQ SCH ×2 (09:04→21:02)
--- NOTE | 2022-12-26 10:32 | RAD REPORT ---
EXAM DESCRIPTION: MRI - Thoracic Spine Wo Contr - 12/26/2022 9:46 am CLINICAL HISTORY: abnormal CT scan COMPARISON: Chest Abd Pelvis Wo Con dated 12/22/2022 TECHNIQUE: Multiplanar multisequence MRI of the thoracic spine, obtained without IV contrast. FINDINGS: The vertebral body heights and disc spaces are maintained, except for mild disc height los s and endplate irregularities at T10-11. . No appreciable endplate destructive changes at that level. Marrow pattern of the thoracic spine is within normal limits. Disc osteophyte complexes and facet and costovertebral joint arthropathy most pronounced at T10-11 an d T11-12 contribute to mild effacement of the CSF spaces, with up to mild central canal stenosis at b oth levels. Neural foramina are patent. No paraspinal mass or hematoma. The thoracic cord is normal in size and signal. IMPRESSION: Degenerative changes as above contributing to mild central canal stenosis at T10-11 and T11-12. No acute findings.
--- NOTE | 2022-12-26 10:39 | RAD REPORT ---
EXAM DESCRIPTION: MRI - Lumbar Spine Wo Con - 12/26/2022 9:46 am CLINICAL HISTORY: abnormal CT scan COMPARISON: Chest Abd Pelvis Wo Con dated 12/22/2022 TECHNIQUE: Multiplanar multisequence MRI of the lumbar spine performed, without intravenous gadolini um contrast. FINDINGS: Preserved lumbar lordosis without spondylolisthesis. Vertebral body heights are well main tained. Moderate disc height loss at L4-5. Endplate irregularity without discrete destructive changes, althou gh poor signal to noise ratio somewhat limits evaluation on the T1 images. Fluid signal intensity is present within the disc space. Adjacent increased T2 signal along the L4-5 endplates, favored to be d egenerative in nature. Similar minimal marrow signal abnormalities adjacent to the L5-S1 endplates, a lso favored to be degenerative in nature. Prevertebral soft tissues are unremarkable. Conus terminates at the appropriate level. Cauda equina roots are unremarkable, with no clumping or t hickening. T12-L1: No significant findings. L1-L2: No significant findings. L2-L3: No significant findings. L3-L4 level: No significant findings. L4-L5 level: Asymmetric disc osteophyte complex formation with superimposed right subarticular/forami nal disc extrusion. Bilateral facet arthropathy and ligamentum flavum buckling and facet effusion. Ov erall mild canal stenosis with asymmetric right lateral recess narrowing. Right moderate to severe an d left moderate neural foraminal narrowing. L5-S1 level: Posterior disc osteophyte complex formation, asymmetrically more pronounced along the le ft foraminal zone. Bilateral facet arthropathy worse on the left. No significant central canal stenos is. Left moderate and right minimal neural foraminal narrowing. IMPRESSION: Indeterminate fluid signal intensity present within the L4-5 disc space. Endplate irregu larities and adjacent marrow degenerative changes at L4-5 and to lesser extent at L5-S1 are favored t o be degenerative in nature. No appreciable endplate destructive changes with particular attention to L4-5, although poor signal to noise ratio limits evaluation. Level degenerative changes as above contributing to mild central canal stenosis at L4-5 with asymmetr ic right lateral recess narrowing. Variable degrees of neural foraminal narrowing worst at L4-5 on th e right.
--- NOTE | 2022-12-26 11:20 | P.PN ---
Nehrology note (S) Pt seen resting comfortably, although does still report some RLQ pain, off O2, O2 sats in the low 90s. MRI reports reviewed General: Alert, In no apparent distress, Cooperative HEENT: Atraumatic, Normocephalic, hearing impaired Neck: Supple Respiratory: Normal air movement, Other (No rhonchi or wheezes anteriorly) Cardiovascular: Regular rate/rhythm, Normal S1 S2 Gastrointestinal: Soft and benign, Non-distended, No tenderness, Other (Obese) Musculoskeletal: No tenderness, Swelling (1+ distal LE edema b/l) Integumentary: No breakdown, No significant lesion Neurological: Awake, alert, responsive Laboratory Data (last 24 hrs) 12/21/22 18:43: Reviewed in the EMR. Conclusions/Impression: A/P) ESRD -Will dialyze today per OP HD schedule, no new labs. HTN with CKD/ CHF -Pt did have some pulm/peripheral edema on admission, will cont to re-establish EDW -F/u post HD BP, BP overall improved, did add ARB to her regimen Diastolic CHF, A/C. Pulm HTN unspecified. Echo reported noted. Mild MR -As mentioned above, pt may benefit from spironolactone as small studies have shown benefits extending to ESRD pts and concerns for hyperkalemia are less so as these pts are mostly anephric and K is controlled by regular HD and cation exchangers if needed. Started last week Emery De La Fuente MD, KAL
[2022-12-26] MEDS: ATORVASTATIN 80 MG TAB PO SCH (21:02)
[2022-12-27 03:56] VITALS: O2SAT 98
--- NOTE | 2022-12-27 07:14 | PN ---
Date of Progress Note: 12/26/2022 Subjective: Patient was seen this morning for followup. No new complaints or problems reported by h er. She was lying in bed, not in any distress. Denies any new complaints. No nausea or vomiting. Her vital signs reviewed. Her echocardiogram from yesterday, results reviewed. Physical Examination: HEENT: Unremarkable. Lungs: Clear to auscultation. Heart: Sounds normal. Abdomen: Soft. Bowel sounds normal. No guarding, rigidity, tenderness, or distention. Extremities: Trace leg edema. Overall leg swelling has gotten much better. Impression: 1.Congestive heart failure, chronic, systolic, with acute exacerbation. 2.End-stage renal disease, on hemodialysis. 3.Hypertension. 4.Anemia due to chronic kidney disease. Plan: The patient's echocardiogram had shown normal ejection fraction. Back in 2018, her ejection f raction was low at 36% and it has improved since that time and now it is normal. We will continue di alysis support per patent drafter. Her intake, output, daily weight record reviewed. For last few day s, her weight has been recorded as 256 pounds, which is hard to believe, so I did [facility] to make sure to get acute daily weight recordings. We will continue to follow up with patent drafter for dialysis support. MRI of the lumbar and thoracic spine done today shows changes of osteoarthritis. No other concern right now clinically. I did call patient's mother and discussed de tails with her as well. PURNIMA/MODL Voice ID: [id number] Report ID: [id number]
[2022-12-27] MEDS: INSULIN -REGULAR HUMAN 50 UNIT/0.5 ML ML SQ SCH ×2 (07:30→11:30)
[2022-12-27 08:32] LABS: Absolute Lymphocytes (CBC) 0.8 K/uL (0.7-4.9); Hematocrit 33.2 % (36.0-45.0); Lymphocytes % 16.1 % (15.3-44.8); MCV 85.9 fL (80-100); MPV 7.7 fL (7.6-11.3); RBC Red Blood Cell Count 3.86 M/uL (3.86-4.86)
[2022-12-27] MEDS: SPIRONOLACTONE 25 MG TABLET PO SCH (09:11)
[2022-12-27] MEDS: carvediloL 25 MG TAB PO SCH (09:11)
[2022-12-27] MEDS: SEVELAMER CARBONATE 800 MG TABLET PO SCH ×2 (09:11→12:08)
[2022-12-27] MEDS: CLONIDINE HCL 0.3 MG TAB PO SCH ×2 (09:11→14:00)
--- NOTE | 2022-12-27 09:11 | RAD REPORT ---
EXAM DESCRIPTION: RAD - Chest Single View - 12/27/2022 8:33 am CLINICAL HISTORY: CHF Chest pain. COMPARISON: Chest Single View dated 12/21/2022; Chest Single View dated 03/26/2022; Chest Single View da christal 12/03/2021; Chest Single View dated 12/01/2021 FINDINGS: Portable technique limits examination quality. Mild interstitial pulmonary edema shows no real change since 12/21/2022 study. The heart is moderatel y enlarged. No displaced fractures. IMPRESSION: Mild CHF/ volume overload pattern appears unchanged.
[2022-12-27] MEDS: FUROSEMIDE 40 MG/4 ML VIAL IV SCH (09:12)
[2022-12-27] MEDS: LOSARTAN POTASSIUM 50 MG TABLET PO SCH (09:12)
[2022-12-27] MEDS: CELECOXIB 100 MG CAPSULE PO SCH (09:12)
[2022-12-27] MEDS: ESCITALOPRAM 20 MG TAB PO SCH (09:12)
[2022-12-27] MEDS: HEPARIN 5000 UNIT/ML 1 ML VIAL SQ SCH (09:12)
[2022-12-27] MEDS: GABAPENTIN 300 MG CAP PO SCH (09:13)
[2022-12-27] MEDS: SERTRALINE HCL 50 MG TAB PO SCH (09:13)
[2022-12-27] MEDS: NIFEDIPINE XL 60 MG TABLET PO SCH (09:13)
[2022-12-27 09:38] LABS: Anisocytosis 1+; Blood Morphology Comment NOTED (NOT SEEN); Platelet Estimate ADEQ; White Blood Cell Scan OK (OK)
[2022-12-27 09:39] LABS: Target Cells FEW
[2022-12-27 12:14] VITALS: BP 142/68; TEMP 97.5
[2022-12-27 12:17] LABS: Potassium 3.9 mEq/L (3.5-5.1)
--- NOTE | 2022-12-27 22:41 | DS ---
Date of Discharge: 12/27/2022 Physical Examination: HEENT: Unremarkable. Lungs: Clear to auscultation. Heart: Sounds normal. Abdomen: Soft. Bowel sounds normal. No guarding, rigidity, tenderness, or distention. Extremities: Leg edema problem has almost completely resolved except very trace edema on the dorsum foot. Discharge Medications And Instructions: 1.Continue all prior home medications except change Lantus insulin and the patient to take 20 units subcutaneous injection daily in the morning, but do not take any Lantus insulin dose at nighttime and this was explained to patient's mother also when I communicated with her yesterday. 2.Follow up at my office next week. Laboratory Data: Upon admission white count was 6.4, hemoglobin 10, and platelets 191. Sodium 134, potassium 3.9, chloride 102, bicarb 28, BUN 29, creatinine 4.29, and glucose 69. Her hemoglobin A1c done today was 6.2. Sodium level today was 125, repeat sodium was 126. ProBNP upon admission 24,103 . Hospital Course: This is a 57-year-old pleasant female patient admitted to the hospital with leg swe lling and abdominal pain. Please see dictated H and P for more information. After the patient was e valuated at the office, she was admitted to the hospital. See dictated H and P for more details. Af ter she was admitted, Nephrology consultation was requested. The patient received her dialysis and o verall her condition has improved. She had a low ejection fraction of 36% in 2018 and since that yariel e her ejection fraction has improved, as we have noted on echocardiogram done during this hospital ad mission showing normal ejection fraction. She was given IV Lasix during this hospital admission and dialysis support was provided by entry level administrative assistant. Overall, leg swelling has almost completely resolved. Abdominal pain has improved. The patient's weight was checked during this hospitalization and I am not sure about the validity of the weight, but in any case her weight today was 265 pounds. I will have to go ahead and follow up on this on outpatient basis through the office weight scale. MRI of t he lumbar spine, as we saw some abnormality on the CAT scan and it appears that abnormalities noted o n the CAT scan is due to degenerative joint disease involving the lumbar and thoracic spine. Final Diagnoses: 1.Chronic systolic heart failure with acute exacerbation. 2.End-stage renal disease, on hemodialysis. 3.Anemia due to chronic kidney disease. 4.Hyponatremia. 5.Hypertension. 6.Mixed hyperlipidemia. 7.Diabetes mellitus with diabetic retinopathy. 8.Diabetes mellitus with chronic kidney disease. 9.Osteoarthritis, multiple sites. PURNIMA/MODL Voice ID: [id number] Report ID: [id number]
== END 2022-12-27 14:22 | disposition home or self-care (01) | DRG 291 ==
LOC: 2ND 17:35
PROVIDERS: ADMIT Internal Medicine; ATTEND Internal Medicine
PROC: 5A1D70Z Performance of Urinary Filtration, Intermittent, Less than 6 Hours Per Day (ICD-10-PCS; principal; 2022-12-22)
DX: I13.2 Hypertensive heart and chronic kidney disease with heart failure and with stage 5 chronic kidney disease, or end stage renal disease (principal); I50.23 Acute on chronic systolic (congestive) heart failure; N18.6 End stage renal disease; Z68.42 Body mass index [BMI] 45.0-49.9, adult; E87.1 Hypo-osmolality and hyponatremia; E66.01 Morbid (severe) obesity due to excess calories; E11.22 Type 2 diabetes mellitus with diabetic chronic kidney disease; E11.319 Type 2 diabetes mellitus with unspecified diabetic retinopathy without macular edema; D63.1 Anemia in chronic kidney disease; I27.20 Pulmonary hypertension, unspecified; M19.09 Primary osteoarthritis, other specified site; E78.2 Mixed hyperlipidemia; Z99.2 Dependence on renal dialysis; Z79.4 Long term (current) use of insulin; Z79.899 Other long term (current) drug therapy
CPT/HCPCS: 36415; 71045; 71250; 72146; 72148; 74176; 80048; 80053; 82947; 83036; 83735; 83880; 85025; 86706; 87340; 90935; 93306; J1644; J1815; J1940

== ENCOUNTER 2023-03-18 14:59 | Emergency (ER) | payer OTHER ==
--- OUTSIDE RECORDS SUMMARY | 2023-03-18 15:04 | XMS REPORT | Continuity of Care Document ---
:1965 Author Organization [facility] t Address [address] [place] [address] Care Team Providers Name Role Phone Lexi Attending Clinician Unavailable Lexi Admitting Clinician Unavailable Payers Payer Name Policy Type Policy Number Effective Date Expiration Date [place]: [id number] 1993 20:20 Mobile 00:00:00 [employer] [id number] 2017 [facility] - 00:00:00 [employer] (HMO) [employer] [id number] 2017 [facility] (MEDICAID 00:00:00 HMO) MEDICARE-[place] [id number] 1993 (MEDICARE) 00:00:00 Problems Condition Condition Condition Status Onset Resolution Last Treating Co mments Source Name Details Category Date Date Treatment Clinician Date Congestive Congestive Problem Active 2021-07 [facility] 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 00:00: Practic 00 e Long-term Long-term Problem Active 2021-07 Elia ceballos current Current 11 Family use of Use of 00:00: Practic insulin Insulin 00 e Tinea Tinea Problem Active [facility] pedis Pedis 1-05 Family 00:00: Practic 00 e Type 2 Type 2 Problem Active [facility] diabetes Diabetes 1-05 Family mellitus Mellitus 00:00: [...] 00 e Morbid Morbid Problem Active 2016-07 [facility] obesity Obesity 0-16 Family 00:00: Practic [...] 00 e Kidney Kidney Problem Active 2016-07 [facility] disease Disease 0-16 Family 00:00: Practic 00 e Clinical Clinical Problem Active Rafy frias finding [facility] Allergies, Adverse Reactions, Alerts This patient has no known allergies or adverse reactions. Social History Social Habit Start Date Stop Date Quantity Comments Source Sex Assigned At [address] [facility] 00:00:00 [facility]:00:00 [facility] Smoking Status Start Date Stop Date Source Never Smoker [facility] P pablito Medications Ordered Filled Start Stop Current Ordering Indication Dosage Frequency Signature Comments Components Source Medication Medication Date Date Medication? Clinician (SIG) Name Name Afluria Qd Afluria Qd No Afluria Qd [facility] ( ( Family mos mos (36 mos Practic up)(PF)60 up)(PF)60 up)(PF)60 e mcg (15 mcg mcg (15 mcg mcg (15 x4)/0.5 mL x4)/0.5 mL mcg IM syringe IM syringe x4)/0.5 mL ADM 0.5ML ADM 0.5ML IM syringe IM UTD IM UTD ADM 0.5ML IM UTD atorvastati atorvastati No atorvastat [facility] n 80 mg n 80 mg in 80 mg Famil y tablet tablet tablet Practic e BD BD No BD [facility] Ultra-Fine Ultra-Fine Ultra-Fine Family Mini Pen Mini Pen Mini Pen Pra ctic Needle 31 Needle 31 Needle 31 e gauge x gauge x gauge x 3/16" USE 316" USE 316" USE DIRECTED DIRECTED 5 TIMES 5 TIMES DIRECTED 5 DAILY DAILY TIMES DAILY carvedilol carvedilol No carvedilol [facility] 25 mg 25 mg 25 mg Family tablet TAKE tablet TAKE tablet Practic 1 TABLET BY 1 TABLET BY TAKE 1 e MOUTH TWICE MOUTH TWICE TABLET BY A DAY A DAY MOUTH TWICE A DAY celecoxib celecoxib No celecoxib [facility] 200 mg 200 mg 200 mg Family capsule capsule capsule Practi c TAKE 1 TAKE 1 TAKE 1 e CAPSULE BY CAPSULE BY CAPSULE BY MOUTH EVERY MOUTH EVERY MOUTH DAY DAY EVERY DAY clonidine clonidine No clonidine [facility] HCl 0.3 mg HCl 0.3 mg HCl 0.3 mg Family tablet TAKE tablet TAKE tablet Practic 1/2 TABLET 1/2 TABLET TAKE 1/2 e BY MOUTH 3 BY MOUTH 3 TABLET BY TIMES A DAY TIMES A DAY MOUTH 3 TIMES A DAY Comfort EZ Comfort EZ No 2needle Q1D Comfort EZ [facility] Pen Pioneer Pen Pioneer (s) Pen F amily 31 gauge x 31 gauge x Pioneer 31 Practic 12/05" Take 12/05" Take gauge [...] route. Eliquis 2.5 Eliquis 2.5 No Eliquis [facility] mg tablet mg tablet 2.5 mg Fam anselmo TAKE 1 TAKE 1 tablet Practic TABLET BY TABLET BY TAKE 1 e MOUTH TWICE MOUTH TWICE TABLET BY A DAY A DAY MOUTH TWICE A DAY Entresto 24 Entresto 24 No Entresto [facility] mg-26 mg mg-26 mg 24 mg-26 Fam anselmo tablet TAKE tablet TAKE mg tablet Practic 1 TABLET BY 1 TABLET BY TAKE 1 e MOUTH TWICE MOUTH TWICE TABLET BY A DAY A DAY MOUTH TWICE A DAY escitalopra escitalopra No escitalopr [facility] m 10 mg m 10 mg am 10 mg Famil y tablet TAKE tablet TAKE tablet Practic 1 TABLET BY 1 TABLET BY TAKE 1 e MOUTH EVERY MOUTH EVERY TABLET BY DAY WITH DAY WITH MOUTH BREAKFAST BREAKFAST EVERY DAY WITH BREAKFAST furosemide furosemide No furosemide [facility] 80 mg 80 mg 80 mg Family tablet TAKE tablet TAKE tablet Practic 2 TABLETS 2 TABLETS TAKE 2 e BY MOUTH BY MOUTH TABLETS BY TWICE A DAY TWICE A DAY MOUTH TWICE A DAY gabapentin gabapentin No gabapentin [facility] 100 mg 100 mg 100 mg [...] DOSE OF 40 Lantus Lantus No Lantus [facility] Solostar Solostar Solostar Fam anselmo U-100 [...] directed: TDD 100 metoprolol metoprolol No metoprolol [facility] tartrate tartrate tartrate Fam anselmo 100 mg 100 mg 100 mg Practic tablet TAKE tablet TAKE tablet e 1 TABLET BY 1 TABLET BY TAKE 1 MOUTH TWICE MOUTH TWICE TABLET BY A DAY A DAY MOUTH TWICE A DAY nifedipine nifedipine No nifedipine [facility] ER 60 mg ER 60 mg ER 60 mg Fam anselmo tablet,exte tablet,exte tablet,ext Practic nded nded ended e release release release TAKE 1 TAKE 1 TAKE 1 TABLET BY TABLET BY TABLET BY MOUTH EVERY MOUTH EVERY MOUTH DAY DAY EVERY DAY nifedipine nifedipine No nifedipine [facility] ER 60 mg ER 60 mg ER 60 mg Fam anselmo tablet,exte tablet,exte tablet,ext Practic nded nded ended e release 24 release 24 release 24 hr TAKE 1 hr TAKE 1 hr TAKE 1 TABLET BY TABLET BY TABLET BY MOUTH ONCE MOUTH ONCE MOUTH ONCE A DAY A DAY A DAY ondansetron ondansetron No ondansetro [facility] HCl 4 mg HCl 4 mg n HCl 4 mg F amily tablet tablet tablet Practic e promethazin promethazin No promethazi [facility] e 6.25 e 6.25 ne 6.25 [...] route. route. route. sevelamer sevelamer No sevelamer [facility] carbonate carbonate carbonate Family 800 mg [...] DAY WITH A SNACK Trulicity Trulicity No ulicity [facility] 1.5 mg/0.5 1.5 mg/0.5 1.5 mg/0.5 [...] Afluria Qd Afluria Qd No Afluria Qd [facility] ( ( Family mos mos (36 mos Practic up)(PF)60 up)(PF)60 up)(PF)60 e mcg (15 mcg mcg (15 mcg mcg (15 x4)/0.5 mL x4)/0.5 mL mcg IM syringe IM syringe x4)/0.5 mL ADM 0.5ML ADM 0.5ML IM syringe IM UTD IM UTD ADM 0.5ML IM UTD atorvastati atorvastati No atorvastat [facility] n 80 mg n 80 mg [...] x gauge x 3/16" USE 3/16" USE 3/16" USE DIRECTED DIRECTED 4 TIMES 4 TIMES DIRECTED 4 DAILY DAILY TIMES DAILY carvedilol carvedilol No carvedilol [facility] 25 mg 25 mg 25 mg Family tablet TAKE tablet TAKE tablet Practic 1 TABLET BY 1 TABLET BY TAKE 1 e MOUTH TWICE MOUTH TWICE TABLET BY A DAY A DAY MOUTH TWICE A DAY celecoxib celecoxib No celecoxib [facility] 200 mg 200 mg 200 mg Family capsule capsule capsule Practi c TAKE 1 TAKE 1 TAKE 1 e CAPSULE BY CAPSULE BY CAPSULE BY MOUTH EVERY MOUTH EVERY MOUTH DAY DAY EVERY DAY clonidine clonidine No clonidine [facility] HCl 0.3 mg HCl 0.3 mg HCl 0.3 mg Family tablet TAKE tablet TAKE tablet Practic 1/2 TABLET 1/2 TABLET TAKE 1/2 e BY MOUTH 3 BY MOUTH 3 TABLET BY TIMES A DAY TIMES A DAY MOUTH 3 TIMES A DAY Comfort EZ Comfort EZ No 2needle Q1D Comfort EZ [facility] Pen Pioneer Pen Pioneer (s) Pen F amily 31 gauge x 31 gauge x Pioneer 31 Practic 16" Take 12/05" Take gauge x e 2 [...] DAY Entresto 24 Entresto 24 No Entresto [facility] mg-26 mg mg-26 mg 24 mg-26 Fam anselmo tablet TAKE tablet TAKE mg tablet Practic 1 TABLET BY 1 TABLET BY TAKE 1 e MOUTH TWICE MOUTH TWICE TABLET BY A DAY A DAY MOUTH TWICE A DAY escitalopra escitalopra No escitalopr [facility] m 10 mg m 10 mg am 10 mg Famil y tablet TAKE tablet TAKE tablet Practic 1 TABLET BY 1 TABLET BY TAKE 1 e MOUTH EVERY MOUTH EVERY TABLET BY DAY WITH DAY WITH MOUTH BREAKFAST BREAKFAST EVERY DAY WITH BREAKFAST furosemide furosemide No furosemide [facility] 80 mg 80 mg 80 mg Family tablet TAKE tablet TAKE tablet Practic 2 TABLETS 2 TABLETS TAKE 2 e BY MOUTH BY MOUTH TABLETS BY TWICE A DAY TWICE A DAY MOUTH TWICE A DAY gabapentin gabapentin No gabapentin [facility] 300 mg 300 mg 300 mg [...] DOSE OF 40 Lantus Lantus No Lantus [facility] Solostar Solostar Solostar Fam anselmo U-100 [...] DOSE 100 UNIT metoprolol metoprolol No metoprolol [facility] tartrate tartrate tartrate Fam anselmo 100 mg 100 mg 100 mg Practic tablet TAKE tablet TAKE tablet e 1 TABLET BY 1 TABLET BY TAKE 1 MOUTH TWICE MOUTH TWICE TABLET BY A DAY A DAY MOUTH TWICE A DAY nifedipine nifedipine No nifedipine [facility] ER 60 mg ER 60 mg ER 60 mg Fam anselmo tablet,exte tablet,exte tablet,ext Practic nded nded ended e release 24 release 24 release 24 hr TAKE 1 hr TAKE 1 hr TAKE 1 TABLET BY TABLET BY TABLET BY MOUTH ONCE MOUTH ONCE MOUTH ONCE A DAY A DAY A DAY [facility] mg HCl 4 mg n HCl 4 mg F amily tablet tablet tablet Practic e promethazin promethazin No promethazi [facility] e 6.25 e 6.25 ne 6.25 [...] route. route. route. sevelamer sevelamer No sevelamer [facility] carbonate carbonate carbonate Family 800 mg [...] DAY WITH A SNACK [facility] 1.5 mg/0.5 1.5 mg/0.5 1.5 mg/0.5 Family mL mL mL Practic subcutaneou subcutaneou subcutaneo e s pen s pen us pen injector injector injector INJECT 1.5 INJECT 1.5 INJECT 1.5 MG UNDER MG UNDER MG UNDER THE SKIN THE SKIN THE SKIN ONCE EVERY ONCE EVERY ONCE EVERY 2 WEEKS 2 WEEKS 2 WEEKS Trulicity 3 Trulicity 3 [facility] mL mg/0.5 mL 3 mg/0.5 F [...] Afluria Qd No Afluria Qd [facility] ( (36 Family mos mos (36 mos Practic [...] x gauge x gauge x 3/16" USE 10/05" USE 10/05" USE DIRECTED DIRECTED 4 TIMES 4 TIMES DIRECTED 4 DAILY DAILY TIMES DAILY carvedilol carvedilol No carvedilol [facility] 25 mg 25 mg 25 mg Family tablet TAKE tablet TAKE tablet Practic 1 TABLET BY 1 TABLET BY TAKE 1 e MOUTH TWICE MOUTH TWICE TABLET BY A DAY A DAY MOUTH TWICE A DAY celecoxib celecoxib No celecoxib [facility] 200 mg 200 mg 200 mg Family capsule capsule capsule Practi c TAKE 1 TAKE 1 TAKE 1 e CAPSULE BY CAPSULE BY CAPSULE BY MOUTH EVERY MOUTH EVERY MOUTH DAY DAY EVERY DAY clonidine clonidine No clonidine [facility] HCl 0.3 mg HCl 0.3 mg HCl 0.3 mg Family tablet TAKE tablet TAKE tablet Practic 1/2 TABLET 1/2 TABLET TAKE 1/2 e BY MOUTH 3 BY MOUTH 3 TABLET BY TIMES A DAY TIMES A DAY MOUTH 3 TIMES A DAY Comfort EZ Comfort EZ No 2needle Q1D Comfort EZ [facility] Pen Pioneer Pen Pioneer (s) Pen F amily 31 gauge x 31 gauge x Pioneer 31 Practic 5/16" Take 5/16" Take gauge x e 2 needles 2 needles 5/16" Take every day every day 2 needles [...] route. Eliquis 2.5 Eliquis 2.5 No Eliquis [facility] mg tablet mg tablet 2.5 mg Fam anselmo TAKE 1 TAKE 1 tablet Practic TABLET BY TABLET BY TAKE 1 e MOUTH TWICE MOUTH TWICE TABLET BY A DAY A DAY MOUTH TWICE A DAY Entresto 24 Entresto 24 No Entresto [facility] mg-26 mg mg-26 mg 24 mg-26 Fam anselmo tablet TAKE tablet TAKE mg tablet Practic 1 TABLET BY 1 TABLET BY TAKE 1 e MOUTH TWICE MOUTH TWICE TABLET BY A DAY A DAY MOUTH TWICE A DAY escitalopra escitalopra No escitalopr [facility] m 10 mg m 10 mg am 10 mg Famil y tablet TAKE tablet TAKE tablet Practic 1 TABLET BY 1 TABLET BY TAKE 1 e MOUTH EVERY MOUTH EVERY TABLET BY DAY WITH DAY WITH MOUTH BREAKFAST BREAKFAST EVERY DAY WITH BREAKFAST furosemide furosemide No furosemide [facility] 80 mg 80 mg 80 mg Family tablet TAKE tablet TAKE tablet Practic 2 TABLETS 2 TABLETS TAKE 2 e BY MOUTH BY MOUTH TABLETS BY TWICE A DAY TWICE A DAY MOUTH TWICE A DAY gabapentin gabapentin No gabapentin [facility] 300 mg 300 mg 300 mg [...] DOSE OF 40 Lantus Lantus No Lantus [facility] Solostar Solostar Solostar Fam anselmo U-100 [...] directed: TDD 80 metoprolol metoprolol No metoprolol [facility] tartrate tartrate tartrate Fam anselmo 100 mg 100 mg 100 mg Practic tablet TAKE tablet TAKE tablet e 1 TABLET BY 1 TABLET BY TAKE 1 MOUTH TWICE MOUTH TWICE TABLET BY A DAY A DAY MOUTH TWICE A DAY nifedipine nifedipine No nifedipine [facility] ER 60 mg ER 60 mg [...] DAY A DAY ondansetron ondansetron No ondansetro [facility] 4 mg 4 mg n 4 mg Family disintegrat disintegrat disintegra Practic ing tablet ing tablet ting e tablet ondansetron ondansetron No ondansetro [facility] HCl 4 mg HCl 4 mg n HCl 4 mg F amily tablet tablet tablet Practic e promethazin promethazin No promethazi [facility] e 6.25 e 6.25 ne 6.25 [...] ramipril 5 No 1capsul Q1D ramipril 5 [facility] mg capsule mg capsule e(s) mg capsule Family Take 1 Take 1 Take 1 Practic capsule capsule capsule e every day every day every day by oral by oral by oral route. route. route. sertraline sertraline sertraline [facility] 50 mg 50 mg 50 mg Family tablet TAKE tablet TAKE tablet Practic 1 TABLET BY 1 TABLET BY TAKE 1 e MOUTH EVERY MOUTH EVERY TABLET BY NIGHT. NIGHT. MOUTH EVERY NIGHT. sevelamer sevelamer [facility] carbonate carbonate carbonate [facility] 800 mg 800 mg 800 mg [...] A SNACK SNACK DAY WITH A SNACK [facility] Trulicity 3 No 3mg Q1W Trulicity [facility] mg/0.5 mL mg/0.5 mL 3 mg/0.5 F [...] Date Status Commen ts Source Name Name Tdpete Tdpete 2020-11-05 Completed [facility] Family 00:00:00 Practice Tdap Tdap 2020-11-05 [facility] Family 00:00:00 Practice Tdap Tdap 2020-11-05 Completed [facility] Family 00:00:00 Practice Non-US Vaccine Non-US Vaccine 2020-10-11 Completed [facility] COVID-19 PS COVID-19 PS 00:00:00 Practice (EpiVacCorona) (EpiVacCorona) Non-US Vaccine Non-US Vaccine 2020-10-11 Completed [facility] COVID-19 PS COVID-19 PS 00:00:00 Practice (EpiVacCorona) (EpiVacCorona) Non-US Vaccine Non-US Vaccine 2020-10-11 Completed [facility] COVID-19 PS COVID-19 PS 00:00:00 Practice (EpiVacCorona) (EpiVacCorona) COVID-19 COVID-19 2020-09-21 Completed [facility] (SARS-COV-2) (SARS-COV-2) 00:00:00 Practice vaccine, unspecified vaccine, unspecified COVID-19 COVID-19 2020-09-21 Completed [facility] (SARS-COV-2) (SARS-COV-2) 00:00:00 Practice vaccine, unspecified vaccine, unspecified COVID-19 COVID-19 2020-09-21 Completed [facility] (SARS-COV-2) (SARS-COV-2) 00:00:00 Practice vaccine, unspecified vaccine, unspecified influenza, influenza, 2020-04-22 Completed [facility] injectable, injectable, 00:00:00 Practice quadrivalent quadrivalent influenza, influenza, 2020-04-22 Completed [facility] injectable, injectable, 00:00:00 Practice quadrivalent quadrivalent influenza, influenza, 2020-04-22 Completed [facility] injectable, injectable, 00:00:00 Practice quadrivalent quadrivalent Vital Signs Vital Name Observation Time Observation Value Comments Source BP Diastolic 2022-12-07 00:00:00 68 mm[Hg] [facility] Practice Height 2022-12-07 00:00:00 61.5 [in_i] [facility] BMI (Body Mass 2022-12-07 00:00:00 41.5 kg/m2 [facility] e Family Index) Practice BP Systolic 2022-12-07 00:00:00 101 mm[Hg] [facility] Body Weight 2022-12-07 00:00:00 223 [lb_av] [facility] BP Diastolic 2022-06-02 00:00:00 68 mm[Hg] [facility] [...] Family Practice Height 2021-01-21 00:00:00 61.5 [in_i] [facility] Practice BMI (Body Mass 2021-01-21 00:00:00 52.7 kg/m2 [facility] BP Systolic 2021-01-21 00:00:00 148 mm[Hg] [facility] Practice Body Weight 2021-01-21 00:00:00 283.6 [lb_av] [facility] Practice BP Diastolic 2020-10-06 00:00:00 77 mm[Hg] [facility] Practice Height 2020-10-06 00:00:00 61.5 [in_i] [facility] Practice BMI (Body Mass 2020-10-06 00:00:00 52.9 kg/m2 [facility] BP Systolic 2020-10-06 00:00:00 151 mm[Hg] [facility] Practice Body Weight 2020-10-06 00:00:00 284.4 [lb_av] [facility] Practice BP Diastolic 2020-07-07 00:00:00 88 mm[Hg] [facility] Practice Height 2020-07-07 00:00:00 61.5 [in_i] [facility] Practice BMI (Body Mass 2020-07-07 00:00:00 53.3 kg/m2 [facility]) [facility] BP Systolic 2020-07-07 00:00:00 128 mm[Hg] [facility] Practice Body Weight 2020-07-07 00:00:00 287 [lb_av] [facility] Practice Procedures Procedure Date / Time Performed Performing Clinician Sour e HEPATITIS B SURFACE 2021-12-02 07:50:00 [facility] ANTIGEN Center HEPATITIS B CORE 2021-12-02 07:50:00 [facility] ANTIBODY, IGM Center HEPATITIS A ANTIBODY, 2021-12-02 07:50:00 [facility] IGM Center HEPATITIS C ANTIBODY 2021-12-02 07:50:00 [facility] HEPATITIS B CORE 2021-12-02 07:50:00 [facility] ANTIBODY, TOTAL Center Plan of Care Planned Activity Planned Date Details Comments Source Diagnostic Test 2022-12-07 hemoglobin A1C, Alexandr whaley Pending 00:00:00 fingerstick [code = Practice hemoglobin A1C, fingerstick] Diagnostic Test 2022-12-07 glucose, fingerstick, Elia lin Family Pending 00:00:00 [...] [facility] (procedure) [code = Medical Center [id number]] Future Scheduled Test [facility] cervix (procedure) [code = 757771760] Future Scheduled Test 1986 DTAP/TDAP/TD VACCINES [facility] 00:00:00 (1 - Tdap) [code = Medical C enter DTAP/TDAP/TD VACCINES (1 - Tdap)] Future Scheduled Test 1967 COVID-19 VACCINE (#1) [facility] 00:00:00 [code = COVID-[address] VACCINE (#1)] Future Scheduled Test 1967 [facility] breast (procedure) [code = 827767567] Future Scheduled Test [address] [facility] 00:00:00 (combo) [code = CT Medical C enter Colonography (combo)] Future Scheduled Test 1967 [facility] colon (procedure) [code = 807943886] Future Scheduled Test 1967 [facility] colon (procedure) [code = 146498839] Future Scheduled Test 1967 [facility] colon (procedure) [code = 726266498] Future Scheduled Test [facility] colon (procedure) [code = 224826262] Future Scheduled Test 1967 Sigmoidoscopy [code = [facility] S[facility]oscopy] Maryann bolaños Future Appointment 2023-06-09 Alex Alonzo, [id number] [place] [address] 00:00:[address] Practice [address], [place] [address] Future Appointment 2023-06-08 Alex Alonzo, [id number] [place] [address] 12:30:[address]; Practice [address], [place] [address] Encounters Start End Encounter Admission Attending Care Care Encounter Source Date/Time Date/Time Type Type Clinicians Facility Department ID 2023-03-08 2023-03-08 Outpatient Daniel_T_HO VFP VFP [address] [place] [address] 00:00:00 00:00:00 U_ [id number] Family Practic e 2023-02-01 2023-02-01 Outpatient Daniel_T_HO VFP VFP [address] [place] [address] 00:00:00 00:00:00 U_ [id number] Family Practic e 2022-12-07 2022-12-07 Outpatient Daniel_T VFP VFP [id number] [address] [place] [address] 00:00:00 00:00:00 [id number] Family Practic e 2022-12-07 2022-12-07 Outpatient Daniel_T VFP VFP [id number] [address] [place] [address] 00:00:00 00:00:00 [id number] Family Practic e 2022-12-07 2022-12-07 Alex VFP [place] - [id number] V illage 00:00:00 00:00:00 [facility] AlonzoMaryann - Bernard molina MD: [id number] [place] - e Shadow [facility]_HOU_[facility] [address], [place] [address] , Ph. 2022-11-23 2022-11-23 Outpatient Daniel_T VFP VFP [id number] [address] [place] [address] 00:00:00 00:00:00 [id number] Family Practic e 2022-10-10 2022-10-10 Outpatient Daniel_T VFP VFP [id number] [address] [place] [address] 00:00:00 00:00:00 [id number] Family Practic e 2022-08-31 2022-08-31 Outpatient Daniel_T VFP VFP [id number] [address] [place] [address] 00:00:00 00:00:00 [id number] Family Practic e 2022-06-27 2022-06-27 Outpatient Daniel_T VFP VFP [id number] [address] [place] [address] 00:00:00 00:00:00 [id number] Family Practic e 2022-06-02 2022-06-02 Outpatient Daniel_T VFP VFP [id number] [address] [place] [address] 00:00:00 00:00:00 [id number] Family Practic e 2022-06-02 2022-06-02 Alex VFP [place] - [id number] [facility] illage 00:00:00 00:00:00 [facility] AlonzoMaryann - Bernard molina MD: [id number] [place] Diane russell [facility], [address] [address] , Ph. 2022-02-21 2022-02-21 Outpatient Daniel_T VFP VFP [id number] [address] [place] [address] 00:00:00 00:00:00 [id number] Family Practic e 2022-02-08 2022-02-08 Outpatient Daniel_T VFP VFP [id number] [address] [place] [address] 12:11:00 12:11:00 [id number] Family Practic e 2022-01-20 2022-01-20 Outpatient Daniel_T VFP VFP [id number] [address] [place] [address] 10:23:00 10:23:00 [id number] Family Practic e 2022-01-20 2022-01-20 Alex VFP [place] - [id number] [facility] ill[facility] 00:00:00 00:00:00 [facility] AlonzoMaryann - Bernard molina MD: [id number] CYDNEY_Bartolo russell [facility], [address], [place] [address] , Ph. 2022-01-15 2022-01-15 Outpatient Daniel_T VFP VFP [id number] [address] [place] [address] 12:45:00 12:45:00 [id number] Family Practic e 2021-12-02 2021-12-02 Lab [facility] [id number] 00:00:00 00:00:00 [facility] 2021-12-02 2021-12-02 Lab [facility] [id number] 00:00:00 00:00:00 [facility] 2021-10-25 2021-10-25 Outpatient Daniel_T VFP VFP [id number] [address] [place] [address] 01:45:00 01:45:00 [id number] Family Practic e 2021-09-15 2021-09-15 Outpatient Daniel_T VFP VFP [id number] [address] [place] [address] 05:38:00 05:38:00 [id number] Family Practic e 2021-08-05 2021-08-05 Outpatient Daniel_T VFP VFP [id number] [place] [address] 04:15:00 04:15:00 [id number] Family Practic e 2021-07-27 2021-07-27 Outpatient Daniel_T VFP VFP [id number] [address] [place] [address] 02:37:00 02:37:00 [id number] Family Practic e 2021-07-27 2021-07-27 Alex VFP [place] - [id number] V illage 00:00:00 00:00:00 [facility] AlonzoMaryann - Prackaren molina MD: [id number] ELISSA_COURTNEY_Bartolo e [facility], [address], [place] [address] , Ph. 2021-06-27 2021-06-27 Outpatient Daniel_T VFP VFP [id number] [address] [place] [address] 04:21:00 04:21:00 [id number] Family Practic e 2021-06-19 2021-06-19 Outpatient Daniel_T VFP VFP [id number] [address] [place] [address] 01:15:00 01:15:00 [id number] Family Practic e 2021-05-15 2021-05-15 Outpatient Daniel_T VFP VFP [id number] [address] [place] [address] 12:47:00 12:47:00 [id number] Family Practic e 2021-04-20 2021-04-20 Outpatient Daniel_T VFP VFP [id number] [address] [place] [address] 01:33:00 01:33:00 [id number] Family Practic e 2021-04-20 2021-04-20 Alex VFP [place] - [id number] V illage 00:00:00 00:00:00 [facility] AlonzoMaryann MD: [id number] Bre russell [facility], [address], [place] [address] , Ph. 2021-04-19 2021-04-19 Outpatient Daniel_T VFP VFP [id number] [address] [place] [address] 04:29:00 04:29:00 [id number] Family Practic e 2021-04-14 2021-04-14 Outpatient Daniel_T VFP VFP [id number] [address] [place] [address] 04:01:00 04:01:00 [id number] Family Practic e 2021-04-10 2021-04-10 Outpatient Daniel_T VFP VFP [id number] [address] [place] [address] 12:38:00 12:38:00 [id number] Family Practic e 2021-01-28 2021-01-28 Outpatient Daniel_T VFP VFP [id number] [address] [place] [address] 06:38:00 06:38:00 [id number] Family Practic e 2021-01-27 2021-01-27 Outpatient Daniel_T VFP VFP [id number] [address] [place] [address] 05:59:00 05:59:00 [id number] Family Practic e 2021-01-21 2021-01-21 Outpatient Daniel_T VFP VFP [id number] [address] [place] [address] 04:50:00 04:50:00 [id number] Family Practic e 2021-01-21 2021-01-21 Alex VFP [place] - [id number] V illage 00:00:00 00:00:00 [facility] AlonzoMaryann MD: [id number] Bre russell [facility] [address] [address] , Ph. 2020-11-10 2020-11-10 Outpatient Daniel_T VFP VFP [id number] [address] [place] [address] 03:17:00 03:17:00 [id number] Family Practic e 2020-11-05 2020-11-05 Outpatient Daniel_T VFP VFP [id number] [address] [place] [address] 08:05:00 08:05:00 [id number] Family Practic e 2020-10-13 2020-10-13 Outpatient Daniel_T VFP VFP [id number] [address] [place] [address] 08:39:00 08:39:00 [id number] Family Practic e 2020-10-06 2020-10-06 Outpatient Daniel_T VFP VFP [id number] [address] [place] [address] 06:28:00 06:28:00 [id number] Family Practic e 2020-10-06 2020-10-06 Alex VFP [place] - [id number] V illage 00:00:00 00:00:00 [facility] - Prackaren molina MD: [id number] Bre russell [facility] [address], [place] [address] , Ph. 2020-07-09 2020-07-09 Outpatient Daniel_T VFP VFP [id number] [address] [place] [address] 12:49:00 12:49:00 [id number] Family Practic e 2020-07-07 2020-07-07 Outpatient Daniel_T VFP VFP [id number] [address] [place] [address] 04:59:00 04:59:00 [id number] Family Practic e 2020-07-07 2020-07-07 Alex VFP [place] - [id number] V illage 00:00:00 00:00:00 Juan [facility] - Prackaren molina MD: [id number] VMKiel russell Shadow [facility], [facility] [address], [place] [address] , Ph. 2020-06-29 2020-06-29 Outpatient Daniel_T VFP VFP [id number] [address] [place] [address] 11:43:00 11:43:00 [id number] Family Practic e 2020-06-29 2020-06-29 Outpatient Daniel_T VFP VFP [id number] 9-20 [facility] 11:43:00 11:43:00 [id number] Family Practic e 2020-03-24 2020-03-24 [facility] [id number] [facility] 10:48:00 10:48:00 Family Practic e Results Test Description Test Time Test Comments Results Result Comments Source Hemoglobin A1c measurement device panel 2022-12-07 14:25:35 Test Item Value Reference Range Interpretation Comme nts Hemoglobin A1c/Hemoglobin.total in Blood (test code = 4548-4) 6.2 % 4.0-6.4 [facility] Capillary [id number] 14:24:39 Test Item Value Reference Range Interpretation Comments Blood Glucose: mg/dl (test code = Blood 99 Glucose: mg/dl) [facility] [id number] 11:39:52 Test Item Value Reference Range Interpretation Comments Hemoglobin A1c/Hemoglobin.total in 5.1 % 5.7-6.4 Blood (test code = 4548-4) [facility]] in Capillary [id number] 11:38:34 Test Item Value Reference Range Interpretation Comments Blood Glucose: mg/dl (test code = Blood 135 Glucose: mg/dl) [facility]] in Capillary [id number] 10:14:40 Test Item Value Reference Range Interpretation Comments Blood Glucose: mg/dl (test code = Blood 113 Glucose: mg/dl) [facility] [id number] 10:14:18 Test Item Value Reference Range Interpretation Comments Hemoglobin A1c/Hemoglobin.total in 4.9 % 5.7-6.4 Blood (test code = 4548-4) [facility] core antibody, [id number] 00:21:12 Test Item Value Reference Range Interpretation Comments Hep B Core Total Ab (test Nonreactive Nonreactive code = 91165-2) BRENDAN (test code = BRENDAN) Driver Utility Worker ID - BS Lab Interpretation (test Normal code = 21967-0) [facility]IB[facility], [id number] 00:21:12 Test Item Value Reference Range Interpretation Comments HEPATITIS B CORE TOTAL ANTIBODY Nonreactive Nonreactive (BEAKER) (test code = 497) Driver Utility Worker ID - BSHepatitis B core antibody, [id number] 14:41:08 Test Item Value Reference Range Interpretation Comments Hep B C IgM (test code = Nonreactive Nonreactive 59454-0) BRENDAN (test code = BRENDAN) Driver Utility Worker ID - DAVID M Lab Interpretation (test Normal code = 32859-0) [facility] antibody, [id number] 14:41:08 Test Item Value Reference Range Interpretation Comments Hep A IgM (test code = Nonreactive Nonreactive 53747-1) BRENDAN (test code = BRENDAN) Driver Utility Worker ID - DAVID M Lab Interpretation (test Normal code = 43360-0) [facility]He[facility] C [id number] 14:41:08 Test Item Value Reference Range Interpretation Comments Hepatitis C Ab (test Nonreactive Nonreactive code = 47054-5) BRENDAN (test code = BRENDAN) Driver Utility Worker ID - DAVID M Lab Interpretation (test Normal code = 40141-5) [facility] B surface [id number] 14:41:08 Test Item Value Reference Range Interpretation Comments Hepatitis B surface Nonreactive Nonreactive antigen (test code = 5195-3) BRENDAN (test code = BRENDAN) Specimen is considered negative for HBsAg. Lab Interpretation (test Normal code = 08396-0) [facility] B SURFACE [id number] 14:41:08 Test Item Value Reference Range Interpretation Comments HEPATITIS B SURFACE ANTIGEN (2) Nonreactive Nonreactive (BEAKER) (test code = 2585) Specimen is considered negative for HBsAg.HEPATITIS B CORE ANTIBODY, IGM 2021-12-02 14:41:08 Test Item Value Reference Range Interpretation Comments HEPATITIS B CORE IGM ANTIBODY Nonreactive Nonreactive (BEAKER) (test code = 645) Driver Utility Worker ID - DAVID MHEPATITIS C [id number] 14:41:08 Test Item Value Reference Range Interpretation Comments HEPATITIS C ANTIBODY (BEAKER) Nonreactive Nonreactive (test code = 367) Driver Utility Worker ID - DAVID MHEPATITIS A ANTIBODY, [id number] 14:41:08 Test Item Value Reference Range Interpretation Comments HEPATITIS A IGM ANTIBODY (BEAKER) Nonreactive Nonreactive (test code = 498) Driver Utility Worker ID - DAVID MGlucose [Mass/volume] in Capillary [id number] 14:24:23 Test Item Value Reference Range Interpretation Comments Blood Glucose: mg/dl (test code = Blood 161 Glucose: mg/dl) [facility] [id number] 14:24:10 Test Item Value Reference Range Interpretation Comments Hemoglobin A1C Fingerstick: (test code 4.9 = Hemoglobin A1C Fingerstick:) [facility]
[2023-03-18 16:09] LABS: Absolute Lymphocytes (CBC) 1.2 K/uL (0.7-4.9); Hematocrit 35.1 % (36.0-45.0); Lymphocytes % 14.4 % (15.3-44.8); MCV 86.4 fL (80-100); Platelets 178 thou/uL (152-406); RBC Red Blood Cell Count 4.06 M/uL (3.86-4.86)
[2023-03-18] MEDS ORDERED: D10W 250 ML IV ONE (16:22)
[2023-03-18] MEDS ORDERED: FUROSEMIDE 40 MG/4 ML VIAL ONE (16:22)
--- NOTE | 2023-03-18 17:25 | RAD REPORT ---
EXAM DESCRIPTION: CT - Abdomen Pelvis Wo Contrast - 03/18/2023 4:19 pm CLINICAL HISTORY: HERNIA COMPARISON: Abdomen Pelvis W Contrast dated 12/04/2021; Abdomen Pelvis Wo Contrast dated 06/21/20 21; Abdomen Pelvis W Contrast dated 11/12/2020; Abdomen Pelvis Wo Contrast dated 06/16/2019 TECHNIQUE: Thin cut axial CT imaging of the abdomen and pelvis was performed without IV contrast. Mu ltiplanar reformats were generated and reviewed. All CT scans are performed using dose optimization technique as appropriate and may include automated exposure control or mA/KV adjustment according to patient size. FINDINGS: No suspicious findings in the lung bases. Moderate cardiomegaly. The liver, spleen, adrenal glands, and pancreas show no suspicious findings. Gallbladder and biliary tree are also without suspicious finding. Markedly atrophic kidneys bilaterally. No evidence of radiopaque calculi or hydroureteronephrosis. No dilated bowel loops or bowel wall thickening. No free air. Wrsh-fo-aejtmuxn free ascites. . No her raphael, mass or bulky lymphadenopathy. Pronounced edema throughout the subcutaneous tissue of the flanks and anterior abdominal wall. This i s most pronounced along the lower abdominal wall, were there is accompanying skin thickening. No visu al both collections. Areas of soft tissue mineralization in this region which could be vascular, poss ibly venous phleboliths. The urinary bladder is without significant finding. No suspicious bony findings. Multilevel degenerative changes with endplate remodeling and disc vacuum phenomenon at L4-5 and L5-S1. IMPRESSION: Pronounced subcutaneous edema, most severe along the lower anterior abdominal wall from accompanied by skin thickening. This could relate to fluid overload, with or without superimposed emanuel lulitis. Please correlate clinically. Maux-cw-azooeteb free ascites. Moderate cardiomegaly.
[2023-03-18 19:43] LABS: Magnesium 2.3 mg/dL (1.6-2.4); Phosphorus 4.7 mg/dL (2.5-4.9)
[2023-03-18 19:51] LABS: Albumin 3.2 g/dL (3.4-5.0); Bilirubin Total 0.9 mg/dL (0.2-1.0); Protein, Total 7.7 g/dL (6.4-8.2)
--- NOTE | 2023-03-18 21:13 | EDPHYS ---
Physician Documentation [facility] Name: Camila Guallpa Age: 57 yrs Sex: Female : 1965 Arrival Date: 03/18/2023 Time: 14:59 Bed 4 Private MD: ED Physician Inder Angeles HPI: 03/18 15:45 This 57 yrs old Black Female presents to ER via EMS with complaints of Low Blood Sugar. snw 15:45 Onset: The symptoms/episode began/occurred acutely. Current symptoms: In the emergency snw department the patient's symptoms are unchanged from the initial presentation, despite EMS interventions, BGL improved but mentation has not. The patient has experienced similar episodes in the past. It is unknown whether or not the patient has recently seen a physician. Historical: - Allergies: 15:16 Celexa; ph - PMHx: 15:16 CHF; Diabetes - IDDM; Deaf; Dialysis; TTS; ESRD; GERD; hyperparathyroidism; ph Hypertension; Sleep Apnea; - PSHx: 15:16 left arm dialysis site; ph - Immunization history:: Adult Immunizations unknown. - Social history:: Smoking status: unknown. ROS: 15:47 Abdomen/GI: Positive for abdominal pain, denies nausea, vomiting, diarrhea, and snw constipation. 15:47 Constitutional: Positive for malaise, poor PO intake. Exam: 15:40 Head/Face: Normocephalic, atraumatic. Eyes: Pupils equal round and reactive to light, snw extra-ocular motions intact. Lids and lashes normal. Conjunctiva and sclera are non-icteric and not injected. Cornea within normal limits. Periorbital areas with no swelling, redness, or edema. ENT: Nares patent. No nasal discharge, no septal abnormalities noted. Tympanic membranes are normal and external auditory canals are clear. Oropharynx with no redness, swelling, or masses, exudates, or evidence of obstruction, uvula midline. Mucous membranes moist. Neck: Trachea midline, no thyromegaly or masses palpated, and no cervical lymphadenopathy. Supple, full range of motion without nuchal rigidity, or vertebral point tenderness. No Meningismus. Chest/axilla: Normal chest wall appearance and motion. Nontender with no deformity. No lesions are appreciated. 15:40 Back: No spinal tenderness. No costovertebral tenderness. Full range of motion. Skin: Warm, dry with normal turgor. Normal color with no rashes, no lesions, and no evidence of cellulitis. MS/ Extremity: Pulses equal, no cyanosis. Neurovascular intact. Full, normal range of motion. Psych: Awake, alert, with orientation to person, place and time. Behavior, mood, and affect are within normal limits. 15:40 Constitutional: The patient appears lethargic, obese. 15:40 Constitutional: The patient appears uncomfortable. 15:40 Cardiovascular: Rate: bradycardic, Heart sounds: normal, Edema: 4+ edema to level of waist and pubic area, JVD: is noted bilaterally, to 3 cm. 15:40 Respiratory: the patient does not display signs of respiratory distress, Respirations: snoring, SpO2 90-94 on RA, nasal trumpet and O2 at 2L placed, Breath sounds: are clear throughout. 15:40 Abdomen/GI: Inspection: distension, obese peau de orange skin to lower abdomen. 15:40 Neuro: Orientation: to person, place, Mentation: somnolent, responsive to pain, Gait: not tested. 15:40 Special observations: pt was unresponsive with BGL 27mg/dl, diaphoretic. Pt BGL now 140s, continues to be obtunded.. Vital Signs: 15:13 BP 143 / 74; Pulse 54; Resp 18; Temp 96.8; Pulse Ox 97% on R/A; ph 16:30 BP 168 / 78; Pulse 48; Resp 16; Pulse Ox 98% on 2 lpm NC; ph 17:31 BP 179 / 76; Pulse 46; Resp 16; Pulse Ox 100% on 2 lpm NC; ph 18:43 BP 191 / 95; Pulse 48; Resp 18; Pulse Ox 98% on 2 lpm NC; ph 20:37 BP 206 / 108; Pulse 59; Resp 16; Pulse Ox 100% ; bp 21:43 BP 190 / 89; Pulse 51; Resp 15 S; Pulse Ox 100% ; bp Procedures: 19:13 Peripheral line: by aseptic technique a peripheral line was placed in the right snw external jugular vein, per Dr. Angeles. MDM: 15:22 Patient medically screened. farzad 15:49 Differential diagnosis: DKA, hypoglycemic episode, ESRD. Data reviewed: vital signs, snw nurses notes. Historians other than the Patient: EMS: [facility]. Care significantly affected by the following chronic conditions: Diabetes, Hypertension, Congestive Heart Failure, Obesity, Chronic Kidney Disease. Counseling: I had a detailed discussion with the patient and/or guardian regarding the historical points, exam findings, and any diagnostic results supporting the discharge/admit diagnosis, the presence of at least one elevated blood pressure reading (>120/80) during this emergency department visit, lab results, radiology results. 21:10 Response to treatment: the patient's symptoms have markedly improved after treatment. snw Special discussion: I have referred the patient to see his PCP for further evaluation of high blood pressure. Based on the history and exam findings, there is no indication for further emergent testing or inpatient evaluation. I discussed with the patient/guardian the need to see the primary care provider for further evaluation of the symptoms. 21:13 ED course: Pt had dialysis yesterday. Pt is much more alert, states she feels back to snw baseline. 03/18 15:22 Order name: CBC with Diff; Complete Time: 16:12 snw 03/18 15:22 Order name: CMP; Complete Time: 19:55 snw 03/18 15:22 Order name: Blood Culture Adult (2) snw 03/18 15:22 Order name: glucometer results - FOR PT WITH NO ID; Complete Time: 16:04 ph 03/18 15:38 Order name: Lactate w/ 2H reflex if indic.; Complete Time: 19:39 snw 03/18 15:38 Order name: Magnesium; Complete Time: 19:44 snw 03/18 15:40 Order name: Phosphorus; Complete Time: 19:44 snw 03/18 17:10 Order name: Glucose, Ancillary Testing; Complete Time: 17:17 EDMS 03/18 15:38 Order name: CT Abd/Pelvis - Without Contrast; Complete Time: 17:29 snw 03/18 15:46 Order name: EKG; Complete Time: 15:46 snw 03/18 15:22 Order name: SL; Complete Time: 15:22 snw 03/18 15:38 Order name: Misc. Order: nasal trumpet, 2L NC; Complete Time: 15:57 snw 03/18 15:46 Order name: EKG - Nurse/Tech; Complete Time: 17:31 snw 03/18 16:13 Order name: Labs - recollect needed: recollect light green and cortez tubes per lab; eb Complete Time: 03/18 16:55 Order name: FSBS; Complete Time: : snw 03/18 17:23 Order name: Labs - recollect needed: recollect the recollect/ inside lab paged for eb draw; Complete Time: 03/18 19:57 Order name: Vital Signs; Complete Time: 20:38 snw 03/18 19:57 Order name: Misc. Order: please ambulate pt in hallway; Complete Time: 21:08 snw EC: Rate is 54 beats/min. Rhythm is irregular, Sinus bradycardia. Clinical impression: snw Sinus arrythmia and Sinus bradycardia. Administered Medications: : Drug: D10 in Water IVP 20 ml {Note: 100 mL given.} Route: IVP; Site: right wrist; ph 17:31 Drug: Furosemide IVP 40 mg Route: IVP; Site: right wrist; ph 17:47 Follow up: Response: No adverse reaction ph 21:44 Drug: hydrALAZINE IVP 10 mg Route: IVP; Site: right jugular; bp Disposition Summary: 03/18/23 21:13 Discharge Ordered Location: Home snw Condition: Stable snw Diagnosis - Diabetes mellitus due to underlying condition with hypoglycemia without coma snw - Essential (primary) hypertension snw - Fluid overload snw Followup: snw - With: Emergency Department - When: As needed - Reason: Worsening of condition Followup: snw - With: Private Physician - When: Tomorrow - Reason: Recheck today's complaints, Continuance of care, Re-evaluation by your physician Discharge Instructions: - Discharge Summary Sheet snw - Hypoglycemia snw - Daily Diabetes Mellitus Record snw - Managing Your Hypertension snw - Form - Blood Pressure Record Sheet snw Forms: - Medication Reconciliation Form snw - Thank You Letter snw - Antibiotic Education snw - Prescription Opioid Use snw - Patient Portal Instructions snw - Leadership Thank You Letter snw Signatures: Dispatcher [employer] Inder Moreno MD MD cha Waters, Shelly, KEVINC BINDERY LEADPERSON-Csnw Xochilt Dee RN RN Franky Soto RN RN bp Booth, Marilee eb
--- NOTE | 2023-03-18 21:13 | ER ---
Nurse's Notes [facility] Name: Camila Guallpa Age: 57 yrs Sex: Female : 1965 Arrival Date: 03/18/2023 Time: 14:59 Bed 4 Private MD: Diagnosis: Diabetes mellitus due to underlying condition with hypoglycemia without coma;Essential (primary) hypertension;Fluid overload Presentation: 03/18 15:13 Chief complaint: EMS states: EMS called for low blood sugar of 27, pt found minimally ph responsive and diaphoretic, oral glucose given, last BGL 115. Coronavirus screen: Vaccine status: Patient reports receiving the 2nd dose of the covid vaccine. Ebola Screen: No symptoms or risks identified at this time. Initial Sepsis Screen: Does the patient meet any 2 criteria? No. Patient's initial sepsis screen is negative. Does the patient have a suspected source of infection? No. Patient's initial sepsis screen is negative. Risk Assessment: Do you want to hurt yourself or someone else? Patient reports no desire to harm self or others. Onset of symptoms was March 18, 2023. 15:13 Method Of Arrival: EMS: [facility] 15:13 Acuity: YANELIS 2 ph Triage Assessment: 15:16 General: Appears in no apparent distress. obese, Behavior is drowsy, quiet. Pain: ph Denies pain. Neuro: Level of Consciousness is awake, lethargic, Oriented to person, place. Cardiovascular: Capillary refill < 3 seconds in bilateral fingers. Cardiovascular: Dialysis shunt: in the dorsal aspect of left forearm, with palpable thrill, with auscultated bruit, with no erythema, with no edema, no bleeding noted. Respiratory: Airway is patent Respiratory effort is even, unlabored. Derm: Skin is pink, warm \T\ dry. Musculoskeletal: Circulation, motion, and sensation intact. Range of motion: intact in all extremities. Historical: - Allergies: 15:16 Celexa; ph - PMHx: 15:16 CHF; Diabetes - IDDM; Deaf; Dialysis; TTS; ESRD; GERD; hyperparathyroidism; ph Hypertension; Sleep Apnea; - PSHx: 15:16 left arm dialysis site; ph - Immunization history:: Adult Immunizations unknown. - Social history:: Smoking status: unknown. Screenin:19 [facility] ED Fall Risk Assessment (Adult) History of falling in the last 3 months, ph including since admission No falls in past 3 months (0 pts) Confusion or Disorientation Yes (5 pts) Intoxicated or Sedated No (0 pts) Impaired Gait Yes (1 pt) Mobility Assist Device Used No (0 pt) Altered Elimination No (0 pt) Score/Fall Risk Level 0 - 2 = Low Risk Oriented to surroundings, Maintained a safe environment, Hourly rounding (assess needs \T\ fall precautionary measures) done. Abuse screen: Denies threats or abuse. Denies injuries from another. Nutritional screening: No deficits noted. Tuberculosis screening: No symptoms or risk factors identified. Assessment: 15:45 Reassessment: R side of lower abdomen noted to be swollen and painful. ph 16:30 Reassessment: Patient appears in no apparent distress at this time. Patient and/or ph family updated on plan of care and expected duration. Pain level reassessed. Patient is alert, oriented x 3, equal unlabored respirations, skin warm/dry/pink. Pt remains lethargic w/ snoring respirations, nasal trumpet remains in place, pt awakens to verbal stimuli, family at bedside reports that pt was last dialyzed yesterday. 16:45 Reassessment: recollect sent to lab. ph 17:30 Reassessment: recollect lactate and basic per lab, phlebotomy paged by community health nurse staff. ph 18:20 Reassessment: Lab again paged for recollect. ph 18:40 Reassessment: Lab at bedside for recollect. ph 18:57 Reassessment: lab unable to collect blood, ERP at bedside. ph Vital Signs: 15:13 BP 143 / 74; Pulse 54; Resp 18; Temp 96.8; Pulse Ox 97% on R/A; ph 16:30 BP 168 / 78; Pulse 48; Resp 16; Pulse Ox 98% on 2 lpm NC; ph 17:31 BP 179 / 76; Pulse 46; Resp 16; Pulse Ox 100% on 2 lpm NC; ph 18:43 BP 191 / 95; Pulse 48; Resp 18; Pulse Ox 98% on 2 lpm NC; ph 20:37 BP 206 / 108; Pulse 59; Resp 16; Pulse Ox 100% ; bp 21:43 BP 190 / 89; Pulse 51; Resp 15 S; Pulse Ox 100% ; bp ED Course: 15:07 Patient arrived in ED. eb 15:12 Dee, Xochilt, RN is Primary Nurse. ph 15:16 Triage completed. ph 15:16 Arm band placed on Patient placed in an exam room, on a stretcher. ph 15:19 Patient has correct armband on for positive identification. Placed in gown. Bed in low ph position. Call light in reach. Side rails up X2. Client placed on continuous cardiac and pulse oximetry monitoring. NIBP monitoring applied. Door closed. Noise minimized. Warm blanket given. 15:21 Kimberly Shea FNP-C is PHCP. snw 15:21 Inder Angeles MD is Attending Physician. snw 16:00 Placed nasal trumpet via left nare. ph 16:21 CT Abd/Pelvis - Without Contrast In Process Unspecified. EDMS 17:33 No provider procedures requiring assistance completed. Maintain EMS IV. Dressing ph intact. Site clean \T\ dry. Gauge \T\ site: 22 R wrist. 21:44 IV discontinued, intact, bleeding controlled, No redness/swelling at site. Pressure bp dressing applied. Administered Medications: 17:31 Drug: D10 in Water IVP 20 ml {Note: 100 mL given.} Route: IVP; Site: right wrist; ph 17:31 Drug: Furosemide IVP 40 mg Route: IVP; Site: right wrist; ph 17:47 Follow up: Response: No adverse reaction ph 21:44 Drug: hydrALAZINE IVP 10 mg Route: IVP; Site: right jugular; bp Medication: 15:19 VIS not applicable for this client. ph Outcome: 21:13 Discharge ordered by . snw 21:44 Discharged to home via wheelchair, with family. bp 21:44 Condition: stable 21:44 Discharge instructions given to patient, golf manager, Instructed on discharge instructions, follow up and referral plans. Demonstrated understanding of instructions, follow-up care. 21:45 Patient left the ED. bp Signatures: Dispatcher [employer] EDMS Kimberly Shea FNP-C FNP-CsnXochilt Bianchi, RN RN ph Franky Ferrari RN RN bp Marilee Booth Corrections: (The following items were deleted from the chart) 18:42 17:15 Reassessment: recollect sent to lab ph ph
[2023-03-18] MEDS ORDERED: HYDRALAZINE HCL 20 MG/ML VIAL ONE (21:36)
[2023-03-18 22:15] VITALS: TEMP 96.8
[2023-03-18 22:21] VITALS: O2SAT 100
[2023-03-18 22:22] VITALS: BP 190/89
--- NOTE | 2023-03-19 12:14 | EKG ---
Test Date: 2023-03-18 Test Time: 17:22:42 Optical Fabrication Technician: PH MEASUREMENT RESULTS: Intervals: Rate: 54 TX: 206 QRSD: 88 QT: 504 QTc: 477 [place]: P: 51 TX: 206 QRS: 37 T: -55 INTERPRETIVE STATEMENTS: Sinus bradycardia with premature atrial complexes Nonspecific T wave abnormality Abnormal ECG Compared to ECG 03/18/2023 17:19:47 Atrial premature complex(es) now present T-wave abnormality still present Electronically Signed On 03-19-23 12:12:21 CDT by Freddy Osborn
--- NOTE | 2023-03-19 12:14 | EKG ---
Test Date: 2023-03-18 Test Time: 17:19:47 Head Machine Feeder: PH MEASUREMENT RESULTS: Intervals: Rate: 44 MD: 186 QRSD: 88 QT: 380 QTc: 324 [place]: P: 54 MD: 186 QRS: 33 T: 191 INTERPRETIVE STATEMENTS: Marked sinus bradycardia Nonspecific T wave abnormality Abnormal ECG Compared to ECG 03/26/2022 12:57:30 T-wave abnormality now present Electronically Signed On 03-19-23 12:12:23 CDT by Freddy Osborn
== END 2023-03-18 21:45 | disposition home or self-care (01) ==
LOC: ER 14:59
DX: E11.649 Type 2 diabetes mellitus with hypoglycemia without coma (principal); E11.22 Type 2 diabetes mellitus with diabetic chronic kidney disease; E11.65 Type 2 diabetes mellitus with hyperglycemia; I13.2 Hypertensive heart and chronic kidney disease with heart failure and with stage 5 chronic kidney disease, or end stage renal disease; I50.9 Heart failure, unspecified; N18.6 End stage renal disease; Z99.2 Dependence on renal dialysis; E87.70 Fluid overload, unspecified; Z88.8 Allergy status to other drugs, medicaments and biological substances
CPT/HCPCS: 93005 ×2; 87040 ×2; 85025; 36415; 83735; 84100; 82947 ×2; 83605; 80053; 74176; 99285; J0360; J1940

== ENCOUNTER 2023-04-30 19:42 | Inpatient (IN) | payer OTHER ==
--- OUTSIDE RECORDS SUMMARY | 2023-04-30 19:47 | XMS REPORT | Continuity of Care Document ---
:[address] [facility] t Address [address] [place] [id number] Care Team Providers Name Role Phone Lexi Attending Clinician Unavailable Lexi Admitting Clinician Unavailable Payers Payer Name Policy Type Policy Number Effective Date Expiration Date S lizett [place]: [id number] 1993 [employer] 00:00:00 [employer] [id number] 2017 [facility] - 00:00:00 [employer] (HMO) [employer] [id number] 2017 [facility] (MEDICAID 00:00:00 HMO) MEDICARE-[place] [id number] 1993 (MEDICARE) 00:00:00 Problems Condition Condition Condition [...] 00 e Morbid Morbid Problem Active 2016-07 [facility] obesity Obesity 0-16 Family 00:00: Practic [...] 00 e Kidney Kidney Problem Active 2016-07 [facility] disease Disease 0-16 Family 00:00: Practic 00 e Clinical Clinical Problem Active Rafy frias finding [facility] Allergies, Adverse Reactions, Alerts This patient has no known allergies or adverse reactions. Social History Social Habit Start Date Stop Date Quantity Comments Source Sex Assigned At [address] [facility] 00:00:00 [facility]:00 [facility] Smoking Status Start Date Stop Date Source Never Smoker [facility] Medications Ordered Filled Start Stop Current Ordering Indication Dosage Frequency Signature Comments Components Source Medication Medication Date Date Medication? Clinician (SIG) Name Name Afluria Qd Afluria Qd No Afluria Qd [facility] ( ( Family mos mos (36 mos Practic up)(PF)60 up)(PF)60 up)(PF)60 e mcg (15 mcg mcg (15 mcg mcg (15 x4)/0.5 mL x4)/0.5 mL mcg IM syringe IM syringe x4)/0.5 mL ADM 0.5ML ADM 0.5ML IM syringe IM UTD IM UTD ADM 0.5ML IM UTD atorvastati atorvastati No atorvastat [facility] n 80 mg n 80 mg [...] DAILY TIMES DAILY carvedilol carvedilol No carvedilol [facility] 25 mg 25 mg 25 mg [...] DAY EVERY DAY clonidine clonidine No clonidine [facility] HCl 0.3 mg HCl 0.3 mg HCl 0.3 mg Family tablet TAKE tablet TAKE tablet Practic 1/2 TABLET 1/2 TABLET TAKE 1/2 e BY MOUTH 3 BY MOUTH 3 TABLET BY TIMES A DAY TIMES A DAY MOUTH 3 TIMES A DAY Comfort EZ Comfort EZ No 2needle Q1D Comfort EZ [facility] Pen Campbell Pen Campbell (s) Pen F amily 31 gauge x 31 gauge x Campbell 31 Practic 12/05" Take 12/05" Take gauge [...] route. Eliquis 2.5 Eliquis 2.5 No Eliquis [facility] mg tablet mg tablet 2.5 mg Fam anselmo TAKE 1 TAKE 1 tablet Practic TABLET BY TABLET BY TAKE 1 e MOUTH TWICE MOUTH TWICE TABLET BY A DAY A DAY MOUTH TWICE A DAY Entresto 24 Entresto 24 No Entresto [facility] mg-26 mg mg-26 mg 24 mg-26 Fam anselmo tablet TAKE tablet TAKE mg tablet Practic 1 TABLET BY 1 TABLET BY TAKE 1 e MOUTH TWICE MOUTH TWICE TABLET BY A DAY A DAY MOUTH TWICE A DAY escitalopra escitalopra No escitalopr [facility] m 10 mg m 10 mg am 10 mg Famil y tablet TAKE tablet TAKE tablet Practic 1 TABLET BY 1 TABLET BY TAKE 1 e MOUTH EVERY MOUTH EVERY TABLET BY DAY WITH DAY WITH MOUTH BREAKFAST BREAKFAST EVERY DAY WITH BREAKFAST furosemide furosemide No furosemide [facility] 80 mg 80 mg 80 mg Family tablet TAKE tablet TAKE tablet Practic 2 TABLETS 2 TABLETS TAKE 2 e BY MOUTH BY MOUTH TABLETS BY TWICE A DAY TWICE A DAY MOUTH TWICE A DAY gabapentin gabapentin No gabapentin [facility] 100 mg 100 mg 100 mg [...] DOSE OF 40 Lantus Lantus No Lantus [facility] Solostar Solostar Solostar Fam anselmo U-100 [...] directed: TDD 100 metoprolol metoprolol No metoprolol [facility] tartrate tartrate tartrate Fam anselmo 100 mg 100 mg 100 mg Practic tablet TAKE tablet TAKE tablet e 1 TABLET BY 1 TABLET BY TAKE 1 MOUTH TWICE MOUTH TWICE TABLET BY A DAY A DAY MOUTH TWICE A DAY nifedipine nifedipine No nifedipine [facility] ER 60 mg ER 60 mg ER 60 mg Fam anselmo tablet,exte tablet,exte tablet,ext Practic nded nded ended e release release release TAKE 1 TAKE 1 TAKE 1 TABLET BY TABLET BY TABLET BY MOUTH EVERY MOUTH EVERY MOUTH DAY DAY EVERY DAY nifedipine nifedipine No nifedipine [facility] ER 60 mg ER 60 mg ER 60 mg Fam anselmo tablet,exte tablet,exte tablet,ext Practic nded nded ended e release 24 release 24 release 24 hr TAKE 1 hr TAKE 1 hr TAKE 1 TABLET BY TABLET BY TABLET BY MOUTH ONCE MOUTH ONCE MOUTH ONCE A DAY A DAY A DAY ondansetron ondansetron No ondansetro [facility] HCl 4 mg HCl 4 mg n HCl 4 mg F amily tablet tablet tablet Practic e promethazin promethazin No promethazi [facility] e 6.25 e 6.25 ne 6.25 [...] route. route. route. sevelamer sevelamer No sevelamer [facility] carbonate carbonate carbonate Family 800 mg [...] WITH A SNACK Trulicity Trulicity No ulicity [facility] 1.5 mg/0.5 1.5 mg/0.5 1.5 mg/0.5 [...] Afluria Qd Afluria Qd No Afluria Qd [facility] ( ( Family mos mos (36 mos Practic up)(PF)60 up)(PF)60 up)(PF)60 e mcg (15 mcg mcg (15 mcg mcg (15 x4)/0.5 mL x4)/0.5 mL mcg IM syringe IM syringe x4)/0.5 mL ADM 0.5ML ADM 0.5ML IM syringe IM UTD IM UTD ADM 0.5ML IM UTD atorvastati atorvastati No atorvastat [facility] n 80 mg n 80 mg [...] No 2needle Q1D Comfort EZ [facility] Pen Campbell Pen Campbell (s) Pen F amily 31 gauge x 31 gauge x Campbell 31 Practic 16" Take 12/05" Take gauge [...] DAY Entresto 24 Entresto 24 No Entresto [facility] mg-26 mg mg-26 mg 24 mg-26 Fam anselmo tablet TAKE tablet TAKE mg tablet Practic 1 TABLET BY 1 TABLET BY TAKE 1 e MOUTH TWICE MOUTH TWICE TABLET BY A DAY A DAY MOUTH TWICE A DAY escitalopra escitalopra No escitalopr [facility] m 10 mg m 10 mg am 10 mg Famil y tablet TAKE tablet TAKE tablet Practic 1 TABLET BY 1 TABLET BY TAKE 1 e MOUTH EVERY MOUTH EVERY TABLET BY DAY WITH DAY WITH MOUTH BREAKFAST BREAKFAST EVERY DAY WITH BREAKFAST furosemide furosemide No furosemide [facility] 80 mg 80 mg 80 mg Family tablet TAKE tablet TAKE tablet Practic 2 TABLETS 2 TABLETS TAKE 2 e BY MOUTH BY MOUTH TABLETS BY TWICE A DAY TWICE A DAY MOUTH TWICE A DAY gabapentin gabapentin No gabapentin [facility] 300 mg 300 mg 300 mg [...] DOSE OF 40 Lantus Lantus No Lantus [facility] Solostar Solostar Solostar Fam anselmo U-100 [...] DOSE 100 UNIT metoprolol metoprolol No metoprolol [facility] tartrate tartrate tartrate Fam anselmo 100 mg 100 mg 100 mg Practic tablet TAKE tablet TAKE tablet e 1 TABLET BY 1 TABLET BY TAKE 1 MOUTH TWICE MOUTH TWICE TABLET BY A DAY A DAY MOUTH TWICE A DAY nifedipine nifedipine No nifedipine [facility] ER 60 mg ER 60 mg ER 60 mg Fam anselmo tablet,exte tablet,exte tablet,ext Practic nded nded ended e release 24 release 24 release 24 hr TAKE 1 hr TAKE 1 hr TAKE 1 TABLET BY TABLET BY TABLET BY MOUTH ONCE MOUTH ONCE MOUTH ONCE A DAY A DAY A DAY [facility] mg HCl 4 mg n HCl 4 mg F amily tablet tablet tablet Practic e promethazin promethazin No promethazi [facility] e 6.25 e 6.25 ne 6.25 [...] route. route. route. sevelamer sevelamer No sevelamer [facility] carbonate carbonate carbonate Family 800 mg [...] DAY WITH A SNACK [facility] 1.[facility] mg/0.5 1.5 mg/0.5 1.5 mg/0.5 Family mL mL mL Practic subcutaneou subcutaneou subcutaneo e s pen s pen us pen injector injector injector INJECT 1.5 INJECT 1.5 INJECT 1.5 MG UNDER MG UNDER MG UNDER THE SKIN THE SKIN THE SKIN ONCE EVERY ONCE EVERY ONCE EVERY 2 WEEKS 2 WEEKS 2 WEEKS Trulicity 3 Trulicity 3 No 3mg [facility]W [facility] mg/0.5 mL mg/0.5 mL 3 mg/0.5 F [...] DAILY TIMES DAILY carvedilol carvedilol No carvedilol [facility] 25 mg 25 mg 25 mg Family tablet TAKE tablet TAKE tablet Practic 1 TABLET BY 1 TABLET BY TAKE 1 e MOUTH TWICE MOUTH TWICE TABLET BY A DAY A DAY MOUTH TWICE A DAY celecoxib celecoxib No celecoxib [facility] 200 mg 200 mg 200 mg Family capsule capsule capsule Practi c TAKE 1 TAKE 1 TAKE 1 e CAPSULE BY CAPSULE BY CAPSULE BY MOUTH EVERY MOUTH EVERY MOUTH DAY DAY EVERY DAY clonidine clonidine No clonidine [facility] HCl 0.3 mg HCl 0.3 mg HCl 0.3 mg Family tablet TAKE tablet TAKE tablet Practic 1/2 TABLET 1/2 TABLET TAKE 1/2 e BY MOUTH 3 BY MOUTH 3 TABLET BY TIMES A DAY TIMES A DAY MOUTH 3 TIMES A DAY Comfort EZ Comfort EZ No 2needle Q1D Comfort EZ [facility] Pen Campbell Pen Campbell (s) Pen F amily 31 gauge x 31 gauge x Campbell 31 Practic 5/16" Take 5/16" Take gauge [...] route. Eliquis 2.5 Eliquis 2.5 No Eliquis [facility] mg tablet mg tablet 2.5 mg Fam anselmo TAKE 1 TAKE 1 tablet Practic TABLET BY TABLET BY TAKE 1 e MOUTH TWICE MOUTH TWICE TABLET BY A DAY A DAY MOUTH TWICE A DAY Entresto 24 Entresto 24 No Entresto [facility] mg-26 mg mg-26 mg 24 mg-26 Fam anselmo tablet TAKE tablet TAKE mg tablet Practic 1 TABLET BY 1 TABLET BY TAKE 1 e MOUTH TWICE MOUTH TWICE TABLET BY A DAY A DAY MOUTH TWICE A DAY escitalopra escitalopra No escitalopr [facility] m 10 mg m 10 mg am 10 mg Famil y tablet TAKE tablet TAKE tablet Practic 1 TABLET BY 1 TABLET BY TAKE 1 e MOUTH EVERY MOUTH EVERY TABLET BY DAY WITH DAY WITH MOUTH BREAKFAST BREAKFAST EVERY DAY WITH BREAKFAST furosemide furosemide No furosemide [facility] 80 mg 80 mg 80 mg Family tablet TAKE tablet TAKE tablet Practic 2 TABLETS 2 TABLETS TAKE 2 e BY MOUTH BY MOUTH TABLETS BY TWICE A DAY TWICE A DAY MOUTH TWICE A DAY gabapentin gabapentin No gabapentin [facility] 300 mg 300 mg 300 mg [...] DOSE OF 40 Lantus Lantus No Lantus [facility] Solostar Solostar Solostar Fam anselmo U-100 [...] directed: TDD 80 metoprolol metoprolol No metoprolol [facility] tartrate tartrate tartrate Fam anselmo 100 mg 100 mg 100 mg Practic tablet TAKE tablet TAKE tablet e 1 TABLET BY 1 TABLET BY TAKE 1 MOUTH TWICE MOUTH TWICE TABLET BY A DAY A DAY MOUTH TWICE A DAY nifedipine nifedipine No nifedipine [facility] ER 60 mg ER 60 mg [...] DAY A DAY ondansetron ondansetron No ondansetro [facility] 4 mg 4 mg n 4 mg Family disintegrat disintegrat disintegra Practic ing tablet ing tablet ting e tablet ondansetron ondansetron No ondansetro [facility] HCl 4 mg HCl 4 mg n HCl 4 mg F amily tablet tablet tablet Practic e promethazin promethazin No promethazi [facility] e 6.25 e 6.25 ne 6.25 [...] ramipril 5 No 1capsul Q1D ramipril 5 [facility] mg capsule mg capsule e(s) mg capsule Family Take 1 Take 1 Take 1 Practic capsule capsule capsule e every day every day every day by oral by oral by oral route. route. route. sertraline sertraline sertraline [facility] 50 mg 50 mg 50 mg Family tablet TAKE tablet TAKE tablet Practic 1 TABLET BY 1 TABLET BY TAKE 1 e MOUTH EVERY MOUTH EVERY TABLET BY NIGHT. NIGHT. MOUTH EVERY NIGHT. [facility] carbonate carbonate carbonate [facility] 800 mg 800 mg 800 mg [...] A SNACK SNACK DAY WITH A SNACK [facility] 3 Trulicity 3 No 3mg Q1W ulicity [facility] mg/0.5 mL mg/0.5 mL 3 mg/0.5 F amily subcutaneou subcutaneou mL P ractic s pen s pen subcutaneo e injector injector us pen Inject 3 mg Inject 3 mg injector every week every week Inject 3 by by mg every subcutaneou subcutaneou week by s route for s route for subcutaneo 90 days. 90 days. us route for 90 days. Vital Signs Vital Name Observation Time Observation Value Comments Source BP Diastolic 2022-12-07 00:00:00 68 mm[Hg] [facility] Practice Height 2022-12-07 00:00:00 61.5 [in_i] [facility] BMI (Body Mass 2022-12-07 00:00:00 41.5 kg/m2 [facility] BP Systolic 2022-12-07 00:00:00 101 mm[Hg] [facility] Body Weight 2022-12-07 00:00:00 223 [lb_av] [facility] [...] Family Practice Height 2021-01-21 00:00:00 61.5 [in_i] [facility] BMI (Body Mass 2021-01-21 00:00:00 52.7 kg/m2 [facility] BP Systolic 2021-01-21 00:00:00 148 mm[Hg] [facility] Body Weight 2021-01-21 00:00:00 283.6 [lb_av] [facility] BP Diastolic 2020-10-06 00:00:00 77 mm[Hg] [facility] Height 2020-10-06 00:00:00 61.5 [in_i] [facility] BMI (Body Mass 2020-10-06 00:00:00 52.9 kg/m2 [facility] BP Systolic 2020-10-06 00:00:00 151 mm[Hg] [facility] Body Weight 2020-10-06 00:00:00 284.4 [lb_av] [facility] BP Diastolic 2020-07-07 00:00:00 88 mm[Hg] [facility] Height 2020-07-07 00:00:00 61.5 [in_i] [facility] BMI (Body Mass 2020-07-07 00:00:00 53.3 kg/m2 [facility] BP Systolic 2020-07-07 00:00:00 128 mm[Hg] [facility] Body Weight 2020-07-07 00:00:00 287 [lb_av] [facility] Procedures Procedure Date / Time Performed Performing Clinician Sour e HEPATITIS B SURFACE 2021-12-02 07:50:00 [facility] ANTIGEN Center HEPATITIS B CORE 2021-12-02 07:50:00 [facility] ANTIBODY, [facility] HEPATITIS A ANTIBODY, 2021-12-02 07:50:00 [facility] HEPATITIS C ANTIBODY 2021-12-02 07:50:00 [facility] HEPATITIS B CORE 2021-12-02 07:50:[address] [facility], TOTAL Center Plan of Care Planned [...] [facility] 00:[facility] (procedure) [code = Medical Center 28845422] Future Scheduled Test [facility] cervix (procedure) [code = 266980235] Future Scheduled Test 1986 DTAP/TDAP/TD VACCINES [facility] 00:00:00 (1 - Tdap) [code = Medical C enter DTAP/TDAP/TD VACCINES (1 - Tdap)] Future Scheduled Test 1967 COVID-19 VACCINE (#1) [facility] 00:00:00 [code = COVID-[address] VACCINE (#1)] Future Scheduled Test 1967 [facility] breast (procedure) [code = 637949570] Future Scheduled Test [address] [facility] 00:00:00 (combo) [code = CT Medical C enter Colonography (combo)] Future Scheduled Test 1967 [facility] colon (procedure) [code = 213843052] Future Scheduled Test 1967 [facility] of [facility] colon (procedure) [code = 964301407] Future Scheduled Test 1967 [facility] of [facility] colon (procedure) [code = 348711711] Future Scheduled Test 1967 [facility] of [facility] colon (procedure) [code = 752324204] Future Scheduled Test 1967 Sigmoidoscopy [code = [facility] 00:00:00 Sigmoidoscopy] Medical Cente r Future Appointment 2023-06-09 Alex Alonzo, [id number] [facility] 00:00:[address] [place] [address] Future Appointment 2023-06-08 Alex Alonzo, Renetta [facility] 12:30:[address] Practice [address], [place] [address] Encounters Start End Encounter Admission Attending Care Care Encounter Source Date/Time Date/Time Type Type Clinicians Facility Department ID 2023-04-12 2023-04-12 Outpatient Daniel_T_HO VFP VFP [id number] [place] [address] 00:00:00 00:00:00 U_ [id number] Family Practic e 2023-03-08 2023-03-08 Outpatient Daniel_T_HO VFP VFP [address] [place] [address] 00:00:00 00:00:00 UZACK [id number] Family Practic e 2023-02-01 2023-02-01 Outpatient Daniel_T_HO VFP VFP [address] [place] [address] 00:00:00 00:00:00 UZACK [id number] Family Practic e 2022-12-07 2022-12-07 Outpatient Daniel_T VFP VFP [id number] [address] [place] [address] 00:00:00 00:00:00 [id number] Family Practic e 2022-12-07 2022-12-07 Outpatient Daniel_T VFP VFP [id number] [address] 00:00:00 00:00:00 [id number] Family Practic e 2022-12-07 2022-12-07 Alex VFP [place] - [id number] V illage 00:00:00 00:00:00 [facility] Family AlonzoMaryann - Prackaren molina MD: [id number] [place] - e Shadow Bre [facility], [facility] [address], [place] [address] , Ph. 2022-11-23 2022-11-23 Outpatient Daniel_T VFP VFP [id number] [address] [place] [address] 00:00:00 00:00:00 [id number] Family Practic e 2022-10-10 2022-10-10 Outpatient Daniel_T VFP VFP [id number] [address] [place] [address] 00:00:00 00:00:00 [id number] Family Practic e 2022-08-31 2022-08-31 Outpatient Daniel_T VFP VFP [id number] [address] [place] [address] 00:00:00 00:00:00 [id number] Family Practic e 2022-06-27 2022-06-27 Outpatient Daniel_T VFP VFP [id number] [address] [place] [address] 00:00:00 00:00:00 [id number] Family Practic e 2022-06-02 2022-06-02 Outpatient Daniel_T VFP VFP [id number] [address] [place] [address] 00:00:00 00:00:00 [id number] Family Practic e 2022-06-02 2022-06-02 Alex VFP [place] - [id number] V illage 00:00:00 00:00:00 [facility] Family AlonzoMaryann - Bernard molina MD: [id number] [place] - e Shadow Bre Lopez [facility], [address], [place] [address] , Ph. 2022-02-21 2022-02-21 Outpatient Daniel_T VFP VFP [id number] [address] [place] [address] 00:00:00 00:00:00 [id number] Family Practic e 2022-02-08 2022-02-08 Outpatient Daniel_T VFP VFP [id number] [address] [place] [address] 12:11:00 12:11:00 [id number] Family Practic e 2022-01-20 2022-01-20 Outpatient Daniel_T VFP VFP [id number] [address] [place] [address] 10:23:00 10:23:00 [id number] Family Practic e 2022-01-20 2022-01-20 Alex VFP [place] - [id number] V illage 00:00:00 [facility]:00:00 [facility] Family AlonzoMaryann - Bernard molina MD: [id number] VM_COURTNEY_[facility] e [facility], [address], [place] [address] , Ph. 2022-01-15 2022-01-15 Outpatient Daniel_T VFP VFP [id number] [address] [place] [address] 12:45:00 12:45:00 [id number] Family Practic e 2021-12-02 2021-12-02 Lab [facility] [id number] 00:00:00 00:00:00 [facility] 2021-12-02 2021-12-02 [facility] [id number] 00:00:00 00:00:00 [facility] 2021-10-25 2021-10-25 Outpatient Daniel_T VFP VFP [id number] [address] [place] [address] 01:45:00 01:45:00 [id number] Family Practic e 2021-09-15 2021-09-15 Outpatient Daniel_T VFP VFP [id number] [address] [place] [address] 05:38:00 05:38:00 [id number] Family Practic e 2021-08-05 2021-08-05 Outpatient Daniel_T VFP VFP [id number] [address] [place] [address] 04:15:00 04:15:00 [id number] Family Practic e 2021-07-27 2021-07-27 Outpatient Daniel_T VFP VFP [id number] [address] [place] [address] 02:37:00 02:37:00 [id number] Family Practic e 2021-07-27 2021-07-27 Alex VFP [place] - [id number] V illage 00:00:00 00:00:00 [facility] Family AlonzoMaryann MD: [id number] VM_HOU_Shad e [address] [facility], [address], [place] [address] , Ph. 2021-06-27 2021-06-27 Outpatient Daniel_T VFP VFP [id number] [address] [place] [address] 04:21:00 04:21:00 [id number] Family Practic e 2021-06-19 2021-06-19 Outpatient Daniel_T VFP VFP [id number] [address] [place] [address] 01:15:00 01:15:00 [id number] Family Practic e 2021-05-15 2021-05-15 Outpatient Daniel_T VFP VFP [id number] [address] [place] [address] 12:47:00 12:47:00 [id number] Family Practic e 2021-04-20 2021-04-20 Outpatient Daniel_T VFP VFP [id number] [address] [place] [address] 01:33:00 01:33:00 [id number] Family Practic e 2021-04-20 2021-04-20 Alex VFP [place] - [id number] V illage 00:00:00 00:00:00 [facility] Family AlonzoMaryann - Prackaren molina MD: [id number] VM_COURTNEY_Bartolo e [facility], [address], [place] [address] , Ph. 2021-04-19 2021-04-19 Outpatient Daniel_T VFP VFP [id number] [address] [place] [address] 04:29:00 04:29:00 [id number] Family Practic e 2021-04-14 2021-04-14 Outpatient Daniel_T VFP VFP [id number] [address] [place] [address] 04:01:00 04:01:00 [id number] Family Practic e 2021-04-10 2021-04-10 Outpatient Daniel_T VFP VFP [id number] [address] [place] [address] 12:38:00 12:38:00 [id number] Family Practic e 2021-01-28 2021-01-28 Outpatient Daniel_T VFP VFP [id number] [address] [place] [address] 06:38:00 06:38:00 [id number] Family Practic e 2021-01-27 2021-01-27 Outpatient Daniel_T VFP VFP [id number] [address] [place] [address] 05:59:00 05:59:00 [id number] Family Practic e 2021-01-21 2021-01-21 Outpatient Daniel_T VFP VFP [id number] [address] [place] [address] 04:50:00 04:50:00 [id number] Family Practic e 2021-01-21 2021-01-21 Alex VFP [place] - [id number] V illage 00:00:00 00:00:00 [facility] Family Alonzo Medical - Prackaren molina MD: [id number] Bre russell [facility], [address], [place] [address] , Ph. 2020-11-10 2020-11-10 Outpatient Daniel_T VFP VFP [id number] [address] [place] [address] 03:17:00 03:17:00 [id number] Family Practic e 2020-11-05 2020-11-05 Outpatient Daniel_T VFP VFP [id number] [address] [place] [address] 08:05:00 08:05:00 [id number] Family Practic e 2020-10-13 2020-10-13 Outpatient Daniel_T VFP VFP [id number] [address] [place] [address] 08:39:00 08:39:00 [id number] Family Practic e 2020-10-06 2020-10-06 Outpatient Daniel_T VFP VFP [id number] [address] [place] [address] 06:28:00 06:28:00 [id number] Family Practic e 2020-10-06 2020-10-06 Alex VFP [place] - [id number] V illage 00:00:00 00:00:00 [facility] Family Alonzo Medical - Prackaren molina MD: [id number] Bre russell [facility], [address], [place] [address] , Ph. 2020-07-09 2020-07-09 Outpatient Daniel_T VFP VFP [id number] [address] [place] [address] 12:49:00 12:49:00 [id number] Family Practic e 2020-07-07 2020-07-07 Outpatient Daniel_T VFP VFP [id number] [address] [place] [address] 04:59:00 04:59:00 [id number] Family Practic e 2020-07-07 2020-07-07 Alex VFP [place] - [id number] V illage 00:00:00 00:00:00 Juan [facility] Maryann Alonzo - Prackaren molina MD: [id number] VM_HOU_Dani yvonne [facility], [address] [place] [address] , Ph. 2020-06-29 2020-06-29 Outpatient Daniel_T VFP VFP [id number] [facility] 11:43:00 11:43:00 Family Practic e 2020-06-29 2020-06-29 Outpatient Daniel_T VFP VFP [id number] 04-11 [facility] 11:43:00 11:43:00 [id number] Family Practic e 2020-03-24 2020-03-24 Outpatient Daniel_T VFP VFP [id number] - [facility] 10:48:00 10:48:00 Family Practic e Results Test Description Test Time Test Comments Results Result Comments Source Hemoglobin A1c measurement device panel 2022-12-07 14:25:35 Test Item Value Reference Range Interpretation Comme nts Hemoglobin A1c/Hemoglobin.total in Blood (test code = 4548-4) 6.2 % 4.0-6.4 [facility] PracticeGlucose [Mass/volume] in Capillary [id number] 14:24:39 Test Item Value Reference Range Interpretation Comments Blood Glucose: mg/dl (test code = Blood 99 Glucose: mg/dl) [facility] [id number] 11:39:52 Test Item Value Reference Range Interpretation Comments Hemoglobin A1c/Hemoglobin.total in 5.1 % 5.7-6.4 Blood (test code = 4548-4) [facility]] in Capillary [id number] 11:38:34 Test Item Value Reference Range Interpretation Comments Blood Glucose: mg/dl (test code = Blood 135 Glucose: mg/dl) [facility] PracticeGlucose [Mass/volume] in Capillary [id number] 10:14:40 Test Item Value Reference Range Interpretation Comments Blood Glucose: mg/dl (test code = Blood 113 Glucose: mg/dl) [facility] [id number] 10:14:18 Test Item Value Reference Range Interpretation Comments Hemoglobin A1c/Hemoglobin.total in 4.9 % 5.7-6.4 Blood (test code = 4548-4) [facility] B core antibody, [id number] 00:21:12 Test Item Value Reference Range Interpretation Comments Hep B Core Total Ab (test Nonreactive Nonreactive code = 93526-2) BRENDAN (test code = BRENDAN) Photonics Engineering Technologist ID - BS Lab Interpretation (test Normal code = 59157-4) [facility], [id number] 00:21:12 Test Item Value Reference Range Interpretation Comments HEPATITIS B CORE TOTAL ANTIBODY Nonreactive Nonreactive (BEAKER) (test code = 497) Photonics Engineering Technologist [facility] - [facility] antibody, [id number] 14:41:08 Test Item Value Reference Range Interpretation Comments Hep B C IgM (test code = Nonreactive Nonreactive 37218-9) BRENDAN (test code = BRENDAN) Photonics Engineering Technologist ID - DAVID M Lab Interpretation (test Normal code = 06551-4) [facility] A antibody, [id number] 14:41:08 Test Item Value Reference Range Interpretation Comments Hep A IgM (test code = Nonreactive Nonreactive 30585-5) BRENDAN (test code = BRENDAN) Photonics Engineering Technologist ID - DAVID M Lab Interpretation (test Normal code = 48644-7) [facility] [id number] 14:41:08 Test Item Value Reference Range Interpretation Comments Hepatitis C Ab (test Nonreactive Nonreactive code = 44278-0) BRENDAN (test code = BRENDAN) Photonics Engineering Technologist ID - DAVID M Lab Interpretation (test Normal code = 09133-4) [facility] B surface [id number] 14:41:08 Test Item Value Reference Range Interpretation Comments Hepatitis B surface Nonreactive Nonreactive antigen (test code = 5195-3) BRENDAN (test code = BRENDAN) Specimen is considered negative for HBsAg. Lab Interpretation (test Normal code = 21677-3) [facility] B SURFACE [id number] 14:41:08 Test Item Value Reference Range Interpretation Comments HEPATITIS B SURFACE ANTIGEN (2) Nonreactive Nonreactive (BEAKER) (test code = 2585) Specimen is considered negative for HBsAg.HEPATITIS B CORE ANTIBODY, IGM 2021-12-02 14:41:08 Test Item Value Reference Range Interpretation Comments HEPATITIS B CORE IGM ANTIBODY Nonreactive Nonreactive (BEAKER) (test code = 645) Photonics Engineering Technologist ID - DAVID MHEPATITIS C [id number] 14:41:08 Test Item Value Reference Range Interpretation Comments HEPATITIS C ANTIBODY (BEAKER) Nonreactive Nonreactive (test code = 367) Photonics Engineering Technologist ID - DAVID MHEPATITIS A ANTIBODY, [id number] 14:41:08 Test Item Value Reference Range Interpretation Comments HEPATITIS A IGM ANTIBODY (BEAKER) Nonreactive Nonreactive (test code = 498) Photonics Engineering Technologist ID - DAVID MGlucose [Mass/volume] in Capillary [id number] 14:24:23 Test Item Value Reference Range Interpretation Comments Blood Glucose: mg/dl (test code = Blood 161 Glucose: mg/dl) [facility] [id number] 14:24:10 Test Item Value Reference Range Interpretation Comments Hemoglobin A1C Fingerstick: (test code 4.9 = Hemoglobin A1C Fingerstick:) [facility]
[2023-04-30] MEDS ORDERED: CALCIUM GLUCONATE 1 GM IVPB 2 GM/100 ML BAG IV ONE (20:17)
[2023-04-30 20:50] LABS: Absolute Lymphocytes (CBC) 1.9 K/uL (0.7-4.9); Hematocrit 34.2 % (36.0-45.0); Lymphocytes % 19.3 % (15.3-44.8); MCV 87.8 fL (80-100); MPV 8.7 fL (7.6-11.3); Platelets 75 thou/uL (152-406); RBC Red Blood Cell Count 3.89 M/uL (3.86-4.86)
[2023-04-30] MEDS ORDERED: D10W 250 ML IV ONE (20:54)
[2023-04-30 21:02] LABS: Arterial Blood Carboxyhemoglob 1.2 % (0-1.5); Blood Gas Oxyhemoglobin 89.3 % (94-97)
--- NOTE | 2023-04-30 21:03 | RAD REPORT ---
EXAM DESCRIPTION: RADChest Single View04/30/2023 8:44 pm CLINICAL HISTORY: cardiac arrest COMPARISON: Chest Single View dated 12/27/2022; Chest Single View dated 12/21/2022; Chest Single View da christal 03/26/2022; Chest Single View dated 12/03/2021; Abdomen Pelvis Wo Contrast dated 03/18/2023 TECHNIQUE: Portable AP view of the chest. FINDINGS: Endotracheal tube terminates along the proximal trachea. Lyudmila is obscured by over shadow ing defibrillator pad. Right IJ CVC in place, appears to terminate at the proximal SVC. Evaluation is limited by patient rotation. Near complete opacification of the right pneumothorax. A component of e ffusion may be present. central interstitial terstitial prominence. No pneumothorax. The cardiomedia stinal contours are unremarkable. IMPRESSION: Interstitial prominence centrally, with near complete opacification of the right hemitho rax. Findings suggest pulmonary edema with or without superimposed right patchy airspace opacities/ai rspace disease and possible small effusion.
[2023-04-30 21:08] LABS: Protime INR 1.78
[2023-04-30 21:45] LABS: Potassium 4.4 mEq/L (3.5-5.1)
[2023-04-30 21:47] LABS: Anisocytosis 1+; Bilirubin Indirect, Calculated 0.7 mg/dL (0.2-0.8); Bilirubin Total 1.7 mg/dL (0.2-1.0); Blood Morphology Comment NOTED (NOT SEEN); Platelet Estimate DECR; Polychromasia 1+
[2023-04-30 21:48] LABS: Albumin 2.6 g/dL (3.4-5.0); Magnesium 2.5; Troponin High Sensitivity 58.9 (<58.9)
--- NOTE | 2023-04-30 22:44 | RAD REPORT ---
EXAM DESCRIPTION: CT - Chest Abd Pelvis Wo Con - 04/30/2023 10:05 pm CLINICAL HISTORY: cardiac arrest COMPARISON: Chest Abd Pelvis Wo Con dated 12/22/2022; Chest Single View dated 04/30/2023 TECHNIQUE: Thin axial CT images of the chest, abdomen and pelvis, performed without IV contrast. Mul tiplanar reformats performed.. All CT scans are performed using dose optimization technique as appropriate and may include automated exposure control or mA/KV adjustment according to patient size. FINDINGS: Beam hardening artifact most pronounced in the mid to lower abdomen limits evaluation. Rig ht IJ CVC terminates along the mid SVC. Endotracheal tube terminates in the midthoracic trachea. Near complete opacification throughout the right lung, with rightward tracheal shift, and fluid opacifica tion of the right main bronchus. Small lucencies at the periphery of the right lung base, could refle ct small non collapsed subsegments, given dependent positioning. Central interstitial prominence and confluent small ground-glass opacities in the central left lung.Mild pericardial effusion.No pneumoth orax.No intrathoracic adenopathy. Moderate cardiomegaly. The liver, spleen, pancreas, adrenal glands and gallbladder are within normal limits. Atrophic change s of both kidneys again seen. Fluid opacification of nondistended small bowel with short-segment air-fluid levels. Colonic divertic ulosis. No free air, or abscess. Mild free acsitus with predilection to the right flank. Normal appen brenden. No pathologic lymphadenopathy in the abdomen or pelvis. No worrisome osseous finding. IMPRESSION: Near complete opacification throughout the right lung, favoring atelectasis, with fluid opacification of the right main bronchus. Mild free ascites. Fluid opacification of nondistended small bowel, could relate to diarrheal state or early ileus. Moderate cardiomegaly and other findings as above.
--- NOTE | 2023-04-30 22:53 | RAD REPORT ---
EXAM DESCRIPTION: CT - Head Brain Wo Cont - 04/30/2023 10:06 pm CLINICAL HISTORY: cardia arrest COMPARISON: No comparisons TECHNIQUE: Noncontrast head CT images were obtained without IV contrast. Multiplanar reformats were generated and reviewed. All CT scans are performed using dose optimization technique as appropriate and may include automated exposure control or mA/KV adjustment according to patient size. FINDINGS: No intracranial hemorrhage, mass, or edema. Midline structures are unremarkable. Normal ventricular caliber for age. Sanchez-white matter differentiation is preserved, without evidence of acute infarct. No abnormal extra- axial fluid collections. Mastoid air cells and visualized portions of the paranasal sinuses are clear. No acute bony findings. IMPRESSION: No evidence of an acute intracranial process.
[2023-04-30] MEDS ORDERED: CEFTRIAXONE 2000 MG/VIAL ONE (23:05)
[2023-04-30] MEDS ORDERED: NA CHLORIDE 0.9% 0 ML ONE (23:07)
[2023-04-30] MEDS ORDERED: NA CHLORIDE 0.9% 100 ML ONE (23:13)
[2023-04-30] MEDS ORDERED: PIPERACIL/TAZO 3.375 GM VIAL IV ONE (23:13)
--- NOTE | 2023-04-30 23:58 | ER ---
Nurse's Notes [facility] Name: Camila Guallpa Age: 57 yrs Sex: Female : 1965 Arrival Date: 04/30/2023 Time: 19:42 Bed 2 Private MD: Diagnosis: Respiratory arrest;Cardiac arrest, cause unspecified;Hypoglycemia, unspecified;Unspecified kidney failure-on HD M,W,F;Abnormal level of enzymes in specimens from digestive organs and abdominal cavity-ELEVATED TRANSAMINASES;Pneumonia due to other specified bacteria;Obesity, unspecified;Severe sepsis without septic shock;Do not resuscitate Presentation: 04/30 19:40 Chief complaint: EMS states: "Pt found by family with no pulse with unknown down time. mb9 Family last spoke to pt at 0300 am. I/O placed to right tibia, renetta tube placed, and 1 calcium gluconate, 1 sodium bicarb, and 4 rounds of epi. Pt remains asystole on monitor.". 19:40 Coronavirus screen:. Ebola Screen: No symptoms or risks identified at this time. mb9 Initial Sepsis Screen: Does the patient meet any 2 criteria? No. Patient's initial sepsis screen is negative. Risk Assessment: Do you want to hurt yourself or someone else? Unable to obtain. Onset of symptoms is unknown. 19:40 Method Of Arrival: EMS: [facility] Danielle 19:40 Acuity: YANELIS 1 mb9 Historical: - Allergies: 20:02 Celexa; mb9 - PMHx: 20:02 CHF; GERD; Diabetes - IDDM; Hypertension; hyperparathyroidism; ESRD; Deaf; Dialysis; mb9 TTS; Sleep Apnea; - PSHx: 20:02 left arm dialysis site; mb9 - Immunization history:: Adult Immunizations unknown. - Social history:: Smoking status: unknown. - Family history:: not pertinent. Screenin:19 [facility] ED Fall Risk Assessment (Adult) History of falling in the last 3 months, bp including since admission No falls in past 3 months (0 pts). Abuse screen: Denies threats or abuse. Denies injuries from another. Nutritional screening: No deficits noted. Tuberculosis screening: No symptoms or risk factors identified. Assessment: 19:40 CPR assessment: unresponsive, Ambu ventilation. mb9 19:40 Cardiac rhythm is asystole. mb9 19:42 Reassessment: No central pulses palpated. Asystole on monitor. CPR resumed. mb9 19:44 Reassessment: Reassessment: No central pulses palpated. Asystole on monitor. CPR mb9 resumed. 19:46 Reassessment: Central pulse palpated. Sinus rhythm on monitor. mb9 22:47 Reassessment: LAC 7.8. MD NOTIFIED. bp 23:47 Reassessment: Pt remains intubated. Fluids infusing without issue. Family at the [facility] bedside. 05/01 00:30 Reassessment: Patient appears in no apparent distress at this time. No changes from [facility] previously documented assessment. 00:45 Reassessment: Pt placed under warm blankets and bear hugger. [facility] 01:45 Reassessment: Patient appears in no apparent distress at this time. No changes from [facility] previously documented assessment. Patient and/or family updated on plan of care and expected duration. Pain level reassessed. Vital Signs: 04/30 19:40 Pulse 0; Pulse Ox 30% on ambu bag; mb9 19:46 BP 157 / 84; Pulse 67; Pulse Ox 75% on ambu ventilation; mb9 19:50 BP 155 / 85; Pulse 81; Resp 20; Pulse Ox 85% on ambu ventilation; mb9 19:54 BP 130 / 84; Pulse 81; Resp 20; Pulse Ox 92% on ambu ventilation; mb9 20:00 BP 121 / 87; Pulse 93; Pulse Ox 97% on ETT vent; FiO2 100 %; mb9 20:56 BP 120 / 74; Pulse 70; Resp 16; Pulse Ox 98% ; FiO2 50 %; bp 21:45 BP 108 / 68; Pulse 62; Resp 13; Pulse Ox 99% ; bp 22:47 BP 108 / 71; Pulse 46; Resp 13; Pulse Ox 100% ; bp 23:47 BP 130 / 72; Pulse 45; Resp 13; Pulse Ox 100% on ETT vent; FiO2 100 %; [facility] 05/01 00:30 BP 136 / 80; Pulse 44; Resp 14; Temp 96.7(TE); Pulse Ox 100% on ETT vent; 4 ED Course: 04/30 19:40 Maintain EMS IV. Dressing intact. Good blood return noted. Site clean \\T\\ dry. Gauge \\T\\ mb 9 site: I/O right tibia. 19:50 EKG done, by audio visual technician. reviewed by Marquis Ibrahim MD. mb9 19:52 Assisted provider with intubation using 7.5 mm ETT via oral route. ET tube secured at mb9 25cm at the teeth. Set up intubation tray. Intubated by Marquis Ibrahim MD Placement verified by CO2 detector w/ + color change, auscultating bilateral breath sounds, End-tidal CO2 montioring Patient tolerated well. 19:58 Patient arrived in ED. mb9 19:58 Arm band placed on. mb9 20:01 Triage completed. mb9 20:16 Franky Ferrari, RN is Primary Nurse. bp 20:17 Marquis Ibrahim MD is Attending Physician. rt 20:17 Assisted provider with central line placement. Set up central line tray. Triple lumen bp line placed in right internal jugular. Line placed by Marquis Ibrahim MD Placement verified by blood return, Dressed with Tegaderm, Blood was collected. Patient tolerated UNRESPONSIVE Before procedure, did Practitioner(s) obtain informed consent? No. Patient \\T\\ family education about procedure, CLABSI prevention and S/S of infection? No. Time-out/Briefing performed prior to start of procedure? Yes. Was handwashing/sanitizing done immediately prior to procedure? Yes. Was patient positioned to in a way to prevent air embolism? Yes. Was procedure site sterilized? Yes, with chlorhexidine. Was the site allowed to dry? Yes. Was local anesthetic and/or sedation utilized? N/A. During the procedure, did the Practitioner(s) maintain a sterile field? Yes. Were unused ports clamped during insertion? Yes. Was a 2nd qualified MD obtained after 3 unsuccessful insertion attempts? N/A. Was blood aspirated from each lumen? Yes. After the procedure, did the Practitioner(s) clean the site and apply a sterile dressing? Yes. 20:19 Patient has correct armband on for positive identification. Bed in low position. Call bp light in reach. Side rails up X2. 20:46 XRAY Chest (1 view) In Process Unspecified. EDMS 20:53 NGT: inserted 12 Fr. other ORAL verified placement of air over stomach. bp 22:07 CT Head Brain wo Cont In Process Unspecified. EDMS 22:07 CT Chest Abdomen Pelvis W/O Contrast In Process Unspecified. EDMS 23:55 Aristides Nicholson MD is Hospitalizing Provider. [facility] 05/01 01:45 Patient admitted, IV remains in place. jb4 Administered Medications: 04/30 19:42 Drug: Sodium Bicarbonate 1 amp IVP once; (50 mL); equals 50 mEq Route: IVP; Site: Other;mb9 19:43 Drug: Sodium Bicarbonate 1 amp IVP once; (50 mL); equals 50 mEq Route: IVP; Site: Other;mb9 19:45 Drug: Calcium Chloride 1 grams IVP once Route: IVP; Site: Other; mb9 19:45 Drug: Calcium Chloride 1 grams IVP once Route: IVP; Site: Other; mb9 19:45 Drug: EPINEPHrine 0.1mg/mL 1:10,000 1 mg IVP once Route: IVP; Site: Other; mb9 20:03 Drug: Atropine 1 mg IVP once Route: IVP; Site: Other; mb9 20:04 Drug: Sodium Bicarbonate 1 amp IVP once; (50 mL); equals 50 mEq Route: IVP; Site: Other;mb9 20:06 Drug: Calcium Gluconate IVPB 2 grams IVPB once over 60 mins; (mix in NS 100 mL) Route: bp IVPB; Infused Over: 60 mins; Site: Other; 23:01 Not Given (Physician Discretion): rocephin2 grams IV at calculated rate once; Given jb4 slow IV push per pharmarcy instructions 23:15 Drug: Piperacillin-Tazobactam IVPB 3.375 grams IVPB once over 60 mins; (mix in NS 100 jb4 mL) Route: IVPB; Infused Over: 60 mins; Site: right jugular; Outcome: 23:58 Decision to Hospitalize by Provider. [facility] 05/01 01:45 Admitted to ICU accompanied by nurse, accompanied by tech, family with patient, via jb4 stretcher, room ICU-8, with oxygen, on monitor, with chart, Report called to ANEL Rain Condition: stable Discharge instructions given to family, Instructed on the need for admit, Demonstrated understanding of instructions, 02:06 Patient left the ED. jb4 Signatures: Dispatcher [employer] EDInder Valdez MD MD cha Bryson, James, RN RN jb4 Franky Ferrari RN RN bp Breneman, Mary Beth, RN RN mb9 [place], Ryan, MD MD rt Corrections: (The following items were deleted from the chart) 04/30 20:10 19:40 Chief complaint: EMS states: "Pt found by family with no pulse with unknown down mb9 time. Family last spoke to pt at 0300 am. I/O placed to right tibia, renetta tube placed, and gave 4 rounds of epi. Pt remains asystole on monitor." mb9 20:14 19:42 Calcium Chloride IVP 1 grams IVP in Other mb9 mb9 20:14 19:43 Calcium Chloride IVP 1 grams IVP in Other mb9 mb9 20:53 19:53 Slater cath inserted, using sterile technique, 16 Fr., by sports equipment racker, balloon bp inflated, to gravity drainage, Patient tolerated well. mb9
--- NOTE | 2023-04-30 23:58 | EDPHYS ---
Physician Documentation [facility] Name: Camila Guallpa Age: 57 yrs Sex: Female : 1965 Arrival Date: 04/30/2023 Time: 19:42 Bed 2 Private MD: ED Physician Marquis Ibrahim HPI: 04/30 21:53 This 57 yrs old Black Female presents to ER via EMS with complaints of Cardiac arrest. rt 21:53 Patient presents to the ED with unresponsiveness with cardiac arrest. Initial rhythm rt was asystole. Unclear how long patient has been down for. She has known ESRD patient. No further history could be obtained. Symptoms are severe in severity,. Historical: - Allergies: 20:02 Celexa; mb9 - PMHx: 20:02 CHF; GERD; Diabetes - IDDM; Hypertension; hyperparathyroidism; ESRD; Deaf; Dialysis; mb9 TTS; Sleep Apnea; - PSHx: 20:02 left arm dialysis site; mb9 - Immunization history:: Adult Immunizations unknown. - Social history:: Smoking status: unknown. - Family history:: not pertinent. ROS: 21:53 Unable to obtain ROS due to comatose state, rt Exam: 21:53 Constitutional: The patient appears Unresponsive, CPR in progress rt 21:53 ENT: Amrik tube in place. 21:53 Cardiovascular: Pulseless, 21:53 ECG was reviewed by the Attending Physician. 21:53 Respiratory: Ventilated breath sounds bilaterally, 21:53 Abdomen/GI: Swelling to the right anterior abdominal wall with peau d'orange, 21:53 Musculoskeletal/extremity: 3+ bilateral lower extremity edema. 21:53 Skin: Cool, dry. 21:53 Neuro: GCS 3 T, no corneal reflexes, pupils 5 mm, unreactive, no spontaneous respirations, Vital Signs: 19:40 Pulse 0; Pulse Ox 30% on ambu bag; mb9 19:46 BP 157 / 84; Pulse 67; Pulse Ox 75% on ambu ventilation; mb9 19:50 BP 155 / 85; Pulse 81; Resp 20; Pulse Ox 85% on ambu ventilation; mb9 19:54 BP 130 / 84; Pulse 81; Resp 20; Pulse Ox 92% on ambu ventilation; mb9 20:00 BP 121 / 87; Pulse 93; Pulse Ox 97% on ETT vent; FiO2 100 %; mb9 20:56 BP 120 / 74; Pulse 70; Resp 16; Pulse Ox 98% ; FiO2 50 %; bp 21:45 BP 108 / 68; Pulse 62; Resp 13; Pulse Ox 99% ; bp 22:47 BP 108 / 71; Pulse 46; Resp 13; Pulse Ox 100% ; bp 23:47 BP 130 / 72; Pulse 45; Resp 13; Pulse Ox 100% on ETT vent; FiO2 100 %; jb4 05/01 00:30 BP 136 / 80; Pulse 44; Resp 14; Temp 96.7(TE); Pulse Ox 100% on ETT vent; jb4 Procedures: 10:33 CPR: See CPR flow sheet. Initial patient assessment: unresponsive, pupils fixed \T\ rt dilated, no respiratory effort, pale, The presenting cardiac rhythm is asystole. Amrik tube placed prior to arrival, Compressions: began prior to arrival. Meds given: See Meds list. regained rhythm. Intubation: Intubated orally using # 4 Roshan blade with 7.5 mm ETT. was successful on first attempt. Ventilated with Ambu bag. Cricoid pressure applied during procedure. Tube secured with ETT garcia measured 25 cm at lip. Placement verified by CXR, CO2 detector with (+) color change, auscultating bilateral breath sounds, Patient tolerated well. Central Line: the site was prepped with Chlorhexidine, a triple lumen catheter was inserted, in the right internal jugular vein, in 2 attempts. placement was verified, by CXR, by blood return, Wire visualized by ultrasound, the site was dressed with Chlorhexidine impregnated Tegaderm, First attempt was on the left internal jugular, was unable to pass wire without resistance, ultrasound revealed thrombus in the internal jugular, right side was prepped, with successful on first attempt on that side. MDM: 04/30 20:17 Patient medically screened. rt 21:53 Differential Diagnosis Hyperkalemia, acidosis, hypoglycemia, cardiac arrest. Data rt reviewed: vital signs, nurses notes. Consideration of Admission/Observation Patient was admitted/placed on observation. Management of patient was discussed with the following: Director Of Occupational Therapy: Discussed case with servicer travel trailers and neurologist on-call, no further recommendations.. Primary Care Provider: Agrees to admit, request call to cardiology and neurology. I considered the following discharge prescriptions or medication management in the emergency department Medications were administered in the Emergency Department. See MAR. Independent interpretation of the following test(s) in the Emergency Department X-Ray: My interpretation is Edema without pneumothorax, interpretation of x-ray images. Care significantly affected by the following chronic conditions: Chronic Kidney Disease. ED course: Discussed with family, they state that if she were to go into cardiac arrest again, no further resuscitative efforts were to be performed, that they would rather the patient peacefully.. 04/30 20:28 Order name: Basic Metabolic Panel; Complete Time: 23:51 rt 04/30 20:28 Order name: CBC with Diff; Complete Time: 21:58 rt 04/30 20:28 Order name: LFT's; Complete Time: 23:51 rt 04/30 20:28 Order name: Magnesium; Complete Time: 23:51 rt 04/30 20:28 Order name: PT-INR; Complete Time: 21:58 rt 04/30 20:28 Order name: Troponin HS; Complete Time: 23:51 rt 04/30 20:29 Order name: CPK; Complete Time: 23:51 rt 04/30 20:29 Order name: Lipase; Complete Time: 23:51 rt 04/30 21:00 Order name: ABG Arterial Blood Gas; Complete Time: 21:20 EDMS 04/30 21:01 Order name: Glucose, Ancillary Testing; Complete Time: 21:05 EDMS 04/30 21:21 Order name: Lactate w/ 2H reflex if indic.; Complete Time: 23:51 rt 04/30 21:29 Order name: Blood Culture Adult (2) bp 04/30 21:31 Order name: Manual Differential; Complete Time: 21:58 EDMS 04/30 21:32 Order name: PTT, Activated Partial Thromb; Complete Time: 21:58 EDMS 05/01 02:04 Order name: Lactate Sepsis 2 HR Follow-up EDMS 04/30 20:28 Order name: XRAY Chest (1 view); Complete Time: 21:20 rt 04/30 20:28 Order name: CT Head Brain wo Cont; Complete Time: 23:51 rt 04/30 20:29 Order name: CT Chest Abdomen Pelvis W/O Contrast; Complete Time: 23:51 rt 04/30 20:28 Order name: EKG; Complete Time: 20:29 rt 05/01 00:05 Order name: CONS Physician Consult EDMS 05/01 00:05 Order name: CONS Physician Consult EDMS 05/01 00:05 Order name: CONS Physician Consult EDMS 05/01 00:09 Order name: CONS Physician Consult EDTX 04/30 20:28 Order name: Cardiac monitoring; Complete Time: 20:37 rt 04/30 20:28 Order name: EKG - Nurse/Tech; Complete Time: 20:37 rt 04/30 20:28 Order name: IV Saline Lock; Complete Time: 20:37 rt 04/30 20:28 Order name: Labs collected and sent; Complete Time: 20:37 rt 04/30 20:28 Order name: O2 Per Protocol; Complete Time: 20:37 rt 04/30 20:28 Order name: O2 Sat Monitoring; Complete Time: 20:37 rt 04/30 21:21 Order name: Accucheck; Complete Time: 21:21 rt 04/30 21:21 Order name: IV Saline Lock - Large Bore; Complete Time: 21:21 rt 04/30 21:21 Order name: Vital Signs; Complete Time: 21:21 rt 04/30 21:58 Order name: Misc. Order: Do not resuscitated the patient goes into cardiac arrest rt again; Complete Time: 23:11 EC:53 Rate is 90 beats/min. Rhythm is regular, Narrow complex rhythm with No ectopy, Diffuse rt nonspecific ST and T wave changes. QRS Circle is Normal. NE interval is normal. QRS interval is normal. QT interval is prolonged. No Q waves. Administered Medications: 19:42 Drug: Sodium Bicarbonate 1 amp IVP once; (50 mL); equals 50 mEq Route: IVP; Site: Other;mb9 19:43 Drug: Sodium Bicarbonate 1 amp IVP once; (50 mL); equals 50 mEq Route: IVP; Site: Other;mb9 19:45 Drug: Calcium Chloride 1 grams IVP once Route: IVP; Site: Other; mb9 19:45 Drug: Calcium Chloride 1 grams IVP once Route: IVP; Site: Other; mb9 19:45 Drug: EPINEPHrine 0.1mg/mL 1:10,000 1 mg IVP once Route: IVP; Site: Other; mb9 20:03 Drug: Atropine 1 mg IVP once Route: IVP; Site: Other; mb9 20:04 Drug: Sodium Bicarbonate 1 amp IVP once; (50 mL); equals 50 mEq Route: IVP; Site: Other;mb9 20:06 Drug: Calcium Gluconate IVPB 2 grams IVPB once over 60 mins; (mix in NS 100 mL) Route: bp IVPB; Infused Over: 60 mins; Site: Other; 23:01 Not Given (Physician Discretion): rocephin2 grams IV at calculated rate once; Given jb4 slow IV push per pharmarcy instructions 23:15 Drug: Piperacillin-Tazobactam IVPB 3.375 grams IVPB once over 60 mins; (mix in NS 100 jb4 mL) Route: IVPB; Infused Over: 60 mins; Site: right jugular; Disposition Summary: 04/30/23 23:58 Hospitalization Ordered Notes: Hospitalization Status: Inpatient Admission farzad Provider: Aristides Nicholson cha Location: Intensive Care Unit farzad Condition: Critical farzad Problem: new farzad Symptoms: have improved farzad Bed/Room Type: Standard [facility] Room Assignment: 8-(05/01/23 00:09) Diagnosis - Respiratory arrest farzad - Cardiac arrest, cause unspecified farzad - Hypoglycemia, unspecified farzad - Unspecified kidney failure - on HD M,W,F farzad - Abnormal level of enzymes in specimens from digestive organs and abdominal cavity - farzad ELEVATED TRANSAMINASES - Pneumonia due to other specified bacteria farzad - Obesity, unspecified farzad - Severe sepsis without septic shock farzad - Do not resuscitate farzad Forms: - Medication Reconciliation Form farzad - SBAR form farzad - Leadership Thank You Letter farzad Critical care time excluding procedures: 05/01 10:33 Critical care time: Bedside Care: 50 minutes, Consultation: 15 minutes, Family rt Intervention: 10 minutes. Total time: 75 minutes Signatures: Dispatcher [employer] EDTX Erlinda Nicholas RN RN mw Anderson, Corey, MD MD cha Attema, Lee, JEWELRY REPAIRER-C JEWELRY REPAIRER-Cla1 Derek Alvarez RN RN jb4 Franky Ferrari RN RN Eva Washington RN RN mb9 Marquis Ibrahim MD MD rt Corrections: (The following items were deleted from the chart) 04/30 21:31 21:19 CBC Smear Scan ordered. EDMS EDMS 21: 21:22 PTT, ACTIVATED+COAG.LAB.BRZ ordered. EDMS EDMS 05/01 00:09 04/30 23:58 farzad soliman
[2023-05-01] MEDS: PIPER TAZO 2.25 GM in NA CHLORIDE 0.9% 50 ML IV SCH ×2 (01:02→09:00)
[2023-05-01] MEDS ORDERED: ACETAMINOPHEN 500 MG TAB PO PRN (01:02)
[2023-05-01] MEDS ORDERED: GLUCAGON 1 MG/VIAL IM PRN (01:02)
[2023-05-01] MEDS ORDERED: D50W 25 GM/50 ML SYRINGE IV PRN (01:02)
[2023-05-01] MEDS ORDERED: NA CHLORIDE 0.9% 1,000 ML IV SCH (01:02)
[2023-05-01] MEDS ORDERED: ONDANSETRON 4 MG/2 ML VIAL IV PRN (01:02)
[2023-05-01 02:59] VITALS: O2SAT 100; BMI 46.5
[2023-05-01] MEDS ORDERED: D50W 25 GM/50 ML SYRINGE IV ONE (03:16)
[2023-05-01] MEDS: D10W 125 ML IV PRN ×2 (04:15→05:39)
[2023-05-01] MEDS ORDERED: NA CHLORIDE 0.9% 250 ML IV ONE (05:30)
[2023-05-01] MEDS ORDERED: NA CHLORIDE 0.9% 250 ML ONE (05:35)
[2023-05-01 06:24] VITALS: TEMP 90.6
[2023-05-01 06:53] VITALS: BP 38/23
[2023-05-01] MEDS ORDERED: INSULIN REGULAR (HUMAN) 100 UNIT/ML SQ SCH (07:30)
--- NOTE | 2023-05-01 08:03 | SS ---
Date of Discharge: 05/01/2023 Chief Complaint: Unresponsive. History Of Present Illness: 57-year-old female patient with multiple chronic medical problems, was nawaf platt in her normal usual state of health and had uneventful normal day on Sunday, which is 04/29. Last time she ate was Sunday evening dinner. She normally stays up late at night and she wak es up late in the morning, which is her normal routine habit and yesterday morning patient's mother h ad appointment to see me at my office and after that appointment, she went back home and she checked on her and the patient was sleeping comfortably like her normal self and around 1 o'clock or so devaughn bolaños went to [employer] and at that time she checked on her and she was sleeping once again appeared like he r normal self, breathing comfortably without any obvious struggle noted at that time. Later on, brunilda her family member went home and when they tried to open the patient's bedroom, she was not able to op en the bedroom as it appeared that the patient probably had fallen down inside her bedroom blocking t he bedroom door. Subsequently, another family member broke the window and went inside and found out that she was on the floor with froth and blood-stained mucus coming out of her mouth unresponsive. 9 11 was called and patient was brought into the emergency room. The patient was in asystole when EMS arrived, and she was brought into ER. The patient received CPR and multiple medications and the ER neisha grimm contacted me and she was admitted to the hospital. The patient never regained consciousness . She was intubated, never required any vasopressor medication. Her pupils were dilated and fixed. Workup done in the emergency room and the patient was admitted to ICU. I did communicate with the neisha galloway's mother about all these details this morning as stated here. The patient did not have any re cent illness like no fever, chills, nausea, vomiting, or any other unusual symptoms lately. Allergies: NO KNOWN ALLERGIES. Medications: List reviewed. Review of Systems: Cardiovascular: As mentioned above. All other systems reviewed and negative. Past Medical History: Significant for diabetes mellitus with diabetic retinopathy, obstructive sleep apnea, hypertension, mixed hyperlipidemia, chronic diastolic heart failure, end-stage renal disease on hemodialysis, anemia due to chronic kidney disease. Also significant for coronary artery disease, severe pulmonary hypertension, and chronic systolic heart failure. Past Surgical History: Significant for cataract surgery. Family History: Father , had colon cancer. Mother has asthma, hypertension, osteoarthritis. Social History: Negative for smoking and alcohol use. Physical Examination: Vital Signs: When she first arrived, pulse 67, blood pressure 157/84, oxygen saturation 75%. Last t emperature this morning 90.6 degrees Fahrenheit, pulse 34, blood pressure , oxygen saturati on 99% on ventilator. General: The patient was in bed on ventilator with endotracheal tubing present, unresponsive. HEENT: Head atraumatic, normocephalic. Conjunctivae nonerythematous. Sclerae white. Mouth, no thr ush or edema noted. Ears/Nose, no mass, lesion, discharge noted. Neck: Supple. No JVD, lymph nodes, bruit, thyromegaly noted. Lungs: Bilateral good equal air entry. Clear to auscultation. No rhonchi. No rales. Heart: Normal heart sounds, no murmur or gallop. Abdomen: Soft, bowel sounds normal. No guarding, rigidity, tenderness, mass, hepatosplenomegaly, dis tention, or bruit noted. Extremities: No leg edema. No calf tenderness. Skin: No rash, ulcer, cellulitis. Lymphatics: No lymph node enlargement in neck, supraclavicular, infraclavicular region. Neuro: No focal neurological deficit. Chest: Unremarkable. External Genitalia: Deferred. Rectal: Deferred. UNDERTAKER ASSISTANT: The patient unresponsive to any painful stimuli. Pupils are fixed and dilated. Laboratory Data: White count 9.7, hemoglobin 11.3, platelets 75. INR is 1.78. Blood gas; pH 7.24, pCO2 58.9, PO2 86.5, oxygen saturation 92% on 100% FiO2. Sodium 140, potassium 4.4, chloride 101, bi carb 26, BUN 29, creatinine 5.10, glucose 50, and initial glucose recorded was less than 20. Total b ilirubin 1.7, AST 1717, ALT 852, alkaline phosphatase 180. Initial troponin 58.9, second troponin 29 68. Last glucose 77 this morning. CAT scan of the head, no acute intracranial changes. Chest x-ray shows interstitial prominence bilaterally, near-complete opacification of the right hemithorax. CAT scan of the chest, abdomen, and pelvis shows near-complete opacification throughout the right lung s howing atelectasis with fluid opacification in the right main bronchus, moderate cardiomegaly. Hospital Course: After patient was brought in with cardiac arrest and asystole, she was admitted to the hospital and the patient suffered significant brain damage from this asystole. We do not know fo r how long she was lying on the floor at home before she got help, but it appears that it was a signi ficant amount of time that caused significant brain damage. She never regained consciousness, was to tally dependent on the ventilator, and she remained bradycardic and hypotensive during her stay in [facility]. Long discussion happened with family by ER physician last night and family requested no heroic me asures to be done in case of cardiopulmonary arrest, they do not want any heroic measures done and th ey want nature and God to take its course and keep her comfortable. I had a long discussion with the patient's mother this morning and she expressed the same decision about no heroic measures. I also discussed with her regarding low pulse rate and low blood pressure, if she wanted us to provide any m edical management for that and she informed me that she does not want us to make any correction on th ose and let the God and nature take its course and let her go peacefully. When I arrived to ICU she was extremely bradycardic, hypotensive, and within short time after I arrived, the patient went into asystole and she was pronounced at 6:40 a.m. Final Diagnoses: 1.Cardiac arrest. 2.Coronary artery disease. 3.Chronic systolic heart failure. 4.Severe pulmonary hypertension. 5.Obstructive sleep apnea. 6.Diabetes mellitus with diabetic retinopathy. 7.Diabetes mellitus with chronic kidney disease. 8.Osteoarthritis, multiple sites. 9.Hypertension. 10.Mixed hyperlipidemia. 11.Anemia due to chronic kidney disease. PURNIMA/MODL Voice ID: [id number] Report ID: [id number]
[2023-05-01] MEDS ORDERED: ASPIRIN EC 81 MG TAB PO SCH (09:00)
[2023-05-01] MEDS ORDERED: HEPARIN 5000 UNIT/ML 1 ML VIAL SQ SCH (09:00)
[2023-05-01] MEDS ORDERED: FAMOTIDINE 20 MG/2 ML VIAL IV SCH ×2 (09:00)
--- NOTE | 2023-05-01 11:40 | EKG ---
Test Date: 2023-04-30 Test Time: 19:51:35 Reworker: RV MEASUREMENT RESULTS: Intervals: Rate: 90 WV: 180 QRSD: 96 QT: 522 QTc: 638 Perry: P: -55 WV: 180 QRS: 85 T: 161 INTERPRETIVE STATEMENTS: Sinus rhythm Low voltage QRS Possible Lateral infarct, age undetermined ST & T wave abnormality, consider inferior ischemia Prolonged QT Abnormal ECG Compared to ECG 03/18/2023 17:22:42 Low QRS voltage now present Myocardial infarct finding now present ST (T wave) deviation now present Possible ischemia now present Prolonged QT interval now present Atrial premature complex(es) no longer present T-wave abnormality no longer present Electronically Signed On 05-01-23 11:39:28 CDT by Freddy Osborn
[2023-05-04 07:29] LABS: Protein, Total 6.5 g/dL (6.4-8.2)
== END 2023-05-01 06:40 | disposition expired | DRG 871 ==
LOC: ER 19:42 → 3RD-ICU 23:59
PROVIDERS: ADMIT Internal Medicine; ATTEND Internal Medicine
PROC: 5A1935Z Respiratory Ventilation, Less than 24 Consecutive Hours (ICD-10-PCS; principal; 2023-04-30)
PROC: 0BH17EZ Insertion of Endotracheal Airway into Trachea, Via Natural or Artificial Opening (ICD-10-PCS; 2023-04-30)
PROC: 5A1D70Z Performance of Urinary Filtration, Intermittent, Less than 6 Hours Per Day (ICD-10-PCS; 2023-05-01)
PROC: 5A12012 Performance of Cardiac Output, Single, Manual (ICD-10-PCS; 2023-05-01)
DX: A41.9 Sepsis, unspecified organism (principal); J18.9 Pneumonia, unspecified organism; N18.6 End stage renal disease; I13.2 Hypertensive heart and chronic kidney disease with heart failure and with stage 5 chronic kidney disease, or end stage renal disease; I50.42 Chronic combined systolic (congestive) and diastolic (congestive) heart failure; I46.9 Cardiac arrest, cause unspecified; R65.20 Severe sepsis without septic shock; E11.22 Type 2 diabetes mellitus with diabetic chronic kidney disease; E11.649 Type 2 diabetes mellitus with hypoglycemia without coma; D63.1 Anemia in chronic kidney disease; K21.9 Gastro-esophageal reflux disease without esophagitis; E78.2 Mixed hyperlipidemia; E66.9 Obesity, unspecified; M19.09 Primary osteoarthritis, other specified site; G47.33 Obstructive sleep apnea (adult) (pediatric); I25.10 Atherosclerotic heart disease of native coronary artery without angina pectoris; Z66 Do not resuscitate; Z99.2 Dependence on renal dialysis
CPT/HCPCS: 31500; 36415; 36600; 70450; 71045; 71250; 74176; 80048; 80076; 82550; 82805; 82947; 83605; 83690; 83735; 84484; 85025; 85610; 85730; 87040; 92950; 93005; 94002; 94003; 99291; 99292; J0612; J0696; J2543; J7030; J7050